=== PATIENT | male | born 1945 | race Caucasian/White ===

== ENCOUNTER 2016-08-14 08:51 | Day surgery (SDC) | payer MEDICARE ==
[~2016-08-14] VITALS: Ht 177.8 cm; Wt 94.4 kg
[~2016-08-14 08:51] MED LIST: ACET500C4 PO; ADVAIR INH; AMLO10TA2 PO; ASPI-875 PO; ASPI-992 PO; ATOR10TA PO; BISA5TAB8 PO; BSC10SU PR; BUDE10.2 IH; CALC-694 PO; CALCIUM PO; CHOL100011 PO; CHOL10003 PO; CHOL20002 PO; CLC500CT PO; CLOP75TA69 PO; CNC1KV IJ; CORTAID TOP; DEXTROSE 50%; DILT240C96 PO; DOCU-143 PO; DOCU50LI GT; DPAS20025 PO; FIBER CAPSULE PO; FISH1CAP15 PO; FLUT1DIS26 IH; HALFPRIN PO; HEPARIN 5000 UNIT/ML SC; HYDR-34 PO; HYDR118S10 PO; INSU100V3 SQ; IPRA3AMP IH; IPRA3AMP INH; LANS15CA5 PO; LATA2.5D5 OU; LEVO137T17 PO; LEVO500T69 PO; LEVO750T39 PO; LIDO15SO2 MM; LISI40TA PO; LOVA40TA2 PO; MAGIC MOUTHWASH PO; MELA1TAB11 PO; METF1000 PO; MTF500T PO; MULT-517 PO; NF-TYLARTH PO; NYST1000 PO; OMEP20CA12 PO; ONDN4T PO; PNT40TEC PO; PRED10TA PO; PRED10TA22 PO; RECLAST IV; SILV25CR TP; TRAM50TA2 PO; walker
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
[2016-08-14] MEDS ORDERED: NS IV 1000 ML 1,000 ML ONE ×2 (08:56→12:22)
[2016-08-14 09:10] VITALS: BP 126/91
[2016-08-14] MEDS ORDERED: NS IV 1000 ML 1,000 ML IV PRN (09:15)
[2016-08-14] MEDS ORDERED: FLUMAZENIL (ROMAZICON) 0.1 MG/ML 5 ML VIAL INJ PRN (09:45)
[2016-08-14] MEDS ORDERED: MIDAZOLAM 2 MG/2 ML (VERSED) VIAL IVP PRN (09:45)
[2016-08-14] MEDS ORDERED: fentaNYL INJECTION 100 MCG/2 ML AMP IVP PRN (09:45)
[2016-08-14] MEDS ORDERED: LIDOCAINE JELLY 2% (XYLOCAINE) 5 ML TUBE MM PRN (09:45)
[2016-08-14] MEDS ORDERED: NALOXONE 0.4 MG/ML 1 ML (NARCAN) VIAL IVP PRN (09:45)
--- NOTE | 2016-08-14 11:11 | Progress Note-Pre Operative ---
Pre-Operative Progress Note H&P Reviewed The H&P was reviewed, patient examined and no changes noted. Date H&P Reviewed: Aug 14, 2016 Time H&P Reviewed: 11:11 Pre-Operative Diagnosis: occult positive stools, history of colon polyps RALPH JASMINE DO Aug 14, 2016 11:11 am
[2016-08-14] MEDS ORDERED: MIDAZOLAM 2 MG/2 ML (VERSED) VIAL ONE (12:39)
[2016-08-14] MEDS ORDERED: PROPOFOL INJECTION 50 ML IV ONE (12:39)
[2016-08-14] MEDS ORDERED: proPOfol 200 MG/20 ML (DIPRIVAN) VIAL IV ONE (13:27)
--- NOTE | 2016-08-14 14:18 | Progress Note-Post Operative ---
Post-Operative Progess Note Pre-Operative Diagnosis occult positive stools, history of colon polyps Post-Operative Diagnosis incomplete colonoscopy Post-Op Procedure Note Date of Procedure: Aug 14, 2016 Name of Procedure: incomplete colonoscopy Procedure Note/Findings see note Anesthesia Type per assembly department supervisor Estimated blood loss (mL): minimal Specimen(s) collected none RALPH JASMINE DO Aug 14, 2016 2:18 pm
--- NOTE | 2016-08-14 14:39 | OPERATIVE REPORT ---
PROCEDURE PHYSICIAN: RALPH JASMINE DATE OF PROCEDURE: 08/14/2016 PREOPERATIVE DIAGNOSIS: 1. Occult positive stool. 2. History of polyps. POSTOPERATIVE DIAGNOSIS: Incomplete colonoscopy. PROCEDURE: Incomplete colonoscopy. SURGEON: Chantelle. ANESTHESIA: Per SUPERINTENDENT STEVEDORING. ESTIMATED BLOOD LOSS: None. COMPLICATIONS: None. INDICATIONS: The patient is a 71-year-old male with occult positive stools. He has a questionable history of history of colon polyps. He was explained risk and benefits of the procedure and wishes to proceed with procedure. Consent was signed on the chart. PROCEDURE: The patient was taken to the endoscopy suite, placed in left lower recumbent position. Timeout was performed. Digital rectal exam was performed. There were no palpable polyps, masses, ulcerations. The scope was inserted in the rectum and advanced all the way to the hepatic flexure. There was still a significant amount of soft and liquid stool present within the colon. Copious amounts of irrigation were used to irrigate and suction. The scope was not able to be further past the hepatic flexure. The patient was repositioned multiple times in order to try to advance the scope and had the scope withdrawn a portion and advanced several times without ever being able to get past the hepatic flexure. It was decided to discontinue the colonoscopy at that time. The scope was then slowly retracted continuously trying to avoid soft and liquid stool. This was continued be suctioned and irrigated. There were no polyps, masses or ulcerations visualized on the mucosal surface that was able to be visualized. The scope was then slowly retracted until completely removed noting no further pathology. RECOMMENDATIONS: The patient will go for CT of the abdomen and pelvis with rectal contrast to further evaluate the colon. After this is performed, would reevaluate colon and repeat colonoscopy in 5 years. If he has any problems prior to that, he should be reevaluated at that time. Further recommendations pending. CT abdomen and pelvis with rectal contrast. Job ID: [id number] Dictated Date: 08/14/2016 14:22:21 Editor In Chief Newspaper Date: 08/14/2016 14:30:01 / olga
[2016-08-14 14:40] VITALS: BP 103/86
[2016-08-14] MEDS ORDERED: SUCR1TAB36 PO (14:55)
[2016-08-14] MEDS ORDERED: PANT40TA2 PO (14:55)
[2016-08-14 15:20] VITALS: BP 126/77
--- NOTE | 2016-08-14 15:26 | Discharge Inst-Simple/Standard ---
Discharge Inst-Standard Patient Instructions/Follow Up Plan of Care/Instructions/FU: Follow up with Dr. Lockhart in 2-3 weeks Activity as Tolerated: Yes Discharge Diet: No Restrictions JANESSA GAYLE APRN Aug 14, 2016 15:26
[2016-08-14 15:30] VITALS: BP 126/77
--- NOTE | 2016-08-14 15:39 | Diagnostic Imaging Report ---
PROCEDURE: CT abdomen and pelvis without contrast. TECHNIQUE: Multiple contiguous axial images were obtained through the abdomen and pelvis without the use of intravenous contrast. INDICATION: Incomplete colonoscopy. History of constipation. Occult positive stool. COMPARISON: 02/12/2014. FINDINGS: Included portions of the lung bases show areas of air-trapping consistent with background of COPD. There are subtle micronodular densities within the posterior left lower lobe. The appearance is suggestive of tree-in-bud distribution. CT abdomen: Rectal contrast was administered. There is opacification of the colon to the cecum. Intraluminal filling defects are seen within the cecum with supine positioning. This is however felt to be on the basis of intraluminal stool content. There is otherwise no focal high-grade stricture of the colon. There is no extravasation of contrast to suggest leak. Please note, small polyps or small sessile masses may be inconspicuous with routine CT technique. There is moderate hiatal hernia. Small bowel loops are nondistended. Normal appendix cannot be adequately identified, but there is no pericecal inflammation. Multiple nonobstructive renal calculi are noted, bilaterally. There is also probable hypodense cyst on the right. No ureteral calculi are seen on either side. Additionally, there is no hydroureteronephrosis or other evidence of obstruction. The liver, spleen, pancreas, and adrenal glands have an unremarkable noncontrast CT appearance. There is no loculated fluid collection, free fluid, or free air within the abdomen. No abnormal mesenteric or retroperitoneal adenopathy is seen. There is diffuse calcified aortic and arterial atherosclerosis. Bony structures show no acute abnormalities. CT pelvis: Urinary bladder is unopacified. No calculi are seen within the urinary bladder. There is no loculated fluid collection, free fluid, or free air within the pelvis. No abnormal lymph nodes are seen. Bony structures show no acute abnormalities. IMPRESSION: 1. Filling defects within the cecum. Given their differences in positioning between supine and prone positioning, this is felt to most likely represent intraluminal stool. There is otherwise no focal stricture, obstruction, or evidence of leak. Please note, small polyps or sessile masses may be inconspicuous with CT imaging. 2. Moderate hiatal hernia. 3. Multiple nonobstructive bilateral renal calculi. 4. Diffuse calcified aortic and arterial atherosclerosis. Dictated by: Dictated on workstation # [id number]
== END 2016-08-14 15:30 | disposition home or self-care (01) ==
LOC: SDC 08:51
PROVIDERS: ATTEND Surgery
DX: R19.5 Other fecal abnormalities (principal); K59.00 Constipation, unspecified; Z86.010 Personal history of colon polyps
CPT/HCPCS: 74176

== ENCOUNTER → 2016-09-19 | Outpatient (CLI) | payer MEDICARE ==
[~2016-09-19] MED LIST changes: +CATHETER FLUSH 10 ML SYR IV PRN; +LANS15CA21 PO; +OMEG-109 PO; +PANT40TA2 PO; +REGADENOSON 0.4 MG/5 ML SYR (LEXISCAN) IV ONE; +SUCR1TAB36 PO
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
[2016-09-19 09:56] VITALS: BP 102/66
--- NOTE | 2016-09-20 08:45 | STRESS TEST ---
PROCEDURE PHYSICIAN: JULIANA MILLER DATE OF PROCEDURE: 09/19/2016 LEXISCAN MYOVIEW STRESS TEST REPORT: REFERRING PHYSICIAN: Dr. De León. INDICATION: Coronary artery disease. BASELINE HEART RATE: 65 BASELINE BLOOD PRESSURE: 129/60 BASELINE EKG: Sinus rhythm with no ischemic changes. IN SUMMARY: The patient was injected with 10.36 mCi of technetium 99 Myoview and the resting images were obtained. Then the patient received 0.4 mg of Lexiscan followed by 28.7 mCi of technetium 99 Myoview. Throughout the test, there were minimal nondiagnostic EKG changes. The resting and stress images were reviewed and compared in the short axis, horizontal long axis, and vertical long axis views. Review of the images showed good radiotracer uptake with no significant ischemia or infarction on SPECT images. SSS is 2, SDS 1, TID value 1.21. On the gated images, the left ventricle appeared to be normal size with normal contractility. Calculated ejection fraction 57%. IN CONCLUSION: 1. The patient tolerated Lexiscan well. 2. TID value is in the upper limits of 1.21. 3. Normal left ventricular size with normal contractility. Calculated ejection fraction 57%. Job ID: [id number] Dictated Date: 09/19/2016 16:02:57 Instrument Person Date: 09/20/2016 08:42:56 / dwain
== END ==
LOC: CARD 08:13
PROVIDERS: ATTEND Physician Assistant
DX: I25.10 Atherosclerotic heart disease of native coronary artery without angina pectoris (principal); I65.23 Occlusion and stenosis of bilateral carotid arteries; G47.33 Obstructive sleep apnea (adult) (pediatric); G45.9 Transient cerebral ischemic attack, unspecified
CPT/HCPCS: 78452; 93017

== ENCOUNTER 2016-10-03 08:48 | Day surgery (SDC) | payer MEDICARE ==
[~2016-10-03] VITALS: Ht 180.3 cm; Wt 93.9 kg
[2016-10-03] VITALS (10 sets, daily range): BP systolic 111–151; BP diastolic 74–92
[~2016-10-03 08:48] MED LIST changes: -CATHETER FLUSH 10 ML SYR IV PRN; -LANS15CA21 PO; -OMEG-109 PO; -REGADENOSON 0.4 MG/5 ML SYR (LEXISCAN) IV ONE
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
[2016-10-03] MEDS ORDERED: HEParin (CATH LAB) 2,000 ML IV ONE (09:00)
[2016-10-03] MEDS ORDERED: LIDOCAINE 1% INJ 20 ML (XYLOCAINE) VIAL ONE (09:00)
[2016-10-03] MEDS ORDERED: NS IV 1000 ML 1,000 ML ONE (09:00)
[2016-10-03] MEDS ORDERED: NS IV 1000 ML 1,000 ML IV SCH ×2 (09:15→11:10)
[2016-10-03 09:32] LABS: MEAN PLATELET VOLUME 8.9 FL (7.4-10.4); RED BLOOD COUNT 4.06 10^6/uL (4.35-5.85); RED CELL DISTRIBUTION WIDTH 14.9 % (10.0-14.5); WHITE BLOOD COUNT 6.8 10^3/uL (4.3-11.0)
[2016-10-03 09:35] LABS: BILIRUBIN,URINE NEGATIVE (NEGATIVE); KETONES,URINE NEGATIVE (NEGATIVE); LEUKOCYTE ESTERASE ,URINE NEGATIVE (NEGATIVE); NITRITE,URINE NEGATIVE (NEGATIVE); PH,URINE 5 (5-9); PROTEIN,URINE NEGATIVE (NEGATIVE); UROBILINOGEN,URINE NORMAL (NORMAL)
--- NOTE | 2016-10-03 09:41 | Diagnostic Imaging Report ---
INDICATION: Coronary artery disease. Frontal chest obtained at 9:29 a.m. and compared to 08/08/15. FINDINGS: Heart is borderline enlarged. Mediastinal silhouette is unremarkable. There are mild chronic appearing increased basilar markings. There is resolution of previous bibasilar infiltrate seen on 08/08/15. There is no pneumothorax or pleural fluid. IMPRESSION: Mild cardiomegaly with chronic appearing increased interstitial markings. Resolution of bibasilar infiltrates compared with 08/08/15. Dictated by: Dictated on workstation # [id number]
[2016-10-03 09:45] LABS: INR 1.1 (0.8-1.4); PROTHROMBIN TIME PATIENT 14.1 SEC (12.2-14.7)
[2016-10-03 09:55] LABS: ALBUMIN 4.1 G/DL (3.2-4.5); BILIRUBIN,TOTAL 0.4 MG/DL (0.1-1.0); CALCIUM 9.6 MG/DL (8.5-10.1); CREATININE SERUM 1.32 MG/DL (0.60-1.30); POTASSIUM 4.1 MMOL/L (3.6-5.0); TOTAL PROTEIN 6.8 G/DL (6.4-8.2)
[2016-10-03] MEDS ORDERED: LANS15CA21 PO (10:10)
[2016-10-03] MEDS ORDERED: OMEG-109 PO (10:10)
[2016-10-03] MEDS ORDERED: fentaNYL INJECTION 100 MCG/2 ML AMP ONE (10:23)
[2016-10-03] MEDS ORDERED: MIDAZOLAM 5 MG/5 ML (VERSED) VIAL ONE (10:23)
--- NOTE | 2016-10-03 10:40 | Cardiac Procedure Note-CS/ASA ---
Pre-Procedure Note Pre-Op Procedure Note H&P Reviewed The H&P was reviewed, patient examined and no changes noted. Date H&P Reviewed: Oct 03, 2016 Time H&P Reviewed: 10:40 Conscious Sedation Pre-Proced Time Reviewed: 10:40 ASA Class: 3 Airway Mallampati Classification: (wainwright appropriate class) I. II. III, IV Lungs Heart ASA score ASA 1: a normal healthy patient ASA 2: a patient with a mild systemic disease (mid diabetes, controlled hypertension, obesity x ASA 3: a patient with a severe systemic disease that limits activity (angina , COPD, prior Myocardial infarction) ASA 4: a patient with an incapacitating disease that is a constant threat to life (CHF, renal failure) ASA 5: a moribund patient not expected to survive 24 hrs. (ruptured aneurysm) ASA 6: a declared brain patient whose organs are being harvested. For emergent operations, add the letter E after the classification Grade 3 Sedation Plan: Analgesia, Amnesia, Plan communicated to team members, Discussed options with patient/fam, Discussed risks with patient/fam Note The patient is an appropriate candidate to undergo the planned procedure, sedation, and anesthesia. The patient immediately re-assessed prior to indication. JULIANA MILLER MD Oct 03, 2016 10:40
--- NOTE | 2016-10-03 11:13 | Discharge Inst-Post CATH ---
Discharge Inst-CATH Post Cardiac Cath D/C Inst Follow Up/Plan Appointment with Dr Baig's office in 2-4 weeks CARDIAC CATH DISCHARGE INSTRUCTIONS *Hold Metformin for 48 hours post heart cath. ACTIVITY * Go Home directly and rest. * Limit activity of the leg (or wrist if it was used) for 7 days including aerobics, swimming, jogging, bicycling, etc. * Restrict stair-climbing for 7 days if possible, if not, climb up with your non -cath leg, then bring together on the same step. * Avoid lifting, pushing, pulling or excessive movement of the affected extremity for 7 days. * Customary sexual activity may be resumed after 2 days-use caution not to use a position that strains or causes pain to the affected extremity. * No driving for 24 hours. * NO SMOKING. * Avoid straining for bowel movements for 7 days. * Gentle walking on level ground is allowed. * Returning to work will depend on the type of procedure and the results. Your doctor will discuss this with you. CALL YOUR DOCTOR FOR ANY OF THE FOLLOWING: *If bleeding from the puncture site occurs- Apply gentle pressure to site with clean cloth and call your doctor or EMS. * If a knot or lump forms under the skin, increases in size, or causes pain. * If bruising appears to be worsening or moving further down your leg instead of disappearing. * Temperature above 101 F. CARE OF YOUR GROIN INCISION; * Bruising or purple discoloration of the skin near the puncture site is common. * You may shower only, no bathtub bathing for 5 days. Be careful to avoid slipping as your leg may feel stiff. * If a closure device was used on your femoral artery, please see the attached guide regarding care of the device and your leg. * REMOVE the dressing from your groin the next day after your procedure in the shower. CARE OF YOUR WRIST INCISION; * Bruising or purple discoloration of the skin near the puncture site is common. * You may shower. * DO NOT submerge wrist. * Remove dressing in 24 hours. JULIANA BAIG MD Oct 03, 2016 11:13
[2016-10-03] MEDS ORDERED: PATIENT MAY USE OWN MEDS, ALL PO SCH (11:15)
--- NOTE | 2016-10-04 11:32 | DISCHARGE SUMMARY ---
PROCEDURE PHYSICIAN: JULIANA MILLER DATE OF PROCEDURE: 10/03/2016 INDICATION: Coronary artery disease. SUMMARY: Mr. Licea is a 71-year-old gentleman with a history of coronary artery disease. He had a history of stent in the past. He had an abnormal stress test, scheduled for left heart catheterization, possible PTCA. PROCEDURE NOTE: After explaining the procedure to the patient, all pros and cons were explained. All questions were answered. The patient signed a consent, then he was placed on the cardiac catheterization laboratory. The right groin was prepped in a sterile fashion. Local anesthesia applied to the right groin. 6-Polish sheath was placed in the right femoral artery. Rajiv left 4.0 was used; I had to upgrade it to 4.5 diagnostic catheter, advanced to the left coronary system. Angiogram was done in multiple views then Rajiv right was placed in the right coronary artery. Multiple views were obtained. Pigtail catheter advanced to the left ventricular cavity. Pressure was measured. No left ventriculogram was done. Pullback LV to aorta was done. The aortic arch angiogram was done. At the end of the procedure, sheath was removed. Mynx device deployed. Hemostasis achieved. FINDINGS: HEMODYNAMICS: LV pressure 127/11, end-diastolic pressure of 11, aortic pressure 130/73, mean of 94. No significant gradient across the aortic valve. ANATOMY: 1. Left main coronary artery is bifurcating to left anterior descending artery and left circumflex artery. Mildly calcified with no obstructive disease. 2. Left anterior descending artery, calcified artery with 50 to 60% stenosis proximally. First diagonal branch has patent stent, small vessel disease distally. 3. Left circumflex artery is moderate in size with no significant obstructive disease. 4. Right coronary artery is dominant artery, moderate in size 50% stenosis at the midportion distally. The right posterior descending artery has 70% stenosis in a smaller artery about 1.5 mm in diameter. 5. No left ventriculogram was done. Normal left ventricular end diastolic pressure. 6. Aortic arch angiogram appears to be prominent in size. Origin of the innominate artery, carotid artery and subclavian artery appeared normal. CONCLUSION: 1. Calcified coronary system with 50 to 60% proximal LAD stenosis, nonobstructive disease patent stent in the first diagonal branch. 50 to 60% stenosis at the mid right coronary artery and 70% stenosis at the mid right posterior descending branch. That branch is a fairly small about 1.5 mm. 2. Normal left ventricular end diastolic pressure. 3. Prominent aortic arch with normal great neck vessels. DISCUSSION AND RECOMMENDATION: I recommend evaluating CT angiogram of the chest as an outpatient, continue maximizing medical therapy. No intervention is warranted at this time. FINAL DIAGNOSIS: 1. Coronary artery disease. 2. Hypertension. 3. Hyperlipidemia. 4. Prominent aortic arch. Job ID: [id number] Dictated Date: 10/03/2016 11:18:07 Dining Car Server Date: 10/04/2016 11:29:49/olga
== END 2016-10-03 15:30 | disposition home or self-care (01) ==
LOC: CATH 08:48 → SURG 11:36 → CATH 15:30
PROVIDERS: ATTEND Internal Medicine Cardiovascular Disease
DX: R94.39 Abnormal result of other cardiovascular function study (principal); I25.10 Atherosclerotic heart disease of native coronary artery without angina pectoris; I25.84 Coronary atherosclerosis due to calcified coronary lesion; I10 Essential (primary) hypertension; E78.5 Hyperlipidemia, unspecified; I34.0 Nonrheumatic mitral (valve) insufficiency; G47.33 Obstructive sleep apnea (adult) (pediatric); I65.23 Occlusion and stenosis of bilateral carotid arteries; Z95.5 Presence of coronary angioplasty implant and graft; Z79.899 Other long term (current) drug therapy; Z72.0 Tobacco use; Z86.73 Personal history of transient ischemic attack (TIA), and cerebral infarction without residual deficits
CPT/HCPCS: 36221; 36415; 71010; 80053; 80061; 81000; 85027; 85610; 85730; 87081; 93458

== ENCOUNTER → 2017-02-27 | Outpatient (CLI) | payer MEDICARE ==
[~2017-02-27] MED LIST changes: +LANS15CA21 PO; +OMEG-109 PO; +RT-ALBUTEROL SULF 2.5 MG/3 ML PRE-MIX VIAL IH ONE; +RT-ALBUTEROL SULF 2.5 MG/3 ML PRE-MIX VIAL ONE
== END ==
LOC: RT 15:06
PROVIDERS: ATTEND Internal Medicine Critical Care Medicine
DX: R06.02 Shortness of breath (principal); Z87.891 Personal history of nicotine dependence
CPT/HCPCS: 94060; 94640; 94726; 94729

== ENCOUNTER → 2017-11-15 | Outpatient (CLI) | payer MEDICARE ==
[~2017-11-15] MED LIST changes: +ASCO500T75 PO; +CATHETER FLUSH 10 ML SYR IV PRN; +CYPR4TAB PO; +DOXE10CA29 PO; +GABA-488 PO; +IOHEXOL 350 MG/ML 100 ML (OMNIPAQUE 350) VIAL IV ONE; +LEVO137T2 PO; +NS 250 ML (IVPB) BAG IV ONE; +RANI150T11 PO; +RECEIVED CONTRAST (Hold Metformin) IV SCH; -RT-ALBUTEROL SULF 2.5 MG/3 ML PRE-MIX VIAL IH ONE; -RT-ALBUTEROL SULF 2.5 MG/3 ML PRE-MIX VIAL ONE
[2017-11-15 11:13] LABS: ALBUMIN 4.2 GM/DL (3.2-4.5); BILIRUBIN,TOTAL 0.3 MG/DL (0.1-1.0); CALCIUM 11.4 MG/DL (8.5-10.1); CREATININE SERUM 1.4 MG/DL (0.60-1.30); POTASSIUM 4.4 MMOL/L (3.6-5.0); TOTAL PROTEIN 6.9 GM/DL (6.4-8.2)
--- NOTE | 2017-11-15 16:42 | Diagnostic Imaging Report ---
PROCEDURE: CT angiography of the chest with contrast. TECHNIQUE: Multiple contiguous axial images were obtained through the chest after uneventful bolus administration of intravenous contrast. Reconstructed CTA MIP acquisitions were also performed. INDICATION: Recent fall. Headache. Nausea. Dizziness. COMPARISON: 08/12/2015 FINDINGS: There is no evidence of acute pulmonary embolus to the segmental division of the pulmonary arteries. Evaluation beyond this is suboptimal secondary to suboptimal opacification by the contrast bolus. Note is made that the bilateral pulmonary arteries are somewhat prominent in appearance suggestive of underlying pulmonary arterial hypertension. Heart size is within normal limits. Ascending thoracic aorta is aneurysmally dilated measuring 4.3 cm in diameter. This is stable compared to 08/12/2015. Descending thoracic aorta is within normal limits at 3.1 cm in diameter. There is moderate diffuse calcified and noncalcified aortic atherosclerosis. Note is also made of significant calcified coronary atherosclerosis. There is no large pericardial effusion. Prominent right hilar lymph node measures 2.8 x 1.5 cm. This is stable compared to 08/12/2015. No other pathologically enlarged or morphologically abnormal adenopathy is seen within the mediastinum, left aster, nor bilateral axillae. Note is also made of hiatal hernia with somewhat prominent thickened appearance of the wall of the distal esophagus. Esophageal wall measures approximately 1 cm in thickness. Evaluation of lung maloney demonstrates mild to moderate air trapping consistent with background of emphysematous disease. There is no focal consolidation, pleural effusion, nor pneumothorax. No suspicious pulmonary nodules or masses are identified. Osseous structures show no acute abnormalities. No lytic or blastic bony lesions are seen. Included portions of the upper abdomen show early excretion of contrast versus partially visualized renal calculi on the left. IMPRESSION: 1. No evidence of acute pulmonary embolus to the segmental division of the pulmonary arteries. 2. Findings suspicious for pulmonary arterial hypertension. 3. Stable aneurysmal dilatation of the ascending thoracic aorta. 4. Significant calcified coronary and moderate aortic atherosclerosis. 5. Thickened appearance to the wall of distal esophagus. This does raise suspicion for potential esophagitis. Esophageal neoplasm, however, could not be excluded. Not mentioned above, there is a prominent paraesophageal lymph node near the hiatus that measures 1.3 x 1.1 cm. Further evaluation with direct visualization is recommended. 6. Mild to moderate emphysematous disease. 7. Prominent, yet stable right hilar lymph node. 8. There is excretion of contrast versus partially visualized left renal calculi. Dictated by: Dictated on workstation # [id number]
== END ==
LOC: RAD 10:39
PROVIDERS: ATTEND Internal Medicine Cardiovascular Disease
DX: I71.2 Thoracic aortic aneurysm, without rupture (principal); I25.10 Atherosclerotic heart disease of native coronary artery without angina pectoris; J43.9 Emphysema, unspecified; N20.0 Calculus of kidney; R41.0 Disorientation, unspecified; I34.0 Nonrheumatic mitral (valve) insufficiency; G47.33 Obstructive sleep apnea (adult) (pediatric); W19.XXXA Unspecified fall, initial encounter; Z72.0 Tobacco use
CPT/HCPCS: 36415; 71275; 80053; 80061

== ENCOUNTER 2017-11-18 14:19 | Observation (INO) | payer MEDICARE ==
[~2017-11-18] VITALS: Ht 180.3 cm; Wt 93.9 kg
[~2017-11-18 14:19] MED LIST changes: -ASCO500T75 PO; -CATHETER FLUSH 10 ML SYR IV PRN; -CYPR4TAB PO; -DOXE10CA29 PO; -GABA-488 PO; -IOHEXOL 350 MG/ML 100 ML (OMNIPAQUE 350) VIAL IV ONE; -LEVO137T2 PO; -NS 250 ML (IVPB) BAG IV ONE; -RANI150T11 PO; -RECEIVED CONTRAST (Hold Metformin) IV SCH
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
--- OUTSIDE RECORDS SUMMARY | 2017-11-18 14:54 | XMS REPORT | Continuity of Care Document ---
Author Author [facility] Organization [facility] Address Unknown Phone Unavailable Allergies Active Description Code Type Severity Reaction Onset Reported/Identified Relationship to Patient Clinical Status Yes No Known Drug Allergies [id number] Drug Allergy Unknown N/A 08/14/2016 Medications There is no data. 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 02/13/2014 MARCY KENNY DO Ot 511.9 PLEURAL EFFUSION NOS 02/13/2014 MARCY KENNY DO Ot 518.81 ACUTE RESPIRATORY FAILURE 02/13/2014 MARCY KENNY DO Ot 584.9 ACUTE RENAL FAILURE, UNSPECIFIED 02/13/2014 MARCY KENNY DO Ot 785.50 SHOCK NOS 02/13/2014 MARCY KENNY DO Ot 785.52 SEPTIC SHOCK 02/13/2014 MARCY KENNY DO Ot 995.92 SEVERE SEPSIS 02/13/2014 MARCY KENNY DO, Ot V45.82 PERCUTANEOUS TRANSLUM CORON ANGIOPLASTY 03/10/2014 HERBERTH ARCE, TONI Lewis Ot 266.2 B-COMPLEX DEFIC NEC 03/10/2014 TONI KEVIN MD Ot 268.9 VITAMIN D DEFICIENCY NOS 03/10/2014 TONI KEVIN MD Ot 272.4 HYPERLIPIDEMIA NEC/NOS 03/10/2014 TONI KEVIN MD E Ot 274.9 GOUT NOS 03/10/2014 TONI KEVIN MD Ot 305.1 TOBACCO USE DISORDER 03/10/2014 TONI KEVIN MD Ot 401.9 HYPERTENSION NOS 03/10/2014 HERBERTH ARCE, TONI E Ot 564.00 UNSPEC CONSTIPATION 03/10/2014 TONI KEVIN MD E Ot 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 03/10/2014 TONI KEVIN MD Ot 733.00 OSTEOPOROSIS NOS 03/10/2014 TONI KEVIN MD E Ot 780.79 OTH MALAISE FATIGUE 03/10/2014 TONI KEVIN MD E Ot 790.29 OTHER ABNORMAL GLUCOSE 03/10/2014 TONI KEVIN MD Ot V57.89 REHABILITATION PROC NEC 06/23/2014 NAZ DO MARIE F Ot 726.0 06/28/2014 NAZ DO, MARIE F Ot 718.91 06/28/2014 NAZ DO MARIE F Ot 726.0 07/07/2014 NAZ SIMMONS MARIE F Ot 726.0 ADHESIVE CAPSULIT SHLDER 07/07/2014 NAZ SIMMONS MARIE F Ot V57.1 PHYSICAL THERAPY NEC 07/15/2014 NAZ SIMMONS MARIE F Ot 718.91 07/15/2014 NAZ SIMMONS MARIE F Ot 726.0 07/16/2014 MARCY KENNY DO Ot 250.00 DIAB BRENNEN WO COMPL, TYPE II OR UNSPEC TY 07/16/2014 MARCY KENNY DO Ot 266.2 B-COMPLEX DEFIC NEC 07/16/2014 MARCY KENNY DO Ot 268.9 VITAMIN D DEFICIENCY NOS 07/16/2014 MARCY KENNY DO Ot 272.4 HYPERLIPIDEMIA NEC/NOS 07/16/2014 MARCY KENNY DO Ot 403.90 HYPTNSV CHR KID DIS, UNSPEC, W CHR KD ST 07/16/2014 MARCY KENNY DO Ot 414.01 CORONARY ATHEROSCLEROSIS OF [place] CORON 07/16/2014 MARCY KENNY DO Ot 435.9 TRANS CEREB ISCHEMIA NOS 07/16/2014 MARCY KENNY DO Ot 496 CHR AIRWAY OBSTRUCT NEC 07/16/2014 MARCY KENNY DO Ot 585.2 CHRONIC KIDNEY DISEASE, STAGE II (MILD) 07/16/2014 MARCY KENNY DO Ot 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 07/16/2014 MARCY KENNY DO Ot 799.02 HYPOXEMIA 07/16/2014 MARCY KENNY DO Ot V45.82 PERCUTANEOUS TRANSLUM CORON ANGIOPLASTY 07/27/2014 NAZ SIMMONS MARIE Cao Ot 718.91 07/27/2014 NAZ SIMMONS MARIE Cao Ot 726.0 08/25/2014 Ot 733.00 08/25/2014 Ot 733.00 08/25/2014 Ot 733.00 08/25/2014 MARCY KENNY DO Ot 733.00 08/25/2014 AGUSTIN ROJO DO Ot 492.8 08/25/2014 AGUSTIN ROJO DO Ot 511.9 08/25/2014 AGUSTIN ROJO DO Ot 586 08/25/2014 NAZ SIMMONS MARIE Cao Ot 726.0 08/25/2014 NAZ SIMMONS MARIE Cao Ot 718.91 08/25/2014 NAZ SIMMONS MARIE Coa Ot 726.0 08/25/2014 NAZ MARIE Cao Ot 840.4 08/25/2014 NAZ MARIE Cao Ot E000.8 08/25/2014 NAZ MARIE Cao Ot E928.9 08/25/2014 NAZ SIMMONS MARIE Cao Ot V72.84 08/31/2014 NAZ MARIE SIMMONS Ot 840.4 SPRAIN ROTATOR CUFF 08/31/2014 NAZ SIMMONS MARIE Cao Ot E000.8 OTHER EXTERNAL CAUSE STATUS 08/31/2014 NAZ SIMMONS MARIE Cao Ot E928.9 ACCIDENT NOS 08/31/2014 NAZ SIMMONS MARIE Cao Ot V58.61 ANTICOAGULANTS,LT,CURRENT USE 08/31/2014 NAZ MARIE Cao Ot V64.1 NO PROC/CONTRAINDICATION 09/28/2014 NAZ SIMMONS MARIE Cao Ot 715.31 LOC OSTEOARTH NOS-SHLDER 09/28/2014 NAZ SIMMONS MARIE Cao Ot 727.61 ROTATOR CUFF RUPTURE 09/28/2014 NAZ SIMMONS MARIE Cao Ot 840.7 (SLAP) SUPERIOR GLENOID LABRUM LESIONS 10/06/2014 JULIANA MILLER MD Ot 414.01 10/06/2014 JULIANA MILLER MD Ot 786.09 10/07/2014 Ot 733.00 10/07/2014 Ot 733.00 10/07/2014 Ot 733.00 10/07/2014 MARCY KENNY DO Ot 733.00 10/07/2014 AGUSTIN ROJO DO Ot 492.8 10/07/2014 ALIA AGUSTIN SIMMONS Ot 511.9 10/07/2014 ALIA SIMMONS AGUSTIN M Ot 586 10/07/2014 NAZ DO, MARIE Cao Ot 726.0 10/07/2014 NAZ DO, MARIE F Ot 718.91 10/07/2014 NAZ DO, MARIE F Ot 726.0 10/07/2014 NAZ DO, MARIE F Ot 840.4 10/07/2014 NAZ DO, MARIE Cao Ot E000.8 10/07/2014 NAZ DO MARIE Cao Ot E928.9 10/07/2014 NAZ DO MARIE Cao Ot V72.84 10/07/2014 NAZ DO MARIE Cao Ot 727.61 10/07/2014 NAZ DO MARIE Cao Ot V72.84 10/07/2014 JULIANA MILLER MD Ot 414.00 10/07/2014 ANGELA ARCE, JULIANA Goncalves Ot 424.0 10/07/2014 JULIANA MILLER MD Ot 433.10 10/07/2014 JULIANA MILLER MD Ot 786.09 10/07/2014 JULIANA MILLER MD Ot 414.01 10/07/2014 JULIANA MILLER MD Ot 786.09 10/07/2014 NAZ DO MARIE Cao Ot 840.4 10/07/2014 NAZ DO MARIE Cao Ot E000.8 10/07/2014 NAZ DO MARIE Cao Ot E928.9 10/07/2014 NAZ DO, MARIE F Ot V72.84 10/07/2014 JULIANA MILLER MD Ot 414.01 10/07/2014 JULIANA MILLER MD Ot 786.09 11/09/2014 NAZ DO MARIE Cao Ot 719.41 JOINT PAIN-SHLDER 11/09/2014 NAZ DO MARIE F Ot V57.1 PHYSICAL THERAPY NEC 11/09/2014 NAZ DO MARIE F Ot V58.49 OTHER SPECIFIED AFTERCARE FOLLOWING SURG 11/30/2014 NAZ DO, MARIE Cao Ot 840.4 11/30/2014 NAZ DO, MARIE Cao Ot E000.8 11/30/2014 NAZ DO, MARIE Cao Ot E928.9 11/30/2014 NAZ DO, MARIE Cao Ot V72.84 12/01/2014 NAZ DO, MARIE Cao Ot 840.4 12/01/2014 NAZ DO, MARIE Cao Ot E000.8 12/01/2014 NAZ DO, MARIE Cao Ot E928.9 12/01/2014 NAZ DO, MARIE Cao Ot V72.84 12/01/2014 NAZ DO, MARIE Cao Ot 727.61 12/01/2014 NAZ DO, MARIE Cao Ot V72.84 12/01/2014 NAZ DO, MARIE Cao Ot 727.61 12/01/2014 NAZ DO, MARIE Cao Ot V72.84 12/06/2014 Ot 733.00 12/06/2014 Ot 733.00 02/16/2015 NAZ DO, MARIE Cao Ot 722.4 02/17/2015 NAZ DO, MARIE Cao Ot 722.4 04/01/2015 ASH ALARCON MD Ot 721.0 04/01/2015 ASH ALARCON MD Ot V57.1 04/05/2015 ASH ALARCON MD Ot 721.0 04/05/2015 ASH ALARCON MD Ot V57.1 04/19/2015 ASH ALARCON MD Ot 721.0 CERVICAL SPONDYLOSIS 04/19/2015 ASH ALARCON MD Ot V57.1 PHYSICAL THERAPY NEC 08/10/2015 MARCY KENNY DO Ot A41.9 08/10/2015 KENNYMARCY GARCIA DO Ot E53.8 08/10/2015 KENNYMARCY GARCIA DO Ot E55.9 08/10/2015 KENNYMARCY GARCIA DO Ot E78.5 08/10/2015 MARCY KENNY DO Ot F17.200 08/10/2015 MARCY KENNY DO Ot I12.9 08/10/2015 KENNYMARCY GARCIA DO Ot J15.1 08/10/2015 KENNYMARCY GARCIA DO Ot J15.4 08/10/2015 MARCY KENNY DO Ot J44.0 08/10/2015 KENNY DO, MARCY Goncalves Ot J44.1 08/10/2015 KENNY DO, MARCY Goncalves Ot M51.14 08/10/2015 EKNNY DO, MARCY Goncalves Ot N18.2 08/10/2015 KENNY DO, MARCY Goncalves Ot R90.82 08/10/2015 KENNY DO, MARCY Goncalves Ot Z66 08/11/2015 KENNY DO, MARCY Goncalves Ot A41.9 08/11/2015 KENNY DO, MARCY Goncalves Ot E53.8 08/11/2015 KENNY DO, MARCY Goncalves Ot E55.9 08/11/2015 KENNY DO, MARCY Goncalves Ot E78.5 08/11/2015 KENNY DO, MARCY Goncalves Ot F17.200 08/11/2015 KENNY DO, MARCY Goncalves Ot I12.9 08/11/2015 KENNY DO, MARCY Goncalves Ot J15.1 08/11/2015 KENNY DO, MARCY Goncalves Ot J15.4 08/11/2015 KENNY DO, MARCY Goncalves Ot J44.0 08/11/2015 KENNY DO, MARCY Goncalves Ot J44.1 08/11/2015 KENNY DO, MARCY Goncalves Ot M51.14 08/11/2015 KENNY DO, MARCY Goncalves Ot N18.2 08/11/2015 KENNY DO, MARCY Goncalves Ot R90.82 08/11/2015 KENNY DO, MARCY Goncalves Ot Z66 08/12/2015 KENNY DO, MARCY Goncalves Ot A41.9 08/12/2015 KENNY DO, MARCY Goncalves Ot E53.8 08/12/2015 KENNY DO, MARCY Goncalves Ot E55.9 08/12/2015 KENNY DO, MARCY Goncalves Ot E78.5 08/12/2015 KENNY DO, MARCY Goncalves Ot F17.200 08/12/2015 KENNY DO, MARCY Goncalves Ot I12.9 08/12/2015 KENNY DO, MARCY Goncalves Ot J15.1 08/12/2015 KENNY DO MARCY Goncalves Ot J15.4 08/12/2015 KENNY DO, MARCY Goncalves Ot J44.0 08/12/2015 KENNY DO, MARCY Goncalves Ot J44.1 08/12/2015 KENNY DO, MARCY Goncalves Ot M51.14 08/12/2015 KENNY DO, MARCY Goncalves Ot N18.2 08/12/2015 KENNY DO, MARCY Goncalves Ot R90.82 08/12/2015 KENNY DO, MARCY Goncalves Ot Z66 08/12/2015 KENNY DO, MARCY Goncalves Ot A41.9 08/12/2015 KENNY DO, MARCY Goncalves Ot E53.8 08/12/2015 KENNY DO, MARCY Goncalves Ot E55.9 08/12/2015 KENNY DO, MARCY Goncalves Ot E78.5 08/12/2015 KENNY DO, MARCY Goncalves Ot F17.200 08/12/2015 KENNY DO, MARCY Goncalves Ot I12.9 08/12/2015 KENNY DO, MARCY Goncalves Ot J15.1 08/12/2015 KENNY DO, MARCY Goncalves Ot J15.4 08/12/2015 KENNY DO, MARCY Goncalves Ot J44.0 08/12/2015 KENNY DO, MARCY Goncalves Ot J44.1 08/12/2015 KENNY DO, MARCY Goncalves Ot M51.14 08/12/2015 KENNY DO, MARCY Goncalves Ot N18.2 08/12/2015 KENNY DO, AMRCY Goncalves Ot R90.82 08/12/2015 KENNY DO, MARCY Goncalves Ot Z66 08/13/2015 KENNY DO, MARCY Goncalves Ot A41.9 08/13/2015 KENNY DO, MARCY Goncalves Ot E53.8 08/13/2015 KENNY DO, MARCY Goncalves Ot E55.9 08/13/2015 KENNY DO, MARCY Goncalves Ot E78.5 08/13/2015 KENNY DO, MARCY Goncalves Ot F17.200 08/13/2015 KENNY DO, MARCY Goncalves Ot I12.9 08/13/2015 KENNY DO, MARCY Goncalves Ot J15.1 08/13/2015 KENNY DO, MARCY Goncalves Ot J15.4 08/13/2015 KENNY DO, MARCY Goncalves Ot J44.0 08/13/2015 KENNY DO, MARCY Goncalves Ot J44.1 08/13/2015 KENNY DO, MARCY Goncalves Ot M51.14 08/13/2015 KENNY DO, MARCY Goncalves Ot N18.2 08/13/2015 KENNY DO, MARCY Goncalves Ot R90.82 08/13/2015 KENNY DO, MARCY Goncalves Ot Z66 08/14/2015 KENNY DO, MARCY Goncalves Ot A41.9 08/14/2015 KENNY DO, MARCY Goncalves Ot E53.8 08/14/2015 KENNY DO, MARCY Goncalves Ot E55.9 08/14/2015 KENNY DO, MARCY Goncalves Ot E78.5 08/14/2015 KENNY DO, MARCY Goncalves Ot F17.200 08/14/2015 KENNY DO, MARCY Goncalves Ot I12.9 08/14/2015 KENNY DO, MARCY Goncalves Ot J15.1 08/14/2015 KENNY DO, MARCY Goncalves Ot J15.4 08/14/2015 KENNY DO, MARCY Goncalves Ot J44.0 08/14/2015 KENNY DO, MARCY Goncalves Ot J44.1 08/14/2015 KENNY DO, MARCY Goncalves Ot M51.14 08/14/2015 KENNY DO, MARCY Goncalves Ot N18.2 08/14/2015 KENNY DO, MARCY Goncalves Ot R90.82 08/14/2015 KENNY DO, MARCY Goncalves Ot Z66 08/14/2015 KENNY DO, MARCY Goncalves Ot A41.9 08/14/2015 KENNY DO, MARCY Goncalves Ot E53.8 08/14/2015 KENNY DO, MARCY Goncalves Ot E55.9 08/14/2015 KENNY DO, MARCY Goncalves Ot E78.5 08/14/2015 KENNY DO, MARCY Goncalves Ot F17.200 08/14/2015 KENNY DO, MARCY Goncalves Ot I12.9 08/14/2015 KENNY DO, MARCY Goncalves Ot J15.1 08/14/2015 KENNY DO, MARCY Goncalves Ot J15.4 08/14/2015 KENNY DO, MARCY Goncalves Ot J44.0 08/14/2015 KENNY DO, MARCY Goncalves Ot J44.1 08/14/2015 KENNY DO, MARCY Goncalves Ot M51.14 08/14/2015 KENNY DO, MARCY Goncalves Ot N18.2 08/14/2015 KENNY DO, MARCY Goncalves Ot R90.82 08/14/2015 KENNY DO, MARCY Goncalves Ot Z66 08/15/2015 KENNY DO, MARCY Goncalves Ot A41.9 08/15/2015 KENNY DO, MARCY Goncalves Ot E53.8 08/15/2015 KENNY DO, MARCY Goncalves Ot E55.9 08/15/2015 KENNY DO, MARCY Goncalves Ot E78.5 08/15/2015 KENNY DO, MARCY Goncalves Ot F17.200 08/15/2015 KENNY DO, MARCY Goncalves Ot I12.9 08/15/2015 KENNY DO, MARCY Goncalves Ot J15.1 08/15/2015 KENNY DO, MARCY Goncalves Ot J15.4 08/15/2015 KENNY DO, MARCY Goncalves Ot J44.0 08/15/2015 KENNY DO, MARCY Goncalves Ot J44.1 08/15/2015 KENNY DO, MARCY Goncalves Ot M51.14 08/15/2015 KENNY DO, MARCY Goncalves Ot N18.2 08/15/2015 KENNY DO, MARCY Goncalves Ot R90.82 08/15/2015 KENNY DO, MARCY Goncalves Ot Z66 08/16/2015 KENNY DO, MARCY Goncalves Ot A41.9 08/16/2015 KENNY DO, MARCY Goncalves Ot E53.8 08/16/2015 KENNY DO, MARCY Goncalves Ot E55.9 08/16/2015 KENNY DO, MARCY Goncalves Ot E78.5 08/16/2015 KENNY DO, MARCY Goncalves Ot F17.200 08/16/2015 KENNY DO, MARCY Goncalves Ot I12.9 08/16/2015 KENNY DO, MARCY Goncalves Ot J15.1 08/16/2015 KENNY DO, MARCY Goncalves Ot J15.4 08/16/2015 KENNY DO, MARCY Goncalves Ot J44.0 08/16/2015 KENNY DO, MARCY Goncalves Ot J44.1 08/16/2015 KENNY DO, MARCY Goncalves Ot M51.14 08/16/2015 KENNY DO, MARCY Goncalves Ot N18.2 08/16/2015 KENNY DO, MARCY Goncalves Ot R90.82 08/16/2015 KENNY DO, MARCY Goncalves Ot Z66 08/16/2015 KENNY DO, MARCY Goncalves Ot A41.9 SEPSIS, UNSPECIFIED ORGANISM 08/16/2015 MARCY KENNY DO, Ot 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 NURSE INFORMATICS EDUCATOR 08/16/2015 MARCY KENNY DO, Ot E53.8 DEFICIENCY OF OTHER SPECIFIED B GROUP 08/16/2015 MARCY KENNY DO, Ot E55.9 VITAMIN D DEFICIENCY, UNSPECIFIED 08/16/2015 MARCY KENNY DO, Ot E78.5 HYPERLIPIDEMIA, UNSPECIFIED 08/16/2015 MARCY KENNY DO, Ot F17.210 NICOTINE DEPENDENCE, CIGARETTES, UNCOMPL 08/16/2015 MARCY KENNY DO, Ot I12.9 HYPERTENSIVE CHRONIC KIDNEY DISEASE W ST 08/16/2015 MARCY KENNY DO, Ot I25.10 ATHSCL HEART DISEASE OF [place] CORONARY 08/16/2015 MARCY KENNY DO, Ot J15.1 PNEUMONIA DUE TO PSEUDOMONAS 08/16/2015 MARCY KENNY DO, Ot J15.4 PNEUMONIA DUE TO OTHER STREPTOCOCCI 08/16/2015 MARCY KENNY DO, Ot J44.0 CHRONIC OBSTRUCTIVE PULMON DISEASE W ACU 08/16/2015 MARCY KENNY DO, Ot J44.1 CHRONIC OBSTRUCTIVE PULMONARY DISEASE W 08/16/2015 MARCY KENNY DO, Ot M51.14 INTVRT DISC DISORDERS W RADICULOPATHY, T 08/16/2015 MARCY KENNY DO, Ot N18.2 CHRONIC KIDNEY DISEASE, STAGE 2 (MILD) 08/16/2015 MARCY KENNY DO, Ot R90.82 WHITE MATTER DISEASE, UNSPECIFIED 08/16/2015 MARCY KENNY DO, Ot Z66 DO NOT RESUSCITATE 09/05/2015 Ot 733.00 09/05/2015 Ot 733.00 09/05/2015 Ot 733.00 09/05/2015 MARCY KENNY DO, Ot 733.00 09/05/2015 AGUSTIN ROJO DO Ot 492.8 09/05/2015 AGUSTIN ROJO DO Ot 511.9 09/05/2015 AGUSTIN ROJO DO Ot 586 09/05/2015 MARIE CHILDS DO Ot 726.0 09/05/2015 MARIE CHILDS DO Ot 718.91 09/05/2015 MARIE CHILDS DO Ot 726.0 09/05/2015 MARIE CHILDS DO Ot 840.4 09/05/2015 NAZ DO, MARIE Cao Ot E000.8 09/05/2015 NAZ DO, MARIE Cao Ot E928.9 09/05/2015 NAZ DO, MARIE Cao Ot V72.84 09/05/2015 NAZ DO, MARIE Cao Ot 727.61 09/05/2015 NAZ DO, MARIE Cao Ot V72.84 09/05/2015 ANGELA ARCE, JULIANA Goncalves Ot 414.00 09/05/2015 ANGELA ARCE, JULIANA J Ot 424.0 09/05/2015 ANGELA ARCE, JULIANA J Ot 433.10 09/05/2015 ANGELA ARCE, JULIANA J Ot 786.09 09/05/2015 ANGELA ARCE, JULIANA Goncalves Ot 414.01 09/05/2015 ANGELA ARCE, JULIANA Goncalves Ot 786.09 09/05/2015 NAZ DO, MARIE Cao Ot 840.4 09/05/2015 NAZ DO, MARIE Cao Ot E000.8 09/05/2015 NAZ DO, MARIE Cao Ot E928.9 09/05/2015 NAZ DO, MARIE Cao Ot V72.84 09/05/2015 Ot 733.00 09/05/2015 NAZ DO, MARIE Cao Ot 722.4 09/08/2015 Ot J44.9 09/09/2015 MARCY KENNY DO Ot J44.9 09/23/2015 Ot J44.9 09/28/2015 KENNYMARCY GARCIA DO Ot K59.00 09/29/2015 Ot J44.9 10/07/2015 MARCY KENNY DO Ot K59.00 10/21/2015 MARCY KENNY DO Ot J44.9 11/14/2015 MARCY KENNY DO Ot J44.9 12/04/2015 KENNYMARCY GARCIA DO Ot J44.9 CHRONIC OBSTRUCTIVE PULMONARY DISEASE, U 12/07/2015 MARCY KENNY DO Ot J44.9 CHRONIC OBSTRUCTIVE PULMONARY DISEASE, U 08/09/2016 RALPH JASMINE DO Ot R19.5 OTHER FECAL ABNORMALITIES 08/09/2016 RALPH JASMINE DO Ot Z01.818 ENCOUNTER FOR OTHER PREPROCEDURAL EXAMIN 08/10/2016 RALPH JASMINE DO Ot R19.5 OTHER FECAL ABNORMALITIES 08/10/2016 RALPH JASMINE DO Ot Z01.818 ENCOUNTER FOR OTHER PREPROCEDURAL EXAMIN 08/14/2016 Ot 733.00 OSTEOPOROSIS NOS 08/14/2016 Ot 733.00 OSTEOPOROSIS NOS 08/14/2016 MARCY KENNY DO Ot 733.00 OSTEOPOROSIS NOS 08/14/2016 AGUSTIN ROJO DO Ot 492.8 EMPHYSEMA NEC 08/14/2016 AGUSTIN ROJO DO Ot 511.9 PLEURAL EFFUSION NOS 08/14/2016 AGUSTIN ROJO DO Ot 586 RENAL FAILURE NOS 08/14/2016 NAZ DO MARIE Cao Ot 726.0 ADHESIVE CAPSULIT SHLDER 08/14/2016 NAZ DO MARIE Cao Ot 718.91 JT DERANGMENT NOS-SHLDER 08/14/2016 NAZ DO MARIE Cao Ot 726.0 ADHESIVE CAPSULIT SHLDER 08/14/2016 NAZ SIMMONS MARIE Cao Ot 840.4 SPRAIN ROTATOR CUFF 08/14/2016 NAZ SIMMONS MARIE Cao Ot E000.8 OTHER EXTERNAL CAUSE STATUS 08/14/2016 NAZ SIMMONS MARIE Cao Ot E928.9 ACCIDENT NOS 08/14/2016 NAZ DO, MARIE Cao Ot V72.84 EXAM PRE-OPERATIVE NOS 08/14/2016 NAZ SIMMONS MARIE Cao Ot 727.61 ROTATOR CUFF RUPTURE 08/14/2016 NAZ SIMMONS MARIE Cao Ot V72.84 EXAM PRE-OPERATIVE NOS 08/14/2016 ANGELA ARCE, JULIANA Goncalves Ot 414.00 CORON ATHEROSCLER NOS TYPE VESSEL, NATIV 08/14/2016 JULIANA MILLER MD Ot 424.0 MITRAL VALVE DISORDER 08/14/2016 JULIANA MILLER MD Ot 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 W O CEREBRAL IN 08/14/2016 JULIANA MILLER MD Ot 786.09 RESPIRATORY ABNORM NEC 08/14/2016 JULIANA MILLER MD Ot 414.01 CORONARY ATHEROSCLEROSIS OF [place] CORON 08/14/2016 JULIANA MILLER MD Ot 786.09 RESPIRATORY ABNORM NEC 08/14/2016 NAZ SIMMONS MARIE Cao Ot 840.4 SPRAIN ROTATOR CUFF 08/14/2016 NAZ SIMMONS MARIE Cao Ot E000.8 OTHER EXTERNAL CAUSE STATUS 08/14/2016 NAZ SIMMONS MARIE Cao Ot E928.9 ACCIDENT NOS 08/14/2016 MARIE CHILDS DO Ot V72.84 EXAM PRE-OPERATIVE NOS 08/14/2016 Ot 733.00 OSTEOPOROSIS NOS 08/14/2016 MARIE CHILDS DO Ot 722.4 CERVICAL DISC DEGEN 08/14/2016 Ot J44.9 CHRONIC OBSTRUCTIVE PULMONARY DISEASE, U 08/14/2016 KENNYJSOE SIMMONS MARCY Sacha Ot K59.00 CONSTIPATION, UNSPECIFIED 08/14/2016 KENNYMARCY GARCIA DO Ot J44.9 CHRONIC OBSTRUCTIVE PULMONARY DISEASE, U 08/14/2016 JASMINERALPH JENKINS DO Ot K59.00 CONSTIPATION, UNSPECIFIED 08/14/2016 JASMINE RALPH SIMMONS Ot R19.5 OTHER FECAL ABNORMALITIES 08/14/2016 JASMINERALPH JENKINS DO Ot Z86.010 PERSONAL HISTORY OF COLONIC POLYPS 08/17/2016 JASMINERALPH JENKINS DO Ot K59.00 CONSTIPATION, UNSPECIFIED 08/17/2016 JASMINE RALPH SIMMONS Ot R19.5 OTHER FECAL ABNORMALITIES 08/17/2016 RALPH JASIMNE DO Ot Z86.010 PERSONAL HISTORY OF COLONIC POLYPS 09/20/2016 DONYA DONNELLY Ot G45.9 TRANSIENT CEREBRAL ISCHEMIC ATTACK, UNSP 09/20/2016 DONYA DONNELLY Ot G47.33 OBSTRUCTIVE SLEEP APNEA (ADULT) (PEDIATR 09/20/2016 DONYA DONNELLY Ot I25.10 ATHSCL HEART DISEASE OF [place] CORONARY 09/20/2016 DONYA DONNELLY Ot I65.23 OCCLUSION AND STENOSIS OF BILATERAL [place] 09/20/2016 DONYA DONNELLY Ot G45.9 TRANSIENT CEREBRAL ISCHEMIC ATTACK, UNSP 09/20/2016 DONYA DONNELLY Ot G47.33 OBSTRUCTIVE SLEEP APNEA (ADULT) (PEDIATR 09/20/2016 DONYA DONNELLY Ot I25.10 ATHSCL HEART DISEASE OF [place] CORONARY 09/20/2016 DONYA DONNELLY Ot I65.23 OCCLUSION AND STENOSIS OF BILATERAL [place] 10/03/2016 ANGELA ARCE, JULIANA Goncalves Ot E78.5 HYPERLIPIDEMIA, UNSPECIFIED 10/03/2016 JULIANA MILLER MD Ot G47.33 OBSTRUCTIVE SLEEP APNEA (ADULT) (PEDIATR 10/03/2016 JULIANA MILLER MD Ot I10 ESSENTIAL (PRIMARY) HYPERTENSION 10/03/2016 JULIANA MILLER MD, Ot I25.10 ATHSCL HEART DISEASE OF [place] CORONARY 10/03/2016 JULIANA MILLER MD, Ot I25.84 CORONARY ATHEROSCLEROSIS DUE TO [place] 10/03/2016 JULIANA MILLER MD Ot I34.0 NONRHEUMATIC MITRAL (VALVE) INSUFFICIENC 10/03/2016 JULIANA MILLER MD Ot I65.23 OCCLUSION AND STENOSIS OF [place]AL [place] 10/03/2016 JULIANA MILLER MD Ot R94.39 ABNORMAL RESULT OF OTHER CARDIOVASCULAR 10/03/2016 JULIANA MILLER MD, Ot Z72.0 TOBACCO USE 10/03/2016 JULIANA MILLER MD, Ot Z79.899 OTHER IRONER HAND (CURRENT) DRUG THERAPY 10/03/2016 JULIANA MILLER MD, Ot Z86.73 PRSNL HX OF TIA (TIA), AND CEREB INFRC W 10/03/2016 JULIANA MILLER MD Ot Z95.5 PRESENCE OF CORONARY ANGIOPLASTY IMPLANT 10/11/2016 DONYA DONNELLY Ot G45.9 TRANSIENT CEREBRAL ISCHEMIC ATTACK, UNSP 10/11/2016 DONYA DONNELLY Ot G47.33 OBSTRUCTIVE SLEEP APNEA (ADULT) (PEDIATR 10/11/2016 DONYA DONNELLY Ot I25.10 ATHSCL HEART DISEASE OF [place] CORONARY 10/11/2016 DONYA DONNELLY Ot I65.23 OCCLUSION AND STENOSIS OF [place] 10/17/2016 DONYA DONNELLY Ot G45.9 TRANSIENT CEREBRAL ISCHEMIC ATTACK, UNSP 10/17/2016 DONYA DONNELLY Ot G47.33 OBSTRUCTIVE SLEEP APNEA (ADULT) (PEDIATR 10/17/2016 DONYA DONNELLY Ot I25.10 ATHSCL HEART DISEASE OF [place] CORONARY 10/17/2016 DONYA DONNELLY Ot I65.23 OCCLUSION AND STENOSIS OF [place] 10/23/2016 JULIANA MILLER MD Ot E78.5 HYPERLIPIDEMIA, UNSPECIFIED 10/23/2016 JULIANA MILLER MD, Ot G47.33 OBSTRUCTIVE SLEEP APNEA (ADULT) (PEDIATR 10/23/2016 JULIANA MILLER MD Ot I10 ESSENTIAL (PRIMARY) HYPERTENSION 10/23/2016 JULIANA MILLER MD, Ot I25.10 ATHSCL HEART DISEASE OF [place] CORONARY 10/23/2016 JULIANA MILLER MD, Ot I25.84 CORONARY ATHEROSCLEROSIS DUE TO [place] 10/23/2016 JULIANA MILLER MD Ot I34.0 NONRHEUMATIC MITRAL (VALVE) INSUFFICIENC 10/23/2016 JULIANA MILLER MD, Ot I65.23 OCCLUSION AND STENOSIS OF [place] 10/23/2016 JULIANA MILLER MD Ot R94.39 ABNORMAL RESULT OF OTHER CARDIOVASCULAR 10/23/2016 JULIANA MILLER MD, Ot Z72.0 TOBACCO USE 10/23/2016 JULIANA MILLER MD, Ot Z79.899 OTHER IRONER HAND (CURRENT) DRUG THERAPY 10/23/2016 JULIANA MILLER MD, Ot Z86.73 PRSNL HX OF TIA (TIA), AND CEREB INFRC W 10/23/2016 JULIANA MILLER MD Ot Z95.5 PRESENCE OF CORONARY ANGIOPLASTY IMPLANT 03/04/2017 AGUSTIN ROJO DO Ot R06.02 SHORTNESS OF BREATH 03/04/2017 AGUSTIN ROJO DO Ot Z87.891 PERSONAL HISTORY OF NICOTINE DEPENDENCE 03/04/2017 AGUSTIN ROJO DO Ot R06.02 SHORTNESS OF BREATH 03/04/2017 AGUSTIN ROJO DO Ot Z87.891 PERSONAL HISTORY OF NICOTINE DEPENDENCE 03/06/2017 AGUSTIN ROJO DO Ot R06.02 SHORTNESS OF BREATH 03/06/2017 AGUSTIN ROJO DO Ot Z87.891 PERSONAL HISTORY OF NICOTINE DEPENDENCE 03/06/2017 AGUSTIN ROJO DO Ot R06.02 SHORTNESS OF BREATH 03/06/2017 AGUSTIN ROJO DO Ot Z87.891 PERSONAL HISTORY OF NICOTINE DEPENDENCE 03/06/2017 AGUSTIN ROJO DO Ot R06.02 SHORTNESS OF BREATH 03/06/2017 AGUSTIN ROJO DO Ot Z87.891 PERSONAL HISTORY OF NICOTINE DEPENDENCE 03/06/2017 AGUSTIN ROJO DO Ot R06.02 SHORTNESS OF BREATH 03/06/2017 AGUSTIN ROJO DO Ot Z87.891 PERSONAL HISTORY OF NICOTINE DEPENDENCE 04/08/2017 AGUSTIN ROJO DO Ot R06.02 SHORTNESS OF BREATH 04/08/2017 AGUSTIN ROJO DO Ot Z87.891 PERSONAL HISTORY OF NICOTINE DEPENDENCE 04/16/2017 AGUSTIN ROJO DO Ot R06.02 SHORTNESS OF BREATH 04/16/2017 AGUSTIN ROJO DO Ot Z87.891 PERSONAL HISTORY OF NICOTINE DEPENDENCE 11/13/2017 Ot 733.00 OSTEOPOROSIS NOS 11/13/2017 KENNYMARCY GARCIA DO Ot 733.00 OSTEOPOROSIS NOS 11/13/2017 AGUSTIN ROJO DO Ot 492.8 EMPHYSEMA NEC 11/13/2017 AGUSTIN ROJO DO Ot 511.9 PLEURAL EFFUSION NOS 11/13/2017 ALIAAGUSTIN WINTERS DO Ot 586 RENAL FAILURE NOS 11/13/2017 NAZ DO MARIE Cao Ot 726.0 ADHESIVE CAPSULIT SHLDER 11/13/2017 NAZ DO MARIE Cao Ot 718.91 JT DERANGMENT NOS-SHLDER 11/13/2017 NAZ DO MARIE Cao Ot 726.0 ADHESIVE CAPSULIT SHLDER 11/13/2017 NAZ DO MARIE Cao Ot 840.4 SPRAIN ROTATOR CUFF 11/13/2017 NAZ DO MARIE Cao Ot E000.8 OTHER EXTERNAL CAUSE STATUS 11/13/2017 NAZ DO MARIE Cao Ot E928.9 ACCIDENT NOS 11/13/2017 NAZ SIMMONS MARIE Cao Ot V72.84 EXAM PRE-OPERATIVE NOS 11/13/2017 NAZ DO MARIE Cao Ot 727.61 ROTATOR CUFF RUPTURE 11/13/2017 NAZ SIMMONS MARIE Cao Ot V72.84 EXAM PRE-OPERATIVE NOS 11/13/2017 ANGELA ARCE, JULIANA Goncalves Ot 414.00 CORON ATHEROSCLER NOS TYPE VESSEL, NATIV 11/13/2017 JULIANA MILLER MD Ot 424.0 MITRAL VALVE DISORDER 11/13/2017 JULIANA MILLER MD Ot 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 W O CEREBRAL IN 11/13/2017 JULIANA MILLER MD Ot 786.09 RESPIRATORY ABNORM NEC 11/13/2017 JULIANA MILLER MD Ot 414.01 CORONARY ATHEROSCLEROSIS OF [place] CORON 11/13/2017 JULIANA MILLER MD Ot 786.09 RESPIRATORY ABNORM NEC 11/13/2017 MARIE CHILDS DO Ot 840.4 SPRAIN ROTATOR CUFF 11/13/2017 MARIE CHILDS DO Ot E000.8 OTHER EXTERNAL CAUSE STATUS 11/13/2017 MARIE CHILDS DO Ot E928.9 ACCIDENT NOS 11/13/2017 MARIE CHILDS DO Ot V72.84 EXAM PRE-OPERATIVE NOS 11/13/2017 Ot 733.00 OSTEOPOROSIS NOS 11/13/2017 MARIE CHILDS DO Ot 722.4 CERVICAL DISC DEGEN 11/13/2017 Ot J44.9 CHRONIC OBSTRUCTIVE PULMONARY DISEASE, U 11/13/2017 MARCY KENNY DO Ot K59.00 CONSTIPATION, UNSPECIFIED 11/13/2017 MARCY KENNY DO, Ot J44.9 CHRONIC OBSTRUCTIVE PULMONARY DISEASE, U 11/13/2017 DONYA DONNELLY Ot G45.9 TRANSIENT CEREBRAL ISCHEMIC ATTACK, UNS 11/13/2017 DONYA DONNELLY Ot G47.33 OBSTRUCTIVE SLEEP APNEA (ADULT) (PEDIATR 11/13/2017 DONYA DONNELLY Ot I25.10 ATHSCL HEART DISEASE OF [place] CORONARY 11/13/2017 DONYA DONNELLY Ot I65.23 OCCLUSION AND STENOSIS OF [place] 11/13/2017 AGUSTIN ROJO DO, Ot R06.02 SHORTNESS OF BREATH 11/13/2017 AGUSTIN ROJO DO, Ot Z87.891 PERSONAL HISTORY OF NICOTINE DEPENDENCE Procedures Code Description Performed By Performed On 38.93 VENOUS CATHETERIZATION NEC 02/13/2014 96.04 INSERT ENDOTRACHEAL TUBE 02/13/2014 96.71 CONTINUOUS INVASIVE MECHANICAL VENTILATI 02/13/2014 Results Test Result Range Complete urinalysis with reflex to culture - 10/03/16 09:12 Urine color determination YELLOW NRG Urine clarity determination CLEAR NRG Urine pH measurement by test strip 5 5-9 Specific gravity of urine by test strip 1.025 1.016- 1.022 Urine protein assay by test strip, semi-quantitative NEGATIVE NEGATIVE Urine glucose detection by automated test strip NEGATIVE NEGATIVE Erythrocytes detection in urine sediment by light microscopy NEGATIVE NEGATIVE Urine ketones detection by automated test strip NEGATIVE NEGATIVE Urine nitrite detection by test strip NEGATIVE NEGATIVE Urine total bilirubin detection by test strip NEGATIVE NEGATIVE Urine urobilinogen measurement by automated test strip (mass/volume) NORMAL NORMAL Urine leukocyte esterase detection by dipstick NEGATIVE NEGATIVE Automated urine sediment erythrocyte count by microscopy (number/high power field) NONE NRG Automated urine sediment leukocyte count by microscopy (number/high power field ) NONE NRG Bacteria detection in urine sediment by light microscopy NEGATIVE NRG Squamous epithelial cells detection in urine sediment by light microscopy 2-5 NRG Crystals detection in urine sediment by light microscopy NONE NRG Casts detection in urine sediment by light microscopy NONE NRG Mucus detection in urine sediment by light microscopy NEGATIVE NRG Complete urinalysis with reflex to culture NO NRG Automated blood complete blood count (hemogram) panel - 10/03/16 09:25 Blood leukocytes automated count (number/volume) 6.8 10*3/uL 4.3-11.0 Blood erythrocytes automated count (number/volume) 4.06 10*6/uL 4.35-5.85 Venous blood hemoglobin measurement (mass/volume) 13.7 g/dL 13.3-17.7 Blood hematocrit (volume fraction) 40 % 40-54 Automated erythrocyte mean corpuscular volume 99 [foz_us] 80-99 Automated erythrocyte mean corpuscular hemoglobin (mass per erythrocyte) 34 pg 25-34 Automated erythrocyte mean corpuscular hemoglobin concentration measurement ( mass/volume) 34 g/dL 32-36 Automated erythrocyte distribution width ratio 14.9 % 10.0-14.5 Automated blood platelet count (count/volume) 230 10*3/uL 130-400 Automated blood platelet mean volume measurement 8.9 [foz_us] 7.4-10.4 PT panel in platelet poor plasma by coagulation assay - 10/03/16 09:25 Prothrombin time (PT) in platelet poor plasma by coagulation assay 14.1 s 12.2-14.7 INR in platelet poor plasma or blood by coagulation assay 1.1 0.8-1.4 Activated partial thromboplastin time (aPTT) in platelet poor plasma bycoagulation assay - 10/03/16 09:25 Activated partial thromboplastin time (aPTT) in platelet poor plasma bycoagulation assay 29 s 24-35 Comprehensive metabolic panel - 10/03/16 09:25 Serum or plasma sodium measurement (moles/volume) 141 mmol/L 135-145 Serum or plasma potassium measurement (moles/volume) 4.1 mmol/L 3.6-5.0 Serum or plasma chloride measurement (moles/volume) 109 mmol/L 98-107 Carbon dioxide 21 mmol/L 21-32 Serum or plasma anion gap determination (moles/volume) 11 mmol/L 5-14 Serum or plasma urea nitrogen measurement (mass/volume) 18 mg/dL 7-18 Serum or plasma creatinine measurement (mass/volume) 1.32 mg/dL 0.60-1.30 Serum or plasma urea nitrogen/creatinine mass ratio 14 NRG Serum or plasma creatinine measurement with calculation of estimated glomerular filtration rate 54 NRG Serum or plasma glucose measurement (mass/volume) 100 mg/dL 70-105 Serum or plasma calcium measurement (mass/volume) 9.6 mg/dL 8.5-10.1 Serum or plasma total bilirubin measurement (mass/volume) 0.4 mg/dL 0.1-1.0 Serum or plasma alkaline phosphatase measurement (enzymatic activity/volume) 75 U/L 40-136 Serum or plasma aspartate aminotransferase measurement (enzymatic activity/ volume) 17 U/L 5-34 Serum or plasma alanine aminotransferase measurement (enzymatic activity/volume ) 22 U/L 0-55 Serum or plasma protein measurement (mass/volume) 6.8 g/dL 6.4-8.2 Serum or plasma albumin measurement (mass/volume) 4.1 g/dL 3.2-4.5 Lipid 1996 panel - 10/03/16 09:25 Serum or plasma triglyceride measurement (mass/volume) 88 mg/dL <150 Serum or plasma cholesterol measurement (mass/volume) 150 mg/dL < 200 Serum or plasma cholesterol in HDL measurement (mass/volume) 56 mg/ dL 40-60 Cholesterol in LDL [mass/volume] in serum or plasma by direct assay 78 mg/dL 1-129 Serum or plasma cholesterol in VLDL measurement (mass/volume) 18 mg/ dL 5-40 Methicillin resistant Staphylococcus aureus (MRSA) screening culture - 09:25 MRSA SCREEN RESULT MRSA ISOLATED NRG Encounters ACCT No. Visit Date/Time Discharge Status Pt. Type Provider Facility Loc./Unit Complaint [id number] 11/15/2017 10:39:00 11/15/2017 23:59:59 CLS Outpatient JULIANA MILLER MD [facility] RAD CAD,CONFUSION [id number] 02/27/2017 15:06:00 02/27/2017 23:59:59 CLS Outpatient AGUSTIN ROJO DO [facility] RT DYSPNEA R06.02 [id number] 02/22/2017 16:45:00 02/22/2017 16:45:00 CAN Preadmit AGUSTIN ROJO DO [facility] RT DYSPNEA,HX OF TOBACCO USE, JOY ON CPAP [id number] 10/03/2016 08:48:00 10/03/2016 15:30:00 DIS Outpatient JULIANA MILLER MD [facility] CATH ANM STRESS TEST,CAD [id number] 09/19/2016 08:13:00 09/19/2016 23:59:59 CLS Outpatient DONYA DONNELLY [facility] CARD CAD,JOY ON CPAP,TIA [id number] 08/14/2016 08:51:00 08/14/2016 15:30:00 DIS Outpatient RALPH JASMINE DO [facility] SDC OCCULT STOOLS [id number] 08/09/2016 05:47:00 08/09/2016 13:50:00 DIS Outpatient RALPH JASMINE DO [facility] PREOP OCCULT STOOLS [id number] 12/05/2015 10:15:00 12/05/2015 23:59:59 CLS Preadmit MARCY KENNY DO [facility] PULM COPD [id number] 09/05/2015 10:15:00 12/04/2015 00:01:00 DIS Outpatient MARCY KENNY DO [facility] PULM COPD [id number] 09/05/2015 14:31:00 09/05/2015 23:59:59 CLS Outpatient MARCY KENNY DO [facility] RAD ABD PAIN [id number] 08/08/2015 14:00:00 08/16/2015 13:50:00 DIS Inpatient MARCY KENNY DO [facility] 4TH PNEUMONIA [id number] 04/19/2015 09:57:00 04/19/2015 10:38:00 DIS Outpatient ASH ALARCON MD [facility] REHAB CERVICAL SPONDYLOSIS [id number] 01/24/2015 14:36:00 01/24/2015 23:59:59 CLS Outpatient MARIE CHILDS DO [facility] RAD DDD [id number] 11/05/2014 09:53:00 11/09/2014 11:51:00 DIS Outpatient MARIE CHILDS DO [facility] REHAB S/P R SHLD SCOPE WITH SAD AND DEBRIDEMENT [id number] 09/28/2014 12:27:00 09/28/2014 23:59:59 CLS Outpatient MARIE CHILDS DO [facility] RIGHT SHOULDER TORN ROTATOR CUFF [id number] 09/24/2014 06:15:00 09/24/2014 23:59:59 CLS Outpatient NAZ MARIE SIMMONS [facility] PREOP RIGHT SHOULDER TORN ROTATOR CUFF [id number] 08/31/2014 08:58:00 08/31/2014 11:36:00 DIS Outpatient NAZ MARIE SIMMONS [facility] RIGHT SHOULDER ROTATOR CUFF TEAR [id number] 08/27/2014 05:50:00 08/27/2014 23:59:59 CLS Outpatient NAZ MARIE SIMMONS [facility] PREOP RIGHT SHOULDER ROTATOR CUFF TEAR [id number] 08/25/2014 12:14:00 08/25/2014 23:59:59 CLS Outpatient JULIANA MILLER MD [facility] CARD CAD,ANN,DYSPNEA [id number] 08/25/2014 09:05:00 08/25/2014 23:59:59 CLS Outpatient JULIANA MILLER MD [facility] CARD CAD [id number] 07/21/2014 05:50:00 07/21/2014 23:59:59 CLS Outpatient NAZ SIMMONS MARIE Cao [facility] PREOP RIGHT SHOULDER ROTATOR CUFF TEAR [id number] 07/14/2014 17:15:00 07/16/2014 10:00:00 DIS Inpatient MARCY KENNY DO [facility] 4TH TIA CONFUSION DIFFICULT WORD FINDING [id number] 06/28/2014 13:45:00 07/07/2014 11:55:00 DIS Outpatient MARIE CHILDS DO [facility] REHAB R SHOULDER ADHESIVE CAPSULITIS [id number] 06/23/2014 07:52:00 06/23/2014 23:59:59 CLS Outpatient MARIE CHILDS DO [facility] RAD RT SHOULDER ADHEISIVE CAPSULITIS [id number] 06/21/2014 12:37:00 06/21/2014 23:59:59 CLS Outpatient MARIE CHILDS DO [facility] RAD RT SHOULDER ADHEISIVE CAPSULITIS [id number] 04/21/2014 10:59:00 04/21/2014 23:59:59 CLS Outpatient AGUSTIN ROJO DO [facility] RAD DYSPNEA,PE,RENAL FAILURE [id number] 03/03/2014 13:57:00 03/10/2014 15:35:00 DIS Inpatient TONI KEVIN MD [facility] IRF WEAKNESS [id number] 02/11/2014 10:19:00 02/13/2014 13:15:00 DIS Inpatient MARCY KENNY DO [facility] ICU PROBABLE RL PNEUMONIA [id number] 02/08/2014 12:50:00 02/08/2014 23:59:59 CLS Outpatient MARCY KENNY DO [facility] SDC OSTEO [id number] 09/05/2015 10:15:00 Document Registration [id number] 10/28/2014 13:24:00 Document Registration [id number] 10/31/2012 13:05:00 Document Registration [id number] 11/09/2011 12:32:00 Document Registration [id number] 10/24/2010 12:55:00 Document Registration [id number] 04/19/2015 09:57:51 ACT Document Registration
[2017-11-18 14:58] VITALS: BP 121/74
[2017-11-18] MEDS ORDERED: RT-ALBUTEROL/IPRATROPIUM 3 ML (DUONEB) VIAL INH PRN (15:15)
[2017-11-18 15:30] LABS: MEAN PLATELET VOLUME 9.5 FL (7.4-10.4); RED BLOOD COUNT 3.1 10^6/uL (4.35-5.85); RED CELL DISTRIBUTION WIDTH 13.9 % (10.0-14.5); WHITE BLOOD COUNT 7.6 10^3/uL (4.3-11.0)
[2017-11-18] MEDS: NS IV 1000 ML 1,000 ML IV SCH (15:30)
[2017-11-18 15:40] LABS: INR 1.2 (0.8-1.4); PROTHROMBIN TIME PATIENT 15.2 SEC (12.2-14.7)
[2017-11-18 15:50] LABS: ALANINE AMINOTRANSFERASE 16 U/L (0-55); ALBUMIN 3.8 GM/DL (3.2-4.5); ALKALINE PHOSPHATASE 56 U/L (40-136); BILIRUBIN,TOTAL 0.5 MG/DL (0.1-1.0); BUN/CREATININE RATIO 38; CALCIUM 9.3 MG/DL (8.5-10.1); CARBON DIOXIDE 18 MMOL/L (21-32); CHLORIDE 111 MMOL/L (98-107); CREATININE SERUM 1.48 MG/DL (0.60-1.30); GFR ESTIMATED 47; GLUCOSE 94 MG/DL (70-105); POTASSIUM 4.1 MMOL/L (3.6-5.0); SODIUM 140 MMOL/L (135-145); TOTAL PROTEIN 5.9 GM/DL (6.4-8.2)
[2017-11-18] MEDS ORDERED: DOXE10CA29 PO (15:59)
[2017-11-18] MEDS ORDERED: CYPR4TAB PO (15:59)
[2017-11-18] MEDS ORDERED: LOVA40TA2 PO ×2 (16:23)
[2017-11-18] MEDS ORDERED: LEVO137T2 PO ×2 (16:23)
[2017-11-18] MEDS ORDERED: LATA2.5D5 OU ×2 (16:23)
[2017-11-18] MEDS ORDERED: RANI150T11 PO ×2 (16:39)
[2017-11-18] MEDS ORDERED: ASCO500T75 PO ×2 (16:39)
[2017-11-18] MEDS ORDERED: GABA-488 PO ×2 (16:43)
[2017-11-18] MEDS ORDERED: LEVOTHYROXINE 25 MCG (LEVOTHROID) TAB PO SCH (18:00)
[2017-11-18] MEDS ORDERED: LEVOTHYROXINE 112 MCG (LEVOTHROID) TAB PO SCH (18:00)
[2017-11-18 19:04] VITALS: BP 121/74
[2017-11-18] MEDS ORDERED: RT-ADVAIR HFA 115/21 MCG PER PUFF IH SCH (20:00)
[2017-11-18] MEDS ORDERED: RT-ALBUTEROL/IPRATROPIUM 3 ML (DUONEB) VIAL IH SCH (21:00)
[2017-11-18] MEDS: FAMOTIDINE 20 MG (PEPCID) TABLET PO SCH (21:09)
[2017-11-18] MEDS: GABAPENTIN 300 MG (NEURONTIN) CAP PO SCH (21:09)
[2017-11-18] MEDS: RT-ADVAIR HFA 115/21 MCG PER PUFF IH SCH (21:32)
[2017-11-18] MEDS: RT-ALBUTEROL/IPRATROPIUM 3 ML (DUONEB) VIAL INH SCH (21:32)
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
[2017-11-19] VITALS: BP 106/67
[2017-11-19] MEDS: NS IV 1000 ML 1,000 ML IV SCH ×2 (01:40→12:00)
[2017-11-19] MEDS: RT-ALBUTEROL/IPRATROPIUM 3 ML (DUONEB) VIAL INH SCH ×3 (02:46→15:58)
[2017-11-19 04:00] VITALS: BP 106/69
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
[2017-11-19 06:36] LABS: HEMOGLOBIN 9.3 G/DL (13.3-17.7); MEAN PLATELET VOLUME 9.7 FL (7.4-10.4); RED BLOOD COUNT 2.66 10^6/uL (4.35-5.85); RED CELL DISTRIBUTION WIDTH 13.9 % (10.0-14.5); WHITE BLOOD COUNT 6.2 10^3/uL (4.3-11.0)
[2017-11-19 06:52] LABS: CREATININE SERUM 1.2 MG/DL (0.60-1.30)
[2017-11-19 06:53] LABS: ALBUMIN 3.4 GM/DL (3.2-4.5); BILIRUBIN,TOTAL 0.5 MG/DL (0.1-1.0); CALCIUM 8.6 MG/DL (8.5-10.1); TOTAL PROTEIN 5.3 GM/DL (6.4-8.2)
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
[2017-11-19 08:00] VITALS: BP 100/65
[2017-11-19] MEDS ORDERED: amLODIPine 5 MG (NORVASC) TAB PO SCH (09:00)
[2017-11-19] MEDS: FAMOTIDINE 20 MG (PEPCID) TABLET PO SCH (09:16)
[2017-11-19] MEDS: GABAPENTIN 300 MG (NEURONTIN) CAP PO SCH (09:16)
[2017-11-19] MEDS: RT-ADVAIR HFA 115/21 MCG PER PUFF IH SCH (10:04)
[2017-11-19 11:51] LABS: HEMOGLOBIN 8.9 G/DL (13.3-17.7)
[2017-11-19 12:00] VITALS: BP 105/70
--- NOTE | 2017-11-19 13:14 | Progress Note ---
Subjective Date Seen by Provider: Nov 19, 2017 Time Seen by Provider: 11:12 Subjective/Events-last exam Patient feeling better today. No abdominal pain or discomfort. Hgb slight drop likely dilutional. Tolerating clear liquids. Denies n/v fever sweats chills shortness of breath or chest pain. Objective Exam Vital Signs Date Time Temp Pulse Resp B/P (MAP) Pulse Ox O2 Delivery O2 Flow Rate FiO2 11/19/17 12:00 98.5 71 20 105/70 (82) 95 Nasal Cannula 2.00 11/19/17 09:59 83 Room Air 11/19/17 08:15 NIV CPAP 11/19/17 08:00 98.8 64 18 100/65 (77) 94 NIV CPAP 11/19/17 04:00 98.1 61 18 106/69 (81) 98 NIV CPAP 11/19/17 02:46 92 NIV CPAP 11/19/17 00:00 97.7 66 18 106/67 (80) 96 NIV CPAP 11/18/17 21:32 90 NIV CPAP 11/18/17 21:32 90 Room Air 11/18/17 21:00 NIV CPAP 11/18/17 19:04 99.3 77 24 121/74 (90) 97 Nasal Cannula 2.00 11/18/17 16:51 Nasal Cannula 2.00 11/18/17 15:43 88 Room Air 11/18/17 15:05 89 94 11/18/17 14:58 99.4 88 24 121/74 (90) 95 Nasal Cannula 2.00 I & O 11/19/17 07:00 Intake Total 745 ml Output Total 1150 ml Balance -405 ml Capillary Refill : Less Than 3 Seconds General Appearance: No Apparent Distress, WD/WN HEENT: PERRL/EOMI, TMs Normal, Normal ENT Inspection, Pharynx Normal Neck: Full Range of Motion, Normal Inspection, Non Tender Respiratory: Chest Non Tender, No Accessory Muscle Use, No Respiratory Distress Cardiovascular: Regular Rate, Rhythm Gastrointestinal: non tender, soft, no organomegaly Extremity: Normal Capillary Refill, Normal Inspection, Normal Range of Motion, Non Tender, No Calf Tenderness, No Pedal Edema Neurologic/Psychiatric: Alert, Oriented x3, No Motor/Sensory Deficits, Normal Mood/Affect Skin: Normal Color, Warm/Dry Lymphatic: No Adenopathy Results Lab Laboratory Tests 11/18/17 15:25: White Blood Count 7.6, Red Blood Count 3.10L, Hemoglobin 11.0L, Hematocrit 32L, Mean Corpuscular Volume 104H, Mean Corpuscular Hemoglobin 36H, Mean Corpuscular Hemoglobin Concent 34, Red Cell Distribution Width 13.9, Platelet Count 223, Mean Platelet Volume 9.5, Prothrombin Time 15.2H, INR Comment 1.2, Activated Partial Thromboplast Time 29, Sodium Level 140, Potassium Level 4.1, Chloride Level 111H, Carbon Dioxide Level 18L, Anion Gap 11, Blood Urea Nitrogen 56H, Creatinine 1.48H, Estimat Glomerular Filtration Rate 47, BUN/Creatinine Ratio 38 , Glucose Level 94, Calcium Level 9.3, Total Bilirubin 0.5, Aspartate Amino Transf (AST/SGOT) 13, Alanine Aminotransferase (ALT/SGPT) 16, Alkaline Phosphatase 56, Troponin I < 0.30, B-Type Natriuretic Peptide 23.9, Total Protein 5.9L, Albumin 3.8, Thyroid Stimulating Hormone (TSH) 1.75 11/19/17 05:46: White Blood Count 6.2, Red Blood Count 2.66L, Hemoglobin 9.3L, Hematocrit 28L, Mean Corpuscular Volume 105H, Mean Corpuscular Hemoglobin 35H, Mean Corpuscular Hemoglobin Concent 34, Red Cell Distribution Width 13.9, Platelet Count 200, Mean Platelet Volume 9.7, Sodium Level 141, Potassium Level 4.0, Chloride Level 113H, Carbon Dioxide Level 24, Anion Gap 4L, Blood Urea Nitrogen 36H, Creatinine 1.20, Estimat Glomerular Filtration Rate 60, BUN/Creatinine Ratio 30 , Glucose Level 94, Calcium Level 8.6, Total Bilirubin 0.5, Aspartate Amino Transf (AST/SGOT) 13, Alanine Aminotransferase (ALT/SGPT) 14, Alkaline Phosphatase 46, Total Protein 5.3L, Albumin 3.4 11/19/17 11:45: Hemoglobin 8.9L, Hematocrit 27L Assessment/Plan Assessment/Plan Assessment/Plan melena abnormal cta chest patient with thickening and node near GE junction. Will need EGD to further investigate. Patient on plavix and asa which is on hold at this time. Will plan egd on saturday. Patient plavix asa on hold repeat hgb if stable okay with dc home and egd on Saturday. Clinical Quality Measures DVT/VTE Risk/Contraindication: Risk Factor Score Per Nursin RFS Level Per Nursing on Admit: 4+=Very High RALPH JASMINE DO Nov 19, 2017 13:14
[2017-11-19 15:34] VITALS: BP 111/65
[2017-11-22] MEDS ORDERED: SUCR1TAB36 PO (15:06)
== END 2017-11-19 12:44 | disposition home or self-care (01) ==
LOC: UNDOADMOB 14:46 → 4TH 14:46
PROVIDERS: ADMIT Internal Medicine Cardiovascular Disease; ATTEND Internal Medicine Cardiovascular Disease
DX: K63.89 Other specified diseases of intestine (principal); R19.7 Diarrhea, unspecified; D64.9 Anemia, unspecified; J44.9 Chronic obstructive pulmonary disease, unspecified; R53.83 Other fatigue; N28.9 Disorder of kidney and ureter, unspecified; R06.02 Shortness of breath; I25.10 Atherosclerotic heart disease of native coronary artery without angina pectoris; I65.29 Occlusion and stenosis of unspecified carotid artery; Z86.73 Personal history of transient ischemic attack (TIA), and cerebral infarction without residual deficits; I10 Essential (primary) hypertension; E78.5 Hyperlipidemia, unspecified; R21 Rash and other nonspecific skin eruption; F17.210 Nicotine dependence, cigarettes, uncomplicated; Z79.899 Other long term (current) drug therapy; G47.9 Sleep disorder, unspecified
CPT/HCPCS: 36415; 80053; 83880; 84443; 84484; 85014; 85018; 85027; 85610; 85730; 93005; 94640; 94760; 94761; 99211; G0378

== ENCOUNTER 2017-11-20 05:40 | Outpatient (CLI) | payer MEDICARE ==
[~2017-11-20] VITALS: Ht 180.3 cm; Wt 93.9 kg
[~2017-11-20 05:40] MED LIST changes: +ASCO500T75 PO; +CYPR4TAB PO; +DOXE10CA29 PO; +GABA-488 PO; +LEVO137T2 PO; +RANI150T11 PO
== END 2017-11-20 12:13 ==
LOC: PREOP 05:40
PROVIDERS: ATTEND Surgery
DX: Z01.818 Encounter for other preprocedural examination (principal); R93.5 Abnormal findings on diagnostic imaging of other abdominal regions, including retroperitoneum

== ENCOUNTER 2017-11-22 12:49 | Day surgery (SDC) | payer MEDICARE ==
[~2017-11-22] VITALS: Ht 180.3 cm; Wt 93.9 kg
[~2017-11-22 12:49] MED LIST changes: -CYPR4TAB PO; +CYPR4TAB41 PO; -IPRA3AMP IH; -IPRA3AMP INH; +IPRA3AMP31 IH; +IPRA3AMP31 INH
[2017-11-22] MEDS ORDERED: LACTATED RINGERS 1,000 ML IV STA (13:07)
[2017-11-22] MEDS ORDERED: LACTATED RINGERS 1,000 ML IV ONE (13:27)
--- NOTE | 2017-11-22 13:30 | Progress Note-Pre Operative ---
Pre-Operative Progress Note H&P Reviewed The H&P was reviewed, patient examined and no changes noted. Date Seen by Provider: Nov 22, 2017 Time Seen by Provider: 13: Date H&P Reviewed: Nov 22, 2017 Time H&P Reviewed: :29 Pre-Operative Diagnosis: abnormal ct scan GE junction, occult + stool RALPH JASMINE DO Nov 22, 2017 13:30
[2017-11-22 13:40] VITALS: BP 115/71
[2017-11-22] MEDS ORDERED: proPOfol 200 MG/20 ML (DIPRIVAN) VIAL IV ONE (14:09)
[2017-11-22] MEDS ORDERED: MIDAZOLAM 2 MG/2 ML (VERSED) VIAL ONE (14:09)
--- NOTE | 2017-11-22 14:40 | Anesthesia-General Post-Op ---
MAC Patient Condition Mental Status/LOC: Same as Preop Cardiovascular: Satisfactory Nausea/Vomiting: Absent Respiratory: Satisfactory Pain: Controlled Complications: Absent Post Op Complications Complications None Follow Up Care/Instructions Patient Instructions None needed. Anesthesiology Discharge Order Discharge Order Patient is doing well, no complaints, stable vital signs, no apparent adverse anesthesia problems. No complications reported per nursing. KAREN PRITCHARD CRNA Nov 22, 2017 14:40
[2017-11-22 14:45] VITALS: BP 123/75
[2017-11-22] MEDS ORDERED: HURRICAINE EXT TUBE (BENZOCAINE) ONE (15:01)
--- NOTE | 2017-11-22 15:04 | Progress Note-Post Operative ---
Post-Operative Progess Note Surgeon (s)/History Card Clerk (s) Surgeon RALPH JASMINE DO History Card Clerk: na Pre-Operative Diagnosis abnormal ct scan GE junction, occult + stool Post-Operative Diagnosis esophageal thickening and erythema, hiatal hernia Procedure & Operative Findings Date of Procedure 11/22/17 Procedure Performed/Findings egd c biopsies Anesthesia Type per melt superintendant Estimated Blood Loss Estimated blood loss (mL): scant Specimens/Packing Specimens Removed antrum, body, distal esophagus RALPH JASMINE DO Nov 22, 2017 15:04
[2017-11-22] MEDS ORDERED: SUCR1TAB36 PO (15:06)
--- NOTE | 2017-11-22 15:07 | Discharge Inst-Simple/Standard ---
Discharge Inst-Standard Discharge Medications New, Converted or Re-Newed RX: RX on Chart Patient Instructions/Follow Up Plan of Care/Instructions/FU: 2 weeks Chantelle Restart palvix in 2 days Activity as Tolerated: Yes Discharge Diet: Regular Diet RALPH JASMINE DO Nov 22, 2017 15:07
[2017-11-22 15:10] VITALS: BP 133/87
[2017-11-22 15:15] VITALS: BP 133/87
[2017-11-22] MEDS ORDERED: HURRICAINE EXT TUBE (BENZOCAINE) XX ONE (15:45)
--- NOTE | 2017-11-22 21:39 | OPERATIVE REPORT ---
DATE OF SERVICE: 11/22/2017 PREOPERATIVE DIAGNOSIS: Abnormal finding on CT scan of the GE junction, occult positive stool. POSTOPERATIVE DIAGNOSES: Hiatal hernia and esophageal thickening and erythema. PROCEDURE: EGD with biopsies. SURGEON: Ralph Lockhart DO ANESTHESIA: Per BUSINESS RELATIONS MANAGER. ESTIMATED BLOOD LOSS: Scant. INDICATIONS: The patient is a 72-year-old male, who had an abnormal CT scan demonstrating thickening near the GE junction and also lymph node present. He is also found to have occult positive stool. He understands risks and benefits of procedure and wished to proceed with procedure. Consent was on chart. DESCRIPTION OF PROCEDURE: The patient was taken to the endoscopy suite, placed in left lateral recumbent position. Timeout was performed. Scope inserted into the mouth, down the esophagus, stomach and into the duodenum without difficulty. There were no polyps mass or ulcerations within the duodenum. Scope was then slowly retracted back into the stomach was further insufflated. A biopsy of the antrum was obtained. The body had some mucosal changes, but no polyps, masses or ulcerations or erythema. Biopsy of this area was obtained. Scope was retroflexed noting a hiatal hernia, no other pathology. Scope was returned to its normal position, slowly withdrawn into the distal esophagus. In the distal esophagus there was an area of thickening and erythema noted. Multiple biopsies of this area was obtained. It felt slightly hardened by biopsy could be either mass versus chronic inflammation. Scope was then slowly retracted back until completely removed, noting no other pathology. The patient tolerated procedure well without any complications. RECOMMENDATIONS: The patient will start will be started on Carafate 1 gram four times a day. We will follow up in approximately 2 weeks to discuss pathology results. Further recommendations pending. Job ID: [id number] DocumentID: [id number] Dictated Date: 11/22/2017 15:11:46 Chief Data Officer Date: 11/22/2017 21:39:02 Dictated By: RALPH LOCKHART DO
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
--- OUTSIDE RECORDS SUMMARY | 2017-11-24 07:51 | XMS REPORT | Continuity of Care Document ---
Author Author [facility] Organization [facility] Address Unknown Phone Unavailable Allergies Active Description Code Type Severity Reaction Onset Reported/Identified Relationship to Patient Clinical Status Yes No Known Drug Allergies [id number] Drug Allergy Unknown N/A 11/18/2017 Medications There is no data. 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 02/13/2014 MARCY KENNY DO Ot 511.9 PLEURAL EFFUSION NOS 02/13/2014 MARCY KENNY DO Ot 518.81 ACUTE RESPIRATORY FAILURE 02/13/2014 MARCY KENNY DO Ot 584.9 ACUTE RENAL FAILURE, UNSPECIFIED 02/13/2014 MARCY KENNY DO Ot 785.50 SHOCK NOS 02/13/2014 MARCY KENNY DO, Ot 785.52 SEPTIC SHOCK 02/13/2014 MARCY KENNY [...] KENNY DO Ot 414.01 CORONARY ATHEROSCLEROSIS OF [place] CORON 07/16/2014 MARCY KENNY DO Ot 435.9 [...] Cao Ot 718.91 08/25/2014 NAZ SIMMONS MARIE Cao Ot 726.0 08/25/2014 NAZ MARIE Cao Ot [...] NAZ DO MARIE Cao Ot E928.9 10/07/2014 ANZ DO MRAIE Cao Ot V72.84 10/07/2014 NAZ DO MARIE [...] KENNY DO, MARCY Goncalves Ot M51.14 08/10/2015 KENNY DO, MARCY Goncalves Ot N18.2 08/10/2015 KENNY DO, MARCY Goncalves Ot R90.82 08/10/2015 EKNNY DO, MARCY Goncalves Ot Z66 08/11/2015 KENNY [...] 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 08/16/2015 MARCY KENNY DO, Ot E53.8 DEFICIENCY OF OTHER SPECIFIED B GROUP 08/16/2015 MARYC KENNY DO, Ot E55.9 VITAMIN D DEFICIENCY, UNSPECIFIED 08/16/2015 MARCY KENNY DO, Ot E78.5 HYPERLIPIDEMIA, UNSPECIFIED 08/16/2015 MARCY KENNY DO, Ot F17.210 NICOTINE DEPENDENCE, CIGARETTES, UNCOMPL 08/16/2015 MARCY KENNY DO, Ot I12.9 HYPERTENSIVE CHRONIC KIDNEY DISEASE W ST 08/16/2015 MARCY KENNY DO, Ot I25.10 ATHSCL HEART DISEASE OF [place] CORONARY 08/16/2015 MARCY KENNY DO, Ot J15.1 [...] DO, MARIE Cao Ot V72.84 09/05/2015 ANGELA AREC, JULIANA Goncalves Ot 414.00 09/05/2015 ANGELA ARCE, [...] MILLER MD Ot 414.01 CORONARY ATHEROSCLEROSIS OF [place] CORON 08/14/2016 JULIANA MILLER MD Ot 786.09 [...] J44.9 CHRONIC OBSTRUCTIVE PULMONARY DISEASE, U 08/14/2016 KENNYJOSE SIMMONS MARCY Sacha Ot K59.00 CONSTIPATION, UNSPECIFIED [...] Ot R19.5 OTHER FECAL ABNORMALITIES 08/17/2016 RALPH JASMINE DO Ot Z86.010 PERSONAL HISTORY OF COLONIC POLYPS 09/20/2016 DONYA DONNELLY Ot G45.9 TRANSIENT CEREBRAL ISCHEMIC ATTACK, UNSP 09/20/2016 DONYA DONNELLY Ot G47.33 OBSTRUCTIVE SLEEP APNEA (ADULT) (PEDIATR 09/20/2016 DONYA DONNELLY Ot I25.10 ATHSCL HEART DISEASE OF [place] CORONARY 09/20/2016 DONYA DONNELLY Ot I65.23 OCCLUSION AND STENOSIS OF BILATERAL [place] 09/20/2016 DONYA DONNELLY Ot G45.9 TRANSIENT CEREBRAL ISCHEMIC ATTACK, UNSP 09/20/2016 DONYA DONNELLY Ot G47.33 OBSTRUCTIVE SLEEP APNEA (ADULT) (PEDIATR 09/20/2016 DONYA DONNELLY Ot I25.10 ATHSCL HEART DISEASE OF [place] CORONARY 09/20/2016 DONYA DONNELLY Ot I65.23 OCCLUSION AND STENOSIS OF BILATERAL [place] 10/03/2016 ANGELA ARCE, JULIANA Goncalves Ot E78.5 HYPERLIPIDEMIA, UNSPECIFIED 10/03/2016 JULIANA MILLER MD Ot G47.33 OBSTRUCTIVE SLEEP APNEA (ADULT) (PEDIATR 10/03/2016 JULIANA MILLER MD Ot I10 ESSENTIAL (PRIMARY) HYPERTENSION 10/03/2016 JULIANA MILLER MD, Ot I25.10 ATHSCL HEART DISEASE OF [place] CORONARY 10/03/2016 JULIANA MILLER MD, Ot I25.84 CORONARY ATHEROSCLEROSIS DUE TO [place] 10/03/2016 JULIANA MILLER MD Ot I34.0 NONRHEUMATIC MITRAL (VALVE) INSUFFICIENC 10/03/2016 JULIANA MILLER MD Ot I65.23 OCCLUSION AND STENOSIS OF BILATERAL [place] 10/03/2016 JULIANA MILLER MD Ot R94.39 ABNORMAL RESULT OF OTHER CARDIOVASCULAR 10/03/2016 JULIANA MILLER MD, Ot Z72.0 TOBACCO USE 10/03/2016 JULIANA MILLER MD, Ot 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 10/03/2016 JULIANA MILLER MD, Ot Z86.73 PRSNL HX OF TIA (TIA), AND CEREB INFRC W 10/03/2016 JULIANA MILLER MD Ot Z95.5 PRESENCE OF CORONARY ANGIOPLASTY IMPLANT 10/11/2016 DONYA DONNELLY Ot G45.9 TRANSIENT CEREBRAL ISCHEMIC ATTACK, UNSP 10/11/2016 DONYA DONNELLY Ot G47.33 OBSTRUCTIVE SLEEP APNEA (ADULT) (PEDIATR 10/11/2016 DONYA DONNELLY Ot I25.10 ATHSCL HEART DISEASE OF [place] CORONARY 10/11/2016 DONYA DONNELLY Ot I65.23 OCCLUSION AND STENOSIS OF [place]ILATERAL [place] 10/17/2016 DONYA DONNELLY Ot G45.9 TRANSIENT CEREBRAL ISCHEMIC ATTACK, UNSP 10/17/2016 DONYA DONNELLY Ot G47.33 OBSTRUCTIVE SLEEP APNEA (ADULT) (PEDIATR 10/17/2016 DONYA DONNELLY Ot I25.10 ATHSCL HEART DISEASE OF [place] CORONARY 10/17/2016 DONYA DONNELLY Ot I65.23 OCCLUSION AND STENOSIS OF [place]ILATERAL [place] 10/23/2016 JULIANA MILLER MD Ot E78.5 HYPERLIPIDEMIA, UNSPECIFIED 10/23/2016 JULIANA MILLER MD, Ot G47.33 OBSTRUCTIVE SLEEP APNEA (ADULT) (PEDIATR 10/23/2016 JULIANA MILLER MD Ot I10 ESSENTIAL (PRIMARY) HYPERTENSION 10/23/2016 JULIANA MILLER MD, Ot I25.10 ATHSCL HEART DISEASE OF [place] CORONARY 10/23/2016 JULIANA MILLER MD, Ot I25.84 CORONARY ATHEROSCLEROSIS DUE TO [place] 10/23/2016 JULIANA MILLER MD Ot I34.0 NONRHEUMATIC MITRAL (VALVE) INSUFFICIENC 10/23/2016 JULIANA MILLER MD, Ot I65.23 OCCLUSION AND STENOSIS OF [place]IL[place]AL [place] 10/23/2016 JULIANA MILLER MD Ot R94.39 ABNORMAL RESULT OF OTHER CARDIOVASCULAR 10/23/2016 JULIANA MILLER MD, Ot Z72.0 TOBACCO USE 10/23/2016 JULIANA MILLER MD, Ot 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 10/23/2016 JULIANA MILLER MD, [...] MILLER MD Ot 414.01 CORONARY ATHEROSCLEROSIS OF [place] CORON 11/13/2017 JULIANA MILLER MD Ot 786.09 [...] DONNELLY Ot G45.9 TRANSIENT CEREBRAL ISCHEMIC ATTACK, [facility] 11/13/2017 DONYA DONNELLY Ot G47.33 OBSTRUCTIVE SLEEP APNEA (ADULT) (PEDIATR 11/13/2017 DONYA DONNELLY Ot I25.10 ATHSCL HEART DISEASE OF [place] CORONARY 11/13/2017 DONYA DONNELLY Ot I65.23 OCCLUSION AND STENOSIS OF BILATERAL [place] 11/13/2017 AGUSTIN ROJO DO Ot R06.02 SHORTNESS OF BREATH 11/13/2017 AGUSTIN ROJO DO Ot Z87.891 PERSONAL HISTORY OF NICOTINE DEPENDENCE 11/18/2017 JULIANA MILLER MD, Ot G47.33 OBSTRUCTIVE SLEEP APNEA (ADULT) (PEDIATR 11/18/2017 JULIANA MILLER MD, Ot I25.10 ATHSCL HEART DISEASE OF [place] CORONARY 11/18/2017 JULIANA MILLER MD, Ot I34.0 NONRHEUMATIC MITRAL (VALVE) INSUFFICIENC 11/18/2017 JULIANA MILLER MD, Ot I71.2 THORACIC AORTIC ANEURYSM, WITHOUT RUPTUR 11/18/2017 JULIANA MILLER MD Ot J43.9 EMPHYSEMA, UNSPECIFIED 11/18/2017 JULIANA MILLER MD Ot N20.0 CALCULUS OF KIDNEY 11/18/2017 JULIANA MILLER MD Ot R41.0 DISORIENTATION, UNSPECIFIED 11/18/2017 JULIANA MILLER MD Ot W19.XXXA UNSPECIFIED FALL, INITIAL ENCOUNTER 11/18/2017 JULIANA MILLER MD, Ot Z72.0 TOBACCO USE 11/18/2017 MARCY KENNY DO Ot J44.9 CHRONIC OBSTRUCTIVE PULMONARY DISEASE, U 11/19/2017 JULIANA MILLER MD, Ot D64.9 ANEMIA, UNSPECIFIED 11/19/2017 JULIANA MILLER MD, Ot E78.5 HYPERLIPIDEMIA, UNSPECIFIED 11/19/2017 JULIANA MILLER MD Ot F17.210 NICOTINE DEPENDENCE, CIGARETTES, UNCOMPL 11/19/2017 JULIANA MILLER MD, Ot G47.9 SLEEP DISORDER, UNSPECIFIED 11/19/2017 JULIANA MILLER MD Ot I10 ESSENTIAL (PRIMARY) HYPERTENSION 11/19/2017 JULIANA MILLER MD, Ot I25.10 ATHSCL HEART DISEASE OF [place] CORONARY 11/19/2017 JULIANA MILLER MD, Ot I65.29 OCCLUSION AND STENOSIS OF UNSPECIFIED CA 11/19/2017 JULIANA MILLER MD, Ot J44.9 CHRONIC OBSTRUCTIVE PULMONARY DISEASE, U 11/19/2017 JULIANA MILLER MD Ot K63.89 OTHER SPECIFIED DISEASES OF INTESTINE 11/19/2017 JULIANA MILLER MD Ot N28.9 DISORDER OF KIDNEY AND URETER, UNSPECIFI 11/19/2017 JULIANA MILLER MD Ot R06.02 SHORTNESS OF BREATH 11/19/2017 JULIANA MILLER MD Ot R19.7 DIARRHEA, UNSPECIFIED 11/19/2017 JULIANA MILLER MD Ot R21 RASH AND OTHER NONSPECIFIC SKIN ERUPTION 11/19/2017 JULIANA MILLER MD Ot R53.83 OTHER FATIGUE 11/19/2017 JULIANA MILLER MD, Ot 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 11/19/2017 JULIANA MILLER MD Ot Z86.73 PRSNL HX OF TIA (TIA), AND CEREB INFRC W 11/20/2017 Ot 733.00 OSTEOPOROSIS NOS 11/20/2017 MARCY KENNY DO Ot 733.00 OSTEOPOROSIS NOS 11/20/2017 AGUSTIN ROJO DO Ot 492.8 EMPHYSEMA NEC 11/20/2017 AGUSTIN ROJO DO Ot 511.9 PLEURAL EFFUSION NOS 11/20/2017 ALIA DO, AGUSTIN M Ot 586 RENAL FAILURE NOS 11/20/2017 MARIE CHILDS DO Ot 726.0 ADHESIVE CAPSULIT SHLDER 11/20/2017 MARIE CHILDS DO Ot 718.91 JT DERANGMENT NOS-SHLDER 11/20/2017 NAZ SIMMONS, MARIE Cao Ot 726.0 ADHESIVE CAPSULIT SHLDER 11/20/2017 MARIE CHILDS DO Ot 840.4 SPRAIN ROTATOR CUFF 11/20/2017 MARIE CHILDS DO Ot E000.8 OTHER EXTERNAL CAUSE STATUS 11/20/2017 MARIE CHILDS DO Ot E928.9 ACCIDENT NOS 11/20/2017 MARIE CHILDS DO Ot V72.84 EXAM PRE-OPERATIVE NOS 11/20/2017 MARIE CHILDS DO Ot 727.61 ROTATOR CUFF RUPTURE 11/20/2017 MARIE CHILDS DO Ot V72.84 EXAM PRE-OPERATIVE NOS 11/20/2017 ANGELA ARCE, JULIANA Goncalves Ot 414.00 CORON ATHEROSCLER NOS TYPE VESSEL, NATIV 11/20/2017 JULIANA MILLER MD Ot 424.0 MITRAL VALVE DISORDER 11/20/2017 ANGELA ARCE, JULIANA Goncalves Ot 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 W O CEREBRAL IN 11/20/2017 ANGELA ARCE, JULIANA Goncalves Ot 786.09 RESPIRATORY ABNORM NEC 11/20/2017 ANGELA ARCE, JULIANA Goncalves Ot 414.01 CORONARY ATHEROSCLEROSIS OF [place] CORON 11/20/2017 JULIANA MILLER MD Ot 786.09 RESPIRATORY ABNORM NEC 11/20/2017 NAZ SIMMONS MARIE Cao Ot 840.4 SPRAIN ROTATOR CUFF 11/20/2017 NAZ SIMMONS MARIE Cao Ot E000.8 OTHER EXTERNAL CAUSE STATUS 11/20/2017 MARIE CHILDS DO Ot E928.9 ACCIDENT NOS 11/20/2017 MARIE CHILDS DO Ot V72.84 EXAM PRE-OPERATIVE NOS 11/20/2017 Ot 733.00 OSTEOPOROSIS NOS 11/20/2017 NAZ SIMMONS MARIE Cao Ot 722.4 CERVICAL DISC DEGEN 11/20/2017 Ot J44.9 CHRONIC OBSTRUCTIVE PULMONARY DISEASE, U 11/20/2017 MARCY KENNY DO Ot K59.00 CONSTIPATION, UNSPECIFIED 11/20/2017 MARCY KENNY DO Ot J44.9 CHRONIC OBSTRUCTIVE PULMONARY DISEASE, U 11/20/2017 DOYLE ADAMS, DONYA White Ot G45.9 TRANSIENT CEREBRAL ISCHEMIC ATTACK, UNSP 11/20/2017 DONYA DONNELLY Ot G47.33 OBSTRUCTIVE SLEEP APNEA (ADULT) (PEDIATR 11/20/2017 DONYA DONNELLY Ot I25.10 ATHSCL HEART DISEASE OF [place] CORONARY 11/20/2017 DONYA DONNELLY Ot I65.23 OCCLUSION AND STENOSIS OF BILATERAL [place] 11/20/2017 AGUSTIN ROJO DO Ot R06.02 SHORTNESS OF BREATH 11/20/2017 AGUSTIN ROJO DO Ot Z87.891 PERSONAL HISTORY OF NICOTINE DEPENDENCE 11/20/2017 JULIANA MILLER MD, Ot G47.33 OBSTRUCTIVE SLEEP APNEA (ADULT) (PEDIATR 11/20/2017 JULIANA MILLER MD, Ot I25.10 ATHSCL HEART DISEASE OF [place] CORONARY 11/20/2017 JULIANA MILLER MD Ot I34.0 NONRHEUMATIC MITRAL (VALVE) INSUFFICIENC 11/20/2017 JULIANA MILLER MD Ot I71.2 THORACIC AORTIC ANEURYSM, WITHOUT RUPTUR 11/20/2017 JULIANA MILLER MD, Ot J43.9 EMPHYSEMA, UNSPECIFIED 11/20/2017 JULIANA MILLER MD Ot N20.0 CALCULUS OF KIDNEY 11/20/2017 JULIANA MILLER MD Ot R41.0 DISORIENTATION, UNSPECIFIED 11/20/2017 JULIANA MILLER MD Ot W19.XXXA UNSPECIFIED FALL, INITIAL ENCOUNTER 11/20/2017 JULIANA MILLER MD Ot Z72.0 TOBACCO USE 11/20/2017 RALPH JASMINE DO Ot R93.5 ABN FINDINGS ON DX IMAGING OF ABD REGION 11/20/2017 RALPH JASMINE DO Ot Z01.818 ENCOUNTER FOR OTHER PREPROCEDURAL EXAMIN 11/21/2017 JULIANA MILLER MD, Ot G47.33 OBSTRUCTIVE SLEEP APNEA (ADULT) (PEDIATR 11/21/2017 JULIANA MILLER MD Ot I25.10 ATHSCL HEART DISEASE OF [place] CORONARY 11/21/2017 JULIANA MILLER MD Ot I34.0 NONRHEUMATIC MITRAL (VALVE) INSUFFICIENC 11/21/2017 JULIANA MILLER MD Ot I71.2 THORACIC AORTIC ANEURYSM, WITHOUT RUPTUR 11/21/2017 ANGELA ARCE, JULIANA Goncalves Ot J43.9 EMPHYSEMA, UNSPECIFIED 11/21/2017 JULIANA MILLER MD Ot N20.0 CALCULUS OF KIDNEY 11/21/2017 JULIANA MILLER MD Ot R41.0 DISORIENTATION, UNSPECIFIED 11/21/2017 JULIANA MILLER MD Ot W19.XXXA UNSPECIFIED FALL, INITIAL ENCOUNTER 11/21/2017 JULIANA MILLER MD Ot Z72.0 TOBACCO USE 11/21/2017 Ot 733.00 OSTEOPOROSIS NOS 11/21/2017 KENNYMARCY GARCIA DO Ot 733.00 OSTEOPOROSIS NOS 11/21/2017 AGUSTIN ROJO DO Ot 492.8 EMPHYSEMA NEC 11/21/2017 AGUSTIN ROJO DO Ot 511.9 PLEURAL EFFUSION NOS 11/21/2017 AGUSTIN ROJO DO Ot 586 RENAL FAILURE NOS 11/21/2017 NAZ , MARIE F Ot 726.0 ADHESIVE CAPSULIT SHLDER 11/21/2017 NAZ , MARIE F Ot 718.91 JT DERANGMENT NOS-SHLDER 11/21/2017 NAZ , MARIE Nash Ot 726.0 ADHESIVE CAPSULIT SHLDER 11/21/2017 NAZ , MARIE F Ot 840.4 SPRAIN ROTATOR CUFF 11/21/2017 NAZ SIMMONS, MARIE F Ot E000.8 OTHER EXTERNAL CAUSE STATUS 11/21/2017 NAZ DO MARIE Nash Ot E928.9 ACCIDENT NOS 11/21/2017 NAZ , MARIE Cao Ot V72.84 EXAM PRE-OPERATIVE NOS 11/21/2017 NAZ DO MARIE F Ot 727.61 ROTATOR CUFF RUPTURE 11/21/2017 NAZ DO MARIE Nash Ot V72.84 EXAM PRE-OPERATIVE NOS 11/21/2017 JULIANA MILLER MD Ot 414.00 CORON ATHEROSCLER NOS TYPE VESSEL, NATIV 11/21/2017 JULIANA MILLER MD Ot 424.0 MITRAL VALVE DISORDER 11/21/2017 JULIANA MILLER MD Ot 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 W O CEREBRAL IN 11/21/2017 JULIANA MILLER MD Ot 786.09 RESPIRATORY ABNORM NEC 11/21/2017 JULIANA MILLER MD Ot 414.01 CORONARY ATHEROSCLEROSIS OF [place] CORON 11/21/2017 JULIANA MILLER MD Ot 786.09 RESPIRATORY ABNORM NEC 11/21/2017 MARIE CHILDS DO Ot 840.4 SPRAIN ROTATOR CUFF 11/21/2017 MARIE CHILDS DO Ot E000.8 OTHER EXTERNAL CAUSE STATUS 11/21/2017 MARIE CHILDS DO Ot E928.9 ACCIDENT NOS 11/21/2017 MARIE CHILDS DO Ot V72.84 EXAM PRE-OPERATIVE NOS 11/21/2017 Ot 733.00 OSTEOPOROSIS NOS 11/21/2017 MARIE CHILDS DO Ot 722.4 CERVICAL DISC DEGEN 11/21/2017 Ot J44.9 CHRONIC OBSTRUCTIVE PULMONARY DISEASE, U 11/21/2017 MARCY KENNY DO Ot K59.00 CONSTIPATION, UNSPECIFIED 11/21/2017 MARCY KENNY DO, Ot J44.9 CHRONIC OBSTRUCTIVE PULMONARY DISEASE, U 11/21/2017 DONYA DONNELLY Ot G45.9 TRANSIENT CEREBRAL ISCHEMIC ATTACK, UNSP 11/21/2017 DONYA DONNELLY Ot G47.33 OBSTRUCTIVE SLEEP APNEA (ADULT) (PEDIATR 11/21/2017 DONYA DONNELLY Ot I25.10 ATHSCL HEART DISEASE OF [place] CORONARY 11/21/2017 DONYA DONNELLY Ot I65.23 OCCLUSION AND STENOSIS OF BILATERAL [place] 11/21/2017 AGUSTIN ROJO DO Ot R06.02 SHORTNESS OF BREATH 11/21/2017 AGUSTIN ROJO DO Ot Z87.891 PERSONAL HISTORY OF NICOTINE DEPENDENCE 11/21/2017 JULIANA MILLER MD, Ot G47.33 OBSTRUCTIVE SLEEP APNEA (ADULT) (PEDIATR 11/21/2017 JULIANA MILLER MD, Ot I25.10 ATHSCL HEART DISEASE OF [place] CORONARY 11/21/2017 JULIANA MILLER MD Ot I34.0 NONRHEUMATIC MITRAL (VALVE) INSUFFICIENC 11/21/2017 JULIANA MILLER MD Ot I71.2 THORACIC AORTIC ANEURYSM, WITHOUT RUPTUR 11/21/2017 JULIANA MILLER MD Ot J43.9 EMPHYSEMA, UNSPECIFIED 11/21/2017 JULIANA MILLER MD Ot N20.0 CALCULUS OF KIDNEY 11/21/2017 JULIANA MILLER MD Ot R41.0 DISORIENTATION, UNSPECIFIED 11/21/2017 ANGELA ARCE, JULIANA Goncalves Ot W19.XXXA UNSPECIFIED FALL, INITIAL ENCOUNTER 11/21/2017 ANGELA ARCE, JULIANA Goncalves Ot Z72.0 TOBACCO USE 11/22/2017 Ot 733.00 OSTEOPOROSIS NOS 11/22/2017 KENNY DO MARCY Goncalves Ot 733.00 OSTEOPOROSIS NOS 11/22/2017 AGUSTIN ROJO DO Ot 492.8 EMPHYSEMA NEC 11/22/2017 AGUSTIN ROJO DO M Ot 511.9 PLEURAL EFFUSION NOS 11/22/2017 AGUSTIN ROJO DO Ot 586 RENAL FAILURE NOS 11/22/2017 NAZ DO, MARIE F Ot 726.0 ADHESIVE CAPSULIT SHLDER 11/22/2017 NAZ DO, MARIE F Ot 718.91 JT DERANGMENT NOS-SHLDER 11/22/2017 NAZ DO, MARIE F Ot 726.0 ADHESIVE CAPSULIT SHLDER 11/22/2017 NAZ DO, MARIE F Ot 840.4 SPRAIN ROTATOR CUFF 11/22/2017 NAZ , MARIE F Ot E000.8 OTHER EXTERNAL CAUSE STATUS 11/22/2017 NAZ DO, MARIE F Ot E928.9 ACCIDENT NOS 11/22/2017 NAZ DO, MARIE Nash Ot V72.84 EXAM PRE-OPERATIVE NOS 11/22/2017 NAZ , MARIE F Ot 727.61 ROTATOR CUFF RUPTURE 11/22/2017 NAZ , MARIE F Ot V72.84 EXAM PRE-OPERATIVE NOS 11/22/2017 ANGELA ARCE, JULIANA Goncalves Ot 414.00 CORON ATHEROSCLER NOS TYPE VESSEL, NATIV 11/22/2017 JULIANA MILLER MD Ot 424.0 MITRAL VALVE DISORDER 11/22/2017 JULIANA MILLER MD Ot 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 W O CEREBRAL IN 11/22/2017 JULIANA MILLER MD Ot 786.09 RESPIRATORY ABNORM NEC 11/22/2017 JULIANA MILLER MD Ot 414.01 CORONARY ATHEROSCLEROSIS OF [place] CORON 11/22/2017 JULIANA MILLER MD Ot 786.09 RESPIRATORY ABNORM NEC 11/22/2017 NAZ DO MARIE Nash Ot 840.4 SPRAIN ROTATOR CUFF 11/22/2017 NAZ , MARIE F Ot E000.8 OTHER EXTERNAL CAUSE STATUS 11/22/2017 NAZ DO, MARIE F Ot E928.9 ACCIDENT NOS 11/22/2017 NAZ MARIE Ot V72.84 EXAM PRE-OPERATIVE NOS 11/22/2017 Ot 733.00 OSTEOPOROSIS NOS 11/22/2017 MARIE CHILDS DO Ot 722.4 CERVICAL DISC DEGEN 11/22/2017 Ot J44.9 CHRONIC OBSTRUCTIVE PULMONARY DISEASE, U 11/22/2017 MARCY KENNY DO Ot K59.00 CONSTIPATION, UNSPECIFIED 11/22/2017 MARCY KENNY DO Ot J44.9 CHRONIC OBSTRUCTIVE PULMONARY DISEASE, U 11/22/2017 DONYA DONNELLY Ot G45.9 TRANSIENT CEREBRAL ISCHEMIC ATTACK, UNSP 11/22/2017 DONYA DONNELLY Ot G47.33 OBSTRUCTIVE SLEEP APNEA (ADULT) (PEDIATR 11/22/2017 DONYA DONNELLY Ot I25.10 ATHSCL HEART DISEASE OF [place] CORONARY 11/22/2017 DONYA DONNELLY Ot I65.23 OCCLUSION AND STENOSIS OF BILATERAL [place] 11/22/2017 AGUSTIN ROJO DO Ot R06.02 SHORTNESS OF BREATH 11/22/2017 AGUSTIN ROJO DO Ot Z87.891 PERSONAL HISTORY OF NICOTINE DEPENDENCE 11/22/2017 JULIANA MILLER MD, Ot G47.33 OBSTRUCTIVE SLEEP APNEA (ADULT) (PEDIATR 11/22/2017 JULIANA MILLER MD, Ot I25.10 ATHSCL HEART DISEASE OF [place] CORONARY 11/22/2017 JULIANA MILLER MD Ot I34.0 NONRHEUMATIC MITRAL (VALVE) INSUFFICIENC 11/22/2017 JULIANA MILLER MD, Ot I71.2 THORACIC AORTIC ANEURYSM, WITHOUT RUPTUR 11/22/2017 JULIANA MILLER MD, Ot J43.9 EMPHYSEMA, UNSPECIFIED 11/22/2017 JULIANA MILLER MD Ot N20.0 CALCULUS OF KIDNEY 11/22/2017 JULIANA MILLER MD, Ot R41.0 DISORIENTATION, UNSPECIFIED 11/22/2017 JULIANA MILLER MD Ot W19.XXXA UNSPECIFIED FALL, INITIAL ENCOUNTER 11/22/2017 JULIANA MILLER MD, Ot Z72.0 TOBACCO USE 11/22/2017 RALPH JASMINE DO Ot R93.5 ABN FINDINGS ON DX IMAGING OF ABD REGION 11/22/2017 RALPH JASMINE DO Ot Z01.818 ENCOUNTER FOR OTHER PREPROCEDURAL EXAMIN 11/22/2017 Ot 733.00 OSTEOPOROSIS NOS 11/22/2017 ZOYA SIMMONS MARCY Goncalves Ot 733.00 OSTEOPOROSIS NOS 11/22/2017 AGUSTIN ROJO DO Ot 492.8 EMPHYSEMA NEC 11/22/2017 AGUSTIN ROJO DO Ot 511.9 PLEURAL EFFUSION NOS 11/22/2017 AGUSTIN ROJO DO Ot 586 RENAL FAILURE NOS 11/22/2017 NAZ , MARIE Cao Ot 726.0 ADHESIVE CAPSULIT SHLDER 11/22/2017 NAZ , MARIE Cao Ot 718.91 JT DERANGMENT NOS-SHLDER 11/22/2017 NAZ DO MARIE Cao Ot 726.0 ADHESIVE CAPSULIT SHLDER 11/22/2017 NAZ , MARIE Cao Ot 840.4 SPRAIN ROTATOR CUFF 11/22/2017 NAZ DO MARIE Cao Ot E000.8 OTHER EXTERNAL CAUSE STATUS 11/22/2017 NAZ DO MARIE Cao Ot E928.9 ACCIDENT NOS 11/22/2017 NAZ , MARIE Cao Ot V72.84 EXAM PRE-OPERATIVE NOS 11/22/2017 NAZ DO MARIE Cao Ot 727.61 ROTATOR CUFF RUPTURE 11/22/2017 NAZ DO MARIE Cao Ot V72.84 EXAM PRE-OPERATIVE NOS 11/22/2017 JULIANA MILLER MD Ot 414.00 CORON ATHEROSCLER NOS TYPE VESSEL, NATIV 11/22/2017 JULIANA MILLER MD Ot 424.0 MITRAL VALVE DISORDER 11/22/2017 JULIANA MILLER MD Ot 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 W O CEREBRAL IN 11/22/2017 JULIANA MILLER MD Ot 786.09 RESPIRATORY ABNORM NEC 11/22/2017 JULIANA MILLER MD Ot 414.01 CORONARY ATHEROSCLEROSIS OF [place] CORON 11/22/2017 JULIANA MILLER MD Ot 786.09 RESPIRATORY ABNORM NEC 11/22/2017 MARIE CHILDS DO Ot 840.4 SPRAIN ROTATOR CUFF 11/22/2017 NAZ DO MARIE Cao Ot E000.8 OTHER EXTERNAL CAUSE STATUS 11/22/2017 NAZ DO MARIE Cao Ot E928.9 ACCIDENT NOS 11/22/2017 NAZ DO MARIE Cao Ot V72.84 EXAM PRE-OPERATIVE NOS 11/22/2017 Ot 733.00 OSTEOPOROSIS NOS 11/22/2017 NAZ MARIE Ot 722.4 CERVICAL DISC DEGEN 11/22/2017 Ot J44.9 CHRONIC OBSTRUCTIVE PULMONARY DISEASE, U 11/22/2017 MARCY KENNY DO Ot K59.00 CONSTIPATION, UNSPECIFIED 11/22/2017 MARCY KENNY DO Ot J44.9 CHRONIC OBSTRUCTIVE PULMONARY DISEASE, U 11/22/2017 DONYA DONNELLY Ot G45.9 TRANSIENT CEREBRAL ISCHEMIC ATTACK, UNSP 11/22/2017 DONYA DONNELLY Ot G47.33 OBSTRUCTIVE SLEEP APNEA (ADULT) (PEDIATR 11/22/2017 DONYA DONNELLY Ot I25.10 ATHSCL HEART DISEASE OF [place] CORONARY 11/22/2017 DONYA DONNELLY Ot I65.23 OCCLUSION AND STENOSIS OF BILATERAL [place] 11/22/2017 AGUSTIN ROJO DO Ot R06.02 SHORTNESS OF BREATH 11/22/2017 AGUSTIN ROJO DO Ot Z87.891 PERSONAL HISTORY OF NICOTINE DEPENDENCE 11/22/2017 JULIANA MILLER MD, Ot G47.33 OBSTRUCTIVE SLEEP APNEA (ADULT) (PEDIATR 11/22/2017 JULIANA MILLER MD, Ot I25.10 ATHSCL HEART DISEASE OF [place] CORONARY 11/22/2017 JULIANA MILLER MD, Ot I34.0 NONRHEUMATIC MITRAL (VALVE) INSUFFICIENC 11/22/2017 JULIANA MILLER MD, Ot I71.2 THORACIC AORTIC ANEURYSM, WITHOUT RUPTUR 11/22/2017 JULIANA MILLER MD, Ot J43.9 EMPHYSEMA, UNSPECIFIED 11/22/2017 JULIANA MILLER MD, Ot N20.0 CALCULUS OF KIDNEY 11/22/2017 JULIANA MILLER MD Ot R41.0 DISORIENTATION, UNSPECIFIED 11/22/2017 JULIANA MILLER MD Ot W19.XXXA UNSPECIFIED FALL, INITIAL ENCOUNTER 11/22/2017 JULIANA MILLER MD, Ot Z72.0 TOBACCO USE Procedures Code Description Performed By Performed On [...] - 09:25 MRSA SCREEN RESULT MRSA ISOLATED [facility] Automated blood complete blood count (hemogram) panel - 11/18/17 15:25 Blood leukocytes automated count (number/volume) 7.6 10*3/uL 4.3-11.0 Blood erythrocytes automated count (number/volume) 3.10 10*6/uL 4.35-5.85 Venous blood hemoglobin measurement (mass/volume) 11.0 g/dL 13.3-17.7 Blood hematocrit (volume fraction) 32 % 40-54 Automated erythrocyte mean corpuscular volume 104 [foz_us] 80-99 Automated erythrocyte mean corpuscular hemoglobin (mass per erythrocyte) 36 pg 25-34 Automated erythrocyte mean corpuscular hemoglobin concentration measurement ( mass/volume) 34 g/dL 32-36 Automated erythrocyte distribution width ratio 13.9 % 10.0-14.5 Automated blood platelet count (count/volume) 223 10*3/uL 130-400 Automated blood platelet mean volume measurement 9.5 [foz_us] 7.4-10.4 PT panel in platelet poor plasma by coagulation assay - 11/18/17 15:25 Prothrombin time (PT) in platelet poor plasma by coagulation assay 15.2 s 12.2-14.7 INR in platelet poor plasma or blood by coagulation assay 1.2 0.8-1.4 Activated partial thromboplastin time (aPTT) in platelet poor plasma bycoagulation assay - 11/18/17 15:25 Activated partial thromboplastin time (aPTT) in platelet poor plasma bycoagulation assay 29 s 24-35 Comprehensive metabolic panel - 11/18/17 15:25 Serum or plasma sodium measurement (moles/volume) 140 mmol/L 135-145 Serum or plasma potassium measurement (moles/volume) 4.1 mmol/L 3.6-5.0 Serum or plasma chloride measurement (moles/volume) 111 mmol/L 98-107 Carbon dioxide 18 mmol/L 21-32 Serum or plasma anion gap determination (moles/volume) 11 mmol/L 5-14 Serum or plasma urea nitrogen measurement (mass/volume) 56 mg/dL 7-18 Serum or plasma creatinine measurement (mass/volume) 1.48 mg/dL 0.60-1.30 Serum or plasma urea nitrogen/creatinine mass ratio 38 NRG Serum or plasma creatinine measurement with calculation of estimated glomerular filtration rate 47 NRG Serum or plasma glucose measurement (mass/volume) 94 mg/dL 70-105 Serum or plasma calcium measurement (mass/volume) 9.3 mg/dL 8.5-10.1 Serum or plasma total bilirubin measurement (mass/volume) 0.5 mg/dL 0.1-1.0 Serum or plasma alkaline phosphatase measurement (enzymatic activity/volume) 56 U/L 40-136 Serum or plasma aspartate aminotransferase measurement (enzymatic activity/ volume) 13 U/L 5-34 Serum or plasma alanine aminotransferase measurement (enzymatic activity/volume ) 16 U/L 0-55 Serum or plasma protein measurement (mass/volume) 5.9 g/dL 6.4-8.2 Serum or plasma albumin measurement (mass/volume) 3.8 g/dL 3.2-4.5 Serum or plasma lithium measurement (moles/volume) - 11/18/17 15:25 BNP level 23.9 pg/mL <100.0 Serum or plasma troponin i.cardiac measurement (mass/volume) - 11/18/17 15:25 Serum or plasma troponin i.cardiac measurement (mass/volume) < ng/ mL <0.30 THYROID STIMULATING HORMONE - 11/18/17 15:25 THYROID STIMULATING HORMONE 1.75 u[iU]/mL 0.35-4.94 Automated blood complete blood count (hemogram) panel - 11/19/17 05:46 Blood leukocytes automated count (number/volume) 6.2 10*3/uL 4.3-11.0 Blood erythrocytes automated count (number/volume) 2.66 10*6/uL 4.35-5.85 Venous blood hemoglobin measurement (mass/volume) 9.3 g/dL 13.3-17.7 Blood hematocrit (volume fraction) 28 % 40-54 Automated erythrocyte mean corpuscular volume 105 [foz_us] 80-99 Automated erythrocyte mean corpuscular hemoglobin (mass per erythrocyte) 35 pg 25-34 Automated erythrocyte mean corpuscular hemoglobin concentration measurement ( mass/volume) 34 g/dL 32-36 Automated erythrocyte distribution width ratio 13.9 % 10.0-14.5 Automated blood platelet count (count/volume) 200 10*3/uL 130-400 Automated blood platelet mean volume measurement 9.7 [foz_us] 7.4-10.4 Comprehensive metabolic panel - 11/19/17 05:46 Serum or plasma sodium measurement (moles/volume) 141 mmol/L 135-145 Serum or plasma potassium measurement (moles/volume) 4.0 mmol/L 3.6-5.0 Serum or plasma chloride measurement (moles/volume) 113 mmol/L 98-107 Carbon dioxide 24 mmol/L 21-32 Serum or plasma anion gap determination (moles/volume) 4 mmol/L 5-14 Serum or plasma urea nitrogen measurement (mass/volume) 36 mg/dL 7-18 Serum or plasma creatinine measurement (mass/volume) 1.20 mg/dL 0.60-1.30 Serum or plasma urea nitrogen/creatinine mass ratio 30 NRG Serum or plasma creatinine measurement with calculation of estimated glomerular filtration rate 60 NRG Serum or plasma glucose measurement (mass/volume) 94 mg/dL 70-105 Serum or plasma calcium measurement (mass/volume) 8.6 mg/dL 8.5-10.1 Serum or plasma total bilirubin measurement (mass/volume) 0.5 mg/dL 0.1-1.0 Serum or plasma alkaline phosphatase measurement (enzymatic activity/volume) 46 U/L 40-136 Serum or plasma aspartate aminotransferase measurement (enzymatic activity/ volume) 13 U/L 5-34 Serum or plasma alanine aminotransferase measurement (enzymatic activity/volume ) 14 U/L 0-55 Serum or plasma protein measurement (mass/volume) 5.3 g/dL 6.4-8.2 Serum or plasma albumin measurement (mass/volume) 3.4 g/dL 3.2-4.5 Whole blood hemoglobin and hematocrit panel - 11/19/17 11:45 Venous blood hemoglobin measurement (mass/volume) 8.9 g/dL 13.3-17.7 Blood hematocrit (volume fraction) 27 % 40-54 Encounters ACCT No. Visit Date/Time Discharge Status Pt. Type Provider Facility Loc./Unit Complaint [id number] 11/22/2017 12:49:00 11/22/2017 15:30:00 DIS Outpatient RALPH JASMINE DO [facility] ENDO REFLUX, GASTROINTESTINAL BLEEDING [id number] 11/20/2017 05:40:00 11/20/2017 12:13:00 DIS Outpatient RALPH JASMINE DO [facility] PREOP REFLUX, GASTROINTESTINAL BLEEDING [id number] 11/18/2017 14:58:00 11/19/2017 17:50:00 DIS Outpatient JULIANA MILLER MD [facility] 4TH SOB [id number] 11/15/2017 10:39:00 11/15/2017 23:59:59 CLS Outpatient JULIANA MILLER MD [facility] RAD CAD,CONFUSION [id number] 02/27/2017 15:06:00 02/27/2017 23:59:59 CLS Outpatient AGUSTIN ROJO DO [facility] RT DYSPNEA R06.02 [id number] 02/22/2017 16:45:00 02/22/2017 16:45:00 CAN Preadmit AGUSTIN ROJO DO [facility] RT DYSPNEA,HX OF TOBACCO USE, JOY ON CPAP [id number] 10/03/2016 08:48:00 10/03/2016 15:30:00 DIS Outpatient JULIANA MILLER MD [facility] CATH ANM STRESS TEST,CAD [id number] 09/19/2016 08:13:00 09/19/2016 23:59:59 CLS Outpatient DONYA DONNELLY [facility] CARD CAD,JOY ON CPAP,TIA [id number] 08/14/2016 08:51:00 08/14/2016 15:30:00 DIS Outpatient RALPH JASMINE DO [facility] SDC OCCULT STOOLS [id number] 08/09/2016 05:47:00 08/09/2016 13:50:00 DIS Outpatient RALPH JASMINE DO [facility] PREOP OCCULT STOOLS [id number] 12/05/2015 10:15:00 12/05/2015 23:59:59 CLS Preadmit MARCY KENNY DO [facility] PULM COPD [id number] 09/05/2015 10:15:00 12/04/2015 00:01:00 DIS Outpatient MARCY KENNY DO [facility] PULM COPD [id number] 09/05/2015 14:31:00 09/05/2015 23:59:59 CLS Outpatient MARCY KENNY DO [facility] RAD ABD PAIN [id number] 08/08/2015 14:00:00 08/16/2015 13:50:00 DIS Inpatient MARCY KENNY DO [facility] 4TH PNEUMONIA [id number] 04/19/2015 09:57:00 04/19/2015 10:38:00 DIS Outpatient ASH ALARCON MD [facility] REHAB CERVICAL SPONDYLOSIS [id number] 01/24/2015 14:36:00 01/24/2015 23:59:59 CLS Outpatient NAZ MARIE SIMMONS [facility] RAD DDD [id number] 11/05/2014 09:53:00 11/09/2014 11:51:00 DIS Outpatient MARIE CHILDS DO [facility] REHAB S/P R SHLD SCOPE WITH SAD AND DEBRIDEMENT [id number] 09/28/2014 12:27:00 09/28/2014 23:59:59 CLS Outpatient MARIE CHILDS DO [facility] RIGHT SHOULDER TORN ROTATOR CUFF [id number] 09/24/2014 06:15:00 09/24/2014 23:59:59 CLS Outpatient MARIE CHILDS DO [facility] PREOP RIGHT SHOULDER TORN ROTATOR CUFF [id number] 08/31/2014 08:58:00 08/31/2014 11:36:00 DIS Outpatient MARIE CHILDS DO [facility] RIGHT SHOULDER ROTATOR CUFF TEAR [id number] 08/27/2014 05:50:00 08/27/2014 23:59:59 CLS Outpatient NAZ MARIE SIMMONS [facility] PREOP RIGHT SHOULDER ROTATOR CUFF TEAR [id number] 08/25/2014 12:14:00 08/25/2014 23:59:59 CLS Outpatient JULIANA MILLER MD [facility] CARD CAD,ANN,DYSPNEA [id number] 08/25/2014 09:05:00 08/25/2014 23:59:59 CLS Outpatient JULIANA MILLER MD [facility] CARD CAD [id number] 07/21/2014 05:50:00 07/21/2014 23:59:59 CLS Outpatient MARIE CHILDS DO [facility] PREOP RIGHT SHOULDER ROTATOR CUFF TEAR [id number] 07/14/2014 17:15:00 07/16/2014 10:00:00 DIS Inpatient MARCY KENNY DO [facility] 4TH TIA CONFUSION DIFFICULT WORD FINDING [id number] 06/28/2014 13:45:00 07/07/2014 11:55:00 DIS Outpatient MARIE CHILDS DO [facility] REHAB R SHOULDER ADHESIVE CAPSULITIS [id number] 06/23/2014 07:52:00 06/23/2014 23:59:59 CLS Outpatient NAZ SIMMONS MARIE Cao [facility] RAD RT SHOULDER ADHEISIVE CAPSULITIS [id number] 06/21/2014 12:37:00 06/21/2014 23:59:59 CLS Outpatient NAZ SIMMONS MARIE Nash [facility] RAD RT SHOULDER ADHEISIVE CAPSULITIS [id number] 04/21/2014 10:59:00 04/21/2014 23:59:59 CLS Outpatient AGUSTIN ROJO DO [facility] RAD DYSPNEA,PE,RENAL FAILURE [id number] 03/03/2014 13:57:00 03/10/2014 15:35:00 DIS Inpatient TONI KEVIN MD [facility] IRF WEAKNESS [id number] 02/11/2014 10:19:00 02/13/2014 13:15:00 DIS Inpatient MARCY KENNY DO [facility] ICU PROBABLE RL PNEUMONIA [id number] 02/08/2014 12:50:00 02/08/2014 23:59:59 CLS Outpatient MARCY KENNY DO [facility] SDC OSTEO [id number] 09/05/2015 10:15:00 Document Registration [id number] 10/28/2014 13:24:00 Document Registration [id number] 10/31/2012 13:05:00 Document Registration [id number] 11/09/2011 12:32:00 Document Registration [id number] 10/24/2010 12:55:00 Document Registration [email or web address] 04/19/2015 09:57:51 ACT Document Registration
== END 2017-11-22 15:30 | disposition home or self-care (01) ==
LOC: ENDO 12:49
PROVIDERS: ATTEND Surgery
DX: K21.9 Gastro-esophageal reflux disease without esophagitis (principal); K44.9 Diaphragmatic hernia without obstruction or gangrene; J43.9 Emphysema, unspecified; F17.210 Nicotine dependence, cigarettes, uncomplicated; I25.10 Atherosclerotic heart disease of native coronary artery without angina pectoris; I12.0 Hypertensive chronic kidney disease with stage 5 chronic kidney disease or end stage renal disease; E11.22 Type 2 diabetes mellitus with diabetic chronic kidney disease; N18.6 End stage renal disease; E03.9 Hypothyroidism, unspecified; G47.33 Obstructive sleep apnea (adult) (pediatric); F32.9 Major depressive disorder, single episode, unspecified; Z95.5 Presence of coronary angioplasty implant and graft; Z99.2 Dependence on renal dialysis; Z86.73 Personal history of transient ischemic attack (TIA), and cerebral infarction without residual deficits; Z79.899 Other long term (current) drug therapy
CPT/HCPCS: 88305; 88312

== ENCOUNTER 2018-01-02 09:33 | Outpatient (CLI) | payer MEDICARE ==
[~2018-01-02] VITALS: Ht 180.3 cm; Wt 99.8 kg
[~2018-01-02 09:33] MED LIST changes: +CYPR4TAB PO; -CYPR4TAB41 PO; +IPRA3AMP IH; +IPRA3AMP INH; -IPRA3AMP31 IH; -IPRA3AMP31 INH
[2018-01-02 09:50] VITALS: BP 129/84
[2018-01-02 10:36] LABS: BASOPHILS % (AUTO) 0 % (0-10); EOSINOPHILS # (AUTO) 0.3 10^3/uL (0.0-0.3); EOSINOPHILS % (AUTO) 4 % (0-10); HEMATOCRIT 34 % (40-54); HEMOGLOBIN 11.2 G/DL (13.3-17.7); LYMPHOCYTES # (AUTO) 1.2 X 10^3 (1.0-4.0); LYMPHOCYTES % (AUTO) 17 % (12-44); MEAN CORPUSCULAR HEMOGLOBIN 33 PG (25-34); MEAN CORPUSCULAR HGB CONC 33 G/DL (32-36); MEAN CORPUSCULAR VOLUME 99 FL (80-99); MEAN PLATELET VOLUME 9.1 FL (7.4-10.4); MONOCYTES # (AUTO) 0.6 X 10^3 (0.0-1.0); MONOCYTES % (AUTO) 8 % (0-12); NEUTROPHILS # (AUTO) 4.8 X 10^3 (1.8-7.8); NEUTROPHILS % (AUTO) 70 % (42-75); PLATELET COUNT 268 10^3/uL (130-400); RED BLOOD COUNT 3.44 10^6/uL (4.35-5.85); RED CELL DISTRIBUTION WIDTH 14.7 % (10.0-14.5); WHITE BLOOD COUNT 6.9 10^3/uL (4.3-11.0)
[2018-01-02 10:58] LABS: CALCIUM 10.5 MG/DL (8.5-10.1); CREATININE SERUM 1.29 MG/DL (0.60-1.30); POTASSIUM 4.4 MMOL/L (3.6-5.0)
[2018-01-02] MEDS ORDERED: LOVA40TA2 PO (15:39)
[2018-01-02] MEDS ORDERED: DOXE10CA29 PO (15:39)
[2018-01-02] MEDS ORDERED: OMEG-109 PO (15:39)
[2018-01-02] MEDS ORDERED: CETI10TA17 PO (15:39)
[2018-01-02] MEDS ORDERED: CHOL10003 PO (15:39)
[2018-01-02] MEDS ORDERED: ASCO-262 PO (15:39)
[2018-01-02] MEDS ORDERED: PANT40TA3 PO (15:39)
[2018-01-02] MEDS ORDERED: SUCR1TAB36 PO (15:39)
[2018-01-02] MEDS ORDERED: LACT1CAP62 PO (15:39)
[2018-01-09] MEDS ORDERED: ACHD5005 PO (08:58)
== END 2018-01-02 10:20 | disposition home or self-care (01) ==
LOC: PREOP 09:33
PROVIDERS: ATTEND Surgery
DX: Z01.812 Encounter for preprocedural laboratory examination (principal); Z11.2 Encounter for screening for other bacterial diseases; K42.9 Umbilical hernia without obstruction or gangrene
CPT/HCPCS: 36415; 80048; 85025; 87081

== ENCOUNTER 2018-01-09 06:00 | Day surgery (SDC) | payer MEDICARE ==
[~2018-01-09] VITALS: Ht 180.3 cm; Wt 99.8 kg
[~2018-01-09 06:00] MED LIST changes: +ASCO-262 PO; +CETI10TA17 PO; +LACT1CAP62 PO; +PANT40TA3 PO
[2018-01-09 06:25] VITALS: BP 134/77
[2018-01-09] MEDS ORDERED: FAMOTIDINE 20MG/2ML IV (PEPCID) IV ONE (06:30)
[2018-01-09] MEDS ORDERED: ceFAZolin 2 GM IV Premixed 50 ML IV ONE (06:30)
[2018-01-09] MEDS ORDERED: ceFAZolin 2 GM IV Premixed 50 ML ONE (06:39)
[2018-01-09] MEDS ORDERED: FAMOTIDINE 20MG/2ML IV (PEPCID) ONE (06:39)
[2018-01-09] MEDS: LACTATED RINGERS 1,000 ML IV PRN ×2 (06:47→08:45)
[2018-01-09] MEDS ORDERED: fentaNYL INJECTION 100 MCG/2 ML AMP ONE (07:09)
[2018-01-09] MEDS ORDERED: BUPIVACAINE 0.5% 30 ML (SENSORCAINE) VIAL ONE (07:10)
[2018-01-09] MEDS ORDERED: LIDOCAINE 1% INJ 20 ML 20 ML VIAL ONE (07:10)
[2018-01-09] MEDS ORDERED: MIDAZOLAM 2 MG/2 ML (VERSED) VIAL ONE (07:10)
[2018-01-09] MEDS ORDERED: LIDOCAINE PF 2% 5 ML (XYLOCAINE) VIAL ONE (07:13)
[2018-01-09] MEDS ORDERED: proPOfol 200 MG/20 ML (DIPRIVAN) VIAL IV ONE (07:13)
[2018-01-09] MEDS ORDERED: ROCURONIUM 10 MG/ML 5 ML SYRINGE IV ONE (07:14)
[2018-01-09] MEDS ORDERED: MEPERIDINE (DEMEROL) INJ 50 MG/ML IVP PRN (08:00)
[2018-01-09] MEDS ORDERED: ONDANSETRON 4 MG/2 ML (SDV) Z0FRAN IVP PRN ×2 (08:00→09:15)
[2018-01-09] MEDS ORDERED: morphine INJ 10 MG/ML 1ML (SYR OR VIAL) IVP PRN ×2 (08:00→09:15)
[2018-01-09] MEDS ORDERED: GLYCOPYRROLATE 0.2 MG/ML (ROBINUL) 2 ML VIAL ONE (08:26)
[2018-01-09] MEDS ORDERED: NEOSTIGMINE 1 MG/ML 5 ML SYRINGE ONE (08:26)
[2018-01-09] MEDS ORDERED: ONDANSETRON 4 MG/2 ML (SDV) Z0FRAN ONE (08:38)
[2018-01-09] MEDS ORDERED: DEXAMETHASONE 10 MG/ML (DECADRON) 1 ML VIAL ONE (08:38)
[2018-01-09] MEDS ORDERED: SEVOFLURANE (ULTANE) 15 ML INHAL SOLN ONE (08:43)
[2018-01-09] MEDS ORDERED: ACHD5005 PO (08:58)
--- NOTE | 2018-01-09 08:59 | Discharge Inst-Simple/Standard ---
Discharge Inst-Standard Discharge Medications New, Converted or Re-Newed RX: RX on Chart Patient Instructions/Follow Up Plan of Care/Instructions/FU: 2 weeks Chantelle Activity as Tolerated: No Discharge Diet: Regular Diet Other Inst to Patient Follow up Appt: Make appointment for 2 week. Instructions: No lifting greater than 10 pounds. No strenuous activity. May shower in 24 hours, no tub bath or soaking. Use incentive spirometer at home as directed. No Smoking Skin/Wound Care: May remove bandages in 48 hours. You have special glue over incisions it will fall off on its own. Symptoms to Report: Appetite Changes, Extremity Discoloration, Numbness/Tingling, Swelling Increased , Bleeding Excessive, Eyesight Changes, Pain Increased, Urine Color Change, Constipation(Persistent), Fever over 101 degree F, Pain/Pressure in chest, Urinating Difficulty, Cough Up/Vomit Blood, Heart Beat Irreg/Pounding, Pain/ Pressure in jaw, Vaginal Bleeding Increase, Cramps in feet or legs, Lightheadedness, Pain/Pressure in shoulder, Diarrhea(Persistent), Memory Changes Suddenly, Questions/Concerns, Weight gain consecutive days, Dizziness/ Fainting, Nausea/Vomiting, Shortness of Breath, Weight gain over 2 pounds If questions or concerns contact your physician Or seek help at emergency department. RALPH JASMINE DO January 09, 2018 08:59
--- NOTE | 2018-01-09 09:01 | Progress Note-Post Operative ---
Post-Operative Progess Note Surgeon (s)/Manager Of It (s) Surgeon RALPH JASMINE DO Manager Of It: Dr. Rodrigues Pre-Operative Diagnosis umbilical hernia Post-Operative Diagnosis incarcerated umbilical hernia Procedure & Operative Findings Date of Procedure 01/09/18 Procedure Performed/Findings laparoscopic incarcerated umbilical hernia repair with 4.5 " ventralight echo mesh Anesthesia Type gen Estimated Blood Loss Estimated blood loss (mL): min Specimens/Packing Specimens Removed none RALPH JASMINE DO January 09, 2018 09:01
[2018-01-09] MEDS ORDERED: HYDROmorphone 1 MG/ML (DILAUDID) 1 ML SYRINGE IV PRN (09:15)
[2018-01-09] MEDS ORDERED: RT-ALBUTEROL SULF 2.5 MG/3 ML PRE-MIX VIAL ONE (09:21)
[2018-01-09] MEDS: RT-ALBUTEROL SULF 2.5 MG/3 ML PRE-MIX VIAL INH NR ×2 (09:27→10:11)
[2018-01-09 10:00] VITALS: BP 119/73
--- NOTE | 2018-01-09 10:12 | Anesthesia-General Post-Op ---
General Patient Condition Mental Status/LOC: Same as Preop Cardiovascular: Satisfactory Nausea/Vomiting: Absent Respiratory: Satisfactory Pain: Controlled Complications: Absent Post Op Complications Complications None Follow Up Care/Instructions Patient Instructions None needed. Anesthesia/Patient Condition Patient Condition Patient is doing well, no complaints, stable vital signs, no apparent adverse anesthesia problems. No complications reported per nursing. KAREN PRITCHARD CRNA January 09, 2018 10:12
[2018-01-09 10:30] VITALS: BP 129/88
[2018-01-09 11:00] VITALS: BP 130/76
[2018-01-09 12:00] VITALS: BP 131/95
[2018-01-09 12:15] VITALS: BP 131/95
--- NOTE | 2018-01-09 15:08 | OPERATIVE REPORT ---
DATE OF SERVICE: 01/09/2018 PREOPERATIVE DIAGNOSIS: Umbilical hernia. POSTOPERATIVE DIAGNOSIS: Incarcerated umbilical hernia. PROCEDURE: Laparoscopic incarcerated umbilical hernia repair. SURGEON: Marquez Lockhart DO. DIRT SUPERVISOR: Dr. Rodrigues, assisted in retraction, dissection and closure. ANESTHESIA: General. ESTIMATED BLOOD LOSS: Minimal. COMPLICATIONS: None. INDICATIONS: The patient is a 72-year-old male with an umbilical hernia. He was explained risks and benefits of procedure and wished to proceed with procedure. Consent was signed in the chart. PROCEDURE: The patient was taken to the operating suite, was prepped and draped in sterile fashion. Surgical pause was performed. A 15 blade scalpel was used to make a stab incision in the left upper quadrant. Veress needle inserted into the abdomen. Pneumoperitoneum was achieved. Under direct visualization of the laparoscope, a 5 mm trocar was then placed. The patient had multiple adhesions along the right portion of the abdomen. The umbilical hernia had incarcerated omentum through it. A 12 mm trocar was placed in left lower quadrant. A 5 mm trocar was placed in the right lower quadrant, all under direct visualization. A LigaSure was then used to take down the incarcerated fat from the umbilical hernia. The adhesions were then begun to be taken down for mesh placement. The fat pad at the umbilicus was removed. A stab incision was made at the umbilicus. A 0 Vicryl was placed in a [id number] fashion to close the defect. An ECHO 4-1/2 inch selawik Ventralight mesh was inserted in the abdomen and grasped with the Guy-Suman and then a circumferential tacking was performed on the periphery using SecureStrap Tacker. The balloon was then removed and the inner crown was created as well. The mesh had adequate coverage and adherence. The 12 mm trocar was then removed. The fascial defect was closed using 0 Vicryl with Guy-Suman. The abdomen was then desufflated, the trocars were removed. The skin was then closed using 4-0 Monocryl in a subcuticular fashion. The incisions had a SwiftSet placed over the incisions. The patient tolerated the procedure well without any complications. He was taken to recovery room in stable condition. Job ID: [id number] DocumentID: [id number] Dictated Date: 01/09/2018 09:14:42 Equal Employment Opportunity Officer Date: 01/09/2018 15:07:28 Dictated By: DO BEBETO DEE
== END 2018-01-09 12:20 | disposition home or self-care (01) ==
LOC: SDC 06:00
PROVIDERS: ATTEND Surgery
DX: K42.0 Umbilical hernia with obstruction, without gangrene (principal); I25.10 Atherosclerotic heart disease of native coronary artery without angina pectoris; I10 Essential (primary) hypertension; I08.1 Rheumatic disorders of both mitral and tricuspid valves; J44.9 Chronic obstructive pulmonary disease, unspecified; J45.909 Unspecified asthma, uncomplicated; G47.33 Obstructive sleep apnea (adult) (pediatric); F17.210 Nicotine dependence, cigarettes, uncomplicated; Z79.02 Long term (current) use of antithrombotics/antiplatelets; Z79.899 Other long term (current) drug therapy
CPT/HCPCS: 94664

== ENCOUNTER 2018-01-27 08:04 | Outpatient (RCR) | payer MEDICARE ==
[~2018-01-27 08:04] MED LIST changes: +ACHD5005 PO; -AMLO10TA2 PO; +AMLO10TA6 PO; -CYPR4TAB PO; +CYPR4TAB41 PO; -IPRA3AMP IH; -IPRA3AMP INH; +IPRA3AMP31 IH; +IPRA3AMP31 INH
[2018-03-04 15:00] VITALS: BP 130/60
[2018-03-04 16:00] VITALS: BP 110/65
[2018-03-06 15:00] VITALS: BP 145/60
[2018-03-06 16:00] VITALS: BP 128/60
[2018-03-13 14:55] VITALS: BP 130/60
[2018-03-13 15:56] VITALS: BP 100/67
[2018-03-18 15:00] VITALS: BP 160/60
[2018-03-18 16:00] VITALS: BP 123/70
[2018-03-20 15:00] VITALS: BP 140/60
[2018-03-20 16:00] VITALS: BP 118/60
[2018-03-25 15:00] VITALS: BP 130/60
[2018-03-25 16:00] VITALS: BP 150/60
[2018-03-27 15:00] VITALS: BP 162/60
[2018-03-27 16:12] VITALS: BP 140/60
[2018-04-01 15:00] VITALS: BP 140/60
[2018-04-01 16:00] VITALS: BP 130/50
[2018-04-03 15:00] VITALS: BP 140/60
[2018-04-03 16:00] VITALS: BP 141/60
[2018-04-08 15:00] VITALS: BP 119/70
[2018-04-08 16:01] VITALS: BP 127/60
[2018-04-10 15:00] VITALS: BP 141/60
[2018-04-10 15:49] VITALS: BP 119/60
[2018-04-17 15:00] VITALS: BP 130/60
[2018-04-17 16:01] VITALS: BP 100/58
[2018-04-22 15:00] VITALS: BP 120/60
[2018-04-22 16:00] VITALS: BP 128/60
[2018-04-24 15:00] VITALS: BP 120/76
[2018-04-24 16:00] VITALS: BP 130/60
== END 2018-04-27 | disposition home or self-care (01) ==
LOC: PULM 08:04
PROVIDERS: ATTEND Nurse Practitioner Family
DX: J44.9 Chronic obstructive pulmonary disease, unspecified (principal); R09.02 Hypoxemia
CPT/HCPCS: 99211

== ENCOUNTER → 2018-01-29 | Outpatient (CLI) | payer MEDICARE ==
[~2018-01-29] MED LIST changes: +AMLO10TA2 PO; -AMLO10TA6 PO; +CYPR4TAB PO; -CYPR4TAB41 PO; +IOHEXOL 350 MG/ML 100 ML (OMNIPAQUE 350) VIAL IV ONE; +IPRA3AMP IH; +IPRA3AMP INH; -IPRA3AMP31 IH; -IPRA3AMP31 INH; +NS 250 ML (IVPB) BAG IV ONE
[2018-01-29 10:39] LABS: CREATININE SERUM 1.59 MG/DL (0.60-1.30)
--- NOTE | 2018-01-29 13:35 | Diagnostic Imaging Report ---
PROCEDURE: CT chest with contrast only. TECHNIQUE: Multiple contiguous axial images were obtained through the chest after administration of intravenous contrast. INDICATION: Lymph node enlargement. COMPARISON: Correlation is made with prior CT from 11/15/2017. FINDINGS: No axillary lymphadenopathy is detected. Mild soft tissue fullness in the right hilum is stable at 2.9 x 2.0 cm compared with 2.8 x 2.1 cm when measured by the same technique. Left hilum is unremarkable. The mediastinum is unremarkable. Coronary arterial calcifications are noted. The paraesophageal lymph node near the hiatus previously described appears stable. No pericardial or pleural fluid is identified. Parenchymal evaluation does show some centrilobular emphysematous changes in both lungs. There is some scarring or atelectasis in the lingula. Otherwise, the lungs appear to be clear. Upper abdomen is unremarkable. IMPRESSION: 1. Stable right hilar and left paraesophageal lymph nodes when compared with prior CT from 11/15/2017. There is also stable atelectasis or scarring in the lingula. No new abnormality is detected. Dictated by: Dictated on workstation # [id number]
== END ==
LOC: RAD 10:09
PROVIDERS: ATTEND Nurse Practitioner Family
DX: R59.0 Localized enlarged lymph nodes (principal); J44.9 Chronic obstructive pulmonary disease, unspecified
CPT/HCPCS: 36415; 71260; 82565; 84520

== ENCOUNTER → 2018-02-28 | Outpatient (CLI) | payer MEDICARE ==
[~2018-02-28] MED LIST changes: -CYPR4TAB PO; +CYPR4TAB41 PO; -IOHEXOL 350 MG/ML 100 ML (OMNIPAQUE 350) VIAL IV ONE; -IPRA3AMP IH; -IPRA3AMP INH; +IPRA3AMP31 IH; +IPRA3AMP31 INH; -NS 250 ML (IVPB) BAG IV ONE
--- NOTE | 2018-02-28 12:57 | Diagnostic Imaging Report ---
EXAMINATION: Pelvis, single view. Right hip, two additional views. Left hip, two additional views. COMPARISON: CT abdomen and pelvis August 14, 2016. HISTORY: 72-year-old male, bilateral hip pain. FINDINGS: There is a right-sided os acetabula. There are degenerative changes at the pubic symphysis. There are disc and facet degenerative changes at L4-L5 and L5-S1. Bowel gas overlying the sacrum does limit its evaluation. There are vascular calcifications. The right hip is not dislocated. There is mild joint space loss of the right hip. There is no prominent osteophyte formation. There is no subchondral cystic change. The left hip is not dislocated. There is mild joint space loss of the left hip. There is no prominent osteophyte formation or subchondral cystic change. There is no identified acute fracture. There is no radiographically apparent bone lesion. There are mild bilateral sacroiliac degenerative changes. IMPRESSION: 1. Mild osteoarthritis of both hips. 2. Mild bilateral sacroiliac degenerative changes. 3. Disc and facet degenerative changes at L4-L5 and L5-S1. Dictated by: Dictated on workstation # [id number]
== END ==
LOC: RAD 11:07
PROVIDERS: ATTEND Internal Medicine
DX: M16.0 Bilateral primary osteoarthritis of hip (principal); M47.817 Spondylosis without myelopathy or radiculopathy, lumbosacral region
CPT/HCPCS: 73523

== ENCOUNTER 2018-04-28 08:00 | Outpatient (RCR) | payer MEDICARE ==
[~2018-04-28 08:00] MED LIST changes: -AMLO10TA2 PO; +AMLO10TA6 PO
[2018-04-29 14:55] VITALS: BP 150/50
[2018-04-29 15:40] VITALS: BP 122/68
[2018-05-01 15:00] VITALS: BP 161/45
[2018-05-01 15:54] VITALS: BP 160/60
== END 2018-07-27 | disposition home or self-care (01) ==
LOC: PULM 08:00
PROVIDERS: ATTEND Nurse Practitioner Family
DX: J44.9 Chronic obstructive pulmonary disease, unspecified (principal); R09.02 Hypoxemia

== ENCOUNTER → 2018-07-21 | Outpatient (CLI) | payer MEDICARE ==
[~2018-07-21] MED LIST changes: +IOHEXOL 350 MG/ML 100 ML (OMNIPAQUE 350) VIAL IV ONE; +NS 250 ML (IVPB) BAG IV ONE; +RECEIVED CONTRAST (Hold Metformin) IV SCH
[2018-07-21 09:46] LABS: CREATININE SERUM 1.34 MG/DL (0.60-1.30)
--- NOTE | 2018-07-21 11:29 | Diagnostic Imaging Report ---
PROCEDURE: CT chest with contrast only. TECHNIQUE: Multiple contiguous axial images were obtained through the chest after administration of intravenous contrast. INDICATION: Enlarged lymph nodes. FINDINGS: The CT of the chest exam performed on 01/29/2018 noted a 2.0 x 2.9 cm lymph node in the right hilum as well as a 1.0 x 1.3 cm lymph node in the paraesophageal region on the left near the gastroesophageal junction. On this exam, those nodes do not appear to have changed significantly. The height of the right hilar node now measures 1.7 x 1.0 x 2.3 cm while the paraesophageal node is estimated to be 1.1 x 1.3 cm. These findings also seem similar to the prior CT of the chest exam of 08/12/2015. Consequently I do suspect that these nodes are not related to a neoplastic process. There is no new mediastinal or hilar adenopathy. The heart size is stable. Extensive coronary artery calcifications are again noted. As noted on the previous exam of 08/12/2015 there is mild aneurysmal dilatation of the ascending aorta. The aorta measures 4.1 x 4.2 cm in maximum transverse and AP diameters. There is no evidence for a dissection. There is no definite defect within the pulmonary arteries to indicate a pulmonary embolus. The thyroid gland was not well visualized. There are emphysematous changes involving both lungs. The scar formation in the lingula seen previously is again evident and no different. The sections through the upper abdomen show a 6 mm nonobstructive calculus within the left kidney. The gallbladder is also surgically absent. The bone windows are unremarkable for an acute fracture. There is anterior wedging of two of the lower thoracic vertebrae. This finding is stable when compared to the prior exam. IMPRESSION: 1. The right hilar node and left paraesophageal node seen previously are again evident and no different. The stability of these findings over a nearly three year period would suggest that they are not related to an aggressive process. 2. There is no acute cardiopulmonary abnormality identified. 3. There is coronary artery disease and mild stable aneurysmal dilatation of the aorta. 4. There are emphysematous changes involving both lungs. Dictated by: Dictated on workstation # [id number]
== END ==
LOC: RAD 09:13
PROVIDERS: ATTEND Nurse Practitioner Family
DX: R59.9 Enlarged lymph nodes, unspecified (principal); I25.10 Atherosclerotic heart disease of native coronary artery without angina pectoris; J43.9 Emphysema, unspecified; I71.9 Aortic aneurysm of unspecified site, without rupture; Z87.891 Personal history of nicotine dependence
CPT/HCPCS: 36415; 71260; 82565; 84520

== ENCOUNTER 2018-08-14 10:04 | Inpatient (IN) | payer MEDICARE ==
[~2018-08-14] VITALS: Ht 180.3 cm; Wt 98.9 kg
[~2018-08-14 10:04] MED LIST changes: -IOHEXOL 350 MG/ML 100 ML (OMNIPAQUE 350) VIAL IV ONE; -IPRA3AMP31 IH; +IPRA3AMP31 NEB; -NS 250 ML (IVPB) BAG IV ONE; -RECEIVED CONTRAST (Hold Metformin) IV SCH
--- NOTE | 2018-08-14 10:25 | NUR ---
Marcy Brock admitted to room 413-1, with an admitting diagnosis of influenza syndrome and respiratory distress , on 08/14/[address] De León's office, accompanied by .MARCY BROCK introduced to surroundings, call light, bed controls, phone, TV, temperature control, lights, meal times, smoking policy, visitor policy, side rail policy, bathrooms and showers. Patient Rights given to patient in the handbook.MARCY BROCK verbalizes understanding that [facility] is not responsible for the loss or damage to any personal effects or valuables that are kept in the patients possession during their hospitalization.Patient Care Plans were discussed with the patient along with Discharge Planning. MARCY BROCK verbalizes understanding of Interdisciplinary Patient Education. Patient and/or family were informed about the Rapid Response Team and its purpose.
[2018-08-14] MEDS ORDERED: MILK OF MAGNESIA 400 MG/5 ML 30 ML UDC PO PRN (11:00)
[2018-08-14] MEDS ORDERED: ONDANSETRON 4 MG/2 ML (SDV) Z0FRAN IV PRN (11:00)
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
--- OUTSIDE RECORDS SUMMARY | 2018-08-14 11:08 | XMS REPORT | Continuity of Care Document ---
Author Author [facility] Organization [facility] Address Unknown Phone Unavailable Allergies Active Description Code Type Severity Reaction Onset Reported/Identified Relationship to Patient Clinical Status Yes No Known Drug Allergies [id number] Drug Allergy Unknown N/A 11/18/2017 Medications There [...] KENNY DO Ot 414.01 CORONARY ATHEROSCLEROSIS OF BLACKFEET CORON 02/13/2014 MARCY KENNY DO Ot 486 [...] 268.9 VITAMIN D DEFICIENCY NOS 03/10/2014 TONI EKVIN MD Ot 272.4 HYPERLIPIDEMIA NEC/NOS 03/10/2014 TONI [...] KENNY DO Ot 414.01 CORONARY ATHEROSCLEROSIS OF BLACKFEET CORON 07/16/2014 MARCY KENNY DO Ot 435.9 [...] MARCY Goncalves Ot I12.9 08/14/2015 KENNY DO, MARYC Goncalves Ot J15.1 08/14/2015 KENNY DO, MARCY [...] 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 08/16/2015 MARCY KENNY DO, Ot E53.8 DEFICIENCY OF OTHER SPECIFIED B GROUP 08/16/2015 MARCY KENNY DO, Ot E55.9 VITAMIN D DEFICIENCY, UNSPECIFIED 08/16/2015 MARCY KENNY DO, Ot E78.5 HYPERLIPIDEMIA, UNSPECIFIED 08/16/2015 MARCY KENNY DO, Ot F17.210 NICOTINE DEPENDENCE, CIGARETTES, UNCOMPL 08/16/2015 MARCY KENNY DO, Ot I12.9 HYPERTENSIVE CHRONIC KIDNEY DISEASE W ST 08/16/2015 AMRCY KENNY DO, Ot 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 08/16/2015 MARCY KENNY DO, Ot J15.1 [...] MILLER MD Ot 414.01 CORONARY ATHEROSCLEROSIS OF BLACKFEET CORON 08/14/2016 JULIANA MILLER MD Ot 786.09 [...] DONNELLY Ot 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 09/20/2016 DONYA DONNELLY Ot I65.23 OCCLUSION AND STENOSIS OF BILATERAL GONSALEZ 09/20/2016 DONYA DONNELLY Ot G45.9 TRANSIENT CEREBRAL ISCHEMIC ATTACK, UNSP 09/20/2016 DONYA DONNELLY Ot G47.33 OBSTRUCTIVE SLEEP APNEA (ADULT) (PEDIATR 09/20/2016 DONYA DONNELLY Ot 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 09/20/2016 DONYA DONNELLY Ot I65.23 OCCLUSION AND STENOSIS OF BILATERAL GONSALEZ 10/03/2016 ANGELA ARCE, JULIANA Goncalves Ot E78.5 HYPERLIPIDEMIA, UNSPECIFIED 10/03/2016 JULIANA MILLER MD Ot G47.33 OBSTRUCTIVE SLEEP APNEA (ADULT) (PEDIATR 10/03/2016 JULIANA MILLER MD Ot I10 ESSENTIAL (PRIMARY) HYPERTENSION 10/03/2016 JULIANA MILLER MD, Ot 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 10/03/2016 JULIANA MILLER MD, Ot I25.84 CORONARY ATHEROSCLEROSIS DUE TO [place] 10/03/2016 JULIANA MILLER MD Ot I34.0 NONRHEUMATIC MITRAL (VALVE) INSUFFICIENC 10/03/2016 JULIANA MILLER MD Ot I65.23 OCCLUSION AND STENOSIS OF BILATERAL GONS[place]Z 10/03/2016 JULIANA MILLER MD Ot R94.39 ABNORMAL RESULT OF OTHER CARDIOVASCULAR 10/03/2016 JULIANA MILLER MD, Ot Z72.0 TOBACCO USE 10/03/2016 JULIANA MILLER MD, Ot Z79.899 OTHER SHELTER (CURRENT) DRUG THERAPY 10/03/2016 JULIANA MILLER MD, Ot Z86.73 PRSNL HX OF TIA (TIA), AND CEREB INFRC W 10/03/2016 JULIANA MILLER MD Ot Z95.5 PRESENCE OF CORONARY ANGIOPLASTY IMPLANT 10/11/2016 DONYA DONNELLY Ot G45.9 TRANSIENT CEREBRAL ISCHEMIC ATTACK, UNSP 10/11/2016 DONYA DONNELLY Ot G47.33 OBSTRUCTIVE SLEEP APNEA (ADULT) (PEDIATR 10/11/2016 DONYA DONNELLY Ot 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 10/11/2016 DONYA DONNELLY Ot I65.23 OCCLUSION AND STENOSIS OF BILATERAL GONS[place]Z 10/17/2016 DONYA DONNELLY Ot G45.9 TRANSIENT CEREBRAL ISCHEMIC ATTACK, UNSP 10/17/2016 DONYA DONNELLY Ot G47.33 OBSTRUCTIVE SLEEP APNEA (ADULT) (PEDIATR 10/17/2016 DONYA DONNELLY Ot 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 10/17/2016 DONYA DONNELLY Ot I65.23 OCCLUSION AND STENOSIS OF BILATERAL [place]Z 10/23/2016 JULIANA MILLER MD Ot E78.5 HYPERLIPIDEMIA, UNSPECIFIED 10/23/2016 JULIANA MILLER MD, Ot G47.33 OBSTRUCTIVE SLEEP APNEA (ADULT) (PEDIATR 10/23/2016 JULIANA MILLER MD Ot I10 ESSENTIAL (PRIMARY) HYPERTENSION 10/23/2016 JULIANA MILLER MD, Ot 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 10/23/2016 JULIANA MILLER MD, Ot I25.84 CORONARY ATHEROSCLEROSIS DUE TO [place] 10/23/2016 JULIANA MILLER MD Ot I34.0 NONRHEUMATIC MITRAL (VALVE) INSUFFICIENC 10/23/2016 JULINAA MILLER MD, Ot I65.23 OCCLUSION AND STENOSIS OF BILATERAL [place]Z 10/23/2016 JULIANA MILLER MD Ot R94.39 ABNORMAL RESULT OF OTHER CARDIOVASCULAR 10/23/2016 JULIANA MILLER MD, Ot Z72.0 TOBACCO USE 10/23/2016 JULIANA MILLER MD, Ot Z79.899 OTHER AIR VALVE REPAIRER (CURRENT) DRUG THERAPY 10/23/2016 JULIANA MILLER [...] MILLER MD Ot 414.01 CORONARY ATHEROSCLEROSIS OF BLACKFEET CORON 11/13/2017 JULIANA MILLER MD Ot 786.09 [...] DONNELLY Ot G45.9 TRANSIENT CEREBRAL ISCHEMIC ATTACK, [facility] 11/13/2017 DONYA DONNELLY Ot G47.33 OBSTRUCTIVE SLEEP APNEA (ADULT) (PEDIATR 11/13/2017 DONYA DONNELLY Ot 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 11/13/2017 DONYA DONNELLY Ot I65.23 OCCLUSION AND STENOSIS OF BILATERAL GONSALEZ 11/13/2017 AGUSTIN ROJO DO Ot R06.02 SHORTNESS OF BREATH 11/13/2017 AGUSTIN ROJO DO Ot Z87.891 PERSONAL HISTORY OF NICOTINE DEPENDENCE 11/18/2017 JULIANA MILLER MD, Ot G47.33 OBSTRUCTIVE SLEEP APNEA (ADULT) (PEDIATR 11/18/2017 JULIANA MILLER MD, Ot 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 11/18/2017 JULIANA MILLER MD, Ot I34.0 [...] MD, Ot 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 11/19/2017 JULIANA MILLER MD, Ot I65.29 [...] 11/19/2017 JULIANA MILLER MD, Ot Z79.899 OTHER AIR VALVE REPAIRER (CURRENT) DRUG THERAPY 11/19/2017 JULIANA MILLER [...] JULIANA Goncalves Ot 414.01 CORONARY ATHEROSCLEROSIS OF BLACKFEET CORON 11/20/2017 JULIANA MILLER MD Ot 786.09 [...] DONNELLY Ot 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 11/20/2017 DONYA DONNELLY Ot I65.23 OCCLUSION AND STENOSIS OF BILATERAL GONS[place]Z 11/20/2017 AGUSTIN ROJO DO Ot R06.02 SHORTNESS OF BREATH 11/20/2017 AGUSTIN ROJO DO Ot Z87.891 PERSONAL HISTORY OF NICOTINE DEPENDENCE 11/20/2017 JULIANA MILLER MD, Ot G47.33 OBSTRUCTIVE SLEEP APNEA (ADULT) (PEDIATR 11/20/2017 JULIANA MILLER MD, Ot 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 11/20/2017 JULIANA MILLER MD Ot I34.0 [...] MD Ot 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 11/21/2017 JULIANA MILLER MD Ot I34.0 [...] MILLER MD Ot 414.01 CORONARY ATHEROSCLEROSIS OF BLACKFEET CORON 11/21/2017 JULIANA MILLER MD Ot 786.09 [...] DONNELLY Ot 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 11/21/2017 DONYA DONNELLY Ot I65.23 OCCLUSION AND STENOSIS OF BILATERAL GONS[place]Z 11/21/2017 AGUSTIN ROJO DO Ot R06.02 SHORTNESS OF BREATH 11/21/2017 AGUSTIN ROJO DO Ot Z87.891 PERSONAL HISTORY OF NICOTINE DEPENDENCE 11/21/2017 JULIANA MILLER MD, Ot G47.33 OBSTRUCTIVE SLEEP APNEA (ADULT) (PEDIATR 11/21/2017 JULIANA MILLER MD, Ot 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 11/21/2017 JULIANA MILLER MD Ot I34.0 [...] MILLER MD Ot 414.01 CORONARY ATHEROSCLEROSIS OF BLACKFEET CORON 11/22/2017 JULIANA MILLER MD Ot 786.09 [...] CHRONIC OBSTRUCTIVE PULMONARY DISEASE, U 11/22/2017 DONYA ODNNELLY Ot G45.9 TRANSIENT CEREBRAL ISCHEMIC ATTACK, UNSP 11/22/2017 DONYA DONNELLY Ot G47.33 OBSTRUCTIVE SLEEP APNEA (ADULT) (PEDIATR 11/22/2017 DONYA DONNELLY Ot 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 11/22/2017 ODNYA DONNELLY Ot I65.23 OCCLUSION AND STENOSIS OF BILATERAL GONS[place]Z 11/22/2017 AGUSTIN ROJO DO Ot R06.02 SHORTNESS OF BREATH 11/22/2017 AGUSTIN ROJO DO Ot Z87.891 PERSONAL HISTORY OF NICOTINE DEPENDENCE 11/22/2017 JULIANA MILLER MD, Ot G47.33 OBSTRUCTIVE SLEEP APNEA (ADULT) (PEDIATR 11/22/2017 JULIANA MILLER MD, Ot 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 11/22/2017 JULIANA MILLER MD Ot I34.0 [...] MILLER MD Ot 414.01 CORONARY ATHEROSCLEROSIS OF BLACKFEET CORON 11/22/2017 JULIANA MILLER MD Ot 786.09 [...] DONNELLY Ot 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 11/22/2017 DONYA DONNELLY Ot I65.23 OCCLUSION AND STENOSIS OF BILATERAL GONSALEZ 11/22/2017 AGUSTIN ROJO DO Ot R06.02 SHORTNESS OF BREATH 11/22/2017 AGUSTIN ROJO DO Ot Z87.891 PERSONAL HISTORY OF NICOTINE DEPENDENCE 11/22/2017 JULIANA MILLER MD, Ot G47.33 OBSTRUCTIVE SLEEP APNEA (ADULT) (PEDIATR 11/22/2017 JULIANA MILLER MD, Ot 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 11/22/2017 JULIANA MILLER MD, Ot I34.0 [...] TOBACCO USE 11/22/2017 RALPH JASMINE DO Ot E03.9 HYPOTHYROIDISM, UNSPECIFIED 11/22/2017 RALPH JASMINE DO Ot 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 11/22/2017 RALPH JASMINE DO Ot F17.210 NICOTINE DEPENDENCE, CIGARETTES, UNCOMPL 11/22/2017 RALPH JASMINE DO Ot F32.9 MAJOR DEPRESSIVE DISORDER, SINGLE EPISOD 11/22/2017 RALPH JASMINE DO Ot G47.33 OBSTRUCTIVE SLEEP APNEA (ADULT) (PEDIATR 11/22/2017 RALPH JASMINE DO Ot I12.0 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 11/22/2017 RALPH JASMINE DO Ot 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 11/22/2017 RALPH JASMINE DO Ot J43.9 EMPHYSEMA, UNSPECIFIED 11/22/2017 RALPH JASMINE DO Ot K21.9 GASTRO-ESOPHAGEAL REFLUX DISEASE WITHOUT 11/22/2017 RALPH JASMINE DO Ot K44.9 DIAPHRAGMATIC HERNIA WITHOUT OBSTRUCTION 11/22/2017 RALPH JASMINE DO Ot N18.6 END STAGE RENAL DISEASE 11/22/2017 RALPH JASMINE DO Ot Z79.899 OTHER SHELTER (CURRENT) DRUG THERAPY 11/22/2017 RALPH JASMINE DO Ot Z86.73 PRSNL HX OF TIA (TIA), AND CEREB INFRC W 11/22/2017 RALPH JASMINE DO Ot Z95.5 PRESENCE OF CORONARY ANGIOPLASTY IMPLANT 11/22/2017 RALPH JASMINE DO Ot Z99.2 DEPENDENCE ON RENAL DIALYSIS 11/27/2017 RALPH JASMINE DO Ot E03.9 HYPOTHYROIDISM, UNSPECIFIED 11/27/2017 RALPH JASMINE DO Ot 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 11/27/2017 RALPH JASMINE DO Ot F17.210 NICOTINE DEPENDENCE, CIGARETTES, UNCOMPL 11/27/2017 RALPH JASMINE DO Ot F32.9 MAJOR DEPRESSIVE DISORDER, SINGLE EPISOD 11/27/2017 RALPH JASMINE DO Ot G47.33 OBSTRUCTIVE SLEEP APNEA (ADULT) (PEDIATR 11/27/2017 RALPH JASMINE DO Ot I12.0 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 11/27/2017 RALPH JASMINE DO Ot 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 11/27/2017 RALPH JASMINE DO Ot J43.9 EMPHYSEMA, UNSPECIFIED 11/27/2017 RALPH JASMINE DO Ot K21.9 GASTRO-ESOPHAGEAL REFLUX DISEASE WITHOUT 11/27/2017 RALPH JASMINE DO Ot K44.9 DIAPHRAGMATIC HERNIA WITHOUT OBSTRUCTION 11/27/2017 RALPH JASMINE DO Ot N18.6 END STAGE RENAL DISEASE 11/27/2017 JASMINE RALPH SIMMONS Ot Z79.899 OTHER SHELTER (CURRENT) DRUG THERAPY 11/27/2017 RALPH JASMINE DO Ot Z86.73 PRSNL HX OF TIA (TIA), AND CEREB INFRC W 11/27/2017 RALPH JASMINE DO Ot Z95.5 PRESENCE OF CORONARY ANGIOPLASTY IMPLANT 11/27/2017 RALPH JASMINE DO Ot Z99.2 DEPENDENCE ON RENAL DIALYSIS 12/06/2017 JULIANA MILLER MD Ot G47.33 OBSTRUCTIVE SLEEP APNEA (ADULT) (PEDIATR 12/06/2017 JULIANA MILLER MD Ot 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 12/06/2017 JULIANA MILLER MD Ot I34.0 NONRHEUMATIC MITRAL (VALVE) INSUFFICIENC 12/06/2017 JULIANA MILLER MD Ot I71.2 THORACIC AORTIC ANEURYSM, WITHOUT RUPTUR 12/06/2017 JULIANA MILLER MD Ot J43.9 EMPHYSEMA, UNSPECIFIED 12/06/2017 JULIANA MILLER MD Ot N20.0 CALCULUS OF KIDNEY 12/06/2017 JULIANA MILLER MD Ot R41.0 DISORIENTATION, UNSPECIFIED 12/06/2017 JULIANA MILLER MD Ot W19.XXXA UNSPECIFIED FALL, INITIAL ENCOUNTER 12/06/2017 JULIANA MILLER MD Ot Z72.0 TOBACCO USE 12/11/2017 JULIANA MILLER MD Ot G47.33 OBSTRUCTIVE SLEEP APNEA (ADULT) (PEDIATR 12/11/2017 JULIANA MILLER MD Ot 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 12/11/2017 JULIANA MILLER MD Ot I34.0 NONRHEUMATIC MITRAL (VALVE) INSUFFICIENC 12/11/2017 JULIANA MILLER MD Ot I71.2 THORACIC AORTIC ANEURYSM, WITHOUT RUPTUR 12/11/2017 JULIANA MILLER MD Ot J43.9 EMPHYSEMA, UNSPECIFIED 12/11/2017 JULIANA MILLER MD Ot N20.0 CALCULUS OF KIDNEY 12/11/2017 JULIANA MILLER MD Ot R41.0 DISORIENTATION, UNSPECIFIED 12/11/2017 JULIANA MLILER MD Ot W19.XXXA UNSPECIFIED FALL, INITIAL ENCOUNTER 12/11/2017 JULIANA MILLER MD Ot Z72.0 TOBACCO USE 01/02/2018 Ot 733.00 OSTEOPOROSIS NOS 01/02/2018 KENNYMARCY GARCIA DO Ot 733.00 OSTEOPOROSIS NOS 01/02/2018 AGUSTIN ROJO DO Ot 492.8 EMPHYSEMA NEC 01/02/2018 AGUSTIN ROJO DO Ot 511.9 PLEURAL EFFUSION NOS 01/02/2018 AGUSTIN ROJO DO Ot 586 RENAL FAILURE NOS 01/02/2018 NAZ DO, MARIE Cao Ot 726.0 ADHESIVE CAPSULIT SHLDER 01/02/2018 NAZ DO, MARIE Cao Ot 718.91 JT DERANGMENT NOS-SHLDER 01/02/2018 NAZ DO, MARIE Cao Ot 726.0 ADHESIVE CAPSULIT SHLDER 01/02/2018 NAZ DO, MARIE Cao Ot 840.4 SPRAIN ROTATOR CUFF 01/02/2018 NAZ DO, MARIE Cao Ot E000.8 OTHER EXTERNAL CAUSE STATUS 01/02/2018 NAZ MARIE Cao Ot E928.9 ACCIDENT NOS 01/02/2018 NAZ DO, MARIE Cao Ot V72.84 EXAM PRE-OPERATIVE NOS 01/02/2018 NAZ MARIE Cao Ot 727.61 ROTATOR CUFF RUPTURE 01/02/2018 NAZ DO MARIE Ot V72.84 EXAM PRE-OPERATIVE NOS 01/02/2018 JULIANA MILLER MD Ot 414.00 CORON ATHEROSCLER NOS TYPE VESSEL, NATIV 01/02/2018 JULIANA MILLER MD Ot 424.0 MITRAL VALVE DISORDER 01/02/2018 JULIANA MILLER MD Ot 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 W O CEREBRAL IN 01/02/2018 JULIANA MILLER MD Ot 786.09 RESPIRATORY ABNORM NEC 01/02/2018 JULIANA MILLER MD Ot 414.01 CORONARY ATHEROSCLEROSIS OF BLACKFEET CORON 01/02/2018 JULIANA MILLER MD Ot 786.09 RESPIRATORY ABNORM NEC 01/02/2018 MARIE CHILDS DO Ot 840.4 SPRAIN ROTATOR CUFF 01/02/2018 MARIE CHILDS DO Ot E000.8 OTHER EXTERNAL CAUSE STATUS 01/02/2018 MARIE CHILDS DO Ot E928.9 ACCIDENT NOS 01/02/2018 MARIE CHILDS DO Ot V72.84 EXAM PRE-OPERATIVE NOS 01/02/2018 Ot 733.00 OSTEOPOROSIS NOS 01/02/2018 MARIE CHILDS DO Ot 722.4 CERVICAL DISC DEGEN 01/02/2018 Ot J44.9 CHRONIC OBSTRUCTIVE PULMONARY DISEASE, U 01/02/2018 MARCY KENNY DO Ot K59.00 CONSTIPATION, UNSPECIFIED 01/02/2018 MARCY KENNY DO Ot J44.9 CHRONIC OBSTRUCTIVE PULMONARY DISEASE, U 01/02/2018 DONYA DONNELLY Ot G45.9 TRANSIENT CEREBRAL ISCHEMIC ATTACK, UNSP 01/02/2018 DONYA DONNELLY Ot G47.33 OBSTRUCTIVE SLEEP APNEA (ADULT) (PEDIATR 01/02/2018 DONYA DONNELLY Ot 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 01/02/2018 DONYA DONNELLY Ot I65.23 OCCLUSION AND STENOSIS OF BILATERAL GONSALEZ 01/02/2018 AGUSTIN ROJO DO Ot R06.02 SHORTNESS OF BREATH 01/02/2018 AGUSTIN ROJO DO Ot Z87.891 PERSONAL HISTORY OF NICOTINE DEPENDENCE 01/02/2018 JULIANA MILLER MD, Ot G47.33 OBSTRUCTIVE SLEEP APNEA (ADULT) (PEDIATR 01/02/2018 JULIANA MILLER MD, Ot 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 01/02/2018 JULIANA MILLRE MD, Ot I34.0 NONRHEUMATIC MITRAL (VALVE) INSUFFICIENC 01/02/2018 JULIANA MILLER MD, Ot I71.2 THORACIC AORTIC ANEURYSM, WITHOUT RUPTUR 01/02/2018 JULIANA MILLER MD Ot J43.9 EMPHYSEMA, UNSPECIFIED 01/02/2018 JULIANA MILLER MD, Ot N20.0 CALCULUS OF KIDNEY 01/02/2018 JULIANA MILLER MD, Ot R41.0 DISORIENTATION, UNSPECIFIED 01/02/2018 JULIANA MILLER MD Ot W19.XXXA UNSPECIFIED FALL, INITIAL ENCOUNTER 01/02/2018 ANGELA ARCE, JULIANA Goncalves Ot Z72.0 TOBACCO USE 01/02/2018 RALPH JASMINE DO Ot K42.9 UMBILICAL HERNIA WITHOUT OBSTRUCTION OR 01/02/2018 RALPH JASMINE DO Ot Z01.812 ENCOUNTER FOR PREPROCEDURAL LABORATORY E 01/02/2018 RALPH JASMINE DO Ot Z11.2 ENCOUNTER FOR SCREENING FOR OTHER BACTER 01/03/2018 RALPH JASMINE DO Ot K42.9 UMBILICAL HERNIA WITHOUT OBSTRUCTION OR 01/03/2018 RALPH JASMINE DO Ot Z01.812 ENCOUNTER FOR PREPROCEDURAL LABORATORY E 01/03/2018 RALPH JASMINE DO Ot Z11.2 ENCOUNTER FOR SCREENING FOR OTHER BACTER 01/09/2018 RALPH JASMINE DO Ot F17.210 NICOTINE DEPENDENCE, CIGARETTES, UNCOMPL 01/09/2018 RALPH JASMINE DO Ot G47.33 OBSTRUCTIVE SLEEP APNEA (ADULT) (PEDIATR 01/09/2018 RALPH JASMINE DO Ot I08.1 RHEUMATIC DISORDERS OF BOTH MITRAL AND T 01/09/2018 RALPH JASMNIE DO Ot I10 ESSENTIAL (PRIMARY) HYPERTENSION 01/09/2018 RALPH JASMINE DO Ot 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 01/09/2018 RALPH JASMINE DO Ot J44.9 CHRONIC OBSTRUCTIVE PULMONARY DISEASE, U 01/09/2018 RALPH JASMINE DO Ot J45.909 UNSPECIFIED ASTHMA, UNCOMPLICATED 01/09/2018 RALPH JASMINE DO Ot K42.0 UMBILICAL HERNIA WITH OBSTRUCTION, WITHO 01/09/2018 RALPH JASMINE DO Ot Z79.02 SHELTER (CURRENT) USE OF ANTITHROMBOTI 01/09/2018 RALPH JASMINE DO Ot Z79.899 OTHER AIR VALVE REPAIRER (CURRENT) DRUG THERAPY 01/10/2018 RALPH JASMINE DO Ot F17.210 NICOTINE DEPENDENCE, CIGARETTES, UNCOMPL 01/10/2018 RALPH JASMINE DO Ot G47.33 OBSTRUCTIVE SLEEP APNEA (ADULT) (PEDIATR 01/10/2018 RALPH JASMINE DO Ot I08.1 RHEUMATIC DISORDERS OF BOTH MITRAL AND T 01/10/2018 RALPH JASMINE DO Ot I10 ESSENTIAL (PRIMARY) HYPERTENSION 01/10/2018 RALPH JASMINE DO Ot 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 01/10/2018 RALPH JASMINE DO Ot J44.9 CHRONIC OBSTRUCTIVE PULMONARY DISEASE, U 01/10/2018 RALPH JASMINE DO Ot J45.909 UNSPECIFIED ASTHMA, UNCOMPLICATED 01/10/2018 RALPH JASMINE DO Ot K42.0 UMBILICAL HERNIA WITH OBSTRUCTION, WITHO 01/10/2018 RALPH JASMINE DO Ot Z79.02 SHELTER (CURRENT) USE OF ANTITHROMBOTI 01/10/2018 RALPH JASMINE DO Ot Z79.899 OTHER SHELTER (CURRENT) DRUG THERAPY 01/15/2018 RALPH JASMINE DO Ot F17.210 NICOTINE DEPENDENCE, CIGARETTES, UNCOMPL 01/15/2018 RALPH JASMINE DO Ot G47.33 OBSTRUCTIVE SLEEP APNEA (ADULT) (PEDIATR 01/15/2018 RALPH JASMINE DO Ot I08.1 RHEUMATIC DISORDERS OF BOTH MITRAL AND T 01/15/2018 RALPH JASMINE DO Ot I10 ESSENTIAL (PRIMARY) HYPERTENSION 01/15/2018 RALPH JASMINE DO Ot 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 01/15/2018 RALPH JASMINE DO Ot J44.9 CHRONIC OBSTRUCTIVE PULMONARY DISEASE, U 01/15/2018 RALPH JASMINE DO Ot J45.909 UNSPECIFIED ASTHMA, UNCOMPLICATED 01/15/2018 RALPH JASMINE DO Ot K42.0 UMBILICAL HERNIA WITH OBSTRUCTION, WITHO 01/15/2018 RALPH JASMINE DO Ot Z79.02 AIR VALVE REPAIRER (CURRENT) USE OF ANTITHROMBOTI 01/15/2018 RALPH JASMINE DO Ot Z79.899 OTHER AIR VALVE REPAIRER (CURRENT) DRUG THERAPY 01/30/2018 PORTIA NOLAN APRN Ot J44.9 CHRONIC OBSTRUCTIVE PULMONARY DISEASE, U 01/30/2018 PORTIA NOLAN APRN Ot R59.0 LOCALIZED ENLARGED LYMPH NODES 02/18/2018 PORTIA NOLAN APRN Ot J44.9 CHRONIC OBSTRUCTIVE PULMONARY DISEASE, U 02/18/2018 PORTIA NOLAN DOCUMENTATION SUPERVISOR Ot R59.0 LOCALIZED ENLARGED LYMPH NODES 02/26/2018 PORTIA NOLAN APRN Ot J44.9 CHRONIC OBSTRUCTIVE PULMONARY DISEASE, U 02/26/2018 OVIDIOPORTIA CANO ALBINA Ot R59.0 LOCALIZED ENLARGED LYMPH NODES 02/28/2018 Ot 733.00 OSTEOPOROSIS NOS 02/28/2018 KENNY MARCY SIMMONS Ot 733.00 OSTEOPOROSIS NOS 02/28/2018 ALIA AGUSTIN Morris Ot 492.8 EMPHYSEMA NEC 02/28/2018 ALIA AGUSTIN Morris Ot 511.9 PLEURAL EFFUSION NOS 02/28/2018 ALIA SIMMONS AGUSTIN Morris Ot 586 RENAL FAILURE NOS 02/28/2018 NAZ DO, MARIE Nash Ot 726.0 ADHESIVE CAPSULIT SHLDER 02/28/2018 NAZ DO, MARIE Cao Ot 718.91 JT DERANGMENT NOS-SHLDER 02/28/2018 NAZ , MARIE Cao Ot 726.0 ADHESIVE CAPSULIT SHLDER 02/28/2018 NAZ DO, MARIE Cao Ot 840.4 SPRAIN ROTATOR CUFF 02/28/2018 NAZ DO, MARIE Nash Ot E000.8 OTHER EXTERNAL CAUSE STATUS 02/28/2018 NAZ DO, MARIE Cao Ot E928.9 ACCIDENT NOS 02/28/2018 [facility], MARIE Cao Ot V72.84 EXAM PRE-OPERATIVE NOS 02/28/2018 NAZ , MARIE Cao Ot 727.61 ROTATOR CUFF RUPTURE 02/28/2018 [facility], MARIE Ot V72.84 EXAM PRE-OPERATIVE NOS 02/28/2018 ANGELA ARCE, JULIANA Goncalves Ot 414.00 CORON ATHEROSCLER NOS TYPE VESSEL, NATIV 02/28/2018 JULIANA MILLER MD Ot 424.0 MITRAL VALVE DISORDER 02/28/2018 JULIANA MILLER MD Ot 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 W O CEREBRAL IN 02/28/2018 JULIANA MILLER MD Ot 786.09 RESPIRATORY ABNORM NEC 02/28/2018 JULIANA MILLER MD Ot 414.01 CORONARY ATHEROSCLEROSIS OF BLACKFEET CORON 02/28/2018 JULIANA MILLER MD Ot 786.09 RESPIRATORY ABNORM NEC 02/28/2018 NAZ MARIE Cao Ot 840.4 SPRAIN ROTATOR CUFF 02/28/2018 NAZ MARIE Cao Ot E000.8 OTHER EXTERNAL CAUSE STATUS 02/28/2018 NAZ , MARIE Nash Ot E928.9 ACCIDENT NOS 02/28/2018 NAZ , MARIE Nash Ot V72.84 EXAM PRE-OPERATIVE NOS 02/28/2018 Ot 733.00 OSTEOPOROSIS NOS 02/28/2018 MARIE CHILDS DO Ot 722.4 CERVICAL DISC DEGEN 02/28/2018 Ot J44.9 CHRONIC OBSTRUCTIVE PULMONARY DISEASE, U 02/28/2018 MARCY KENNY DO Ot K59.00 CONSTIPATION, UNSPECIFIED 02/28/2018 MARCY KENNY DO Ot J44.9 CHRONIC OBSTRUCTIVE PULMONARY DISEASE, U 02/28/2018 DONYA DONNELLY Ot G45.9 TRANSIENT CEREBRAL ISCHEMIC ATTACK, UNSP 02/28/2018 DONYA DONNELLY Ot G47.33 OBSTRUCTIVE SLEEP APNEA (ADULT) (PEDIATR 02/28/2018 DONYA DONNELLY Ot 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 02/28/2018 DONYA DONNELLY Ot I65.23 OCCLUSION AND STENOSIS OF BILATERAL GONSALEZ 02/28/2018 AGUSTIN ROJO DO Ot R06.02 SHORTNESS OF BREATH 02/28/2018 AGUSTIN ROJO DO Ot Z87.891 PERSONAL HISTORY OF NICOTINE DEPENDENCE 02/28/2018 JULIANA MILLER MD Ot G47.33 OBSTRUCTIVE SLEEP APNEA (ADULT) (PEDIATR 02/28/2018 JULIANA MILLER MD Ot 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 02/28/2018 JULIANA MILLER MD Ot I34.0 NONRHEUMATIC MITRAL (VALVE) INSUFFICIENC 02/28/2018 JULIANA MILLER MD Ot I71.2 THORACIC AORTIC ANEURYSM, WITHOUT RUPTUR 02/28/2018 JULIANA MILLER MD Ot J43.9 EMPHYSEMA, UNSPECIFIED 02/28/2018 JULIANA MILLER MD Ot N20.0 CALCULUS OF KIDNEY 02/28/2018 JULIANA MILLER MD Ot R41.0 DISORIENTATION, UNSPECIFIED 02/28/2018 JULIANA MILLER MD Ot W19.XXXA UNSPECIFIED FALL, INITIAL ENCOUNTER 02/28/2018 JULIANA MILLER MD Ot Z72.0 TOBACCO USE 02/28/2018 PORTIA NOLAN APRN Ot J44.9 CHRONIC OBSTRUCTIVE PULMONARY DISEASE, U 02/28/2018 PORTIA NOLAN APRN Ot R09.02 HYPOXEMIA 02/28/2018 PORTIA NOLAN DOCUMENTATION SUPERVISOR Ot J44.9 CHRONIC OBSTRUCTIVE PULMONARY DISEASE, U 02/28/2018 PORTIA NOLAN APRN Ot R59.0 LOCALIZED ENLARGED LYMPH NODES 03/03/2018 MARCY KENNY DO Ot M16.0 BILATERAL PRIMARY OSTEOARTHRITIS OF HIP 03/03/2018 ZOYA SIMMONS, MARCY Goncalves Ot M47.817 SPONDYLS W/O MYELOPATHY OR RADICULOPATHY 03/03/2018 MARCY KENNY DO Ot M16.0 BILATERAL PRIMARY OSTEOARTHRITIS OF HIP 03/03/2018 KENNY DO, MARCY Goncalves Ot M47.817 SPONDYLS W/O MYELOPATHY OR RADICULOPATHY 03/03/2018 PORTIA NOLAN APRN Ot J44.9 CHRONIC OBSTRUCTIVE PULMONARY DISEASE, U 03/03/2018 PORTIA NOLAN DOCUMENTATION SUPERVISOR Ot R09.02 HYPOXEMIA 03/04/2018 PORTIA NOLAN DOCUMENTATION SUPERVISOR Ot J44.9 CHRONIC OBSTRUCTIVE PULMONARY DISEASE, U 03/04/2018 PORTIA NOLAN DOCUMENTATION SUPERVISOR Ot R09.02 HYPOXEMIA 03/05/2018 PORTIA NOLAN DOCUMENTATION SUPERVISOR Ot J44.9 CHRONIC OBSTRUCTIVE PULMONARY DISEASE, U 03/05/2018 PORTIA NOLAN DOCUMENTATION SUPERVISOR Ot R09.02 HYPOXEMIA 03/06/2018 PORTIA NOLAN DOCUMENTATION SUPERVISOR Ot J44.9 CHRONIC OBSTRUCTIVE PULMONARY DISEASE, U 03/06/2018 PORTIA NOLAN DOCUMENTATION SUPERVISOR Ot R09.02 HYPOXEMIA 04/01/2018 PORTIA NOLAN DOCUMENTATION SUPERVISOR Ot J44.9 CHRONIC OBSTRUCTIVE PULMONARY DISEASE, U 04/01/2018 PORTIA NOLAN DOCUMENTATION SUPERVISOR Ot R09.02 HYPOXEMIA 04/03/2018 PORTIA NOLAN DOCUMENTATION SUPERVISOR Ot J44.9 CHRONIC OBSTRUCTIVE PULMONARY DISEASE, U 04/03/2018 PORTIA NOLAN DOCUMENTATION SUPERVISOR Ot R09.02 HYPOXEMIA 04/08/2018 PORTIA NOLAN DOCUMENTATION SUPERVISOR Ot J44.9 CHRONIC OBSTRUCTIVE PULMONARY DISEASE, U 04/08/2018 PORTIA NOLAN DOCUMENTATION SUPERVISOR Ot R09.02 HYPOXEMIA 04/10/2018 PORTIA NOLAN DOCUMENTATION SUPERVISOR Ot J44.9 CHRONIC OBSTRUCTIVE PULMONARY DISEASE, U 04/10/2018 PORTIA NOLAN DOCUMENTATION SUPERVISOR Ot R09.02 HYPOXEMIA 04/17/2018 PORTIA NOLAN DOCUMENTATION SUPERVISOR Ot J44.9 CHRONIC OBSTRUCTIVE PULMONARY DISEASE, U 04/17/2018 LORRAINE NOLANINE E DOCUMENTATION SUPERVISOR Ot R09.02 HYPOXEMIA 04/22/2018 LORRAINE NOLANINE E DOCUMENTATION SUPERVISOR Ot J44.9 CHRONIC OBSTRUCTIVE PULMONARY DISEASE, U 04/22/2018 LORRAINE NOLANINE E DOCUMENTATION SUPERVISOR Ot R09.02 HYPOXEMIA 04/24/2018 LORRAINE NOLANINE E DOCUMENTATION SUPERVISOR Ot J44.9 CHRONIC OBSTRUCTIVE PULMONARY DISEASE, U 04/24/2018 OVIDIOLORRAINE CANOINE E DOCUMENTATION SUPERVISOR Ot R09.02 HYPOXEMIA 04/27/2018 OVIDIO, PORTIA E DOCUMENTATION SUPERVISOR Ot J44.9 CHRONIC OBSTRUCTIVE PULMONARY DISEASE, U 04/27/2018 LORRAINE NOLANINE E DOCUMENTATION SUPERVISOR Ot R09.02 HYPOXEMIA 04/29/2018 LORRAINE NOLANINE E DOCUMENTATION SUPERVISOR Ot J44.9 CHRONIC OBSTRUCTIVE PULMONARY DISEASE, U 04/29/2018 LORRAINE NOLANINE E DOCUMENTATION SUPERVISOR Ot R09.02 HYPOXEMIA 04/29/2018 PORTIA NOLAN E DOCUMENTATION SUPERVISOR Ot J44.9 CHRONIC OBSTRUCTIVE PULMONARY DISEASE, U 04/29/2018 LORRAINE NOLANINE E DOCUMENTATION SUPERVISOR Ot R09.02 HYPOXEMIA 04/29/2018 LORRAINE NOLANINE E DOCUMENTATION SUPERVISOR Ot J44.9 CHRONIC OBSTRUCTIVE PULMONARY DISEASE, U 04/29/2018 LORRAINE NOLANINE E DOCUMENTATION SUPERVISOR Ot R09.02 HYPOXEMIA 05/01/2018 LORRAINE NOLANINE E DOCUMENTATION SUPERVISOR Ot J44.9 CHRONIC OBSTRUCTIVE PULMONARY DISEASE, U 05/01/2018 LORRAINE NOLANINE E DOCUMENTATION SUPERVISOR Ot R09.02 HYPOXEMIA 06/01/2018 PORTIA NOLAN E DOCUMENTATION SUPERVISOR Ot J44.9 CHRONIC OBSTRUCTIVE PULMONARY DISEASE, U 06/01/2018 LORRAINE NOLANINE E DOCUMENTATION SUPERVISOR Ot R09.02 HYPOXEMIA 06/20/2018 OVIDIO PORTIA E DOCUMENTATION SUPERVISOR Ot J44.9 CHRONIC OBSTRUCTIVE PULMONARY DISEASE, U 06/20/2018 LORRAINE NOLANINE Debbie DOCUMENTATION SUPERVISOR Ot R09.02 HYPOXEMIA 07/23/2018 PORTIA NOLAN DOCUMENTATION SUPERVISOR Ot 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 07/23/2018 LORRAINE NOLANINE E DOCUMENTATION SUPERVISOR Ot I71.9 AORTIC ANEURYSM OF UNSPECIFIED SITE, WIT 07/23/2018 PORTIA NOLAN E DOCUMENTATION SUPERVISOR Ot J43.9 EMPHYSEMA, UNSPECIFIED 07/23/2018 OVIDIOLORRAINE CANOINE Debbie ALBINA Ot R59.9 ENLARGED LYMPH NODES, UNSPECIFIED 07/23/2018 OVIDIO, PORTIA Debbie ALBINA Ot Z87.891 PERSONAL HISTORY OF NICOTINE DEPENDENCE 07/27/2018 OVIDIO PORTIA Debbie ALBINA Ot J44.9 CHRONIC OBSTRUCTIVE PULMONARY DISEASE, U 07/27/2018 OVIDIOLORRAINE CANOINE Debbie ALBINA Ot R09.02 HYPOXEMIA 07/28/2018 PORTIA NOLAN Debbie ALBINA Ot J44.9 CHRONIC OBSTRUCTIVE PULMONARY DISEASE, U 07/28/2018 OVIDIO, PORTIA Debbie DOCUMENTATION SUPERVISOR Ot R09.02 HYPOXEMIA 08/02/2018 LORRAINE NOLANINE Debbie ALBINA Ot J44.9 CHRONIC OBSTRUCTIVE PULMONARY DISEASE, U 08/02/2018 OVIDIOLORRAINE CANOINE Debbie DOCUMENTATION SUPERVISOR Ot R09.02 HYPOXEMIA Procedures Code Description Performed By Performed On [...] - 09:25 MRSA SCREEN RESULT MRSA ISOLATED [facility] Automated blood complete blood count (hemogram) [...] Blood hematocrit (volume fraction) 27 % 40-54 Complete blood count (CBC) with automated white blood cell (WBC) differential - 01/02/18 10:15 Blood leukocytes automated count (number/volume) 6.9 10*3/uL 4.3-11.0 Blood erythrocytes automated count (number/volume) 3.44 10*6/uL 4.35-5.85 Venous blood hemoglobin measurement (mass/volume) 11.2 g/dL 13.3-17.7 Blood hematocrit (volume fraction) 34 % 40-54 Automated erythrocyte mean corpuscular volume 99 [foz_us] 80-99 Automated erythrocyte mean corpuscular hemoglobin (mass per erythrocyte) 33 pg 25-34 Automated erythrocyte mean corpuscular hemoglobin concentration measurement ( mass/volume) 33 g/dL 32-36 Automated erythrocyte distribution width ratio 14.7 % 10.0-14.5 Automated blood platelet count (count/volume) 268 10*3/uL 130-400 Automated blood platelet mean volume measurement 9.1 [foz_us] 7.4-10.4 Automated blood neutrophils/100 leukocytes 70 % 42-75 Automated blood lymphocytes/100 leukocytes 17 % 12-44 Blood monocytes/100 leukocytes 8 % 0-12 Automated blood eosinophils/100 leukocytes 4 % 0-10 Automated blood basophils/100 leukocytes 0 % 0-10 Blood neutrophils automated count (number/volume) 4.8 10*3 1.8-7.8 Blood lymphocytes automated count (number/volume) 1.2 10*3 1.0-4.0 Blood monocytes automated count (number/volume) 0.6 10*3 0.0-1.0 Automated eosinophil count 0.3 10*3/uL 0.0-0.3 Automated blood basophil count (count/volume) 0.0 10*3/uL 0.0-0.1 Whole blood basic metabolic panel - 01/02/18 10:15 Serum or plasma sodium measurement (moles/volume) 140 mmol/L 135-145 Serum or plasma potassium measurement (moles/volume) 4.4 mmol/L 3.6-5.0 Serum or plasma chloride measurement (moles/volume) 108 mmol/L 98-107 Carbon dioxide 22 mmol/L 21-32 Serum or plasma anion gap determination (moles/volume) 10 mmol/L 5-14 Serum or plasma urea nitrogen measurement (mass/volume) 14 mg/dL 7-18 Serum or plasma creatinine measurement (mass/volume) 1.29 mg/dL 0.60-1.30 Serum or plasma urea nitrogen/creatinine mass ratio 11 NRG Serum or plasma creatinine measurement with calculation of estimated glomerular filtration rate 55 NRG Serum or plasma glucose measurement (mass/volume) 97 mg/dL 70-105 Serum or plasma calcium measurement (mass/volume) 10.5 mg/dL 8.5-10.1 Methicillin resistant Staphylococcus aureus (MRSA) screening culture - 10:15 MRSA SCREEN RESULT MRSA ISOLATED NRG Encounters ACCT No. Visit Date/Time Discharge Status Pt. Type Provider Facility Loc./Unit Complaint [id number] 07/28/2018 08:15:00 07/28/2018 23:59:59 CLS Preadmit PORTIA NOLAN APRN [facility] PUL J44.9 COPD [id number] 04/28/2018 08:00:00 07/27/2018 00:01:00 DIS Outpatient PORTIA NOLAN APRN [facility] PUL J44.9 COPD [id number] 07/21/2018 09:13:00 07/21/2018 23:59:59 CLS Outpatient PORTIA NOLAN APRN [facility] RAD ENLARGED LYMPH NODES [id number] 01/27/2018 08:04:00 04/27/2018 00:01:00 DIS Outpatient PORTIA NOLAN DOCUMENTATION SUPERVISOR [facility] PUL J44.9 COPD [id number] 02/28/2018 11:07:00 02/28/2018 23:59:59 CLS Outpatient MARCY KENNY DO [facility] RAD HIP PAIN [id number] 01/29/2018 10:09:00 01/29/2018 23:59:59 CLS Outpatient PORTIA NOLAN APRN [facility] RAD R59.9 LYMPH NODE ENLARGEMENT [id number] 01/09/2018 06:00:00 01/09/2018 12:20:00 DIS Outpatient RALPH JASMINE DO [facility] SDC UMBILICAL HERNIA [id number] 01/02/2018 09:33:00 01/02/2018 10:20:00 DIS Outpatient RALPH JASMINE DO [facility] PREOP UMBILICAL HERNIA [id number] 11/22/2017 12:49:00 11/22/2017 15:30:00 DIS Outpatient RALPH JASMINE DO [facility] ENDO REFLUX, GASTROINTESTINAL BLEEDING [id number] 11/20/2017 05:40:00 11/20/2017 12:13:00 DIS Outpatient RALPH JASMINE DO [facility] PREOP REFLUX, GASTROINTESTINAL BLEEDING [id number] 11/18/2017 14:58:00 11/19/2017 17:50:00 DIS Inpatient JULIANA MILLER MD [facility] 4TH SOB [id number] 11/15/2017 10:39:00 11/15/2017 23:59:59 CLS Outpatient JULIANA MILLER MD [facility] RAD CAD,CONFUSION [id number] 02/27/2017 15:06:00 02/27/2017 23:59:59 CLS Outpatient AGUSTIN ROJO DO [facility] RT DYSPNEA R06.02 [id number] 02/22/2017 16:45:00 02/22/2017 16:45:00 CAN Preadmit AGUSTIN ROJO DO [facility] RT DYSPNEA,HX OF TOBACCO USE, JOY ON CPAP [id number] 10/03/2016 08:48:00 10/03/2016 15:30:00 DIS Outpatient JULIANA MILLER MD [facility] CATH ANM STRESS TEST,CAD [id number] 09/19/2016 08:13:00 09/19/2016 23:59:59 CLS Outpatient DONYA DONNELLY [facility] CARD CAD,JOY ON CPAP,TIA [id number] 08/14/2016 08:51:00 08/14/2016 15:30:00 DIS [facility] [id number] 08/09/2016 05:47:00 08/09/2016 13:50:00 DIS Outpatient RALPH JASMINE DO [facility] PREOP OCCULT STOOLS [id number] 12/05/2015 10:15:00 12/05/2015 23:59:59 CLS Preadmit MARCY KENNY DO [facility] PULM COPD [id number] 09/05/2015 10:15:00 12/04/2015 00:01:00 DIS Outpatient MARCY KENNY DO [facility] PULM COPD [id number] 09/05/2015 14:31:00 09/05/2015 23:59:59 CLS Outpatient MARCY KENNY DO [facility] RAD ABD PAIN [id number] 08/08/2015 14:00:00 08/16/2015 13:50:00 DIS Inpatient MARCY KENNY DO [facility] 4TH PNEUMONIA [id number] 04/19/2015 09:57:00 04/19/2015 10:38:00 DIS Outpatient ASH ALARCON MD [facility] REHAB CERVICAL SPONDYLOSIS [id number] 01/24/2015 14:36:00 01/24/2015 23:59:59 CLS Outpatient MARIE CHILDS DO [facility] RAD DDD [id number] 11/05/2014 09:53:00 11/09/2014 11:51:00 DIS Outpatient MARIE CHILDS DO [facility] REHAB S/P R SHLD SCOPE WITH SAD AND DEBRIDEMENT [id number] 09/28/2014 12:27:00 09/28/2014 23:59:59 CLS Out[facility]ER TORN ROTATOR CUFF [id number] 09/24/2014 06:15:00 09/24/2014 23:59:59 CLS Outpatient NAZ SIMMONS MARIE Nash [facility] PREOP RIGHT SHOULDER TORN ROTATOR CUFF [id number] 08/31/2014 08:58:00 08/31/2014 11:36:00 DIS Outpatient MARIE CHILDS DO [facility] SDC RIGHT SHOULDER ROTATOR CUFF TEAR [id number] 08/27/2014 05:50:00 08/27/2014 23:59:59 CLS Outpatient NAZ SIMMONS MARIE Nash [facility] PREOP RIGHT SHOULDER ROTATOR CUFF TEAR [id number] 08/25/2014 12:14:00 08/25/2014 23:59:59 CLS Outpatient JULIANA MILLER MD [facility] CARD CAD,ANN,DYSPNEA [id number] 08/25/2014 09:05:00 08/25/2014 23:59:59 CLS Outpatient JULIANA MILLER MD [facility] CARD CAD [id number] 07/21/2014 05:50:00 07/21/2014 23:59:59 CLS Outpatient MARIE CHILDS DO [facility] PREOP RIGHT SHOULDER ROTATOR CUFF TEAR [id number] 07/14/2014 17:15:00 07/16/2014 10:00:00 DIS Inpatient MARCY KENNY DO [facility] 4TH TIA CONFUSION DIFFICULT WORD FINDING [id number] 06/28/2014 13:45:00 07/07/2014 11:55:00 DIS Outpatient MARIE CHILDS DO [facility] REHAB R SHOULDER ADHESIVE CAPSULITIS [id number] 06/23/2014 07:52:00 06/23/2014 23:59:59 CLS Outpatient MARIE CHILDS DO [facility] RAD RT SHOULDER ADHEISIVE CAPSULITIS [id number] 06/21/2014 12:37:00 06/21/2014 23:59:59 CLS Outpatient MARIE CHILDS DO [facility] RAD RT SHOULDER ADHEISIVE CAPSULITIS [id number] 04/21/2014 10:59:00 04/21/2014 23:59:59 CLS Outpatient AGUSTIN ROJO DO [facility] RAD DYSPNEA,PE,RENAL FAILURE [id number] 03/03/2014 13:57:00 03/10/2014 15:35:00 DIS Inpatient TONI KEVIN MD [facility] IRF WEAKNESS [id number] 02/11/2014 10:19:00 02/13/2014 13:15:00 DIS Inpatient MARCY KENNY DO [facility] ICU PROBABLE RL PNEUMONIA [id number] 02/08/2014 12:50:00 02/08/2014 23:59:59 CLS Outpatient MARCY KENNY DO [facility] SDC OSTEO [id number] 07/21/2019 10:15:00 PEN Preadmit PORTIA NOLAN APRN [facility] RAD DYSPNEA,NICOTINE DEPENDENCE, PLEURAL EFFUSION [id number] 09/05/2015 10:15:00 Document Registration [id number] 10/28/2014 13:24:00 Document Registration [id number] 10/31/2012 13:05:00 Document Registration [id number] 11/09/2011 12:32:00 Document Registration [id number] 10/24/2010 12:55:00 Document Registration [email or web address] 04/19/2015 09:57:51 ACT Document Registration
[2018-08-14] MEDS ORDERED: CATHETER FLUSH 10 ML SYR IV PRN (11:15)
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
--- NOTE | 2018-08-14 11:53 | Diagnostic Imaging Report ---
PATIENT HISTORY: Shortness of breath, cough, fever. TECHNIQUE: Single frontal view of the chest. COMPARISON: 10/03/2016. FINDINGS: Lung volumes are decreased compared to the prior exam. There is central vascular congestion. There are bibasilar airspace opacities. No pneumothorax or pleural effusion is seen. The cardiac silhouette is upper normal in size. No acute osseous abnormalities seen. IMPRESSION: Mild central vascular congestion with new bibasilar airspace opacities, which may represent atelectasis or infiltrate. Dictated by: Dictated on workstation # [id number]
[2018-08-14] MEDS: ACETAMINOPHEN 325 MG TABLET PO PRN ×2 (11:58→21:15)
[2018-08-14 12:00] VITALS: BP 176/79
[2018-08-14 12:24] LABS: ABG BASE EXCESS -0.9 MMOL/L (-2.5-2.5); ABG OXYGEN SATURATION 91 % (94-100); ABG PCO2 36 MMHG (35-45); ABG PH 7.42 (7.37-7.43); ABG PO2 74 MMHG (79-93); ABG TCO2 23.5 MMOL/L (21.0-31.0)
[2018-08-14 12:26] LABS: ALLENS TEST YES-POS; INSPIRED O2 ROOM AIR; PATIENT TEMP 102.3; VENTILATOR NO
[2018-08-14 13:34] LABS: BASOPHILS % (AUTO) 0 % (0-10); EOSINOPHILS % (AUTO) 0 % (0-10); HEMATOCRIT 38 % (40-54); HEMOGLOBIN 12.6 G/DL (13.3-17.7); LYMPHOCYTES # (AUTO) 1.1 X 10^3 (1.0-4.0); LYMPHOCYTES % (AUTO) 7 % (12-44); MEAN CORPUSCULAR HEMOGLOBIN 32 PG (25-34); MEAN CORPUSCULAR HGB CONC 33 G/DL (32-36); MEAN CORPUSCULAR VOLUME 98 FL (80-99); MEAN PLATELET VOLUME 9.6 FL (7.4-10.4); MONOCYTES # (AUTO) 0.9 X 10^3 (0.0-1.0); MONOCYTES % (AUTO) 5 % (0-12); NEUTROPHILS # (AUTO) 14.2 X 10^3 (1.8-7.8); NEUTROPHILS % (AUTO) 88 % (42-75); PLATELET COUNT 207 10^3/uL (130-400); RED BLOOD COUNT 3.89 10^6/uL (4.35-5.85); RED CELL DISTRIBUTION WIDTH 16.2 % (10.0-14.5); WHITE BLOOD COUNT 16.2 10^3/uL (4.3-11.0)
[2018-08-14 13:53] LABS: ALBUMIN 3.8 GM/DL (3.2-4.5); BILIRUBIN,TOTAL 1.1 MG/DL (0.1-1.0); CALCIUM 9.3 MG/DL (8.5-10.1); CREATININE SERUM 1.33 MG/DL (0.60-1.30); TOTAL PROTEIN 6.8 GM/DL (6.4-8.2)
[2018-08-14 13:56] LABS: BAND NEUTROPHILS 12 %; BASOPHILS % (MANUAL) 1 %; EOSINOPHILS % (MANUAL) 0 %; LYMPHOCYTES % (MANUAL) 4 %; MONOCYTES % (MANUAL) 6 %; NEUTROPHILS % (MANUAL) 77 %
[2018-08-14 13:57] LABS: ANISOCYTOSIS SLIGHT
--- NOTE | 2018-08-14 14:35 | NUR ---
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 Continue droplet Isolation. Notified RT, nursing and Dr Martinez.
[2018-08-14] MEDS ORDERED: CNC1KV IM (14:42)
[2018-08-14] MEDS ORDERED: PIPERACILLIN/TAZO 4.5 GM/NS 100 ML IV NR ×2 (14:45)
[2018-08-14] MEDS ORDERED: RT-ALBUTEROL/IPRATROPIUM 3 ML (DUONEB) VIAL INH PRN (14:45)
[2018-08-14] MEDS ORDERED: ASPI-992 PO (14:58)
[2018-08-14] MEDS ORDERED: RANI150T46 PO (15:28)
[2018-08-14] MEDS: CATHETER FLUSH 10 ML SYR IV SCH ×2 (15:31→22:27)
[2018-08-14] MEDS ORDERED: ASPI325T32 PO (15:33)
--- NOTE | 2018-08-14 15:34 | NUR ---
HAD A LIST FAXED OVER FROM [facility] AND WENT OVER IT WITH THE PATIENT. HE VERIFIED HOW HE IS TAKING HIS MEDICATIONS. [facility] FILL[facility]: 08-07-18 SYMBICORT 160 2 PUFFS BID #3 07-21-18 GABAPENTIN 300MG BID #180 07-10-18 CYANOCOBALAMIN INJ 1000MCG MONTHLY #3 07-10-18 SUCRALFATE 1GM ACHS #120 06-25-18 AMLODIPINE 10MG 1/2 DAILY #45 06-12-18 LEVOTHYROXINE 0.137MG DAILY #90 05-26-18 LOVASTATIN 40MG 1/2 HS #45 05-26-18 LATANOPROST DROPS 1 DROP OU HS 12-10-17 PLAVIX 75MG DAILY #90 (NO LONGER TAKING) OTC MEDS: ASPIRIN 325MG DAILY VITAMIN D DAILY RANITIDINE BID FISH OIL DAILY COLACE 3 HS PROBIOTIC DAILY VITAMIN C DAILY EXCEDRIN BID PRN PATIENT STATES HE ALSO USES DUONEB TID WHICH HE RECEIVES THROUGH THE MAIL.
[2018-08-14] MEDS: ANTACID SUSP 30 ML UDC (MYLANTA) PO PRN ×2 (15:42→21:15)
[2018-08-14] MEDS: BENZONATATE 100 MG (TESSALON) CAPSULE PO PRN ×2 (15:42→21:15)
[2018-08-14 16:01] VITALS: BP 137/75
[2018-08-14 19:44] VITALS: BP 158/78
[2018-08-14] MEDS: RT-ALBUTEROL/IPRATROPIUM 3 ML (DUONEB) VIAL INH SCH ×2 (20:57→21:20)
[2018-08-14] MEDS: PIPERACILLIN SODIUM/TAZOBACTAM 4.5 GM in NS (IVPB) 100 ML IV SCH (21:15)
[2018-08-14 23:11] VITALS: BP 122/60
[2018-08-15] MEDS: RT-ALBUTEROL/IPRATROPIUM 3 ML (DUONEB) VIAL INH SCH ×6 (02:39→22:21)
[2018-08-15 04:29] VITALS: BP 122/57
[2018-08-15] MEDS: PIPERACILLIN SODIUM/TAZOBACTAM 4.5 GM in NS (IVPB) 100 ML IV SCH ×3 (05:45→20:28)
[2018-08-15] MEDS: ANTACID SUSP 30 ML UDC (MYLANTA) PO PRN (05:53)
[2018-08-15] MEDS: ACETAMINOPHEN 325 MG TABLET PO PRN ×4 (05:53→20:30)
[2018-08-15 06:16] LABS: BASOPHILS % (AUTO) 0 % (0-10); EOSINOPHILS # (AUTO) 0.1 10^3/uL (0.0-0.3); EOSINOPHILS % (AUTO) 1 % (0-10); HEMATOCRIT 37 % (40-54); HEMOGLOBIN 12.4 G/DL (13.3-17.7); LYMPHOCYTES # (AUTO) 1.3 X 10^3 (1.0-4.0); LYMPHOCYTES % (AUTO) 10 % (12-44); MEAN CORPUSCULAR HEMOGLOBIN 33 PG (25-34); MEAN CORPUSCULAR HGB CONC 33 G/DL (32-36); MEAN CORPUSCULAR VOLUME 99 FL (80-99); MEAN PLATELET VOLUME 9.8 FL (7.4-10.4); MONOCYTES # (AUTO) 0.8 X 10^3 (0.0-1.0); MONOCYTES % (AUTO) 7 % (0-12); NEUTROPHILS # (AUTO) 10.4 X 10^3 (1.8-7.8); NEUTROPHILS % (AUTO) 83 % (42-75); PLATELET COUNT 217 10^3/uL (130-400); RED BLOOD COUNT 3.79 10^6/uL (4.35-5.85); RED CELL DISTRIBUTION WIDTH 16.6 % (10.0-14.5); WHITE BLOOD COUNT 12.6 10^3/uL (4.3-11.0)
[2018-08-15 06:31] LABS: INR 1.3 (0.8-1.4); PROTHROMBIN TIME PATIENT 16.4 SEC (12.2-14.7)
[2018-08-15 07:02] LABS: CALCIUM 9.3 MG/DL (8.5-10.1); CREATININE SERUM 1.36 MG/DL (0.60-1.30)
--- NOTE | 2018-08-15 07:25 | Pulmonary Progress Note ---
Subjective Time Seen by a Provider: 07:25 Subjective/Events-last exam No complications noted. Sepsis Event Evaluation Height, Weight, BMI Height: 5'11.00" Weight: 218lbs. 0.5oz. [id number]; 30.4 BMI Method: Focused Exam Lactate Level 08/14/18 13:15: Lactic Acid Level 0.80 Exam Exam Vital Signs Date Time Temp Pulse Resp B/P (MAP) Pulse Ox O2 Delivery O2 Flow Rate FiO2 08/15/18 07:06 92 Nasal Cannula 2.00 08/15/18 04:29 99.2 76 18 122/57 (78) 93 Room Air 08/15/18 02:39 93 Nasal Cannula 2.00 08/15/18 01:00 85 08/14/18 23:11 100.0 82 18 122/60 (80) 91 Room Air 08/14/18 21:20 91 Nasal Cannula 2.00 08/14/18 20:00 Nasal Cannula 2.00 08/14/18 19:44 100.9 82 18 158/78 (104) 93 Room Air 08/14/18 19:00 84 08/14/18 16:01 100.2 92 22 137/75 (95) 93 Room Air 08/14/18 15:11 85 Room Air 08/14/18 13:00 85 08/14/18 12:28 101.9 08/14/18 12:14 82 87 08/14/18 12:11 81 08/14/18 12:00 99.8 98 21 176/79 (111) 98 Room Air 08/14/18 11:58 102.3 08/14/18 10:50 Room Air I & O 08/15/18 07:00 Intake Total 1560 ml Output Total 550 ml Balance 1010 ml Height & Weight Height: 5'11.00" Weight: 218lbs. 0.5oz. 98.842077fa; 30.4 BMI Method: General Appearance: Anxious, Mild Distress HEENT: PERRL/EOMI, Normal ENT Inspection, Pharynx Normal Neck: Full Range of Motion, Normal Inspection, Non Tender, Supple Respiratory: Chest Non Tender, No Accessory Muscle Use, No Respiratory Distress , Crackles, Decreased Breath Sounds Cardiovascular: No Edema, No Gallop, Tachycardia Capillary Refill: Less Than 3 Seconds Gastrointestinal: normal bowel sounds, non tender, soft Extremity: Normal Capillary Refill, Normal Inspection Neurologic/Psychiatric: Alert, Oriented x3 Skin: Normal Color, Warm/Dry Lymphatic: No Adenopathy Results Lab Laboratory Tests 08/14/18 13:15 08/15/18 05:20 Assessment/Plan Assessment/Plan Pneumonia with sespsis - not severe -Continue IVF -Zosyn -Andrade cultures -Will need out pt f/u imaging COPDAE with hypoxia -SVNs -Oxygen Acute renal failure -IVF -Monitor Hypothyroid AGUSTIN ROJO DO Aug 15, 2018 07:25
[2018-08-15] MEDS: CATHETER FLUSH 10 ML SYR IV SCH ×3 (07:49→21:10)
[2018-08-15 08:00] VITALS: BP 118/62
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
[2018-08-15 12:00] VITALS: BP 117/59
[2018-08-15] MEDS: SUCRALFATE 1 GM (CARAFATE) TAB PO SCH ×2 (15:57→20:29)
[2018-08-15 16:00] VITALS: BP 137/73
[2018-08-15] MEDS ORDERED: LEVOTHYROXINE 112 MCG (LEVOTHROID) TAB PO SCH (18:00)
[2018-08-15] MEDS ORDERED: LEVOTHYROXINE 25 MCG (LEVOTHROID) TAB PO SCH (18:00)
[2018-08-15] MEDS ORDERED: NON-FORMULARY MEDICATION 1 EA EA (Levothyroxine Sodium 137 MCG) PO SCH (18:00)
[2018-08-15] MEDS: ADVAIR HFA 115/21 MCG INHALER 8 GM IH SCH (19:11)
[2018-08-15] MEDS ORDERED: RT-ADVAIR HFA 115/21 MCG PER PUFF IH SCH (20:00)
[2018-08-15] MEDS: FAMOTIDINE 20 MG (PEPCID) TABLET PO SCH (20:29)
[2018-08-15] MEDS: GABAPENTIN 300 MG (NEURONTIN) CAP PO SCH (20:29)
[2018-08-15 20:39] VITALS: BP 120/67
[2018-08-15] MEDS ORDERED: LATANOPROST 0.005% (XALATAN) OPHTH SOLN 2.5 ML OU SCH (21:00)
[2018-08-15] MEDS ORDERED: ATORVASTATIN 10 MG (LIPITOR) TABLET PO SCH (21:00)
[2018-08-15] MEDS ORDERED: NON-FORMULARY MEDICATION 1 EA EA (Budesonide/Formoterol Fumarate (Symbicort 160-4.5 Mcg In IH SCH (21:00)
[2018-08-15] MEDS ORDERED: NON-FORMULARY MEDICATION 1 EA EA (Lovastatin 20 MG) PO SCH (21:00)
[2018-08-15] MEDS ORDERED: NON-FORMULARY MEDICATION 1 EA EA (Ranitidine HCl (Zantac) 150 MG) PO SCH (21:00)
[2018-08-15] MEDS ORDERED: DOCUSATE SODIUM 100 MG (COLACE) CAP PO SCH (21:00)
[2018-08-16 00:08] VITALS: BP 114/60
[2018-08-16] MEDS: RT-ALBUTEROL/IPRATROPIUM 3 ML (DUONEB) VIAL INH SCH ×2 (02:32→06:26)
[2018-08-16 04:03] VITALS: BP 119/54
[2018-08-16] MEDS: PIPERACILLIN SODIUM/TAZOBACTAM 4.5 GM in NS (IVPB) 100 ML IV SCH ×2 (04:48→12:39)
[2018-08-16] MEDS: SUCRALFATE 1 GM (CARAFATE) TAB PO SCH ×2 (05:55→11:20)
[2018-08-16] MEDS: CATHETER FLUSH 10 ML SYR IV SCH (05:55)
[2018-08-16] MEDS: ADVAIR HFA 115/21 MCG INHALER 8 GM IH SCH (06:27)
[2018-08-16 06:46] LABS: BASOPHILS % (AUTO) 0 % (0-10); EOSINOPHILS # (AUTO) 0.2 10^3/uL (0.0-0.3); EOSINOPHILS % (AUTO) 2 % (0-10); HEMATOCRIT 37 % (40-54); HEMOGLOBIN 12.1 G/DL (13.3-17.7); LYMPHOCYTES % (AUTO) 13 % (12-44); MEAN CORPUSCULAR HEMOGLOBIN 33 PG (25-34); MEAN CORPUSCULAR HGB CONC 33 G/DL (32-36); MEAN CORPUSCULAR VOLUME 100 FL (80-99); MEAN PLATELET VOLUME 9.7 FL (7.4-10.4); MONOCYTES # (AUTO) 0.7 X 10^3 (0.0-1.0); MONOCYTES % (AUTO) 8 % (0-12); NEUTROPHILS # (AUTO) 6.2 X 10^3 (1.8-7.8); NEUTROPHILS % (AUTO) 77 % (42-75); PLATELET COUNT 209 10^3/uL (130-400); RED BLOOD COUNT 3.67 10^6/uL (4.35-5.85); RED CELL DISTRIBUTION WIDTH 16.2 % (10.0-14.5); WHITE BLOOD COUNT 8.1 10^3/uL (4.3-11.0)
[2018-08-16 07:11] LABS: CALCIUM 8.9 MG/DL (8.5-10.1); CREATININE SERUM 1.33 MG/DL (0.60-1.30)
[2018-08-16 08:00] VITALS: BP 125/62
[2018-08-16] MEDS: GABAPENTIN 300 MG (NEURONTIN) CAP PO SCH (08:45)
[2018-08-16] MEDS: FAMOTIDINE 20 MG (PEPCID) TABLET PO SCH (08:45)
[2018-08-16] MEDS ORDERED: NON-FORMULARY MEDICATION 1 EA EA (Amlodipine Besylate 5 MG) PO SCH (09:00)
[2018-08-16] MEDS ORDERED: ASPIRIN E.C. 325 MG (ECOTRIN) TABLET PO SCH (09:00)
[2018-08-16] MEDS ORDERED: amLODIPine 5 MG (NORVASC) TAB PO SCH (09:00)
[2018-08-16] MEDS ORDERED: AMOX-358 PO (09:44)
--- NOTE | 2018-08-16 09:46 | Discharge Inst-Simple/Standard ---
Discharge Inst-Standard Discharge Medications New, Converted or Re-Newed RX: Transmitted to Pharmacy Patient Instructions/Follow Up Plan of Care/Instructions/FU: Please continue to take your medications as written. Plesase finish your antibiotic even if you symptoms resolve. Please follow up with Dr De León and Dr Gomez to follow up this hospital stay. It is also very important to quit smoking to help prevent further complications. Activity as Tolerated: Yes Discharge Diet: Cardiac Diet Return to The Hospital For: Shortness of breath, worsening fever, chest pain, if you feel you are getting worse. IAN PA MD Aug 16, 2018 09:46
--- NOTE | 2018-08-16 10:44 | NUR ---
home oxygen study pt at rest dropped on room air to 83%, placed back on 4 lpm nasal cannula and spo2 increased to 92%, pt will require 4 lpm nasal cannula at all times
--- NOTE | 2018-08-16 10:49 | Discharge Summary-Hospitalist ---
Diagnosis/Chief Complaint Date of Admission Aug 14, 2018 at 10:25 Date of Discharge Discharge Date: Aug 16, 2018 Admission Diagnosis Sepsis Discharge Diagnosis (1) Sepsis Assessment & Plan: Resolved Due to pneumonia Continue on oral abx at discharge (2) Fever Assessment & Plan: Temperature of 104.2 at home- remains febrile here No hypotension (3) Hypothyroidism Status: Chronic Assessment & Plan: Resume home supplement (4) Essential (primary) hypertension Status: Chronic Assessment & Plan: BP well controlled Trend (5) COPD (chronic obstructive pulmonary disease) Status: Chronic Assessment & Plan: Follows with Dr Gomez Consulted MAT protocol (6) CAP (community acquired pneumonia) Discharge Summary Procedures/Consulations Dr Gomez- Pulm Discharge Physical Exam Allergies: Coded Allergies: No Known Drug Allergies (Verified , 11/18/17) Vitals & I&Os Vital Signs Date Time Temp Pulse Resp B/P (MAP) Pulse Ox O2 Delivery O2 Flow Rate FiO2 08/16/18 10:50 93 Nasal Cannula 4.00 08/16/18 08:00 98.9 69 18 125/62 (83) General Appearance: No Apparent Distress, WD/WN HEENT: PERRL/EOMI, TMs Normal, Normal ENT Inspection, Pharynx Normal Respiratory: No Accessory Muscle Use, No Respiratory Distress, Crackles Cardiovascular: Regular Rate, Rhythm, No JVD, No Murmur Gastrointestinal: Normal Bowel Sounds, No Organomegaly, No Pulsatile Mass, Non Tender, Soft Extremity: Normal Capillary Refill, Normal Inspection, Normal Range of Motion, Non Tender, No Calf Tenderness, No Pedal Edema Skin: Normal Color, Warm/Dry Neurologic/Psychiatric: Alert, Oriented x3, No Motor/Sensory Deficits, Normal Mood/Affect Hospital Course Pt was admitted for sepsis from pneumonia. He has was treated with IV abx and responded well. He did have an oxygne requirement which is likely not new because he had previously had oxygen at home but sent it back because he was not using it. He otherwise had an uneventful hospital course and recovered quickly. He was discharged home in stable condition and oxygen was arranged for him upon discharge. He is to follow up with his PCP and with Dr Gomez to follow up this hospital stay. Labs (last 24 hrs) Microbiology 08/14/18 Blood Culture - Preliminary, Resulted No growth 08/14/18 Gram Stain - Final, Complete 08/14/18 Sputum Culture - Final, Complete Escherichia coli Usual upper respiratory alexey Patient resulted labs reviewed. Pending Labs Imaging: Reviewed Imaging Report Discussion & Recommendations Discharge Planning: >30 minutes discharge planning Discharge Home Medications: Active Scripts Active Augmentin 875-125 Tablet (Amoxicillin/Potassium Clav) 1 Each Tablet 1 Each PO BID Reported Aspirin EC (Aspirin) 325 Mg Tablet.dr 325 Mg PO DAILY Zantac (Ranitidine HCl) 150 Mg Tablet 150 Mg PO BID Excedrin Extra Strength Caplet (Aspirin/Acetaminophen/Caffeine) 1 Each Tablet 1 Tab PO BID PRN Cyanocobalamin Injection (Cyanocobalamin) 1,000 Mcg/Ml Inj 1,000 Mcg IM MONTHLY Vitamin C (Ascorbate Calcium) 500 Mg Tablet 500 Mg PO DAILY Probiotic (Lactobacillus Acidophilus) 1 Each Capsule 1 Cap PO DAILY Vitamin D3 (Cholecalciferol (Vitamin D3)) 1,000 Unit Tablet 1,000 Unit PO DAILY Fish Oil 1,200 mg Softgel ([place]-3 Fatty Acids/Fish Oil) 1 Each Capsule 1,200 Mg PO DAILY Lovastatin 40 Mg Tablet 20 Mg PO HS TAKE 1/2 OF 40MG TAB Carafate (Sucralfate) 1 Gm Tablet 1 Gm PO ACHS Gabapentin 300 Mg Capsule 300 Mg PO BID Latanoprost 2.5 Ml Drops 1 Drop OU HS Levothyroxine Sodium 137 Mcg Tablet 137 Mcg PO 1800 Iprat-Albut 0.5-3(2.5) mg/3 ml (Ipratropium/Albuterol Sulfate) 3 Ml Ampul.neb 3 Ml NEB TID Colace (Docusate Sodium) 100 Mg Capsule 300 Mg PO HS Symbicort 160-4.5 Mcg Inhaler (Budesonide/Formoterol Fumarate) 10.2 Gm Hfa.aer.ad 2 Puff IH BID Amlodipine Besylate 10 Mg Tablet 5 Mg PO DAILY TAKES 1/2 (10 MG) TABLET Instructions to patient/family Please see electronic discharge instructions given to patient. Clinical Quality Measures DVT/VTE Risk/Contraindication: Risk Factor Score Per Nursin RFS Level Per Nursing on Admit: 4+=Very High Copy Copies To 1: MARCY KENNY DO Problem Qualifiers (1) Sepsis: Sepsis type: sepsis due to unspecified organism Qualified Codes: A41.9 - Sepsis, unspecified organism (2) Hypothyroidism: Hypothyroidism type: postablative Qualified Codes: E89.0 - Postprocedural hypothyroidism (3) COPD (chronic obstructive pulmonary disease): COPD type: unspecified COPD Qualified Codes: J44.9 - Chronic obstructive pulmonary disease, unspecified (4) CAP (community acquired pneumonia): Laterality: unspecified laterality Qualified Codes: J18.9 - Pneumonia, unspecified organism IAN PA MD Aug 16, 2018 10:49
--- NOTE | 2018-08-16 14:02 | NUR ---
MARCY BROCK demonstrates understanding of discharge instructions and accurately returns instructions upon questioning. Copy of Post-Discharge Instructions and Medication Discharge Instructions given to patient. MARCY BROCK is able to manage continuing needs after discharge. Patients belongings returned to patient. Skin dry and intact; no breakdown noted. Patient discharged from [facility] on 08/16/18 at 1345. MARCY BROCK left floor via wheel chair , accompanied by staff and .
== END 2018-08-16 14:09 | disposition home or self-care (01) | DRG 871 ==
LOC: 4TH 10:25
PROVIDERS: ADMIT Family Medicine; ATTEND Family Medicine
DX: A41.9 Sepsis, unspecified organism (principal); J18.9 Pneumonia, unspecified organism; J43.9 Emphysema, unspecified; R09.02 Hypoxemia; N17.9 Acute kidney failure, unspecified; I25.10 Atherosclerotic heart disease of native coronary artery without angina pectoris; I10 Essential (primary) hypertension; E89.0 Postprocedural hypothyroidism; Z66 Do not resuscitate; J30.2 Other seasonal allergic rhinitis; F17.210 Nicotine dependence, cigarettes, uncomplicated; G47.30 Sleep apnea, unspecified; K21.9 Gastro-esophageal reflux disease without esophagitis; K46.9 Unspecified abdominal hernia without obstruction or gangrene; H93.19 Tinnitus, unspecified ear; H40.9 Unspecified glaucoma; F32.9 Major depressive disorder, single episode, unspecified; M81.0 Age-related osteoporosis without current pathological fracture; M19.91 Primary osteoarthritis, unspecified site; M54.9 Dorsalgia, unspecified; K59.09 Other constipation; Z95.5 Presence of coronary angioplasty implant and graft; Z86.73 Personal history of transient ischemic attack (TIA), and cerebral infarction without residual deficits; Z91.5 Personal history of self-harm
CPT/HCPCS: 36415; 36600; 71045; 80048; 80053; 82805; 83605; 85007; 85025; 85027; 85610; 87040; 87070; 87077; 87186; 87205; 87804; 94640; 94760; 94761

== ENCOUNTER → 2018-09-10 | Outpatient (CLI) | payer MEDICARE ==
[~2018-09-10] MED LIST changes: -AMLO10TA6 PO; +AMLO10TA7 PO; +AMOX-358 PO; +ASPI325T32 PO; +BARIUM SUSPENSION 105% (LIQUID POLIBAR PLUS) 240 ML/DOSE PO ONE; +BARIUM SUSPENSION 60% (LIQUID EZ PAQUE) 240 ML DOSE PO ONE; +CNC1KV IM; +RANI150T46 PO
--- NOTE | 2018-09-10 18:04 | Diagnostic Imaging Report ---
EXAMINATION: Barium swallow esophagram. INDICATION: Epigastric pain. COMPARISON: There are no prior esophagrams available for comparison. FINDINGS: A double-contrast exam was performed. The patient swallowed the contrast material without difficulty. There was no delay or obstruction of the passage of the barium through the esophagus. Multiple tertiary contractions were noted. These generally indicate ineffective peristalsis and are not unusual in a patient of this age. There is a fixed hiatal hernia and there was voluminous gastroesophageal reflux on two occasions. There was no sign of esophagitis, however. A cursory examination of the stomach shows that the stomach shows good distensibility and motility. There is no mass or ulceration evident. The duodenal bulb and proximal small bowel were unremarkable. IMPRESSION: 1. There is a large fixed hiatal hernia with voluminous gastroesophageal reflux. There is no sign of esophagitis. 2. Presbyesophagus. 3. The stomach, duodenum, and proximal small bowel are grossly unremarkable. Dictated on workstation # [id number]
== END ==
LOC: RAD 09:25
PROVIDERS: ATTEND Internal Medicine
DX: K44.9 Diaphragmatic hernia without obstruction or gangrene (principal); K21.9 Gastro-esophageal reflux disease without esophagitis; K22.8 Other specified diseases of esophagus
CPT/HCPCS: 74220

== ENCOUNTER 2018-10-08 18:05 | Inpatient (IN) | payer MEDICARE ==
[~2018-10-08] VITALS: Ht 180.3 cm; Wt 97.5 kg
[~2018-10-08 18:05] MED LIST changes: -BARIUM SUSPENSION 105% (LIQUID POLIBAR PLUS) 240 ML/DOSE PO ONE; -BARIUM SUSPENSION 60% (LIQUID EZ PAQUE) 240 ML DOSE PO ONE
[2018-10-08] MEDS ORDERED: cefTRIAXone FOR IV USE 1,000 MG in WATER (STERILE) FOR INJECTION 10 ML IV ONE (18:30)
[2018-10-08] MEDS ORDERED: RT-ALBUTEROL/IPRATROPIUM 3 ML (DUONEB) VIAL INH ONE (18:30)
[2018-10-08] MEDS ORDERED: ACETAMINOPHEN 500 MG TAB (TYLENOL) PO PRN (18:30)
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
[2018-10-08 18:33] LABS: BILIRUBIN,URINE NEGATIVE (NEGATIVE); CLARITY,URINE SLIGHTLY CLOUDY; COLOR,URINE YELLOW; GLUCOSE, URINE (UA) NEGATIVE (NEGATIVE); KETONES,URINE NEGATIVE (NEGATIVE); LEUKOCYTE ESTERASE ,URINE 1+ (NEGATIVE); NITRITE,URINE NEGATIVE (NEGATIVE); PH,URINE 5 (5-9); PROTEIN,URINE NEGATIVE (NEGATIVE); UROBILINOGEN,URINE NORMAL (NORMAL)
[2018-10-08 18:38] LABS: BASOPHILS % (AUTO) 0 % (0-10); EOSINOPHILS # (AUTO) 0.1 10^3/uL (0.0-0.3); EOSINOPHILS % (AUTO) 1 % (0-10); HEMATOCRIT 39 % (40-54); HEMOGLOBIN 13.2 G/DL (13.3-17.7); LYMPHOCYTES # (AUTO) 0.4 X 10^3 (1.0-4.0); LYMPHOCYTES % (AUTO) 5 % (12-44); MEAN CORPUSCULAR HEMOGLOBIN 33 PG (25-34); MEAN CORPUSCULAR HGB CONC 34 G/DL (32-36); MEAN CORPUSCULAR VOLUME 98 FL (80-99); MEAN PLATELET VOLUME 9.3 FL (7.4-10.4); MONOCYTES # (AUTO) 0.7 X 10^3 (0.0-1.0); MONOCYTES % (AUTO) 7 % (0-12); NEUTROPHILS # (AUTO) 8.3 X 10^3 (1.8-7.8); NEUTROPHILS % (AUTO) 87 % (42-75); PLATELET COUNT 264 10^3/uL (130-400); RED CELL DISTRIBUTION WIDTH 16.6 % (10.0-14.5); WHITE BLOOD COUNT 9.5 10^3/uL (4.3-11.0)
[2018-10-08 18:41] LABS: BACTERIA,URINE TRACE /HPF; WBC,URINE 0-2 /HPF
[2018-10-08 18:44] LABS: INR 1.2 (0.8-1.4); PROTHROMBIN TIME PATIENT 14.7 SEC (12.2-14.7)
[2018-10-08 18:56] LABS: BAND NEUTROPHILS 7 %; LYMPHOCYTES % (MANUAL) 6 %; MONOCYTES % (MANUAL) 3 %; NEUTROPHILS % (MANUAL) 84 %; RBC MORPH NORMAL
--- NOTE | 2018-10-08 19:07 | Diagnostic Imaging Report ---
INDICATION: Weakness. Cough. Fever. COMPARISON: 08/14/2018. FINDINGS: Single frontal view of the chest demonstrates mild cardiomegaly and moderate prominence of the pulmonary vasculature. The lungs are well aerated and clear. No large pleural effusion or pneumothorax is seen. The visualized osseous structures show no acute abnormalities. IMPRESSION: 1. Cardiomegaly and pulmonary vascular congestion. Dictated by: Dictated on workstation # [id number]
[2018-10-08] MEDS ORDERED: methylPREDNISolone 125 MG (Solu-MEDROL) VIAL IVP ONE (19:15)
[2018-10-08 19:32] LABS: ALANINE AMINOTRANSFERASE 19 U/L (0-55); ALBUMIN 4.1 GM/DL (3.2-4.5); ALKALINE PHOSPHATASE 105 U/L (40-136); BILIRUBIN,TOTAL 0.4 MG/DL (0.1-1.0); BUN/CREATININE RATIO 13; CALCIUM 9.9 MG/DL (8.5-10.1); CARBON DIOXIDE 21 MMOL/L (21-32); CHLORIDE 105 MMOL/L (98-107); CREATININE SERUM 1.42 MG/DL (0.60-1.30); GFR ESTIMATED 49; GLUCOSE 111 MG/DL (70-105); MAGNESIUM 1.5 MG/DL (1.8-2.4); POTASSIUM 4.2 MMOL/L (3.6-5.0); SODIUM 136 MMOL/L (135-145); TOTAL PROTEIN 7.4 GM/DL (6.4-8.2)
[2018-10-08] MEDS: MAGNESIUM 1 GM/100 ML IVPB 100 ML IV SCH ×2 (20:05→21:09)
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
--- OUTSIDE RECORDS SUMMARY | 2018-10-08 21:06 | XMS REPORT | Continuity of Care Document ---
Author Author [facility] Organization [facility] Address Unknown Phone Unavailable Allergies Active Description Code Type Severity Reaction Onset Reported/Identified Relationship to Patient Clinical Status Yes No Known Drug Allergies [id number] Drug Allergy Unknown N/A 11/18/2017 Medications There [...] KENNY DO Ot 414.01 CORONARY ATHEROSCLEROSIS OF [place] CORON 02/13/2014 MARCY KENNY DO Ot 486 [...] KENNY DO Ot 414.01 CORONARY ATHEROSCLEROSIS OF [place] CORON 07/16/2014 MARCY KENNY DO Ot 435.9 [...] SIMMONS Ot 840.4 SPRAIN ROTATOR CUFF 08/31/2014 NZA SIMMONS MARIE Cao Ot E000.8 OTHER EXTERNAL [...] MARCY Goncalves Ot I12.9 08/13/2015 KENNY DO, MARYC Goncalves Ot J15.1 08/13/2015 KENNY DO, MARCY [...] 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 08/16/2015 MARCY KENNY DO, Ot E53.8 DEFICIENCY OF OTHER SPECIFIED B GROUP 08/16/2015 MARCY KENNY DO, Ot E55.9 VITAMIN D DEFICIENCY, UNSPECIFIED 08/16/2015 MARCY KENNY DO, Ot E78.5 HYPERLIPIDEMIA, UNSPECIFIED 08/16/2015 MARCY KENNY DO, Ot F17.210 NICOTINE DEPENDENCE, CIGARETTES, UNCOMPL 08/16/2015 MARCY KENNY DO, Ot I12.9 HYPERTENSIVE CHRONIC KIDNEY DISEASE W ST 08/16/2015 MARCY KENNY DO, Ot I25.10 ATHSCL HEART DISEASE OF [place] CORONARY 08/16/2015 MARCY KENNY DO, Ot J15.1 PNEUMONIA DUE TO PSEUDOMONAS 08/16/2015 MARCY KNENY DO, Ot J15.4 PNEUMONIA DUE TO OTHER [...] JULIANA J Ot 424.0 09/05/2015 ANGELA ARCE, UJLIANA J Ot 433.10 09/05/2015 ANGELA ARCE, JULIANA [...] MILLER MD Ot 414.01 CORONARY ATHEROSCLEROSIS OF [place] CORON 08/14/2016 JULIANA MILLER MD Ot 786.09 [...] SIMMONS Ot R19.5 OTHER FECAL ABNORMALITIES 08/17/2016 RAPLH JASMINE DO Ot Z86.010 PERSONAL HISTORY OF COLONIC POLYPS 09/20/2016 DONYA DONNELLY Ot G45.9 TRANSIENT CEREBRAL ISCHEMIC ATTACK, UNSP 09/20/2016 DONYA DONNELLY Ot G47.33 OBSTRUCTIVE SLEEP APNEA (ADULT) (PEDIATR 09/20/2016 DONYA DONNELLY Ot I25.10 ATHSCL HEART DISEASE OF [place] CORONARY 09/20/2016 DONYA DONNELLY Ot I65.23 OCCLUSION AND STENOSIS OF [place]AL [place] 09/20/2016 DONYA DONNELLY Ot G45.9 TRANSIENT CEREBRAL ISCHEMIC ATTACK, UNSP 09/20/2016 DONYA DONNELLY Ot G47.33 OBSTRUCTIVE SLEEP APNEA (ADULT) (PEDIATR 09/20/2016 DONYA DONNELLY Ot I25.10 ATHSCL HEART DISEASE OF [place] CORONARY 09/20/2016 DONYA DONNELLY Ot I65.23 OCCLUSION AND STENOSIS OF [place]AL [place] 10/03/2016 ANGELA ARCE, JULIANA Goncalves Ot E78.5 HYPERLIPIDEMIA, UNSPECIFIED 10/03/2016 JULIANA MILLER MD Ot G47.33 OBSTRUCTIVE SLEEP APNEA (ADULT) (PEDIATR 10/03/2016 JULIANA MILLER MD Ot I10 ESSENTIAL (PRIMARY) HYPERTENSION 10/03/2016 JULIANA MILLER MD, Ot I25.10 ATHSCL HEART DISEASE OF [place] CORONARY 10/03/2016 JULIANA MILLER MD, Ot I25.84 CORONARY ATHEROSCLEROSIS DUE TO [place] 10/03/2016 JULIANA MILLER MD Ot I34.0 NONRHEUMATIC MITRAL (VALVE) INSUFFICIENC 10/03/2016 JULIANA MILLER MD Ot I65.23 OCCLUSION AND STENOSIS OF [place]AL [place] 10/03/2016 JULIANA MILLER MD Ot R94.39 ABNORMAL RESULT OF OTHER CARDIOVASCULAR 10/03/2016 JULIANA MILLER MD, Ot Z72.0 TOBACCO USE 10/03/2016 JULIANA MILLER MD, Ot Z79.899 OTHER DETENTION (CURRENT) DRUG THERAPY 10/03/2016 JULIANA MILLER MD, Ot Z86.73 PRSNL HX OF TIA (TIA), AND CEREB INFRC W 10/03/2016 JULIANA MILLER MD Ot Z95.5 PRESENCE OF CORONARY ANGIOPLASTY IMPLANT 10/11/2016 DONYA DONNELLY Ot G45.9 TRANSIENT CEREBRAL ISCHEMIC ATTACK, UNSP 10/11/2016 DONYA DONNELLY Ot G47.33 OBSTRUCTIVE SLEEP APNEA (ADULT) (PEDIATR 10/11/2016 DONYA DONNELLY Ot I25.10 ATHSCL HEART DISEASE OF [place] CORONARY 10/11/2016 DONYA DONNELLY Ot I65.23 OCCLUSION AND STENOSIS OF [place] 10/17/2016 DONYA DONNELLY Ot G45.9 TRANSIENT CEREBRAL ISCHEMIC ATTACK, UNSP 10/17/2016 DONYA DONNELLY Ot G47.33 OBSTRUCTIVE SLEEP APNEA (ADULT) (PEDIATR 10/17/2016 DONYA DONNELLY Ot I25.10 ATHSCL HEART DISEASE OF [place] CORONARY 10/17/2016 DONYA DONNELLY Ot I65.23 OCCLUSION AND STENOSIS OF [place] 10/23/2016 JULIANA MILLER MD Ot E78.5 HYPERLIPIDEMIA, UNSPECIFIED 10/23/2016 JULIANA MILLER MD, Ot G47.33 OBSTRUCTIVE SLEEP APNEA (ADULT) (PEDIATR 10/23/2016 JULIANA MILLER MD Ot I10 ESSENTIAL (PRIMARY) HYPERTENSION 10/23/2016 JULIANA MILLER MD, Ot I25.10 ATHSCL HEART DISEASE OF [place] CORONARY 10/23/2016 JULIANA MILLER MD, Ot I25.84 CORONARY ATHEROSCLEROSIS DUE TO [place] 10/23/2016 JULIANA MILLER MD Ot I34.0 NONRHEUMATIC MITRAL (VALVE) INSUFFICIENC 10/23/2016 JULIANA MILLER MD, Ot I65.23 OCCLUSION AND STENOSIS OF [place] 10/23/2016 JULIANA MILLER MD Ot R94.39 ABNORMAL RESULT OF OTHER CARDIOVASCULAR 10/23/2016 JULIANA MILLER MD, Ot Z72.0 TOBACCO USE 10/23/2016 JULIANA MILLER MD, Ot Z79.899 OTHER TRAVELING SALES EXECUTIVE (CURRENT) DRUG THERAPY 10/23/2016 JULIANA MILLER MD, [...] MILLER MD Ot 414.01 CORONARY ATHEROSCLEROSIS OF [place] CORON 11/13/2017 JULIANA MILLER MD Ot 786.09 [...] DONNELLY Ot G45.9 TRANSIENT CEREBRAL ISCHEMIC ATTACK, [facility] 11/13/2017 DONYA DONNELLY Ot G47.33 OBSTRUCTIVE SLEEP APNEA (ADULT) (PEDIATR 11/13/2017 DONYA DONNELLY Ot I25.10 ATHSCL HEART DISEASE OF [place] CORONARY 11/13/2017 DONYA DONNELLY Ot I65.23 OCCLUSION AND STENOSIS OF [place] 11/13/2017 AGUSTIN ROJO DO Ot R06.02 SHORTNESS OF BREATH 11/13/2017 AGUSTIN ROJO DO Ot Z87.891 PERSONAL HISTORY OF NICOTINE DEPENDENCE 11/18/2017 JULIANA MILLER MD, Ot G47.33 OBSTRUCTIVE SLEEP APNEA (ADULT) (PEDIATR 11/18/2017 JULIANA MILLER MD, Ot I25.10 ATHSCL HEART DISEASE OF [place] CORONARY 11/18/2017 JULIANA MILLER MD, Ot I34.0 [...] MD, Ot I25.10 ATHSCL HEART DISEASE OF [place] CORONARY 11/19/2017 JULIANA MILLER MD, Ot I65.29 [...] 11/19/2017 JULIANA MILLER MD, Ot Z79.899 OTHER TRAVELING SALES EXECUTIVE (CURRENT) DRUG THERAPY 11/19/2017 JULIANA MILLER MD [...] JULIANA Goncalves Ot 414.01 CORONARY ATHEROSCLEROSIS OF [place] CORON 11/20/2017 JULIANA MILLER MD Ot 786.09 [...] DONNELLY Ot I25.10 ATHSCL HEART DISEASE OF [place] CORONARY 11/20/2017 DONYA DONNELLY Ot I65.23 OCCLUSION AND STENOSIS OF [place] 11/20/2017 AGUSTIN ROJO DO Ot R06.02 SHORTNESS OF BREATH 11/20/2017 AGUSTIN ROJO DO Ot Z87.891 PERSONAL HISTORY OF NICOTINE DEPENDENCE 11/20/2017 JULIANA MILLER MD, Ot G47.33 OBSTRUCTIVE SLEEP APNEA (ADULT) (PEDIATR 11/20/2017 JULIANA MILLER MD, Ot I25.10 ATHSCL HEART DISEASE OF [place] CORONARY 11/20/2017 JULIANA MILLER MD Ot I34.0 [...] MD Ot I25.10 ATHSCL HEART DISEASE OF [place] CORONARY 11/21/2017 JULIANA MILLER MD Ot I34.0 [...] MILLER MD Ot 414.01 CORONARY ATHEROSCLEROSIS OF [place] CORON 11/21/2017 JULIANA MILLER MD Ot 786.09 [...] DONNELLY Ot I25.10 ATHSCL HEART DISEASE OF [place] CORONARY 11/21/2017 DONYA DONNELLY Ot I65.23 OCCLUSION AND STENOSIS OF [place] 11/21/2017 AGUSTIN ROJO DO Ot R06.02 SHORTNESS OF BREATH 11/21/2017 AGUSTIN ROJO DO Ot Z87.891 PERSONAL HISTORY OF NICOTINE DEPENDENCE 11/21/2017 JULIANA MILLER MD, Ot G47.33 OBSTRUCTIVE SLEEP APNEA (ADULT) (PEDIATR 11/21/2017 JULIANA MILLER MD, Ot I25.10 ATHSCL HEART DISEASE OF [place] CORONARY 11/21/2017 JULIANA MILLER MD Ot I34.0 [...] MILLER MD Ot 414.01 CORONARY ATHEROSCLEROSIS OF [place] CORON 11/22/2017 JULIANA MILLER MD Ot 786.09 [...] DONNELLY Ot I25.10 ATHSCL HEART DISEASE OF [place] CORONARY 11/22/2017 DONYA DONNELLY Ot I65.23 OCCLUSION AND STENOSIS OF [place] 11/22/2017 AGUSTIN ROJO DO Ot R06.02 SHORTNESS OF BREATH 11/22/2017 AGUSTIN ROJO DO Ot Z87.891 PERSONAL HISTORY OF NICOTINE DEPENDENCE 11/22/2017 JULIANA MILLER MD, Ot G47.33 OBSTRUCTIVE SLEEP APNEA (ADULT) (PEDIATR 11/22/2017 JULIANA MILLER MD, Ot I25.10 ATHSCL HEART DISEASE OF [place] CORONARY 11/22/2017 JULIANA MILLER MD Ot I34.0 [...] MILLER MD Ot 414.01 CORONARY ATHEROSCLEROSIS OF [place] CORON 11/22/2017 JULIANA MILLER MD Ot 786.09 [...] DONNELLY Ot I25.10 ATHSCL HEART DISEASE OF [place] CORONARY 11/22/2017 DONYA DONNELLY Ot I65.23 OCCLUSION AND STENOSIS OF [place] 11/22/2017 AGUSTIN ROJO DO Ot R06.02 SHORTNESS OF BREATH 11/22/2017 AGUSTIN ROJO DO Ot Z87.891 PERSONAL HISTORY OF NICOTINE DEPENDENCE 11/22/2017 JULIANA MILLER MD, Ot G47.33 OBSTRUCTIVE SLEEP APNEA (ADULT) (PEDIATR 11/22/2017 JULIANA MILLER MD, Ot I25.10 ATHSCL HEART DISEASE OF [place] CORONARY 11/22/2017 JULIANA MILLER MD, Ot I34.0 [...] 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 11/22/2017 RALPH JASMINE DO Ot F17.210 NICOTINE DEPENDENCE, CIGARETTES, UNCOMPL 11/22/2017 RALPH JASMINE DO Ot F32.9 MAJOR DEPRESSIVE DISORDER, SINGLE EPISOD 11/22/2017 RALPH JASMINE DO Ot G47.33 OBSTRUCTIVE SLEEP APNEA (ADULT) (PEDIATR 11/22/2017 RALPH JASMINE DO Ot I12.0 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 11/22/2017 RALPH JASMINE DO Ot I25.10 ATHSCL HEART DISEASE OF [place] CORONARY 11/22/2017 RALPH JASMINE DO Ot J43.9 EMPHYSEMA, UNSPECIFIED 11/22/2017 RALPH JASMINE DO Ot K21.9 GASTRO-ESOPHAGEAL REFLUX DISEASE WITHOUT 11/22/2017 RALPH JASMINE DO Ot K44.9 DIAPHRAGMATIC HERNIA WITHOUT OBSTRUCTION 11/22/2017 RALPH JASMINE DO Ot N18.6 END STAGE RENAL DISEASE 11/22/2017 RALPH JASMINE DO Ot Z79.899 OTHER DETENTION (CURRENT) DRUG THERAPY 11/22/2017 RALPH JASMINE DO Ot Z86.73 PRSNL HX OF TIA (TIA), AND CEREB INFRC W 11/22/2017 RALPH JASMINE DO Ot Z95.5 PRESENCE OF CORONARY ANGIOPLASTY IMPLANT 11/22/2017 RALPH JASMINE DO Ot Z99.2 DEPENDENCE ON RENAL DIALYSIS 11/27/2017 RALPH JASMINE DO Ot E03.9 HYPOTHYROIDISM, UNSPECIFIED 11/27/2017 RALPH JASMINE DO Ot 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 11/27/2017 RALPH JASMINE DO Ot F17.210 NICOTINE DEPENDENCE, CIGARETTES, UNCOMPL 11/27/2017 RALPH JASMINE DO Ot F32.9 MAJOR DEPRESSIVE DISORDER, SINGLE EPISOD 11/27/2017 RALPH JASMINE DO Ot G47.33 OBSTRUCTIVE SLEEP APNEA (ADULT) (PEDIATR 11/27/2017 RALPH JASMINE DO Ot I12.0 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 11/27/2017 RALPH JASMINE DO Ot I25.10 ATHSCL HEART DISEASE OF [place] CORONARY 11/27/2017 RALPH JASMINE DO Ot J43.9 EMPHYSEMA, UNSPECIFIED 11/27/2017 RALPH JASMINE DO Ot K21.9 GASTRO-ESOPHAGEAL REFLUX DISEASE WITHOUT 11/27/2017 RALPH JASMINE DO Ot K44.9 DIAPHRAGMATIC HERNIA WITHOUT OBSTRUCTION 11/27/2017 RALPH JASMINE DO Ot N18.6 END STAGE RENAL DISEASE 11/27/2017 JASMINE RALPH SIMMONS Ot Z79.899 OTHER DETENTION (CURRENT) DRUG THERAPY 11/27/2017 RALPH JASMINE DO Ot Z86.73 PRSNL HX OF TIA (TIA), AND CEREB INFRC W 11/27/2017 RALPH JASMINE DO Ot Z95.5 PRESENCE OF CORONARY ANGIOPLASTY IMPLANT 11/27/2017 RALPH JASMINE DO Ot Z99.2 DEPENDENCE ON RENAL DIALYSIS 12/06/2017 JULIANA MILLER MD Ot G47.33 OBSTRUCTIVE SLEEP APNEA (ADULT) (PEDIATR 12/06/2017 JULIANA MILLER MD Ot I25.10 ATHSCL HEART DISEASE OF [place] CORONARY 12/06/2017 JULIANA MILLER MD Ot I34.0 [...] MD Ot I25.10 ATHSCL HEART DISEASE OF [place] CORONARY 12/11/2017 JULIANA MILLER MD Ot I34.0 NONRHEUMATIC MITRAL (VALVE) INSUFFICIENC 12/11/2017 JULIANA MILLER MD Ot I71.2 THORACIC AORTIC ANEURYSM, WITHOUT RUPTUR 12/11/2017 JULIANA MILLER MD Ot J43.9 EMPHYSEMA, UNSPECIFIED 12/11/2017 JULIANA MILLER MD Ot N20.0 CALCULUS OF KIDNEY 12/11/2017 JULIANA MILELR MD Ot R41.0 DISORIENTATION, UNSPECIFIED 12/11/2017 JULIANA MILLER MD Ot W19.XXXA UNSPECIFIED FALL, INITIAL ENCOUNTER 12/11/2017 JULIANA MILLER MD Ot Z72.0 TOBACCO USE 01/02/2018 Ot 733.00 OSTEOPOROSIS NOS 01/02/2018 KENNYMARCY GRACIA DO Ot 733.00 OSTEOPOROSIS NOS 01/02/2018 AGUSTIN [...] MILLER MD Ot 414.01 CORONARY ATHEROSCLEROSIS OF [place] CORON 01/02/2018 JULIANA MILLER MD Ot 786.09 [...] DONNELLY Ot I25.10 ATHSCL HEART DISEASE OF [place] CORONARY 01/02/2018 DONYA DONNELLY Ot I65.23 OCCLUSION AND STENOSIS OF [place] 01/02/2018 AGUSTIN ROJO DO Ot R06.02 SHORTNESS OF BREATH 01/02/2018 AGUSTIN ROJO DO Ot Z87.891 PERSONAL HISTORY OF NICOTINE DEPENDENCE 01/02/2018 JULIANA MILLER MD, Ot G47.33 OBSTRUCTIVE SLEEP APNEA (ADULT) (PEDIATR 01/02/2018 JULIANA MILLER MD, Ot I25.10 ATHSCL HEART DISEASE OF [place] CORONARY 01/02/2018 JULIANA MILLER MD, Ot I34.0 NONRHEUMATIC MITRAL [...] OF BOTH MITRAL AND T 01/09/2018 RALPH JASMINE DO Ot I10 ESSENTIAL (PRIMARY) HYPERTENSION 01/09/2018 RALPH JASMINE DO Ot I25.10 ATHSCL HEART DISEASE OF [place] CORONARY 01/09/2018 RALPH JASMINE DO Ot J44.9 CHRONIC OBSTRUCTIVE PULMONARY DISEASE, U 01/09/2018 RALPH JASMINE DO Ot J45.909 UNSPECIFIED ASTHMA, UNCOMPLICATED 01/09/2018 RALPH JASMINE DO Ot K42.0 UMBILICAL HERNIA WITH OBSTRUCTION, WITHO 01/09/2018 RALPH JASMINE DO Ot Z79.02 DETENTION (CURRENT) USE OF ANTITHROMBOTI 01/09/2018 RALPH JASMINE DO Ot Z79.899 OTHER TRAVELING SALES EXECUTIVE (CURRENT) DRUG THERAPY 01/10/2018 RALPH JASMINE DO Ot F17.210 NICOTINE DEPENDENCE, CIGARETTES, UNCOMPL 01/10/2018 RALPH JASMINE DO Ot G47.33 OBSTRUCTIVE SLEEP APNEA (ADULT) (PEDIATR 01/10/2018 RALPH JASMINE DO Ot I08.1 RHEUMATIC DISORDERS OF BOTH MITRAL AND T 01/10/2018 RALPH JASMINE DO Ot I10 ESSENTIAL (PRIMARY) HYPERTENSION 01/10/2018 RALPH JASMINE DO Ot I25.10 ATHSCL HEART DISEASE OF [place] CORONARY 01/10/2018 RALPH JASMINE DO Ot J44.9 CHRONIC OBSTRUCTIVE PULMONARY DISEASE, U 01/10/2018 RALPH JASMINE DO Ot J45.909 UNSPECIFIED ASTHMA, UNCOMPLICATED 01/10/2018 RALPH JASMINE DO Ot K42.0 UMBILICAL HERNIA WITH OBSTRUCTION, WITHO 01/10/2018 RALPH JASMINE DO Ot Z79.02 DETENTION (CURRENT) USE OF ANTITHROMBOTI 01/10/2018 RALPH JASMINE DO Ot Z79.899 OTHER DETENTION (CURRENT) DRUG THERAPY 01/15/2018 RALPH JASMINE DO Ot F17.210 NICOTINE DEPENDENCE, CIGARETTES, UNCOMPL 01/15/2018 RALPH JASMINE DO Ot G47.33 OBSTRUCTIVE SLEEP APNEA (ADULT) (PEDIATR 01/15/2018 RALPH JASMINE DO Ot I08.1 RHEUMATIC DISORDERS OF BOTH MITRAL AND T 01/15/2018 RALPH JASMINE DO Ot I10 ESSENTIAL (PRIMARY) HYPERTENSION 01/15/2018 RALPH JASMINE DO Ot I25.10 ATHSCL HEART DISEASE OF [place] CORONARY 01/15/2018 RALPH JASMINE DO Ot J44.9 CHRONIC OBSTRUCTIVE PULMONARY DISEASE, U 01/15/2018 RALPH JASMINE DO Ot J45.909 UNSPECIFIED ASTHMA, UNCOMPLICATED 01/15/2018 RALPH JASMINE DO Ot K42.0 UMBILICAL HERNIA WITH OBSTRUCTION, WITHO 01/15/2018 RALPH JASMINE DO Ot Z79.02 TRAVELING SALES EXECUTIVE (CURRENT) USE OF ANTITHROMBOTI 01/15/2018 RALPH JASMINE DO Ot Z79.899 OTHER TRAVELING SALES EXECUTIVE (CURRENT) DRUG THERAPY 01/30/2018 PORTIA ONLAN APRN Ot J44.9 CHRONIC OBSTRUCTIVE PULMONARY DISEASE, U 01/30/2018 PORTIA NOLAN APRN Ot R59.0 LOCALIZED ENLARGED LYMPH NODES 02/18/2018 PORTIA NOLAN APRN Ot J44.9 CHRONIC OBSTRUCTIVE PULMONARY DISEASE, U 02/18/2018 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 Ot R59.0 LOCALIZED ENLARGED LYMPH NODES 02/26/2018 PORTIA NOLAN APRN Ot J44.9 CHRONIC OBSTRUCTIVE PULMONARY DISEASE, U 02/26/2018 OVIDIOPORTIA CANO ALBINA Ot R59.0 LOCALIZED ENLARGED LYMPH NODES 02/28/2018 Ot 733.00 OSTEOPOROSIS NOS 02/28/2018 KENNY MARYC SIMMONS Ot 733.00 OSTEOPOROSIS NOS 02/28/2018 ALIA [...] MARIE Cao Ot E928.9 ACCIDENT NOS 02/28/2018 [facility], MARIE Cao Ot V72.84 EXAM PRE-OPERATIVE NOS 02/28/2018 NAZ , MARIE Cao Ot 727.61 ROTATOR CUFF RUPTURE 02/28/2018 [facility], MARIE Ot V72.84 EXAM PRE-OPERATIVE NOS 02/28/2018 ANGELA ARCE, JULIANA Goncalves Ot 414.00 CORON ATHEROSCLER NOS TYPE VESSEL, NATIV 02/28/2018 JULIANA MILLER MD Ot 424.0 MITRAL VALVE DISORDER 02/28/2018 JULIANA MILLER MD Ot 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 W O CEREBRAL IN 02/28/2018 JULIANA MILLER MD Ot 786.09 RESPIRATORY ABNORM NEC 02/28/2018 JULIANA MILLER MD Ot 414.01 CORONARY ATHEROSCLEROSIS OF [place] CORON 02/28/2018 JULIANA MILLER MD Ot 786.09 [...] DONNELLY Ot I25.10 ATHSCL HEART DISEASE OF [place] CORONARY 02/28/2018 DONYA DONNELLY Ot I65.23 OCCLUSION AND STENOSIS OF BILATERAL [place] 02/28/2018 AGUSTIN ROJO DO Ot R06.02 SHORTNESS OF BREATH 02/28/2018 AGUSTIN ROJO DO Ot Z87.891 PERSONAL HISTORY OF NICOTINE DEPENDENCE 02/28/2018 JULIANA MILLER MD Ot G47.33 OBSTRUCTIVE SLEEP APNEA (ADULT) (PEDIATR 02/28/2018 JULIANA MILLER MD Ot I25.10 ATHSCL HEART DISEASE OF [place] CORONARY 02/28/2018 JULIANA MILLER MD Ot I34.0 NONRHEUMATIC MITRAL (VALVE) INSUFFICIENC 02/28/2018 JLUIANA MILLER MD Ot I71.2 THORACIC AORTIC ANEURYSM, [...] APRN Ot R09.02 HYPOXEMIA 02/28/2018 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 Ot J44.9 CHRONIC OBSTRUCTIVE PULMONARY DISEASE, U [...] OBSTRUCTIVE PULMONARY DISEASE, U 03/03/2018 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 Ot R09.02 HYPOXEMIA 03/04/2018 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 Ot J44.9 CHRONIC OBSTRUCTIVE PULMONARY DISEASE, U 03/04/2018 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 Ot R09.02 HYPOXEMIA 03/05/2018 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 Ot J44.9 CHRONIC OBSTRUCTIVE PULMONARY DISEASE, U 03/05/2018 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 Ot R09.02 HYPOXEMIA 03/06/2018 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 Ot J44.9 CHRONIC OBSTRUCTIVE PULMONARY DISEASE, U 03/06/2018 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 Ot R09.02 HYPOXEMIA 04/01/2018 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 Ot J44.9 CHRONIC OBSTRUCTIVE PULMONARY DISEASE, U 04/01/2018 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 Ot R09.02 HYPOXEMIA 04/03/2018 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 Ot J44.9 CHRONIC OBSTRUCTIVE PULMONARY DISEASE, U 04/03/2018 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 Ot R09.02 HYPOXEMIA 04/08/2018 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 Ot J44.9 CHRONIC OBSTRUCTIVE PULMONARY DISEASE, U 04/08/2018 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 Ot R09.02 HYPOXEMIA 04/10/2018 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 Ot J44.9 CHRONIC OBSTRUCTIVE PULMONARY DISEASE, U 04/10/2018 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 Ot R09.02 HYPOXEMIA 04/17/2018 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 Ot J44.9 CHRONIC OBSTRUCTIVE PULMONARY DISEASE, U 04/17/2018 LORRAINE NOLANINE E BULK SEALER Ot R09.02 HYPOXEMIA 04/22/2018 LORRAINE NOLANINE E BULK SEALER Ot J44.9 CHRONIC OBSTRUCTIVE PULMONARY DISEASE, U 04/22/2018 LORRAINE NOLANINE E BULK SEALER Ot R09.02 HYPOXEMIA 04/24/2018 LORRAINE NOLANINE E BULK SEALER Ot J44.9 CHRONIC OBSTRUCTIVE PULMONARY DISEASE, U 04/24/2018 OVIDIOLORRAINE CANOINE E BULK SEALER Ot R09.02 HYPOXEMIA 04/27/2018 OVIDIO, PORTIA E BULK SEALER Ot J44.9 CHRONIC OBSTRUCTIVE PULMONARY DISEASE, U 04/27/2018 LORRAINE NOLANINE E BULK SEALER Ot R09.02 HYPOXEMIA 04/29/2018 LORRAINE NOLANINE E BULK SEALER Ot J44.9 CHRONIC OBSTRUCTIVE PULMONARY DISEASE, U 04/29/2018 LORRAINE NOLANINE E BULK SEALER Ot R09.02 HYPOXEMIA 04/29/2018 PORTIA NOLAN E BULK SEALER Ot J44.9 CHRONIC OBSTRUCTIVE PULMONARY DISEASE, U 04/29/2018 LORRAINE NOLANINE E BULK SEALER Ot R09.02 HYPOXEMIA 04/29/2018 LORRAINE NOLANINE E BULK SEALER Ot J44.9 CHRONIC OBSTRUCTIVE PULMONARY DISEASE, U 04/29/2018 LORRAINE NOLANINE E BULK SEALER Ot R09.02 HYPOXEMIA 05/01/2018 LORRAINE NOLANINE E BULK SEALER Ot J44.9 CHRONIC OBSTRUCTIVE PULMONARY DISEASE, U 05/01/2018 LORRAINE NOLANINE E BULK SEALER Ot R09.02 HYPOXEMIA 06/01/2018 PORTIA NOLAN E BULK SEALER Ot J44.9 CHRONIC OBSTRUCTIVE PULMONARY DISEASE, U 06/01/2018 LORRAINE NOLANINE E BULK SEALER Ot R09.02 HYPOXEMIA 06/20/2018 OVIDIO PORTIA E BULK SEALER Ot J44.9 CHRONIC OBSTRUCTIVE PULMONARY DISEASE, U 06/20/2018 LORRAINE NOLANINE Debbie BULK SEALER Ot R09.02 HYPOXEMIA 07/23/2018 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 Ot I25.10 ATHSCL HEART DISEASE OF [place] CORONARY 07/23/2018 LORRAINE NOLANINE E BULK SEALER Ot I71.9 AORTIC ANEURYSM OF UNSPECIFIED SITE, WIT 07/23/2018 PORTIA NOLAN E BULK SEALER Ot J43.9 EMPHYSEMA, UNSPECIFIED 07/23/2018 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 Ot R59.9 ENLARGED LYMPH NODES, UNSPECIFIED 07/23/2018 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 Ot Z87.891 PERSONAL HISTORY OF NICOTINE DEPENDENCE 07/27/2018 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 Ot J44.9 CHRONIC OBSTRUCTIVE PULMONARY DISEASE, U 07/27/2018 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 Ot R09.02 HYPOXEMIA 07/28/2018 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 Ot J44.9 CHRONIC OBSTRUCTIVE PULMONARY DISEASE, U 07/28/2018 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 Ot R09.02 HYPOXEMIA 08/02/2018 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 Ot J44.9 CHRONIC OBSTRUCTIVE PULMONARY DISEASE, U 08/02/2018 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 Ot R09.02 HYPOXEMIA 08/14/2018 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 Ot I25.10 ATHSCL HEART DISEASE OF [place] CORONARY 08/14/2018 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 Ot I71.9 AORTIC ANEURYSM OF UNSPECIFIED SITE, WIT 08/14/2018 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 Ot J43.9 EMPHYSEMA, UNSPECIFIED 08/14/2018 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 Ot R59.9 ENLARGED LYMPH NODES, UNSPECIFIED 08/14/2018 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 Ot Z87.891 PERSONAL HISTORY OF NICOTINE DEPENDENCE 08/15/2018 IAN PA MD Ot A41.9 SEPSIS, UNSPECIFIED ORGANISM 08/15/2018 IAN PA MD Ot E89.0 POSTPROCEDURAL HYPOTHYROIDISM 08/15/2018 IAN PA MD Ot F17.210 NICOTINE DEPENDENCE, CIGARETTES, UNCOMPL 08/15/2018 IAN PA MD Ot F32.9 MAJOR DEPRESSIVE DISORDER, SINGLE EPISOD 08/15/2018 IAN PA MD Ot G47.30 SLEEP APNEA, UNSPECIFIED 08/15/2018 IAN PA MD Ot H40.9 UNSPECIFIED GLAUCOMA 08/15/2018 IAN PA MD Ot H93.19 TINNITUS, UNSPECIFIED EAR 08/15/2018 IAN PA MD Ot I10 ESSENTIAL (PRIMARY) HYPERTENSION 08/15/2018 IAN PA MD Ot I25.10 ATHSCL HEART DISEASE OF [place] CORONARY 08/15/2018 IAN PA MD Ot J18.9 PNEUMONIA, UNSPECIFIED ORGANISM 08/15/2018 IAN PA MD, Ot J30.2 OTHER SEASONAL ALLERGIC RHINITIS 08/15/2018 IAN PA MD, Ot J43.9 EMPHYSEMA, UNSPECIFIED 08/15/2018 IAN PA MD Ot K21.9 GASTRO-ESOPHAGEAL REFLUX DISEASE WITHOUT 08/15/2018 IAN PA MD, Ot K46.9 UNSPECIFIED ABDOMINAL HERNIA WITHOUT OBS 08/15/2018 IAN PA MD, Ot K59.09 OTHER CONSTIPATION 08/15/2018 IAN PA MD Ot M19.91 PRIMARY OSTEOARTHRITIS, UNSPECIFIED SITE 08/15/2018 IAN PA MD, Ot M54.9 DORSALGIA, UNSPECIFIED 08/15/2018 INA PA MD Ot M81.0 AGE-RELATED OSTEOPOROSIS W/O CURRENT PAT 08/15/2018 IAN PA MD, Ot N17.9 ACUTE KIDNEY FAILURE, UNSPECIFIED 08/15/2018 IAN PA MD Ot R09.02 HYPOXEMIA 08/15/2018 AIN PA MD Ot Z66 DO NOT RESUSCITATE 08/15/2018 IAN PA MD Ot Z86.73 PRSNL HX OF TIA (TIA), AND CEREB INFRC W 08/15/2018 IAN PA MD Ot Z91.5 PERSONAL HISTORY OF SELF-HARM 08/15/2018 IAN PA MD Ot Z95.5 PRESENCE OF CORONARY ANGIOPLASTY IMPLANT 08/16/2018 IAN PA MD Ot A41.9 SEPSIS, UNSPECIFIED ORGANISM 08/16/2018 IAN PA MD Ot E89.0 POSTPROCEDURAL HYPOTHYROIDISM 08/16/2018 IAN PA MD Ot F17.210 NICOTINE DEPENDENCE, CIGARETTES, UNCOMPL 08/16/2018 IAN PA MD Ot F32.9 MAJOR DEPRESSIVE DISORDER, SINGLE EPISOD 08/16/2018 IAN PA MD Ot G47.30 SLEEP APNEA, UNSPECIFIED 08/16/2018 IAN PA MD Ot H40.9 UNSPECIFIED GLAUCOMA 08/16/2018 IAN PA MD Ot H93.19 TINNITUS, UNSPECIFIED EAR 08/16/2018 IAN PA MD Ot I10 ESSENTIAL (PRIMARY) HYPERTENSION 08/16/2018 IAN PA MD Ot I25.10 ATHSCL HEART DISEASE OF [place] CORONARY 08/16/2018 IAN PA MD Ot J18.9 PNEUMONIA, UNSPECIFIED ORGANISM 08/16/2018 IAN PA MD Ot J30.2 OTHER SEASONAL ALLERGIC RHINITIS 08/16/2018 IAN PA MD Ot J43.9 EMPHYSEMA, UNSPECIFIED 08/16/2018 IAN PA MD Ot K21.9 GASTRO-ESOPHAGEAL REFLUX DISEASE WITHOUT 08/16/2018 IAN PA MD Ot K46.9 UNSPECIFIED ABDOMINAL HERNIA WITHOUT OBS 08/16/2018 IAN PA MD Ot K59.09 OTHER CONSTIPATION 08/16/2018 IAN PA MD Ot M19.91 PRIMARY OSTEOARTHRITIS, UNSPECIFIED SITE 08/16/2018 IAN PA MD Ot M54.9 DORSALGIA, UNSPECIFIED 08/16/2018 IAN PA MD Ot M81.0 AGE-RELATED OSTEOPOROSIS W/O CURRENT PAT 08/16/2018 IAN PA MD Ot N17.9 ACUTE KIDNEY FAILURE, UNSPECIFIED 08/16/2018 IAN PA MD Ot R09.02 HYPOXEMIA 08/16/2018 IAN PA MD Ot Z66 DO NOT RESUSCITATE 08/16/2018 IAN PA MD Ot Z86.73 PRSNL HX OF TIA (TIA), AND CEREB INFRC W 08/16/2018 IAN PA MD Ot Z91.5 PERSONAL HISTORY OF SELF-HARM 08/16/2018 IAN PA MD Ot Z95.5 PRESENCE OF CORONARY ANGIOPLASTY IMPLANT 08/20/2018 PORTIA NOLAN APRN Ot I25.10 ATHSCL HEART DISEASE OF [place] CORONARY 08/20/2018 PORTIA NOLAN APRN Ot I71.9 AORTIC ANEURYSM OF UNSPECIFIED SITE, WIT 08/20/2018 PORTIA NOLAN APRN Ot J43.9 EMPHYSEMA, UNSPECIFIED 08/20/2018 PORTIA NOLAN APRN Ot R59.9 ENLARGED LYMPH NODES, UNSPECIFIED 08/20/2018 PORTIA NOLAN APRN Ot Z87.891 PERSONAL HISTORY OF NICOTINE DEPENDENCE 10/01/2018 MARCY KENNY DO Ot K21.9 GASTRO-ESOPHAGEAL REFLUX DISEASE WITHOUT 10/01/2018 MARCY KENNY DO, Ot K22.8 OTHER SPECIFIED DISEASES OF ESOPHAGUS 10/01/2018 MARCY KENNY DO, Ot K44.9 DIAPHRAGMATIC HERNIA WITHOUT OBSTRUCTION Procedures Code Description Performed By Performed On [...] - 09:25 MRSA SCREEN RESULT MRSA ISOLATED [facility] Automated blood complete blood count (hemogram) [...] 10:15 MRSA SCREEN RESULT MRSA ISOLATED NRG Influenza virus A and B antigen detection - 08/14/18 11:57 FLU RESULT NEGATIVE FOR INFLUENZA A AND B ANTIGENS BY IA NRG Arterial blood gas measurement - 08/14/18 12:14 Blood pCO2 36 mm[Hg] 35-45 Blood pO2 74 mm[Hg] 79-93 Arterial blood bicarbonate measurement (moles/volume) 23 mmol/L 23-27 Arterial blood base excess by calculation -0.9 mmol/L - 2.5-2.5 Arterial blood oxygen saturation measurement 91 % 94-100 * Inhaled oxygen flow rate ROOM AIR NRG Arterial blood pH measurement with patient temperature correction 7.42 7.37-7.43 Arterial blood carbon dioxide, total measurement (moles/volume) 23.5 mmol/L 21.0-31.0 Body site L RAD NRG Assessment of wrist artery patency prior to arterial puncture YES- POS NRG Setting of ventilation mode NO NRG Measurement of body temperature 102.3 NRG Complete blood count (CBC) with automated white blood cell (WBC) differential - 08/14/18 13:15 Blood leukocytes automated count (number/volume) 16.2 10*3/uL 4.3-11.0 Blood erythrocytes automated count (number/volume) 3.89 10*6/uL 4.35-5.85 Venous blood hemoglobin measurement (mass/volume) 12.6 g/dL 13.3-17.7 Blood hematocrit (volume fraction) 38 % 40-54 Automated erythrocyte mean corpuscular volume 98 [foz_us] 80-99 Automated erythrocyte mean corpuscular hemoglobin (mass per erythrocyte) 32 pg 25-34 Automated erythrocyte mean corpuscular hemoglobin concentration measurement ( mass/volume) 33 g/dL 32-36 Automated erythrocyte distribution width ratio 16.2 % 10.0-14.5 Automated blood platelet count (count/volume) 207 10*3/uL 130-400 Automated blood platelet mean volume measurement 9.6 [foz_us] 7.4-10.4 Automated blood neutrophils/100 leukocytes 88 % 42-75 Automated blood lymphocytes/100 leukocytes 7 % 12-44 Blood monocytes/100 leukocytes 5 % 0-12 Automated blood eosinophils/100 leukocytes 0 % 0-10 Automated blood basophils/100 leukocytes 0 % 0-10 Blood neutrophils automated count (number/volume) 14.2 10*3 1.8-7.8 Blood lymphocytes automated count (number/volume) 1.1 10*3 1.0-4.0 Blood monocytes automated count (number/volume) 0.9 10*3 0.0-1.0 Automated eosinophil count 0.0 10*3/uL 0.0-0.3 Automated blood basophil count (count/volume) 0.0 10*3/uL 0.0-0.1 Blood lactic acid measurement (moles/volume) - 08/14/18 13:15 Blood lactic acid measurement (moles/volume) 0.80 mmol/L 0.50-2.00 Comprehensive metabolic panel - 08/14/18 13:15 Serum or plasma sodium measurement (moles/volume) 137 mmol/L 135-145 Serum or plasma potassium measurement (moles/volume) 4.0 mmol/L 3.6-5.0 Serum or plasma chloride measurement (moles/volume) 105 mmol/L 98-107 Carbon dioxide 24 mmol/L 21-32 Serum or plasma anion gap determination (moles/volume) 8 mmol/L 5-14 Serum or plasma urea nitrogen measurement (mass/volume) 19 mg/dL 7-18 Serum or plasma creatinine measurement (mass/volume) 1.33 mg/dL 0.60-1.30 Serum or plasma urea nitrogen/creatinine mass ratio 14 NRG Serum or plasma creatinine measurement with calculation of estimated glomerular filtration rate 53 NRG Serum or plasma glucose measurement (mass/volume) 111 mg/dL 70-105 Serum or plasma calcium measurement (mass/volume) 9.3 mg/dL 8.5-10.1 Serum or plasma total bilirubin measurement (mass/volume) 1.1 mg/dL 0.1-1.0 Serum or plasma alkaline phosphatase measurement (enzymatic activity/volume) 86 U/L 40-136 Serum or plasma aspartate aminotransferase measurement (enzymatic activity/ volume) 15 U/L 5-34 Serum or plasma alanine aminotransferase measurement (enzymatic activity/volume ) 17 U/L 0-55 Serum or plasma protein measurement (mass/volume) 6.8 g/dL 6.4-8.2 Serum or plasma albumin measurement (mass/volume) 3.8 g/dL 3.2-4.5 CALCIUM CORRECTED 9.5 mg/dL 8.5-10.1 Blood manual differential performed detection - 08/14/18 13:15 Blood monocytes/100 leukocytes 6 % NRG Manual blood segmented neutrophils/100 leukocytes 77 % NRG Blood band neutrophils/100 leukocytes 12 % NRG Manual blood lymphocytes/100 leukocytes 4 % NRG Manual eosinophils/100 leukocytes in nose 0 % NRG Manual blood basophils/100 leukocytes 1 % NRG Blood anisocytosis detection by light microscopy SLIGHT NRG Bacterial blood culture - 08/14/18 13:15 Bacterial blood culture NG NRG Bacterial blood culture - 08/14/18 13:25 Bacterial blood culture NG [facility] Sputum Gram stain - 08/14/18 15:45 Sputum Gram stain 08-15-2018, 604. [facility] Bacterial sputum culture - 08/14/18 15:45 FREE TEXT EXTERNAL ID REPORTED 08/16/18 16:05 NRG QUANTITY OF GROWTH . [facility] FREE TEXT ENTRY 2 SENSITIVITY REPORTED 08/17/18 09:05 NR Bacterial sputum culture USUAL RESP [facility] RML Sensitivity Panel - 08/14/18 15:45 Gentamicin susceptibility test by minimum inhibitory concentration < = NRG Trimethoprim/sulfamethoxazole susceptibility test by minimum inhibitoryconcentration S NRG Levofloxacin susceptibility test by minimum inhibitory concentration > NRG Ampicillin susceptibility test by minimum inhibitory concentration < = NRG Cefazolin susceptibility test by minimum inhibitory concentration 2 NRG Ceftriaxone susceptibility test by minimum inhibitory concentration <= NRG Piperacillin/tazobactam susceptibility test by minimum inhibitory concentration = NRG Ciprofloxacin susceptibility test by minimum inhibitory concentration > NRG Meropenem susceptibility test by minimum inhibitory concentration < = NRG Amoxicillin and clavulanate potassium susc DENIA <= NRG Imipenem susceptibility test by minimum inhibitory concentration <= NRG Complete blood count (CBC) with automated white blood cell (WBC) differential - 08/15/18 05:20 Blood leukocytes automated count (number/volume) 12.6 10*3/uL 4.3-11.0 Blood erythrocytes automated count (number/volume) 3.79 10*6/uL 4.35-5.85 Venous blood hemoglobin measurement (mass/volume) 12.4 g/dL 13.3-17.7 Blood hematocrit (volume fraction) 37 % 40-54 Automated erythrocyte mean corpuscular volume 99 [foz_us] 80-99 Automated erythrocyte mean corpuscular hemoglobin (mass per erythrocyte) 33 pg 25-34 Automated erythrocyte mean corpuscular hemoglobin concentration measurement ( mass/volume) 33 g/dL 32-36 Automated erythrocyte distribution width ratio 16.6 % 10.0-14.5 Automated blood platelet count (count/volume) 217 10*3/uL 130-400 Automated blood platelet mean volume measurement 9.8 [foz_us] 7.4-10.4 Automated blood neutrophils/100 leukocytes 83 % 42-75 Automated blood lymphocytes/100 leukocytes 10 % 12-44 Blood monocytes/100 leukocytes 7 % 0-12 Automated blood eosinophils/100 leukocytes 1 % 0-10 Automated blood basophils/100 leukocytes 0 % 0-10 Blood neutrophils automated count (number/volume) 10.4 10*3 1.8-7.8 Blood lymphocytes automated count (number/volume) 1.3 10*3 1.0-4.0 Blood monocytes automated count (number/volume) 0.8 10*3 0.0-1.0 Automated eosinophil count 0.1 10*3/uL 0.0-0.3 Automated blood basophil count (count/volume) 0.0 10*3/uL 0.0-0.1 Whole blood basic metabolic panel - 08/15/18 05:20 Serum or plasma sodium measurement (moles/volume) 137 mmol/L 135-145 Serum or plasma potassium measurement (moles/volume) 4.0 mmol/L 3.6-5.0 Serum or plasma chloride measurement (moles/volume) 105 mmol/L 98-107 Carbon dioxide 19 mmol/L 21-32 Serum or plasma anion gap determination (moles/volume) 13 mmol/L 5-14 Serum or plasma urea nitrogen measurement (mass/volume) 19 mg/dL 7-18 Serum or plasma creatinine measurement (mass/volume) 1.36 mg/dL 0.60-1.30 Serum or plasma urea nitrogen/creatinine mass ratio 14 NRG Serum or plasma creatinine measurement with calculation of estimated glomerular filtration rate 52 NRG Serum or plasma glucose measurement (mass/volume) 98 mg/dL 70-105 Serum or plasma calcium measurement (mass/volume) 9.3 mg/dL 8.5-10.1 PT panel in platelet poor plasma by coagulation assay - 08/15/18 05:30 Prothrombin time (PT) in platelet poor plasma by coagulation assay 16.4 s 12.2-14.7 INR in platelet poor plasma or blood by coagulation assay 1.3 0.8-1.4 Complete blood count (CBC) with automated white blood cell (WBC) differential - 08/16/18 06:03 Blood leukocytes automated count (number/volume) 8.1 10*3/uL 4.3-11.0 Blood erythrocytes automated count (number/volume) 3.67 10*6/uL 4.35-5.85 Venous blood hemoglobin measurement (mass/volume) 12.1 g/dL 13.3-17.7 Blood hematocrit (volume fraction) 37 % 40-54 Automated erythrocyte mean corpuscular volume 100 [foz_us] 80-99 Automated erythrocyte mean corpuscular hemoglobin (mass per erythrocyte) 33 pg 25-34 Automated erythrocyte mean corpuscular hemoglobin concentration measurement ( mass/volume) 33 g/dL 32-36 Automated erythrocyte distribution width ratio 16.2 % 10.0-14.5 Automated blood platelet count (count/volume) 209 10*3/uL 130-400 Automated blood platelet mean volume measurement 9.7 [foz_us] 7.4-10.4 Automated blood neutrophils/100 leukocytes 77 % 42-75 Automated blood lymphocytes/100 leukocytes 13 % 12-44 Blood monocytes/100 leukocytes 8 % 0-12 Automated blood eosinophils/100 leukocytes 2 % 0-10 Automated blood basophils/100 leukocytes 0 % 0-10 Blood neutrophils automated count (number/volume) 6.2 10*3 1.8-7.8 Blood lymphocytes automated count (number/volume) 1.0 10*3 1.0-4.0 Blood monocytes automated count (number/volume) 0.7 10*3 0.0-1.0 Automated eosinophil count 0.2 10*3/uL 0.0-0.3 Automated blood basophil count (count/volume) 0.0 10*3/uL 0.0-0.1 Whole blood basic metabolic panel - 08/16/18 06:03 Serum or plasma sodium measurement (moles/volume) 139 mmol/L 135-145 Serum or plasma potassium measurement (moles/volume) 4.0 mmol/L 3.6-5.0 Serum or plasma chloride measurement (moles/volume) 108 mmol/L 98-107 Carbon dioxide 21 mmol/L 21-32 Serum or plasma anion gap determination (moles/volume) 10 mmol/L 5-14 Serum or plasma urea nitrogen measurement (mass/volume) 18 mg/dL 7-18 Serum or plasma creatinine measurement (mass/volume) 1.33 mg/dL 0.60-1.30 Serum or plasma urea nitrogen/creatinine mass ratio 14 NRG Serum or plasma creatinine measurement with calculation of estimated glomerular filtration rate 53 NRG Serum or plasma glucose measurement (mass/volume) 147 mg/dL 70-105 Serum or plasma calcium measurement (mass/volume) 8.9 mg/dL 8.5-10.1 Complete blood count (CBC) with automated white blood cell (WBC) differential - 10/08/18 18:19 Blood leukocytes automated count (number/volume) 9.5 10*3/uL 4.3-11.0 Blood erythrocytes automated count (number/volume) 4.01 10*6/uL 4.35-5.85 Venous blood hemoglobin measurement (mass/volume) 13.2 g/dL 13.3-17.7 Blood hematocrit (volume fraction) 39 % 40-54 Automated erythrocyte mean corpuscular volume 98 [foz_us] 80-99 Automated erythrocyte mean corpuscular hemoglobin (mass per erythrocyte) 33 pg 25-34 Automated erythrocyte mean corpuscular hemoglobin concentration measurement ( mass/volume) 34 g/dL 32-36 Automated erythrocyte distribution width ratio 16.6 % 10.0-14.5 Automated blood platelet count (count/volume) 264 10*3/uL 130-400 Automated blood platelet mean volume measurement 9.3 [foz_us] 7.4-10.4 Automated blood neutrophils/100 leukocytes 87 % 42-75 Automated blood lymphocytes/100 leukocytes 5 % 12-44 Blood monocytes/100 leukocytes 7 % 0-12 Automated blood eosinophils/100 leukocytes 1 % 0-10 Automated blood basophils/100 leukocytes 0 % 0-10 Blood neutrophils automated count (number/volume) 8.3 10*3 1.8-7.8 Blood lymphocytes automated count (number/volume) 0.4 10*3 1.0-4.0 Blood monocytes automated count (number/volume) 0.7 10*3 0.0-1.0 Automated eosinophil count 0.1 10*3/uL 0.0-0.3 Automated blood basophil count (count/volume) 0.0 10*3/uL 0.0-0.1 PT panel in platelet poor plasma by coagulation assay - 10/08/18 18:19 Prothrombin time (PT) in platelet poor plasma by coagulation assay 14.7 s 12.2-14.7 INR in platelet poor plasma or blood by coagulation assay 1.2 0.8-1.4 Activated partial thromboplastin time (aPTT) in platelet poor plasma bycoagulation assay - 10/08/18 18:19 Activated partial thromboplastin time (aPTT) in platelet poor plasma bycoagulation assay 32 s 24-35 Influenza virus A and B antigen detection - 10/08/18 18:19 FLU RESULT NEGATIVE FOR INFLUENZA A AND B ANTIGENS BY IA [facility] Blood manual differential performed detection - 10/08/18 18:19 Blood monocytes/100 leukocytes 3 % NR Manual blood segmented neutrophils/100 leukocytes 84 % NRG Blood band neutrophils/100 leukocytes 7 % NR Manual blood lymphocytes/100 leukocytes 6 % [facility] Blood erythrocyte morphology finding identification NORMAL [facility] Blood lactic acid measurement (moles/volume) - 10/08/18 18:19 Blood lactic acid measurement (moles/volume) 0.92 mmol/L 0.50-2.00 Serum or plasma lithium measurement (moles/volume) - 10/08/18 18:19 BNP level 67.8 pg/mL <100.0 Comprehensive metabolic panel - 10/08/18 18:19 Serum or plasma sodium measurement (moles/volume) 136 mmol/L 135-145 Serum or plasma potassium measurement (moles/volume) 4.2 mmol/L 3.6-5.0 Serum or plasma chloride measurement (moles/volume) 105 mmol/L 98-107 Carbon dioxide 21 mmol/L 21-32 Serum or plasma anion gap determination (moles/volume) 10 mmol/L 5-14 Serum or plasma urea nitrogen measurement (mass/volume) 18 mg/dL 7-18 Serum or plasma creatinine measurement (mass/volume) 1.42 mg/dL 0.60-1.30 Serum or plasma urea nitrogen/creatinine mass ratio 13 NRG Serum or plasma creatinine measurement with calculation of estimated glomerular filtration rate 49 NRG Serum or plasma glucose measurement (mass/volume) 111 mg/dL 70-105 Serum or plasma calcium measurement (mass/volume) 9.9 mg/dL 8.5-10.1 Serum or plasma total bilirubin measurement (mass/volume) 0.4 mg/dL 0.1-1.0 Serum or plasma alkaline phosphatase measurement (enzymatic activity/volume) 105 U/L 40-136 Serum or plasma aspartate aminotransferase measurement (enzymatic activity/ volume) 21 U/L 5-34 Serum or plasma alanine aminotransferase measurement (enzymatic activity/volume ) 19 U/L 0-55 Serum or plasma protein measurement (mass/volume) 7.4 g/dL 6.4-8.2 Serum or plasma albumin measurement (mass/volume) 4.1 g/dL 3.2-4.5 CALCIUM CORRECTED 9.8 mg/dL 8.5-10.1 Magnesium - 10/08/18 18:19 Magnesium 1.5 mg/dL 1.8-2.4 Serum or plasma troponin i.cardiac measurement (mass/volume) - 10/08/18 18:19 Serum or plasma troponin i.cardiac measurement (mass/volume) < ng/ mL <0.028 Complete urinalysis with reflex to culture - 10/08/18 18:24 Urine color determination YELLOW NRG Urine clarity determination SLIGHTLY CLOUDY NRG Urine pH measurement by test strip 5 5-9 Specific gravity of urine by test strip 1.020 1.016- 1.022 Urine protein assay by test strip, semi-quantitative NEGATIVE NEGATIVE Urine glucose detection by automated test strip NEGATIVE NEGATIVE Erythrocytes detection in urine sediment by light microscopy 1+ NEGATIVE Urine ketones detection by automated test strip NEGATIVE NEGATIVE Urine nitrite detection by test strip NEGATIVE NEGATIVE Urine total bilirubin detection by test strip NEGATIVE NEGATIVE Urine urobilinogen measurement by automated test strip (mass/volume) NORMAL NORMAL Urine leukocyte esterase detection by dipstick 1+ NEGATIVE Automated urine sediment erythrocyte count by microscopy (number/high power field) [HPF] NRG Automated urine sediment leukocyte count by microscopy (number/high power field ) [HPF] NRG Bacteria detection in urine sediment by light microscopy TRACE NRG Crystals detection in urine sediment by light microscopy NONE NRG Casts detection in urine sediment by light microscopy NONE NRG Mucus detection in urine sediment by light microscopy NEGATIVE NRG Complete urinalysis with reflex to culture CULTURE PENDING NRG Encounters ACCT No. Visit Date/Time Discharge Status Pt. Type Provider Facility Loc./Unit Complaint [id number] 09/12/2018 07:23:00 09/12/2018 23:59:59 CLS Preadmit JULIANA MILLER MD [facility] CARD CAD,DYSPNEA [id number] 09/10/2018 09:25:00 09/10/2018 23:59:59 CLS Outpatient MARCY KENNY DO [facility] RAD K21.9 GASTRO- ESOPHAGEAL REFLUX DISEASE [id number] 08/14/2018 10:25:00 08/16/2018 14:09:00 DIS Inpatient EMBER ARCE, IAN Morris [facility] 4TH INFLUENZA SYNDROME RESP DISTRESS [id number] 07/28/2018 08:15:00 07/28/2018 23:59:59 CLS Preadmit 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 [facility] PULM J44.9 COPD [id number] 04/28/2018 08:00:00 07/27/2018 00:01:00 DIS Outpatient 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 [facility] PULM J44.9 COPD [id number] 07/21/2018 09:13:00 07/21/2018 23:59:59 CLS Outpatient 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 [facility] RAD ENLARGED LYMPH NODES [id number] 01/27/2018 08:04:00 04/27/2018 00:01:00 DIS Outpatient 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 [facility] PULM J44.9 COPD [id number] 02/28/2018 11:07:00 02/28/2018 23:59:59 CLS Outpatient MARCY KENNY DO [facility] RAD HIP PAIN [id number] 01/29/2018 10:09:00 01/29/2018 23:59:59 CLS 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 [facility] RAD R59.9 LYMPH NODE ENLARGEMENT [id number] 01/09/2018 06:00:00 01/09/2018 12:20:00 DIS Outpatient RALPH JASMINE DO [facility] SDC UMBILICAL HERNIA [id number] 01/02/2018 09:33:00 01/02/2018 10:20:00 DIS Outpatient RALPH JASMINE DO [facility] PREOP UMBILICAL HERNIA [id number] 11/22/2017 12:49:00 11/22/2017 15:30:00 DIS Outpatient RALPH JASMINE DO [facility] ENDO REFLUX, GASTROINTESTINAL BLEEDING [id number] 11/20/2017 05:40:00 11/20/2017 12:13:00 DIS Outpatient RALPH JASMINE DO [facility] PREOP REFLUX, GASTROINTESTINAL BLEEDING [id number] 11/18/2017 14:58:00 11/19/2017 17:50:00 DIS Inpatient JULIANA MILLER MD [facility] 4TH SOB [id number] 11/15/2017 10:39:00 11/15/2017 23:59:59 CLS Outpatient JULIANA MILLER MD [facility] RAD CAD,CONFUSION [id number] 02/27/2017 15:06:00 02/27/2017 23:59:59 CLS Outpatient AGUSTIN ROJO DO [facility] RT DYSPNEA R06.02 [id number] 02/22/2017 16:45:00 02/22/2017 16:45:00 CAN Preadmit AGUSTIN ROJO DO [facility] RT DYSPNEA,HX OF TOBACCO USE, JOY ON CPAP [id number] 10/03/2016 08:48:00 10/03/2016 15:30:00 DIS Outpatient JULIANA MILLER MD [facility] CATH ANM STRESS TEST,CAD [id number] 09/19/2016 08:13:00 09/19/2016 23:59:59 CLS Outpatient DONYA DONNELLY [facility] CARD CAD,JOY ON CPAP,TIA [id number] 08/14/2016 08:51:00 08/14/2016 15:30:00 DIS Outpatient RALPH JASMINE DO [facility] OCCULT STOOLS [id number] 08/09/2016 05:47:00 08/09/2016 13:50:00 DIS Outpatient RALPH JASMINE DO [facility] PREOP OCCULT STOOLS [id number] 12/05/2015 10:15:00 12/05/2015 23:59:59 CLS Preadmit ZOYA SIMMONS MARCY Sacha [facility] PULM COPD [id number] 09/05/2015 10:15:00 12/04/2015 00:01:00 DIS Outpatient MARCY KENNY DO [facility] PULM COPD [id number] 09/05/2015 14:31:00 09/05/2015 23:59:59 CLS Outpatient ZOYA SIMMONS MARCY Sacha [facility] RAD ABD PAIN [id number] 08/08/2015 14:00:00 08/16/2015 13:50:00 DIS Inpatient MARCY KENNY DO [facility] 4TH PNEUMONIA [id number] 04/19/2015 09:57:00 04/19/2015 10:38:00 DIS Outpatient ASH ALARCON MD [facility] REHAB CERVICAL SPONDYLOSIS [id number] 01/24/2015 14:36:00 01/24/2015 23:59:59 CLS Outpatient MARIE CHILDS DO [facility] RAD DDD [id number] 11/05/2014 09:53:00 11/09/2014 11:51:00 DIS Outpatient MARIE CHILDS DO [facility] REHAB S/P R SHLD SCOPE WITH SAD AND DEBRIDEMENT [id number] 09/28/2014 12:27:00 09/28/2014 23:59:59 CLS Outpatient MARIE CHILDS DO [facility] RIGHT SHOULDER TORN ROTATOR CUFF [id number] 09/24/2014 06:15:00 09/24/2014 23:59:59 CLS Outpatient MARIE CHILDS DO [facility] PREOP RIGHT SHOULDER TORN ROTATOR CUFF [id number] 08/31/2014 08:58:00 08/31/2014 11:36:00 DIS Outpatient MARIE CHILDS DO [facility] RIGHT SHOULDER ROTATOR CUFF TEAR [id number] 08/27/2014 05:50:00 08/27/2014 23:59:59 CLS Outpatient MARIE CHILDS DO [facility] PREOP RIGHT SHOULDER ROTATOR CUFF TEAR [id number] 08/25/2014 12:14:00 08/25/2014 23:59:59 CLS Outpatient JULIANA MILLER MD [facility] CARD CAD,ANN,DYSPNEA [id number] 08/25/2014 09:05:00 08/25/2014 23:59:59 CLS Outpatient JULIANA MILLER MD [facility] CARD CAD [id number] 07/21/2014 05:50:00 07/21/2014 23:59:59 CLS Outpatient MARIE CHILDS DO [facility] PREOP RIGHT SHOULDER ROTATOR CUFF TEAR [id number] 07/14/2014 17:15:00 07/16/2014 10:00:00 DIS Inpatient MARCY KENNY DO [facility] 4TH TIA CONFUSION DIFFICULT WORD FINDING [id number] 06/28/2014 13:45:00 07/07/2014 11:55:00 DIS Outpatient MARIE CHILDS DO [facility] REHAB R SHOULDER ADHESIVE CAPSULITIS [id number] 06/23/2014 07:52:00 06/23/2014 23:59:59 CLS Outpatient MARIE CHILDS DO [facility] RAD RT SHOULDER ADHEISIVE CAPSULITIS [id number] 06/21/2014 12:37:00 06/21/2014 23:59:59 CLS Outpatient MARIE CHILDS DO [facility] RAD RT SHOULDER ADHEISIVE CAPSULITIS [id number] 04/21/2014 10:59:00 04/21/2014 23:59:59 CLS Outpatient AGUSTIN ROJO DO [facility] RAD DYSPNEA,PE,RENAL FAILURE [id number] 03/03/2014 13:57:00 03/10/2014 15:35:00 DIS Inpatient TONI KEVIN MD [facility] IRF WEAKNESS [id number] 02/11/2014 10:19:00 02/13/2014 13:15:00 DIS Inpatient MARCY KENNY DO [facility] ICU PROBABLE RL PNEUMONIA [id number] 02/08/2014 12:50:00 02/08/2014 23:59:59 CLS Outpatient MARCY KENNY DO [facility] SDC OSTEO [id number] 07/21/2019 10:15:00 PEN Preadmit PORTIA NOLAN APRN [facility] RAD DYSPNEA,NICOTINE DEPENDENCE, PLEURAL EFFUSION [id number] 10/08/2018 19:40:00 ACT Inpatient KASHMIR ARCE, CARLITOS White [facility] 4TH COPD EXACERBATION,POSSILBE PNEUMONIA,HPOXIA [id number] 09/05/2015 10:15:00 Document Registration [id number] 10/28/2014 13:24:00 Document Registration [id number] 10/31/2012 13:05:00 Document Registration [id number] 11/09/2011 12:32:00 Document Registration [id number] 10/24/2010 12:55:00 Document Registration [id number] 04/19/2015 09:57:51 ACT Document Registration
[2018-10-08 21:25] VITALS: BP 126/70
[2018-10-08 21:30] VITALS: BP 126/70
[2018-10-08] MEDS ORDERED: AZITHROMYCIN INJECTION 500 MG in NS (IVPB) 250 ML IV ONE (21:45)
[2018-10-08] MEDS ORDERED: ONDANSETRON 4 MG/2 ML (SDV) Z0FRAN IV PRN (21:45)
[2018-10-08] MEDS: ACETAMINOPHEN 500 MG TAB (TYLENOL) PO PRN (22:41)
[2018-10-08] MEDS ORDERED: RT-ALBUTEROL/IPRATROPIUM 3 ML (DUONEB) VIAL INH PRN (22:45)
[2018-10-08] MEDS: 1/2 NS IV SOLUTION 1,000 ML IV SCH (22:46)
[2018-10-08 23:15] VITALS: BP 108/58
[2018-10-09] VITALS (9 sets, daily range): BP systolic 104–157; BP diastolic 59–84
[2018-10-09] MEDS: methylPREDNISolone 125 MG (Solu-MEDROL) VIAL IVP SCH ×3 (01:20→12:55)
[2018-10-09] MEDS: RT-ALBUTEROL/IPRATROPIUM 3 ML (DUONEB) VIAL INH SCH ×6 (01:26→22:05)
[2018-10-09 04:29] LABS: BASOPHILS % (AUTO) 0 % (0-10); EOSINOPHILS % (AUTO) 0 % (0-10); HEMATOCRIT 39 % (40-54); HEMOGLOBIN 13.1 G/DL (13.3-17.7); LYMPHOCYTES # (AUTO) 0.4 X 10^3 (1.0-4.0); LYMPHOCYTES % (AUTO) 6 % (12-44); MEAN CORPUSCULAR HEMOGLOBIN 33 PG (25-34); MEAN CORPUSCULAR HGB CONC 34 G/DL (32-36); MEAN CORPUSCULAR VOLUME 98 FL (80-99); MEAN PLATELET VOLUME 9.4 FL (7.4-10.4); MONOCYTES # (AUTO) 0.1 X 10^3 (0.0-1.0); MONOCYTES % (AUTO) 1 % (0-12); NEUTROPHILS # (AUTO) 5.4 X 10^3 (1.8-7.8); NEUTROPHILS % (AUTO) 93 % (42-75); PLATELET COUNT 237 10^3/uL (130-400); RED CELL DISTRIBUTION WIDTH 16.6 % (10.0-14.5); WHITE BLOOD COUNT 5.8 10^3/uL (4.3-11.0)
[2018-10-09 05:02] LABS: ALBUMIN 3.8 GM/DL (3.2-4.5); BILIRUBIN,TOTAL 0.3 MG/DL (0.1-1.0); CALCIUM 9.3 MG/DL (8.5-10.1); CREATININE SERUM 1.35 MG/DL (0.60-1.30); MAGNESIUM 2.3 MG/DL (1.8-2.4); POTASSIUM 4.3 MMOL/L (3.6-5.0); TOTAL PROTEIN 6.8 GM/DL (6.4-8.2)
[2018-10-09] MEDS: inSUlin ASPART (NovoLOG) 1 UNIT/0.01 ML (CHARGE PER UNIT) SC SCH ×4 (05:18→20:08)
--- NOTE | 2018-10-09 07:49 | Diagnostic Imaging Report ---
INDICATION: Pneumonia and COPD. Comparison made with prior examination from 10/08/18. FINDINGS: There is cardiomegaly. There is mild central venous congestion. There is no pleural effusion or pneumothorax. The mediastinum is unremarkable. IMPRESSION: Cardiomegaly and mild central venous congestion with some minimal patchy bibasal infiltrates. Dictated by: Dictated on workstation # [id number]
[2018-10-09] MEDS: NICOTINE 21 MG (NICODERM) PATCH TD SCH (08:57)
[2018-10-09] MEDS: ACETAMINOPHEN 500 MG TAB (TYLENOL) PO PRN (10:28)
[2018-10-09] MEDS ORDERED: CALC300T4 PO (10:38)
[2018-10-09] MEDS ORDERED: PANT40TA3 PO (11:10)
--- NOTE | 2018-10-09 11:50 | History & Physical-Hospitalist ---
History of Present Illness HPI/Chief Complaint Pt is a 73yoCM known to me from recent admission who presented to the ER due to SOB. He states his symptoms started abruptly at 9am yesterday with a headache and SOB at 10am. He continued to decline throughout the day and felt very weak. His states that she was unable to get him to stand so she called her son in law and they still had difficulty. He normally doesn't wear oxygen but put it on yesterday due to his shortness of breath. Eventually he had such difficulty breathing that they decided to bring him to the ER. On arrival he was found to be febrile and hypoxia with diffuse wheezes. He denies any wheezing to me. He does complain of coughing with sputum production. He continues to smoke as well. Today he states he feel much better but is still coughing. 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 Patients Allergies have been reviewed. Allergies Allergies Coded Allergies No Known Drug Allergies (Verified11/18/17) Past Jfgzehr-Mazlvw-Gydhcu Hx Past Med/Social Hx: Reviewed Nursing Past Med/Soc Hx Patient Social History Marrital Status: Employed/Student: employed Alcohol Use: Denies Use Recreational Drug Use: No Smoking Status: Current Everyday Smoker (1-2 PPD) Type Used: Cigarettes Physical Abuse Screen: No Sexual Abuse: No Recent Foreign Travel: No Contact w/other who traveled: No Recent Hopitalizations: Yes Recent Infectious Disease Expo: No Immunizations Up To Date Tetanus Booster (TDap): More than 5yrs Date of Pneumonia Vaccine: Mar 12, 2015 Date of Influenza Vaccine: Jun 18, 2018 Seasonal Allergies Seasonal Allergies: Yes Past Medical History Surgeries: Appendectomy, Cardiac, Coronary Stent, Gallbladder, Neurological, Orthopedic, Vascular Surgery Currently Using CPAP: Yes Currently Using BIPAP: No Cardiac: Coronary Artery Disease, High Cholesterol, Hypertension Neurological: Stroke, TIA, Traumatic Brain Injury Reproductive: No Sexually Transmitted Disease: No HIV/AIDS: No Genitourinary: Renal Failure Gastrointestinal: Abdominal Hernia, Gastroesophageal Reflux, Gastrointestinal Bleed, Chronic Constipation Musculoskeletal: Degenerate Disk Disease, Osteoporosis, Arthritis, Back Injury , Chronic Back Pain Endocrine: Hypothyroidsim, Diabetes, Non-Insulin dep HEENT: Tinnitis, Eye Injury, Glaucoma Loss of Vision: Right Hearing Impairment: Hard of Hearing Psychosocial: Depression History of Blood Disorders: No Adverse Reaction to Blood Gomez: No Family History Reviewed Nursing Family Hx Alcoholism 19 FATHER, Cancer Family history: Asthma 19 MOTHER Family history: Osteoporosis 19 MOTHER Hearing loss 19 MOTHER No Pertinent Family Hx Review of Systems Constitutional: fever, weakness EENTM: no symptoms reported Respiratory: cough, short of breath Cardiovascular: no symptoms reported Gastrointestinal: no symptoms reported Genitourinary: no symptoms reported Musculoskeletal: no symptoms reported Skin: no symptoms reported Psychiatric/Neurological: Headache, Weakness Physical Exam Physical Exam Vital Signs Vital Signs - First Documented 10/08/18 10/08/18 18:29 21:50 Temp 102.4 Pulse 85 Resp 24 B/P (MAP) 135/74 (94) Pulse Ox 96 O2 Delivery Nasal Cannula O2 Flow Rate 3.00 FiO2 32 Capillary Refill : Less Than 3 Seconds Height, Weight, BMI Height: 5'11.00" Weight: 216lbs. 3.0oz. 98.759417zr; 30.4 BMI Method:Stated General Appearance: No Apparent Distress, WD/WN Eyes: Right Eye Normal Inspection, Right Eye PERRL HEENT: PERRL/EOMI, Normal ENT Inspection, Moist Mucous Membranes; No Scleral Icterus (L), No Scleral Icterus (R) Neck: Full Range of Motion, Normal Inspection, Non Tender Respiratory: No Accessory Muscle Use, No Respiratory Distress; No Crackles, No Rhonci, No Wheezing; Other (poor air movement throughout) Cardiovascular: Regular Rate, Rhythm, No Murmur, Normal Peripheral Pulses Gastrointestinal: Normal Bowel Sounds, No Pulsatile Mass, Non Tender, Soft Extremity: Normal Capillary Refill, Non Tender, No Calf Tenderness, No Pedal Edema Neurologic/Psychiatric: Alert, Oriented x3, No Motor/Sensory Deficits, Normal Mood/Affect Skin: Normal Color, Warm/Dry Results Results/Procedures Labs Laboratory Tests 10/08/18 18:19 10/09/18 04:05 Patient resulted labs reviewed. Imaging: Reviewed Imaging Report Imaging Date of Exam: 10/09/18 CHEST 1 VIEW, AP/PA ONLY INDICATION: Pneumonia and COPD. Comparison made with prior examination from 10/08/18. FINDINGS: There is cardiomegaly. There is mild central venous congestion. There is no pleural effusion or pneumothorax. The mediastinum is unremarkable. IMPRESSION: Cardiomegaly and mild central venous congestion with some minimal patchy bibasal infiltrates. Assessment/Plan Admission Diagnosis COPD Exacerbation Admission Status: Inpatient Order (span 2 midnights) Reason for Inpatient Admission: Needs IV steroids, abx Diagnosis/Problems Diagnosis/Problems (1) CAP (community acquired pneumonia) Assessment & Plan: Bilateral lower lobe infiltrates on exam Continue CAP coverage with Rocephin and Azithro Low threshold for escalation given admission 8 weeks ago and COPD Await cultures Qualifiers: Lung location: lower lobe of lung (2) COPD exacerbation Status: Acute Assessment & Plan: Continue on Steroids, SVNs Pulm consulted, appreciate recs Titrate sats to keep >90 (3) Hypothyroidism Status: Chronic Assessment & Plan: Continue home synthroid Qualifiers: Hypothyroidism type: unspecified Qualified Codes: E03.9 - Hypothyroidism, unspecified (4) Essential (primary) hypertension Status: Chronic Assessment & Plan: Resume home meds (5) Tobacco abuse Assessment & Plan: Recommended cessation Clinical Quality Measures DVT/VTE Risk/Contraindication: Risk Factor Score Per Nursin RFS Level Per Nursing on Admit: 4+=Very High IAN PA MD Oct 09, 2018 11:50
[2018-10-09] MEDS: 1/2 NS IV SOLUTION 1,000 ML IV SCH (12:40)
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
[2018-10-09] MEDS: SUCRALFATE 1 GM (CARAFATE) TAB PO SCH ×2 (16:27→20:08)
[2018-10-09] MEDS ORDERED: ONDANSETRON 4 MG/2 ML (SDV) Z0FRAN IV PRN (16:45)
[2018-10-09] MEDS ORDERED: BENZONATATE 100 MG (TESSALON) CAPSULE PO PRN (16:45)
[2018-10-09] MEDS ORDERED: ANTACID SUSP 30 ML UDC (MYLANTA) PO PRN (16:45)
[2018-10-09] MEDS ORDERED: MELATONIN 3 MG TABLET PO PRN (16:45)
[2018-10-09] MEDS ORDERED: ACETAMINOPHEN 325 MG TABLET PO PRN (16:45)
[2018-10-09] MEDS ORDERED: MILK OF MAGNESIA 400 MG/5 ML 30 ML UDC PO PRN (16:45)
[2018-10-09] MEDS: cefTRIAXone FOR IV USE 1,000 MG in WATER (STERILE) FOR INJECTION 10 ML IV SCH (18:17)
[2018-10-09] MEDS: methylPREDNISolone 40 MG/ML (Solu-MEDROL) VIAL IV SCH ×2 (18:17→23:50)
[2018-10-09] MEDS: LATANOPROST 0.005% (XALATAN) OPHTH SOLN 2.5 ML OU SCH (20:07)
[2018-10-09] MEDS: AZITHROMYCIN 250 MG TAB (ZITHROMAX) PO SCH (20:08)
[2018-10-09] MEDS: GABAPENTIN 300 MG (NEURONTIN) CAP PO SCH (20:08)
[2018-10-09] MEDS: SIMvastatin 10 MG (ZOCOR) TAB PO SCH (20:09)
[2018-10-09] MEDS: RT-ADVAIR HFA 115/21 MCG PER PUFF IH SCH (22:05)
[2018-10-10] MEDS: 1/2 NS IV SOLUTION 1,000 ML IV SCH (02:20)
[2018-10-10] MEDS: RT-ALBUTEROL/IPRATROPIUM 3 ML (DUONEB) VIAL INH SCH ×6 (02:37→23:49)
[2018-10-10 03:58] VITALS: BP 141/81
[2018-10-10] MEDS: methylPREDNISolone 40 MG/ML (Solu-MEDROL) VIAL IV SCH ×3 (05:58→18:44)
[2018-10-10] MEDS: inSUlin ASPART (NovoLOG) 1 UNIT/0.01 ML (CHARGE PER UNIT) SC SCH ×4 (05:59→21:55)
[2018-10-10] MEDS: LEVOTHYROXINE 112 MCG (LEVOTHROID) TAB PO SCH (05:59)
[2018-10-10] MEDS: SUCRALFATE 1 GM (CARAFATE) TAB PO SCH ×4 (05:59→22:00)
[2018-10-10 06:43] LABS: BASOPHILS % (AUTO) 0 % (0-10); EOSINOPHILS % (AUTO) 0 % (0-10); HEMATOCRIT 40 % (40-54); HEMOGLOBIN 13.3 G/DL (13.3-17.7); LYMPHOCYTES # (AUTO) 0.6 X 10^3 (1.0-4.0); LYMPHOCYTES % (AUTO) 5 % (12-44); MEAN CORPUSCULAR HEMOGLOBIN 32 PG (25-34); MEAN CORPUSCULAR HGB CONC 33 G/DL (32-36); MEAN CORPUSCULAR VOLUME 98 FL (80-99); MEAN PLATELET VOLUME 9.3 FL (7.4-10.4); MONOCYTES # (AUTO) 0.7 X 10^3 (0.0-1.0); MONOCYTES % (AUTO) 6 % (0-12); NEUTROPHILS # (AUTO) 10.6 X 10^3 (1.8-7.8); NEUTROPHILS % (AUTO) 90 % (42-75); PLATELET COUNT 241 10^3/uL (130-400); RED CELL DISTRIBUTION WIDTH 16.4 % (10.0-14.5); WHITE BLOOD COUNT 11.9 10^3/uL (4.3-11.0)
[2018-10-10 07:06] LABS: CALCIUM 10.2 MG/DL (8.5-10.1); CREATININE SERUM 1.22 MG/DL (0.60-1.30); POTASSIUM 4.2 MMOL/L (3.6-5.0)
--- NOTE | 2018-10-10 07:06 | Pulmonary Progress Note ---
Subjective Time Seen by a Provider: 06:56 Subjective/Events-last exam Pt complains of persistent cough and SOB. at bedside with a lot of questions. I answered all questions to the best of my ability. Sepsis Event Evaluation Height, Weight, BMI Height: 5'11.00" Weight: 216lbs. 3.0oz. 97.214241by; 30.4 BMI Method:Stated Focused Exam Lactate Level 10/08/18 18:19: Lactic Acid Level 0.92 Exam Exam Vital Signs Date Time Temp Pulse Resp B/P (MAP) Pulse Ox O2 Delivery O2 Flow Rate FiO2 10/10/18 03:58 98.8 80 18 141/81 (101) 96 NIV CPAP 10/10/18 02:37 98 NIV CPAP 3.00 10/10/18 01:00 82 10/09/18 23:50 99.0 92 24 120/72 (88) 95 Nasal Cannula 3.00 10/09/18 22:19 Room Air 10/09/18 22:05 91 Room Air 10/09/18 20:00 99.2 94 26 137/84 (101) 95 Nasal Cannula 3.00 10/09/18 20:00 Nasal Cannula 3.00 10/09/18 19:00 88 10/09/18 16:04 98.8 79 30 121/78 (92) 97 Nasal Cannula 3.00 10/09/18 15:07 94 Nasal Cannula 3.00 10/09/18 13:00 88 10/09/18 12:00 97.8 88 20 124/60 (81) 93 Nasal Cannula 3.00 10/09/18 11:00 99.3 10/09/18 10:44 93 Nasal Cannula 3.00 10/09/18 10:00 99.3 78 18 157/73 (101) 94 Nasal Cannula 3.00 10/09/18 08:00 98.3 79 20 120/61 (80) 95 Nasal Cannula 3.00 10/09/18 08:00 95 Nasal Cannula 3.00 10/09/18 07:31 92 Nasal Cannula 3.00 I & O 10/10/18 07:00 Intake Total 2920 ml Output Total 2725 ml Balance 195 ml Height & Weight Height: 5'11.00" Weight: 216lbs. 3.0oz. 97.012339ya; 30.4 BMI Method:Stated General Appearance: WD/WN, Anxious, Chronically ill HEENT: PERRL/EOMI, Normal ENT Inspection, Moist Mucous Membranes; No Scleral Icterus (L), No Scleral Icterus (R) Neck: Full Range of Motion, Normal Inspection, Non Tender Respiratory: No Accessory Muscle Use, No Respiratory Distress; No Crackles; Decreased Breath Sounds; No Rhonci, No Wheezing; Other (poor air movement throughout) Cardiovascular: Regular Rate, Rhythm, No Murmur, Normal Peripheral Pulses Capillary Refill: Less Than 3 Seconds Extremity: Normal Capillary Refill, Non Tender, No Calf Tenderness, No Pedal Edema Neurologic/Psychiatric: Alert, Oriented x3, No Motor/Sensory Deficits, Normal Mood/Affect Skin: Normal Color, Warm/Dry Results Lab Laboratory Tests 10/08/18 18:19 10/09/18 04:05 10/10/18 06:15 Assessment/Plan Assessment/Plan Acute on chronic respiratory failure - stat ABG -BiPAP PRN -Oxygen Pneumonia - IVF -Currently on Rocephin- -Pt grew Ecoli last hospitalization which was sensitive to Rocephin -Andrade cultures -Will need out pt f/u imaging UTI -Andrade cultures COPDAE with hypoxia -SVNs -Oxygen -Solumedrol Acute renal failure -IVF -Monitor Hypothyroid AGUSTIN ROJO DO Oct 10, 2018 07:06
[2018-10-10] MEDS: RT-ADVAIR HFA 115/21 MCG PER PUFF IH SCH ×2 (07:30→19:14)
[2018-10-10 08:00] VITALS: BP 137/72
[2018-10-10] MEDS: GABAPENTIN 300 MG (NEURONTIN) CAP PO SCH ×2 (08:51→22:00)
[2018-10-10] MEDS: LACTOBACILLUS ACIDOPHILUS (PROBIOTIC) CAPSULE PO SCH (08:51)
[2018-10-10] MEDS: NICOTINE 21 MG (NICODERM) PATCH TD SCH (08:52)
[2018-10-10] MEDS: amLODIPine 5 MG (NORVASC) TAB PO SCH (08:52)
[2018-10-10] MEDS: ASPIRIN E.C. 325 MG (ECOTRIN) TABLET PO SCH (08:52)
[2018-10-10] MEDS ORDERED: PANTOPRAZOLE 40 MG (PROTONIX) TAB PO SCH (09:00)
[2018-10-10 10:56] LABS: ABG BASE EXCESS 1.1 MMOL/L (-2.5-2.5); ABG OXYGEN SATURATION 96 % (94-100); ABG PCO2 36 MMHG (35-45); ABG PH 7.45 (7.37-7.43); ABG PO2 94 MMHG (79-93); ABG TCO2 25.9 MMOL/L (21.0-31.0)
[2018-10-10 11:00] LABS: ALLENS TEST YES-POS; INSPIRED O2 3L; PATIENT TEMP 98.4; VENTILATOR NO
--- NOTE | 2018-10-10 11:16 | Progress Note-Hospitalist ---
Subjective HPI/CC On Admission Date Seen by Provider: Oct 10, 2018 Time Seen by Provider: 11:12 Pt is a 73yoCM known to me from recent admission who presented to the ER due to SOB. He states his symptoms started abruptly at 9am yesterday with a headache and SOB at 10am. He continued to decline throughout the day and felt very weak. His states that she was unable to get him to stand so she called her son in law and they still had difficulty. He normally doesn't wear oxygen but put it on yesterday due to his shortness of breath. Eventually he had such difficulty breathing that they decided to bring him to the ER. On arrival he was found to be febrile and hypoxia with diffuse wheezes. He denies any wheezing to me. He does complain of coughing with sputum production. He continues to smoke as well. Today he states he feel much better but is still coughing. Subjective/Events-last exam Pt reports feeling better this AM. Up in bathroom doing nasal flush. States coughing more up. Focused Exam Lactate Level 10/08/18 18:19: Lactic Acid Level 0.92 Objective Exam Vital Signs Vital Signs Date Time Temp Pulse Resp B/P (MAP) Pulse Ox O2 Delivery O2 Flow Rate FiO2 10/10/18 13:00 86 10/10/18 12:00 98.0 16 126/73 (90) 96 Nasal Cannula 3.00 10/08/18 21:50 32 Capillary Refill : Less Than 3 Seconds General Appearance: No Apparent Distress, WD/WN HEENT: No Scleral Icterus (L), No Scleral Icterus (R) Respiratory: No Accessory Muscle Use, No Respiratory Distress; No Crackles; Wheezing Cardiovascular: Regular Rate, Rhythm, No Murmur, Normal Peripheral Pulses Gastrointestinal: Normal Bowel Sounds, No Pulsatile Mass, Non Tender, Soft Neurologic/Psychiatric: Alert, Oriented x3 Skin: Normal Color, Warm/Dry Results/Procedures Lab Laboratory Tests 10/10/18 06:15 Patient resulted labs reviewed. Imaging: Reviewed Imaging Report Assessment/Plan Assessment and Plan Assess & Plan/Chief Complaint COPD Exacerbation with PNA Diagnosis/Problems Diagnosis/Problems (1) CAP (community acquired pneumonia) Assessment & Plan: Bilateral lower lobe infiltrates Continue CAP coverage with Rocephin and Azithro Low threshold for escalation given admission 8 weeks ago and COPD Await cultures Qualifiers: Lung location: lower lobe of lung (2) COPD exacerbation Status: Acute Assessment & Plan: Continue on Steroids, SVNs Pulm consulted, appreciate recs Titrate sats to keep >90 (3) Hypothyroidism Status: Chronic Assessment & Plan: Continue home synthroid Qualifiers: Hypothyroidism type: unspecified Qualified Codes: E03.9 - Hypothyroidism, unspecified (4) Essential (primary) hypertension Status: Chronic Assessment & Plan: Cont home meds (5) Tobacco abuse Assessment & Plan: Recommended cessation Clinical Quality Measures DVT/VTE Risk/Contraindication: Risk Factor Score Per Nursin RFS Level Per Nursing on Admit: 4+=Very High IAN PA MD Oct 10, 2018 11:16
--- NOTE | 2018-10-10 11:34 | NUR ---
HOME O2 QUALIFICATION NOT DONE DUE TO PT ALREADY HAVING HOME OXYGEN. DR PA NOTIFIED.
[2018-10-10 12:00] VITALS: BP 126/73
[2018-10-10 16:36] VITALS: BP 136/82
[2018-10-10] MEDS: cefTRIAXone FOR IV USE 1,000 MG in WATER (STERILE) FOR INJECTION 10 ML IV SCH (18:44)
[2018-10-10 20:58] VITALS: BP 121/81
[2018-10-10] MEDS: AZITHROMYCIN 250 MG TAB (ZITHROMAX) PO SCH (22:00)
[2018-10-10] MEDS: LATANOPROST 0.005% (XALATAN) OPHTH SOLN 2.5 ML OU SCH (22:00)
[2018-10-10] MEDS: SIMvastatin 10 MG (ZOCOR) TAB PO SCH (22:00)
[2018-10-11] MEDS: methylPREDNISolone 40 MG/ML (Solu-MEDROL) VIAL IV SCH ×2 (00:07→06:45)
[2018-10-11 00:08] VITALS: BP 144/84
[2018-10-11] MEDS: RT-ALBUTEROL/IPRATROPIUM 3 ML (DUONEB) VIAL INH SCH ×2 (01:29→07:41)
[2018-10-11 04:15] VITALS: BP 137/72
[2018-10-11] MEDS: inSUlin ASPART (NovoLOG) 1 UNIT/0.01 ML (CHARGE PER UNIT) SC SCH (06:02)
--- NOTE | 2018-10-11 06:36 | NUR ---
Synthroid order 112 mcg daily in the comment on this drug there is a communication to give with synthroid 25 mcg to equal pt 137 mcg-this rn contacted Dr. Valenzuela by phone to clarify this medication order. order received to give an additional 25 mcg of Synthroid to equal home dose of 137mcg.
[2018-10-11] MEDS ORDERED: LEVOTHYROXINE 25 MCG (LEVOTHROID) TAB ONE (06:43)
[2018-10-11] MEDS ORDERED: LEVOTHYROXINE 25 MCG (LEVOTHROID) TAB PO SCH (06:45)
[2018-10-11] MEDS: LEVOTHYROXINE 112 MCG (LEVOTHROID) TAB PO SCH (06:45)
[2018-10-11] MEDS: SUCRALFATE 1 GM (CARAFATE) TAB PO SCH (06:45)
--- NOTE | 2018-10-11 06:59 | Pulmonary Progress Note ---
Subjective Time Seen by a Provider: 06:59 Subjective/Events-last exam NO complications noted. Sepsis Event Evaluation Height, Weight, BMI Height: 5'11.00" Weight: 215lbs. 0.0oz. 97.615467rh; 30.4 BMI Method:Stated Focused Exam Lactate Level 10/08/18 18:19: Lactic Acid Level 0.92 Exam Exam Vital Signs Date Time Temp Pulse Resp B/P (MAP) Pulse Ox O2 Delivery O2 Flow Rate FiO2 10/11/18 04:15 97.8 64 20 137/72 (93) 96 NIV CPAP 3.00 10/11/18 01:29 96 NIV CPAP 3.00 10/11/18 01:00 70 10/11/18 00:08 98.1 67 21 144/84 (104) 97 NIV CPAP 3.00 10/10/18 20:58 96.8 82 21 121/81 (94) 92 Nasal Cannula 3.00 10/10/18 20:00 Nasal Cannula 3.00 10/10/18 19:14 93 Nasal Cannula 3.00 10/10/18 19:00 75 10/10/18 16:36 86 19 136/82 (100) 94 Nasal Cannula 3.00 10/10/18 15:33 93 Nasal Cannula 3.00 10/10/18 13:00 86 10/10/18 12:00 98.0 83 16 126/73 (90) 96 Nasal Cannula 3.00 10/10/18 11:23 94 Nasal Cannula 3.00 10/10/18 08:00 95 Nasal Cannula 3.00 10/10/18 08:00 97.9 83 16 137/72 (93) 95 Nasal Cannula 3.00 10/10/18 07:34 96 3.00 10/10/18 07:28 86 Room Air 10/10/18 07:00 74 I & O 10/11/18 07:00 Intake Total 1472 ml Output Total 825 ml Balance 647 ml Height & Weight Height: 5'11.00" Weight: 215lbs. 0.0oz. 97.266061qi; 30.4 BMI Method:Stated General Appearance: WD/WN, Anxious, Chronically ill HEENT: PERRL/EOMI, Normal ENT Inspection, Moist Mucous Membranes; No Scleral Icterus (L), No Scleral Icterus (R) Neck: Full Range of Motion, Normal Inspection, Non Tender Respiratory: No Accessory Muscle Use, No Respiratory Distress; No Crackles; Decreased Breath Sounds; No Rhonci, No Wheezing; Other (poor air movement throughout) Cardiovascular: Regular Rate, Rhythm, No Murmur, Normal Peripheral Pulses Capillary Refill: Less Than 3 Seconds Extremity: Normal Capillary Refill, Non Tender, No Calf Tenderness, No Pedal Edema Neurologic/Psychiatric: Alert, Oriented x3, No Motor/Sensory Deficits, Normal Mood/Affect Skin: Normal Color, Warm/Dry Results Lab Laboratory Tests 10/10/18 06:15 Assessment/Plan Assessment/Plan Acute on chronic respiratory failure -BiPAP PRN -Oxygen Pneumonia - IVF -Currently on Rocephin- -Pt grew Ecoli last hospitalization which was sensitive to Rocephin -Andrade cultures -Will need out pt f/u imaging UTI -Andrade cultures COPDAE with hypoxia -SVNs -Oxygen -Solumedrol Acute renal failure -IVF -Monitor Hypothyroid AGUSTIN ROJO DO Oct 11, 2018 06:59
[2018-10-11 07:31] VITALS: BP 123/67
[2018-10-11] MEDS: RT-ADVAIR HFA 115/21 MCG PER PUFF IH SCH (07:41)
[2018-10-11] MEDS ORDERED: LACT1CAP62 PO (08:42)
[2018-10-11] MEDS ORDERED: CEPH-507 PO (08:42)
[2018-10-11] MEDS ORDERED: AZIT250T12 PO (08:42)
--- NOTE | 2018-10-11 08:45 | Discharge Inst-Simple/Standard ---
Discharge Inst-Standard Discharge Medications New, Converted or Re-Newed RX: Transmitted to Pharmacy Patient Instructions/Follow Up Plan of Care/Instructions/FU: Please continue to take your medications as written. Please follow up with your PCP next week and with Dr Gomez in the next 2 weeks. Activity as Tolerated: Yes Discharge Diet: No Restrictions Return to The Hospital For: Fever, shortness of breath, confusion, chest pain, if you feel you are getting worse. IAN PA MD Oct 11, 2018 08:45
--- NOTE | 2018-10-11 08:46 | Discharge Summary-Hospitalist ---
Diagnosis/Chief Complaint Date of Admission Oct 08, 2018 at 19:40 Date of Discharge Discharge Date: Oct 11, 2018 Admission Diagnosis COPD Exacerbation Discharge Diagnosis (1) CAP (community acquired pneumonia) Assessment & Plan: Bilateral lower lobe infiltrates Continue CAP coverage with Rocephin and Azithro Low threshold for escalation given admission 8 weeks ago and COPD Await cultures (2) COPD exacerbation Status: Acute Assessment & Plan: Continue on Steroids, SVNs Pulm consulted, appreciate recs Titrate sats to keep >90 (3) Hypothyroidism Status: Chronic Assessment & Plan: Continue home synthroid (4) Essential (primary) hypertension Status: Chronic Assessment & Plan: Cont home meds (5) Tobacco abuse Assessment & Plan: Recommended cessation Discharge Summary Discharge Physical Exam Allergies: Coded Allergies: No Known Drug Allergies (Verified , 11/18/17) Vitals & I&Os Vital Signs Date Time Temp Pulse Resp B/P (MAP) Pulse Ox O2 Delivery O2 Flow Rate FiO2 10/11/18 07:42 92 Nasal Cannula 3.00 10/11/18 07:31 98.6 65 20 123/67 (85) 10/08/18 21:50 32 General Appearance: WD/WN, Anxious, Chronically ill HEENT: PERRL/EOMI, Normal ENT Inspection, Moist Mucous Membranes; No Scleral Icterus (L), No Scleral Icterus (R) Respiratory: No Accessory Muscle Use, No Respiratory Distress; No Crackles; Decreased Breath Sounds; No Rhonci, No Wheezing; Other (poor air movement throughout) Cardiovascular: Regular Rate, Rhythm, No Murmur, Normal Peripheral Pulses Gastrointestinal: Normal Bowel Sounds, No Pulsatile Mass, Non Tender, Soft Extremity: Normal Capillary Refill, Non Tender, No Calf Tenderness, No Pedal Edema Skin: Normal Color, Warm/Dry Neurologic/Psychiatric: Alert, Oriented x3, No Motor/Sensory Deficits, Normal Mood/Affect Hospital Course Labs (last 24 hrs) Laboratory Tests 10/10/18 10:47: Blood Gas Puncture Site RR, Blood Gas Patient Temperature 98.4, Arterial Blood pH 7.45H, Arterial Blood Partial Pressure CO2 36, Arterial Blood Partial Pressure O2 94H, Arterial Blood HCO3 25, Arterial Blood Total CO2 25.9, Arterial Blood Oxygen Saturation 96, Arterial Blood Base Excess 1.1, Reji Test YES-POS, Blood Gas Ventilator Setting NO, Blood Gas Inspired Oxygen 3L 10/10/18 11:23: Glucometer 121H 10/10/18 16:35: Glucometer 131H 10/10/18 20:57: Glucometer 136H 10/11/18 05:42: Glucometer 128H Microbiology 10/08/18 Blood Culture - Preliminary, Resulted No growth 10/08/18 Gram Stain - Final, Complete 10/08/18 Sputum Culture - Final, Complete Usual upper respiratory alexey 10/08/18 Urine Culture - Final, Complete NO GROWTH Patient resulted labs reviewed. Pending Labs Laboratory Tests 10/11/18 05:42: Glucometer 128 Imaging: Reviewed Imaging Report Discharge Home Medications: Active Scripts Active Keflex (Cephalexin) 500 Mg Capsule 500 Mg PO BID Azithromycin 250 Mg Tablet 250 Mg PO HS Probiotic (Lactobacillus Acidophilus) 1 Each Capsule 1 Cap PO DAILY Tums (Calcium Carbonate) 300 Mg Tab.chew 300 Mg PO Q2HR PRN 1 Days Reported Pantoprazole Sodium 40 Mg Tablet.dr 40 Mg PO DAILY Aspirin EC (Aspirin) 325 Mg Tablet.dr 325 Mg PO DAILY Zantac (Ranitidine HCl) 150 Mg Tablet 150 Mg PO BID Excedrin Extra Strength Caplet (Aspirin/Acetaminophen/Caffeine) 1 Each Tablet 1 Tab PO BID PRN Cyanocobalamin Injection (Cyanocobalamin) 1,000 Mcg/Ml Inj 1,000 Mcg IM MONTHLY TAKES THE 1ST WEEK OF MONTH-DAUGHTER GIVES AND DAY VARIES Vitamin C (Ascorbate Calcium) 500 Mg Tablet 500 Mg PO DAILY Vitamin D3 (Cholecalciferol (Vitamin D3)) 1,000 Unit Tablet 1,000 Unit PO DAILY Fish Oil 1,200 mg Softgel ([place]-3 Fatty Acids/Fish Oil) 1 Each Capsule 1,200 Mg PO DAILY Lovastatin 40 Mg Tablet 20 Mg PO HS TAKE 1/2 OF 40MG TAB Carafate (Sucralfate) 1 Gm Tablet 1 Gm PO ACHS Gabapentin 300 Mg Capsule 300 Mg PO BID Latanoprost 2.5 Ml Drops 1 Drop OU HS Levothyroxine Sodium 137 Mcg Tablet 137 Mcg PO 1800 Iprat-Albut 0.5-3(2.5) mg/3 ml (Ipratropium/Albuterol Sulfate) 3 Ml Ampul.neb 3 Ml NEB TID Colace (Docusate Sodium) 100 Mg Capsule 300 Mg PO HS Symbicort 160-4.5 Mcg Inhaler (Budesonide/Formoterol Fumarate) 10.2 Gm Hfa.aer.ad 2 Puff IH BID Amlodipine Besylate 10 Mg Tablet 5 Mg PO DAILY TAKES 1/2 (10 MG) TABLET Instructions to patient/family Please see electronic discharge instructions given to patient. Clinical Quality Measures DVT/VTE Risk/Contraindication: Risk Factor Score Per Nursin RFS Level Per Nursing on Admit: 4+=Very High Problem Qualifiers (1) CAP (community acquired pneumonia): Lung location: lower lobe of lung (2) Hypothyroidism: Hypothyroidism type: unspecified Qualified Codes: E03.9 - Hypothyroidism, unspecified IAN PA MD Oct 11, 2018 08:46
[2018-10-11] MEDS: GABAPENTIN 300 MG (NEURONTIN) CAP PO SCH (09:26)
[2018-10-11] MEDS: ASPIRIN E.C. 325 MG (ECOTRIN) TABLET PO SCH (09:26)
[2018-10-11] MEDS: amLODIPine 5 MG (NORVASC) TAB PO SCH (09:26)
[2018-10-11] MEDS: LACTOBACILLUS ACIDOPHILUS (PROBIOTIC) CAPSULE PO SCH (09:26)
[2018-10-11] MEDS: NICOTINE 21 MG (NICODERM) PATCH TD SCH (09:27)
== END 2018-10-11 10:00 | disposition home or self-care (01) | DRG 193 ==
LOC: EDUNIT# 18:05 → ER 18:06 → 4TH 19:40
PROVIDERS: ADMIT Internal Medicine; ATTEND Internal Medicine
DX: J18.1 Lobar pneumonia, unspecified organism (principal); J43.9 Emphysema, unspecified; J96.21 Acute and chronic respiratory failure with hypoxia; N17.9 Acute kidney failure, unspecified; N39.0 Urinary tract infection, site not specified; E89.0 Postprocedural hypothyroidism; I10 Essential (primary) hypertension; F17.210 Nicotine dependence, cigarettes, uncomplicated; R41.0 Disorientation, unspecified; I25.10 Atherosclerotic heart disease of native coronary artery without angina pectoris; E11.9 Type 2 diabetes mellitus without complications; E78.00 Pure hypercholesterolemia, unspecified; G47.30 Sleep apnea, unspecified; E83.42 Hypomagnesemia; K21.9 Gastro-esophageal reflux disease without esophagitis; H93.19 Tinnitus, unspecified ear; H40.9 Unspecified glaucoma; F32.9 Major depressive disorder, single episode, unspecified; M81.0 Age-related osteoporosis without current pathological fracture; M19.91 Primary osteoarthritis, unspecified site; K59.09 Other constipation; S04 Injury of cranial nerve; V89.2XXS Person injured in unspecified motor-vehicle accident, traffic, sequela; Z86.73 Personal history of transient ischemic attack (TIA), and cerebral infarction without residual deficits; Z91.5 Personal history of self-harm; Z87.820 Personal history of traumatic brain injury; Z99.81 Dependence on supplemental oxygen
CPT/HCPCS: 36415; 36600; 71045; 80048; 80053; 81000; 82805; 82962; 83605; 83735; 83880; 84484; 85007; 85025; 85027; 85610; 85730; 87040; 87070; 87088; 87205; 87804; 93005; 93041; 94640; 94760; 96365; 96375

== ENCOUNTER 2018-10-27 20:37 | Inpatient (IN) | payer MEDICARE ==
[~2018-10-27] VITALS: Ht 180.3 cm; Wt 102.2 kg
[~2018-10-27 20:37] MED LIST changes: +AZIT250T12 PO; +CALC300T4 PO; +CEPH-507 PO
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
[2018-10-27] MEDS ORDERED: RT-ALBUTEROL SULF 2.5 MG/3 ML PRE-MIX VIAL INH STA (21:09)
[2018-10-27] MEDS ORDERED: RT-ALBUTEROL/IPRATROPIUM 3 ML (DUONEB) VIAL INH ONE (21:15)
[2018-10-27] MEDS ORDERED: CEFEPIME INJECTION 1,000 MG in WATER (STERILE) FOR INJECTION 10 ML IV ONE (21:15)
[2018-10-27] MEDS ORDERED: methylPREDNISolone 125 MG (Solu-MEDROL) VIAL IVP ONE (21:15)
[2018-10-27] MEDS ORDERED: DEXAMETHASONE 4 MG/ML SDV (DECADRON) IH ONE (21:15)
[2018-10-27] MEDS ORDERED: ACETAMINOPHEN 500 MG TAB (TYLENOL) PO PRN (21:15)
[2018-10-27 21:21] LABS: BILIRUBIN,URINE NEGATIVE (NEGATIVE); COLOR,URINE YELLOW; GLUCOSE, URINE (UA) NEGATIVE (NEGATIVE); KETONES,URINE NEGATIVE (NEGATIVE); LEUKOCYTE ESTERASE ,URINE NEGATIVE (NEGATIVE); NITRITE,URINE NEGATIVE (NEGATIVE); PH,URINE 6 (5-9); PROTEIN,URINE NEGATIVE (NEGATIVE); UROBILINOGEN,URINE NORMAL (NORMAL)
[2018-10-27 21:28] LABS: CLARITY,URINE CLEAR
[2018-10-27 21:29] LABS: BACTERIA,URINE TRACE /HPF; RBC,URINE RARE /HPF; SQUAMOUS EPITHELIAL CELL,UR 0-2 /HPF; WBC,URINE 0-2 /HPF
[2018-10-27] MEDS ORDERED: IBUPROFEN 800 MG (MOTRIN) TAB PO ONE (21:30)
[2018-10-27 21:33] LABS: BASOPHILS % (AUTO) 0 % (0-10); EOSINOPHILS # (AUTO) 0.1 10^3/uL (0.0-0.3); EOSINOPHILS % (AUTO) 0 % (0-10); HEMATOCRIT 37 % (40-54); HEMOGLOBIN 12.7 G/DL (13.3-17.7); LYMPHOCYTES # (AUTO) 0.8 X 10^3 (1.0-4.0); LYMPHOCYTES % (AUTO) 5 % (12-44); MEAN CORPUSCULAR HEMOGLOBIN 34 PG (25-34); MEAN CORPUSCULAR HGB CONC 35 G/DL (32-36); MEAN CORPUSCULAR VOLUME 97 FL (80-99); MEAN PLATELET VOLUME 9.2 FL (7.4-10.4); MONOCYTES # (AUTO) 0.5 X 10^3 (0.0-1.0); MONOCYTES % (AUTO) 3 % (0-12); NEUTROPHILS # (AUTO) 13.3 X 10^3 (1.8-7.8); NEUTROPHILS % (AUTO) 91 % (42-75); PLATELET COUNT 258 10^3/uL (130-400); RED CELL DISTRIBUTION WIDTH 15.6 % (10.0-14.5); WHITE BLOOD COUNT 14.7 10^3/uL (4.3-11.0)
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
[2018-10-27 21:44] LABS: INR 1.1 (0.8-1.4); PROTHROMBIN TIME PATIENT 14.3 SEC (12.2-14.7)
[2018-10-27 21:45] LABS: BAND NEUTROPHILS 2 %; BASOPHILS % (MANUAL) 0 %; EOSINOPHILS % (MANUAL) 0 %; LYMPHOCYTES % (MANUAL) 6 %; MONOCYTES % (MANUAL) 4 %; NEUTROPHILS % (MANUAL) 85 %; REACTIVE LYMPHOCYTES 3 %
[2018-10-27 21:46] LABS: ANISOCYTOSIS SLIGHT; TOXIC GRANULATION/VACUOLAZATIO 1+
[2018-10-27 21:53] LABS: ALANINE AMINOTRANSFERASE 13 U/L (0-55); ALBUMIN 3.9 GM/DL (3.2-4.5); ALKALINE PHOSPHATASE 111 U/L (40-136); BILIRUBIN,TOTAL 0.4 MG/DL (0.1-1.0); BUN/CREATININE RATIO 15; CALCIUM 9.3 MG/DL (8.5-10.1); CARBON DIOXIDE 23 MMOL/L (21-32); CHLORIDE 106 MMOL/L (98-107); CREATININE SERUM 1.44 MG/DL (0.60-1.30); GFR ESTIMATED 48; GLUCOSE 117 MG/DL (70-105); POTASSIUM 4.2 MMOL/L (3.6-5.0); SODIUM 138 MMOL/L (135-145); TOTAL PROTEIN 7.3 GM/DL (6.4-8.2)
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
--- OUTSIDE RECORDS SUMMARY | 2018-10-27 23:19 | XMS REPORT | Continuity of Care Document ---
Author Author [facility] Organization [facility] Address Unknown Phone Unavailable Allergies Active Description Code Type Severity Reaction Onset Reported/Identified Relationship to Patient Clinical Status Yes No Known Drug Allergies [id number] Drug Allergy Unknown N/A 11/18/2017 Medications There is no data. Problems Date Dx Coded Attending Type Code Diagnosis Diagnosed By 02/13/2014 AMRCY KENNY DO Ot 038.9 SEPTICEMIA NOS 02/13/2014 MARCY KENNY DO Ot 250.00 DIAB BRENNEN WO COMPL, TYPE II OR UNSPEC TY 02/13/2014 MARCY KENNY DO Ot 272.4 HYPERLIPIDEMIA NEC/NOS 02/13/2014 MARCY KENNY DO Ot 276.52 HYPOVOLEMIA 02/13/2014 MARCY KENNY DO Ot 305.1 TOBACCO USE DISORDER 02/13/2014 MARCY KENNY DO Ot 414.01 CORONARY ATHEROSCLEROSIS OF [place] CORON 02/13/2014 MARCY KENNY DO Ot 486 [...] Ot 780.79 OTH MALAISE FATIGUE 03/10/2014 TONI EKVIN MD E Ot 790.29 OTHER ABNORMAL GLUCOSE [...] KENNY DO Ot 414.01 CORONARY ATHEROSCLEROSIS OF [place] CORON 07/16/2014 MARCY KENNY DO Ot 435.9 [...] Goncalves Ot J15.4 08/12/2015 KENNY DO, MARCY Goncavles Ot J44.0 08/12/2015 KENNY DO, MARCY Goncalves [...] 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 08/16/2015 MARCY KENNY DO, Ot E53.8 DEFICIENCY OF OTHER SPECIFIED B GROUP 08/16/2015 MARCY KENNY DO, Ot E55.9 VITAMIN D DEFICIENCY, UNSPECIFIED 08/16/2015 MARCY KENNY DO, Ot E78.5 HYPERLIPIDEMIA, UNSPECIFIED 08/16/2015 MARCY KENNY DO, Ot F17.210 NICOTINE DEPENDENCE, CIGARETTES, UNCOMPL 08/16/2015 MARCY KENNY DO, Ot I12.9 HYPERTENSIVE CHRONIC KIDNEY DISEASE W ST 08/16/2015 MARCY KENNY DO, Ot I25.10 ATHSCL HEART DISEASE OF [place] CORONARY 08/16/2015 MARCY KENNY DO, Ot J15.1 [...] MILLER MD Ot 414.01 CORONARY ATHEROSCLEROSIS OF [place] CORON 08/14/2016 JULIANA MILLER MD Ot 786.09 [...] DONNELLY Ot I25.10 ATHSCL HEART DISEASE OF [place] CORONARY 09/20/2016 DONYA DONNELLY Ot I65.23 OCCLUSION AND STENOSIS OF BILATERAL [place] 09/20/2016 DONYA DONNELLY Ot G45.9 TRANSIENT CEREBRAL ISCHEMIC ATTACK, UNSP 09/20/2016 DONYA DONNELLY Ot G47.33 OBSTRUCTIVE SLEEP APNEA (ADULT) (PEDIATR 09/20/2016 DONYA DONNELLY Ot I25.10 ATHSCL HEART DISEASE OF [place] CORONARY 09/20/2016 DONYA DONNELLY Ot I65.23 OCCLUSION AND STENOSIS OF [place] 10/03/2016 ANGELA ARCE, JULIANA Goncalves Ot E78.5 HYPERLIPIDEMIA, UNSPECIFIED 10/03/2016 JULIANA MILLER MD Ot G47.33 OBSTRUCTIVE SLEEP APNEA (ADULT) (PEDIATR 10/03/2016 JULIANA MILLER MD Ot I10 ESSENTIAL (PRIMARY) HYPERTENSION 10/03/2016 JULIANA MILLER MD, Ot I25.10 ATHSCL HEART DISEASE OF [place] CORONARY 10/03/2016 JULIANA MILLER MD, Ot I25.84 CORONARY ATHEROSCLEROSIS DUE TO [place] 10/03/2016 JULIANA MILLER MD Ot I34.0 NONRHEUMATIC MITRAL (VALVE) INSUFFICIENC 10/03/2016 JLUIANA MILLER MD Ot I65.23 OCCLUSION AND STENOSIS OF [place] 10/03/2016 JULIANA MILLER MD Ot R94.39 ABNORMAL RESULT OF OTHER CARDIOVASCULAR 10/03/2016 JULIANA MILLER MD, Ot Z72.0 TOBACCO USE 10/03/2016 JULIANA MILLER MD, Ot Z79.899 OTHER GROUP HOME (CURRENT) DRUG THERAPY 10/03/2016 JULIANA MILLER MD, Ot Z86.73 PRSNL HX OF TIA (TIA), AND CEREB INFRC W 10/03/2016 JULIANA MILLER MD Ot Z95.5 PRESENCE OF CORONARY ANGIOPLASTY IMPLANT 10/11/2016 DONYA DONNELLY Ot G45.9 TRANSIENT CEREBRAL ISCHEMIC ATTACK, UNSP 10/11/2016 DONYA DONNELLY Ot G47.33 OBSTRUCTIVE SLEEP APNEA (ADULT) (PEDIATR 10/11/2016 DONYA DONNELLY Ot I25.10 ATHSCL HEART DISEASE OF [place] CORONARY 10/11/2016 DONYA DONNELLY Ot I65.23 OCCLUSION AND STENOSIS OF [place] 10/17/2016 DONYA DONNELLY Ot G45.9 TRANSIENT CEREBRAL ISCHEMIC ATTACK, UNSP 10/17/2016 DONYA DONNELLY Ot G47.33 OBSTRUCTIVE SLEEP APNEA (ADULT) (PEDIATR 10/17/2016 DONYA DONNELLY Ot I25.10 ATHSCL HEART DISEASE OF [place] CORONARY 10/17/2016 DONYA DONNELLY Ot I65.23 OCCLUSION AND STENOSIS OF [place] 10/23/2016 JULIANA MILLER MD Ot E78.5 HYPERLIPIDEMIA, UNSPECIFIED 10/23/2016 JULIANA MILLER MD, Ot G47.33 OBSTRUCTIVE SLEEP APNEA (ADULT) (PEDIATR 10/23/2016 JULIANA MILLER MD Ot I10 ESSENTIAL (PRIMARY) HYPERTENSION 10/23/2016 JULIANA MILLER MD, Ot I25.10 ATHSCL HEART DISEASE OF [place] CORONARY 10/23/2016 JULIANA MILLER MD, Ot I25.84 CORONARY ATHEROSCLEROSIS DUE TO [place] 10/23/2016 JULIANA MILLER MD Ot I34.0 NONRHEUMATIC MITRAL (VALVE) INSUFFICIENC 10/23/2016 JULIANA MILLER MD, Ot I65.23 OCCLUSION AND STENOSIS OF [place] 10/23/2016 JULIANA MILLER MD Ot R94.39 ABNORMAL RESULT OF OTHER CARDIOVASCULAR 10/23/2016 JULIANA MILLER MD, Ot Z72.0 TOBACCO USE 10/23/2016 JULIANA MILLER MD, Ot Z79.899 OTHER BOX CAR WASHER (CURRENT) DRUG THERAPY 10/23/2016 JULIANA MILLER MD, [...] ADHESIVE CAPSULIT SHLDER 11/13/2017 NAZ DO MARIE Coa Ot 718.91 JT DERANGMENT NOS-SHLDER 11/13/2017 NAZ DO MARIE Cao Ot 726.0 ADHESIVE CAPSULIT SHLDER 11/13/2017 NAZ DO MAIRE Cao Ot 840.4 SPRAIN ROTATOR CUFF 11/13/2017 [...] MILLER MD Ot 414.01 CORONARY ATHEROSCLEROSIS OF [place] CORON 11/13/2017 JULIANA MILLER MD Ot 786.09 [...] DONNELLY Ot G45.9 TRANSIENT CEREBRAL ISCHEMIC ATTACK, [facility] 11/13/2017 DONYA DONNELLY Ot G47.33 OBSTRUCTIVE SLEEP APNEA (ADULT) (PEDIATR 11/13/2017 DONYA DONNELLY Ot I25.10 ATHSCL HEART DISEASE OF [place] CORONARY 11/13/2017 DONYA DONNELLY Ot I65.23 OCCLUSION AND STENOSIS OF [place] 11/13/2017 AGUSTIN ROJO DO Ot R06.02 SHORTNESS OF BREATH 11/13/2017 AGUSTIN ROJO DO Ot Z87.891 PERSONAL HISTORY OF NICOTINE DEPENDENCE 11/18/2017 JULIANA MILLER MD, Ot G47.33 OBSTRUCTIVE SLEEP APNEA (ADULT) (PEDIATR 11/18/2017 JULIANA MILLER MD, Ot I25.10 ATHSCL HEART DISEASE OF [place] CORONARY 11/18/2017 JULIANA MILLER MD, Ot I34.0 [...] MD, Ot I25.10 ATHSCL HEART DISEASE OF [place] CORONARY 11/19/2017 JULIANA MILLER MD, Ot I65.29 OCCLUSION AND STENOSIS OF UNSPECIFIED [place] 11/19/2017 UJLIANA MILLER MD, Ot J44.9 CHRONIC OBSTRUCTIVE PULMONARY [...] 11/19/2017 JULIANA MILLER MD, Ot Z79.899 OTHER BOX CAR WASHER (CURRENT) DRUG THERAPY 11/19/2017 JULIANA MILLER MD [...] JULIANA Goncalves Ot 414.01 CORONARY ATHEROSCLEROSIS OF [place] CORON 11/20/2017 JULIANA MILLER MD Ot 786.09 [...] DONNELLY Ot I25.10 ATHSCL HEART DISEASE OF [place] CORONARY 11/20/2017 DONYA DONNELLY Ot I65.23 OCCLUSION AND STENOSIS OF [place] 11/20/2017 AGUSTIN ROJO DO Ot R06.02 SHORTNESS OF BREATH 11/20/2017 AGUSTIN ROJO DO Ot Z87.891 PERSONAL HISTORY OF NICOTINE DEPENDENCE 11/20/2017 JULIANA MILLER MD, Ot G47.33 OBSTRUCTIVE SLEEP APNEA (ADULT) (PEDIATR 11/20/2017 JULIANA MILLER MD, Ot I25.10 ATHSCL HEART DISEASE OF [place] CORONARY 11/20/2017 JULIANA MILLER MD Ot I34.0 [...] ENCOUNTER FOR OTHER PREPROCEDURAL EXAMIN 11/21/2017 JULIANA IMLLER MD, Ot G47.33 OBSTRUCTIVE SLEEP APNEA (ADULT) (PEDIATR 11/21/2017 JULIANA MILLER MD Ot I25.10 ATHSCL HEART DISEASE OF [place] CORONARY 11/21/2017 JULIANA MILLER MD Ot I34.0 [...] Cao Ot V72.84 EXAM PRE-OPERATIVE NOS 11/21/2017 NZA DO MARIE F Ot 727.61 ROTATOR CUFF [...] MILLER MD Ot 414.01 CORONARY ATHEROSCLEROSIS OF [place] CORON 11/21/2017 JULIANA MILLER MD Ot 786.09 [...] DONNELLY Ot I25.10 ATHSCL HEART DISEASE OF [place] CORONARY 11/21/2017 DONYA DONNELLY Ot I65.23 OCCLUSION AND STENOSIS OF [place] 11/21/2017 AGUSTIN ROJO DO Ot R06.02 SHORTNESS OF BREATH 11/21/2017 AGUSTIN ROJO DO Ot Z87.891 PERSONAL HISTORY OF NICOTINE DEPENDENCE 11/21/2017 JULIANA MILLER MD, Ot G47.33 OBSTRUCTIVE SLEEP APNEA (ADULT) (PEDIATR 11/21/2017 JULIANA MILLER MD, Ot I25.10 ATHSCL HEART DISEASE OF [place] CORONARY 11/21/2017 JULIANA MILLER MD Ot I34.0 NONRHEUMATIC MITRAL (VALVE) INSUFFICIENC 11/21/2017 JULIANA MILLER MD Ot I71.2 THORACIC AORTIC ANEURYSM, WITHOUT RUPTUR 11/21/2017 JULIANA MILLER MD Ot J43.9 EMPHYSEMA, UNSPECIFIED 11/21/2017 JULIANA MILLER MD Ot N20.0 CALCULUS OF KIDNEY 11/21/2017 JULIANA MILLER MD Ot R41.0 DISORIENTATION, UNSPECIFIED 11/21/2017 ANGELA ARCE, JULIAAN Goncalves Ot W19.XXXA UNSPECIFIED FALL, INITIAL ENCOUNTER [...] MILLER MD Ot 414.01 CORONARY ATHEROSCLEROSIS OF [place] CORON 11/22/2017 JULIANA MILLER MD Ot 786.09 [...] DONNELLY Ot I25.10 ATHSCL HEART DISEASE OF [place] CORONARY 11/22/2017 DONYA DONNELLY Ot I65.23 OCCLUSION AND STENOSIS OF [place] 11/22/2017 AGUSTIN ROJO DO Ot R06.02 SHORTNESS OF BREATH 11/22/2017 GAUSTIN ROJO DO Ot Z87.891 PERSONAL HISTORY OF NICOTINE DEPENDENCE 11/22/2017 JULIANA MILLER MD, Ot G47.33 OBSTRUCTIVE SLEEP APNEA (ADULT) (PEDIATR 11/22/2017 JULIANA MILLER MD, Ot I25.10 ATHSCL HEART DISEASE OF [place] CORONARY 11/22/2017 JULIANA MILLER MD Ot I34.0 [...] V72.84 EXAM PRE-OPERATIVE NOS 11/22/2017 NAZ DO MAREI Cao Ot 727.61 ROTATOR CUFF RUPTURE 11/22/2017 [...] MILLER MD Ot 414.01 CORONARY ATHEROSCLEROSIS OF [place] CORON 11/22/2017 JULIANA MILLER MD Ot 786.09 [...] DONNELLY Ot I25.10 ATHSCL HEART DISEASE OF [place] CORONARY 11/22/2017 DONYA DONNELLY Ot I65.23 OCCLUSION AND STENOSIS OF [place] 11/22/2017 AGUSTIN ROJO DO Ot R06.02 SHORTNESS OF BREATH 11/22/2017 AGUSTIN ROJO DO Ot Z87.891 PERSONAL HISTORY OF NICOTINE DEPENDENCE 11/22/2017 JULIANA MILLER MD, Ot G47.33 OBSTRUCTIVE SLEEP APNEA (ADULT) (PEDIATR 11/22/2017 JULIANA MILLER MD, Ot I25.10 ATHSCL HEART DISEASE OF [place] CORONARY 11/22/2017 JULIANA MILLER MD, Ot I34.0 [...] 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 11/22/2017 RALPH JASMINE DO Ot F17.210 NICOTINE DEPENDENCE, CIGARETTES, UNCOMPL 11/22/2017 RALPH JASMINE DO Ot F32.9 MAJOR DEPRESSIVE DISORDER, SINGLE EPISOD 11/22/2017 RALPH JASMINE DO Ot G47.33 OBSTRUCTIVE SLEEP APNEA (ADULT) (PEDIATR 11/22/2017 RALPH JASMINE DO Ot I12.0 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 11/22/2017 ARLPH JASMINE DO Ot I25.10 ATHSCL HEART DISEASE OF [place] CORONARY 11/22/2017 RALPH JASMINE DO Ot J43.9 EMPHYSEMA, UNSPECIFIED 11/22/2017 RALPH JASMINE DO Ot K21.9 GASTRO-ESOPHAGEAL REFLUX DISEASE WITHOUT 11/22/2017 RALPH JASMINE DO Ot K44.9 DIAPHRAGMATIC HERNIA WITHOUT OBSTRUCTION 11/22/2017 RALPH JASMINE DO Ot N18.6 END STAGE RENAL DISEASE 11/22/2017 RALPH JASMINE DO Ot Z79.899 OTHER GROUP HOME (CURRENT) DRUG THERAPY 11/22/2017 RALPH JASMINE DO Ot Z86.73 PRSNL HX OF TIA (TIA), AND CEREB INFRC W 11/22/2017 RALPH JASMINE DO Ot Z95.5 PRESENCE OF CORONARY ANGIOPLASTY IMPLANT 11/22/2017 RALPH JASMINE DO Ot Z99.2 DEPENDENCE ON RENAL DIALYSIS 11/27/2017 RALPH JASMINE DO Ot E03.9 HYPOTHYROIDISM, UNSPECIFIED 11/27/2017 RALPH JASMINE DO Ot 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 11/27/2017 RALPH JASMINE DO Ot F17.210 NICOTINE DEPENDENCE, CIGARETTES, UNCOMPL 11/27/2017 RALPH JASMINE DO Ot F32.9 MAJOR DEPRESSIVE DISORDER, SINGLE EPISOD 11/27/2017 RALPH JASMINE DO Ot G47.33 OBSTRUCTIVE SLEEP APNEA (ADULT) (PEDIATR 11/27/2017 RALPH JASMINE DO Ot I12.0 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 11/27/2017 RALPH JASMINE DO Ot I25.10 ATHSCL HEART DISEASE OF [place] CORONARY 11/27/2017 RALPH JASMINE DO Ot J43.9 EMPHYSEMA, UNSPECIFIED 11/27/2017 RALPH JASMINE DO Ot K21.9 GASTRO-ESOPHAGEAL REFLUX DISEASE WITHOUT 11/27/2017 RALPH JASMINE DO Ot K44.9 DIAPHRAGMATIC HERNIA WITHOUT OBSTRUCTION 11/27/2017 RALPH JASMINE DO Ot N18.6 END STAGE RENAL DISEASE 11/27/2017 JASMINE RALPH SIMMONS Ot Z79.899 OTHER GROUP HOME (CURRENT) DRUG THERAPY 11/27/2017 RALPH JASMINE DO Ot Z86.73 PRSNL HX OF TIA (TIA), AND CEREB INFRC W 11/27/2017 RALPH JASMINE DO Ot Z95.5 PRESENCE OF CORONARY ANGIOPLASTY IMPLANT 11/27/2017 RALPH JASMINE DO Ot Z99.2 DEPENDENCE ON RENAL DIALYSIS 12/06/2017 JULIANA MILLER MD Ot G47.33 OBSTRUCTIVE SLEEP APNEA (ADULT) (PEDIATR 12/06/2017 JULIANA MILLER MD Ot I25.10 ATHSCL HEART DISEASE OF [place] CORONARY 12/06/2017 JULIANA MILLER MD Ot I34.0 [...] MD Ot I25.10 ATHSCL HEART DISEASE OF [place] CORONARY 12/11/2017 JULIANA MILLER MD Ot I34.0 [...] MILLER MD Ot 414.01 CORONARY ATHEROSCLEROSIS OF [place] CORON 01/02/2018 JULIANA MILLER MD Ot 786.09 [...] DONNELLY Ot I25.10 ATHSCL HEART DISEASE OF [place] CORONARY 01/02/2018 DONYA DONNELLY Ot I65.23 OCCLUSION AND STENOSIS OF [place] 01/02/2018 AGUSTIN ROJO DO Ot R06.02 SHORTNESS OF BREATH 01/02/2018 AGUSTIN ROJO DO Ot Z87.891 PERSONAL HISTORY OF NICOTINE DEPENDENCE 01/02/2018 JULIANA MILLER MD, Ot G47.33 OBSTRUCTIVE SLEEP APNEA (ADULT) (PEDIATR 01/02/2018 JULIANA MILLER MD, Ot I25.10 ATHSCL HEART DISEASE OF [place] CORONARY 01/02/2018 JULIANA MILLER MD, Ot I34.0 [...] DO Ot I25.10 ATHSCL HEART DISEASE OF [place] CORONARY 01/09/2018 RALPH JAMSINE DO Ot J44.9 CHRONIC OBSTRUCTIVE PULMONARY DISEASE, U 01/09/2018 RALPH JASMINE DO Ot J45.909 UNSPECIFIED ASTHMA, UNCOMPLICATED 01/09/2018 RALPH JASMINE DO Ot K42.0 UMBILICAL HERNIA WITH OBSTRUCTION, WITHO 01/09/2018 RALPH JASMINE DO Ot Z79.02 GROUP HOME (CURRENT) USE OF ANTITHROMBOTI 01/09/2018 RALPH JASMINE DO Ot Z79.899 OTHER BOX CAR WASHER (CURRENT) DRUG THERAPY 01/10/2018 RALPH JASMINE DO Ot F17.210 NICOTINE DEPENDENCE, CIGARETTES, UNCOMPL 01/10/2018 RALPH JASMINE DO Ot G47.33 OBSTRUCTIVE SLEEP APNEA (ADULT) (PEDIATR 01/10/2018 RALPH JASMINE DO Ot I08.1 RHEUMATIC DISORDERS OF BOTH MITRAL AND T 01/10/2018 RALPH JASMINE DO Ot I10 ESSENTIAL (PRIMARY) HYPERTENSION 01/10/2018 RALPH JASMINE DO Ot I25.10 ATHSCL HEART DISEASE OF [place] CORONARY 01/10/2018 RALPH JASMINE DO Ot J44.9 CHRONIC OBSTRUCTIVE PULMONARY DISEASE, U 01/10/2018 RALPH JASMINE DO Ot J45.909 UNSPECIFIED ASTHMA, UNCOMPLICATED 01/10/2018 RALPH JASMINE DO Ot K42.0 UMBILICAL HERNIA WITH OBSTRUCTION, WITHO 01/10/2018 RALPH JASMINE DO Ot Z79.02 GROUP HOME (CURRENT) USE OF ANTITHROMBOTI 01/10/2018 RALPH JASMINE DO Ot Z79.899 OTHER GROUP HOME (CURRENT) DRUG THERAPY 01/15/2018 RALPH JASMINE DO Ot F17.210 NICOTINE DEPENDENCE, CIGARETTES, UNCOMPL 01/15/2018 RALPH JASMINE DO Ot G47.33 OBSTRUCTIVE SLEEP APNEA (ADULT) (PEDIATR 01/15/2018 RALPH JASMINE DO Ot I08.1 RHEUMATIC DISORDERS OF BOTH MITRAL AND T 01/15/2018 RALPH JASMINE DO Ot I10 ESSENTIAL (PRIMARY) HYPERTENSION 01/15/2018 RALPH JASMINE DO Ot I25.10 ATHSCL HEART DISEASE OF [place] CORONARY 01/15/2018 RALPH JASMINE DO Ot J44.9 CHRONIC OBSTRUCTIVE PULMONARY DISEASE, U 01/15/2018 RALPH JASMINE DO Ot J45.909 UNSPECIFIED ASTHMA, UNCOMPLICATED 01/15/2018 RALPH JASMINE DO Ot K42.0 UMBILICAL HERNIA WITH OBSTRUCTION, WITHO 01/15/2018 RALPH JASMINE DO Ot Z79.02 BOX CAR WASHER (CURRENT) USE OF ANTITHROMBOTI 01/15/2018 RALPH JASMINE DO Ot Z79.899 OTHER BOX CAR WASHER (CURRENT) DRUG THERAPY 01/30/2018 PORTIA NOLAN APRN Ot J44.9 CHRONIC OBSTRUCTIVE PULMONARY DISEASE, U 01/30/2018 PORTIA NOLAN APRN Ot R59.0 LOCALIZED ENLARGED LYMPH NODES 02/18/2018 PORTIA NOLAN APRN Ot J44.9 CHRONIC OBSTRUCTIVE PULMONARY DISEASE, U 02/18/2018 PORTIA NOLAN HEALTH BENEFITS SPECIALIST Ot R59.0 LOCALIZED ENLARGED LYMPH NODES 02/26/2018 [...] MARIE Cao Ot E928.9 ACCIDENT NOS 02/28/2018 [facility], MARIE Cao Ot V72.84 EXAM PRE-OPERATIVE NOS 02/28/2018 NAZ , MARIE Cao Ot 727.61 ROTATOR CUFF RUPTURE 02/28/2018 [facility], MARIE Ot V72.84 EXAM PRE-OPERATIVE NOS 02/28/2018 ANGELA ARCE, JULIANA Goncalves Ot 414.00 CORON ATHEROSCLER NOS TYPE VESSEL, NATIV 02/28/2018 JULIANA MILLER MD Ot 424.0 MITRAL VALVE DISORDER 02/28/2018 JULIANA MILLER MD Ot 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 W O CEREBRAL IN 02/28/2018 JULIANA MILLER MD Ot 786.09 RESPIRATORY ABNORM NEC 02/28/2018 JULIANA MILLER MD Ot 414.01 CORONARY ATHEROSCLEROSIS OF [place] CORON 02/28/2018 JULIANA MILLER MD Ot 786.09 [...] DONNELLY Ot I25.10 ATHSCL HEART DISEASE OF [place] CORONARY 02/28/2018 DONYA DONNELLY Ot I65.23 OCCLUSION AND STENOSIS OF BILATERAL [place] 02/28/2018 AGUSTIN ROJO DO Ot R06.02 SHORTNESS OF BREATH 02/28/2018 AGUSTIN ROJO DO Ot Z87.891 PERSONAL HISTORY OF NICOTINE DEPENDENCE 02/28/2018 JULIANA MILLER MD Ot G47.33 OBSTRUCTIVE SLEEP APNEA (ADULT) (PEDIATR 02/28/2018 JULIANA MILLER MD Ot I25.10 ATHSCL HEART DISEASE OF [place] CORONARY 02/28/2018 JULIANA MILLER MD Ot I34.0 [...] CHRONIC OBSTRUCTIVE PULMONARY DISEASE, U 02/28/2018 PORTIA ONLAN APRN Ot R09.02 HYPOXEMIA 02/28/2018 PORTIA NOLAN HEALTH BENEFITS SPECIALIST Ot J44.9 CHRONIC OBSTRUCTIVE PULMONARY DISEASE, U [...] OBSTRUCTIVE PULMONARY DISEASE, U 03/03/2018 PORTIA NOLAN HEALTH BENEFITS SPECIALIST Ot R09.02 HYPOXEMIA 03/04/2018 PORTIA NOLAN HEALTH BENEFITS SPECIALIST Ot J44.9 CHRONIC OBSTRUCTIVE PULMONARY DISEASE, U 03/04/2018 PORTIA NOLAN HEALTH BENEFITS SPECIALIST Ot R09.02 HYPOXEMIA 03/05/2018 PORTIA NOLAN HEALTH BENEFITS SPECIALIST Ot J44.9 CHRONIC OBSTRUCTIVE PULMONARY DISEASE, U 03/05/2018 PORTIA NOLAN HEALTH BENEFITS SPECIALIST Ot R09.02 HYPOXEMIA 03/06/2018 PORTIA NOLAN HEALTH BENEFITS SPECIALIST Ot J44.9 CHRONIC OBSTRUCTIVE PULMONARY DISEASE, U 03/06/2018 PORTIA NOLAN HEALTH BENEFITS SPECIALIST Ot R09.02 HYPOXEMIA 04/01/2018 PORTIA NOLAN HEALTH BENEFITS SPECIALIST Ot J44.9 CHRONIC OBSTRUCTIVE PULMONARY DISEASE, U 04/01/2018 PORTIA NOLAN HEALTH BENEFITS SPECIALIST Ot R09.02 HYPOXEMIA 04/03/2018 PORTIA NOLAN HEALTH BENEFITS SPECIALIST Ot J44.9 CHRONIC OBSTRUCTIVE PULMONARY DISEASE, U 04/03/2018 PORTIA NOLAN HEALTH BENEFITS SPECIALIST Ot R09.02 HYPOXEMIA 04/08/2018 PORTIA NOLAN HEALTH BENEFITS SPECIALIST Ot J44.9 CHRONIC OBSTRUCTIVE PULMONARY DISEASE, U 04/08/2018 PORTIA NOLAN HEALTH BENEFITS SPECIALIST Ot R09.02 HYPOXEMIA 04/10/2018 PORTIA NOLAN HEALTH BENEFITS SPECIALIST Ot J44.9 CHRONIC OBSTRUCTIVE PULMONARY DISEASE, U 04/10/2018 PORTIA NOLAN HEALTH BENEFITS SPECIALIST Ot R09.02 HYPOXEMIA 04/17/2018 PORTIA NOLAN HEALTH BENEFITS SPECIALIST Ot J44.9 CHRONIC OBSTRUCTIVE PULMONARY DISEASE, U 04/17/2018 LORRAINE NOLANINE E HEALTH BENEFITS SPECIALIST Ot R09.02 HYPOXEMIA 04/22/2018 LORRAINE NOLANINE E HEALTH BENEFITS SPECIALIST Ot J44.9 CHRONIC OBSTRUCTIVE PULMONARY DISEASE, U 04/22/2018 LORRAINE NOLANINE E HEALTH BENEFITS SPECIALIST Ot R09.02 HYPOXEMIA 04/24/2018 LORRAINE NOLANINE E HEALTH BENEFITS SPECIALIST Ot J44.9 CHRONIC OBSTRUCTIVE PULMONARY DISEASE, U 04/24/2018 OVIDIOLORRAINE CANOINE E HEALTH BENEFITS SPECIALIST Ot R09.02 HYPOXEMIA 04/27/2018 OVIDIO, PORTIA E HEALTH BENEFITS SPECIALIST Ot J44.9 CHRONIC OBSTRUCTIVE PULMONARY DISEASE, U 04/27/2018 LORRAINE NOLANINE E HEALTH BENEFITS SPECIALIST Ot R09.02 HYPOXEMIA 04/29/2018 LORRAINE NOLANINE E HEALTH BENEFITS SPECIALIST Ot J44.9 CHRONIC OBSTRUCTIVE PULMONARY DISEASE, U 04/29/2018 LORRAINE NOLANINE E HEALTH BENEFITS SPECIALIST Ot R09.02 HYPOXEMIA 04/29/2018 PORTIA NOLAN E HEALTH BENEFITS SPECIALIST Ot J44.9 CHRONIC OBSTRUCTIVE PULMONARY DISEASE, U 04/29/2018 LORRAINE NOLANINE E HEALTH BENEFITS SPECIALIST Ot R09.02 HYPOXEMIA 04/29/2018 LORRAINE NOLANINE E HEALTH BENEFITS SPECIALIST Ot J44.9 CHRONIC OBSTRUCTIVE PULMONARY DISEASE, U 04/29/2018 LORRAINE NOLANINE E HEALTH BENEFITS SPECIALIST Ot R09.02 HYPOXEMIA 05/01/2018 LORRAINE NOLANINE E HEALTH BENEFITS SPECIALIST Ot J44.9 CHRONIC OBSTRUCTIVE PULMONARY DISEASE, U 05/01/2018 LORRAINE NOLANINE E HEALTH BENEFITS SPECIALIST Ot R09.02 HYPOXEMIA 06/01/2018 PORTIA NOLAN E HEALTH BENEFITS SPECIALIST Ot J44.9 CHRONIC OBSTRUCTIVE PULMONARY DISEASE, U 06/01/2018 LORRAINE NOLANINE E HEALTH BENEFITS SPECIALIST Ot R09.02 HYPOXEMIA 06/20/2018 OVIDIO PORTIA E HEALTH BENEFITS SPECIALIST Ot J44.9 CHRONIC OBSTRUCTIVE PULMONARY DISEASE, U 06/20/2018 LORRAINE NOLANINE Debbie HEALTH BENEFITS SPECIALIST Ot R09.02 HYPOXEMIA 07/23/2018 PORTIA NOLAN HEALTH BENEFITS SPECIALIST Ot I25.10 ATHSCL HEART DISEASE OF [place] CORONARY 07/23/2018 LORRAINE NOLANINE E HEALTH BENEFITS SPECIALIST Ot I71.9 AORTIC ANEURYSM OF UNSPECIFIED SITE, WIT 07/23/2018 PORTIA NOLAN E HEALTH BENEFITS SPECIALIST Ot J43.9 EMPHYSEMA, UNSPECIFIED 07/23/2018 PORTIA NOLAN HEALTH BENEFITS SPECIALIST Ot R59.9 ENLARGED LYMPH NODES, UNSPECIFIED 07/23/2018 PORTIA NOLAN HEALTH BENEFITS SPECIALIST Ot Z87.891 PERSONAL HISTORY OF NICOTINE DEPENDENCE 07/27/2018 PORTIA NOLAN HEALTH BENEFITS SPECIALIST Ot J44.9 CHRONIC OBSTRUCTIVE PULMONARY DISEASE, U 07/27/2018 PORTIA NOLAN HEALTH BENEFITS SPECIALIST Ot R09.02 HYPOXEMIA 07/28/2018 PORTIA NOLAN HEALTH BENEFITS SPECIALIST Ot J44.9 CHRONIC OBSTRUCTIVE PULMONARY DISEASE, U 07/28/2018 PORTIA NOLAN HEALTH BENEFITS SPECIALIST Ot R09.02 HYPOXEMIA 08/02/2018 PORTIA NOLAN HEALTH BENEFITS SPECIALIST Ot J44.9 CHRONIC OBSTRUCTIVE PULMONARY DISEASE, U 08/02/2018 PORTIA NOLAN HEALTH BENEFITS SPECIALIST Ot R09.02 HYPOXEMIA 08/14/2018 PORTIA NOLAN HEALTH BENEFITS SPECIALIST Ot I25.10 ATHSCL HEART DISEASE OF [place] CORONARY 08/14/2018 PORTIA NOLAN HEALTH BENEFITS SPECIALIST Ot I71.9 AORTIC ANEURYSM OF UNSPECIFIED SITE, WIT 08/14/2018 PORTIA NOLAN HEALTH BENEFITS SPECIALIST Ot J43.9 EMPHYSEMA, UNSPECIFIED 08/14/2018 PORTIA NOLAN HEALTH BENEFITS SPECIALIST Ot R59.9 ENLARGED LYMPH NODES, UNSPECIFIED 08/14/2018 PORTIA NOLAN HEALTH BENEFITS SPECIALIST Ot Z87.891 PERSONAL HISTORY OF NICOTINE DEPENDENCE [...] MD Ot I25.10 ATHSCL HEART DISEASE OF [place] CORONARY 08/15/2018 IAN PA MD Ot J18.9 [...] MD Ot I25.10 ATHSCL HEART DISEASE OF [place] CORONARY 08/16/2018 IAN PA MD Ot J18.9 [...] APRN Ot I25.10 ATHSCL HEART DISEASE OF [place] CORONARY 08/20/2018 PORTIA NOLAN APRN Ot I71.9 [...] MD Ot I25.10 ATHSCL HEART DISEASE OF [place] CORONARY 10/11/2018 CARLITOS MARLOW MD Ot J18.1 [...] MD Ot I25.10 ATHSCL HEART DISEASE OF [place] CORONARY 10/11/2018 CARLITOS MARLOW MD Ot J18.1 [...] MD Ot I25.10 ATHSCL HEART DISEASE OF [place] CORONARY 10/11/2018 CARLITOS MARLOW MD Ot J18.1 [...] - 09:25 MRSA SCREEN RESULT MRSA ISOLATED [facility] Automated blood complete blood count (hemogram) panel [...] INFLUENZA A AND B ANTIGENS BY IA [facility] Blood manual differential performed detection - 10/08/18 18:19 Blood monocytes/100 leukocytes 3 % NRG Manual blood segmented neutrophils/100 leukocytes 84 % NRG Blood band neutrophils/100 leukocytes 7 % NRG Manual blood lymphocytes/100 leukocytes 6 % NR Blood erythrocyte morphology finding identification NORMAL [facility] Blood lactic acid measurement (moles/volume) - 10/08/18 [...] 10/08/18 20:56 Sputum Gram stain 2-28-2019, 1605 [facility] Bacterial sputum culture - 10/08/18 20:56 QUANTITY [...] Status Pt. Type Provider Facility Loc./Unit Complaint [id number] 10/08/2018 19:40:00 10/11/2018 10:00:00 DIS Inpatient KASHMIR ARCE, CARLITOS White [facility] 4TH COPD EXACERBATION, POSSILBE PNEUMONIA,HPOXIA [id number] 09/12/2018 07:23:00 09/12/2018 23:59:59 CLS Preadmit JULIANA MILLER MD [facility] CARD CAD,DYSPNEA [id number] 09/10/2018 09:25:00 09/10/2018 23:59:59 CLS Outpatient MARCY KENNY DO [facility] RAD K21.9 GASTRO- ESOPHAGEAL REFLUX DISEASE [id number] 08/14/2018 10:25:00 08/16/2018 14:09:00 DIS Inpatient EMBER ARCE, IAN Morris [facility] 4TH INFLUENZA SYNDROME RESP DISTRESS [id number] 07/28/2018 08:15:00 07/28/2018 23:59:59 CLS Preadmit PORTIA NOLAN HE[employer] BENEFITS SPECIALIST [facility] PULM J44.9 COPD [id number] 04/28/2018 08:00:00 07/27/2018 00:01:00 DIS Outpatient PORTIA NOLAN HE[facility] BENEFITS SPECIALIST [facility] PULM J44.9 COPD [id number] 07/21/2018 09:13:00 07/21/2018 23:59:59 CLS Outpatient PORTIA NOLAN HE[facility] BENEFITS SPECIALIST [facility] RAD ENLARGED LYMPH NODES [id number] 01/27/2018 08:04:00 04/27/2018 00:01:00 DIS Outpatient PORTIA NOLAN HEALTH BENEFITS SPECIALIST [facility] PULM J44.9 COPD [id number] 02/28/2018 11:07:00 02/28/2018 23:59:59 CLS Outpatient MARCY KENNY DO [facility] RAD HIP PAIN [id number] 01/29/2018 10:09:00 01/29/2018 23:59:59 CLS Outpatient PORTIA NOLAN HEALTH BENEFITS SPECIALIST [facility] RAD R59.9 LYMPH NODE ENLARGEMENT [id number] 01/09/2018 06:00:00 01/09/2018 12:20:00 DIS Outpatient RALPH JASMINE DO [facility] SDC UMBILICAL HERNIA [id number] 01/02/2018 09:33:00 01/02/2018 10:20:00 DIS Outpatient RALPH JASMINE DO [facility] PREOP UMBILICAL HERNIA [id number] 11/22/2017 12:49:00 11/22/2017 15:30:00 DIS Outpatient RALPH JASMINE DO [facility] ENDO REFLUX, GASTROINTESTINAL BLEEDING [id number] 11/20/2017 05:40:00 11/20/2017 12:13:00 DIS Outpatient RALPH JASMINE DO [facility] PREOP REFLUX, GASTROINTESTINAL BLEEDING [id number] 11/18/2017 14:58:00 11/19/2017 17:50:00 DIS Inpatient JULIANA MILLER MD [facility] 4TH SOB [id number] 11/15/2017 10:39:00 11/15/2017 23:59:59 CLS Outpatient JULIANA MILLER MD [facility] RAD CAD,CONFUSION [id number] 02/27/2017 15:06:00 02/27/2017 23:59:59 CLS Outpatient AGUSTIN ROJO DO [facility] RT DYSPNEA R06.02 [id number] 02/22/2017 16:45:00 02/22/2017 16:45:00 CAN Preadmit AGUSTIN ROJO DO [facility] RT DYSPNEA,HX OF TOBACCO USE, JOY ON CPAP [id number] 10/03/2016 08:48:00 10/03/2016 15:30:00 DIS Outpatient JULIANA MILLER MD [facility] CATH ANM STRESS TEST,CAD [id number] 09/19/2016 08:13:00 09/19/2016 23:59:59 CLS Outpatient DONYA DONNELLY [facility] CARD CAD,JOY ON CPAP,TIA [id number] 08/14/2016 08:51:00 08/14/2016 15:30:00 DIS Outpatient RALPH JASMINE DO [facility] SDC OCCULT STOOLS [id number] 08/09/2016 05:47:00 08/09/2016 13:50:00 DIS Outpatient RALPH JASMINE DO [facility] PREOP OCCULT STOOLS [id number] 12/05/2015 10:15:00 12/05/2015 23:59:59 CLS Preadmit ZOYA SIMMONSMARCY [facility] PULM COPD [id number] 09/05/2015 10:15:00 12/04/2015 00:01:00 DIS Outpatient ZOYA MARCY SIMMONS [facility] PULM COPD [id number] 09/05/2015 14:31:00 09/05/2015 23:59:59 CLS Outpatient KENNY MARCY SIMMONS [facility] RAD ABD PAIN [id number] 08/08/2015 14:00:00 08/16/2015 13:50:00 DIS Inpatient ZOYA SIMMONSMARCY [facility] 4TH PNEUMONIA [id number] 04/19/2015 09:57:00 04/19/2015 10:38:00 DIS Outpatient ASH ALARCON MD [facility] REHAB CERVICAL SPONDYLOSIS [id number] 01/24/2015 14:36:00 01/24/2015 23:59:59 CLS Outpatient MARIE CHILDS DO [facility] RAD DDD [id number] 11/05/2014 09:53:00 11/09/2014 11:51:00 DIS Outpatient MARIE CHILDS DO [facility] REHAB S/P R SHLD SCOPE WITH SAD AND DEBRIDEMENT [id number] 09/28/2014 12:27:00 09/28/2014 23:59:59 CLS Outpatient MARIE CHILDS DO [facility] RIGHT SHOULDER TORN ROTATOR CUFF [id number] 09/24/2014 06:15:00 09/24/2014 23:59:59 CLS Outpatient MARIE CHILDS DO [facility] PREOP RIGHT SHOULDER TORN ROTATOR CUFF [id number] 08/31/2014 08:58:00 08/31/2014 11:36:00 DIS Outpatient MARIE CHILDS DO [facility] RIGHT SHOULDER ROTATOR CUFF TEAR [id number] 08/27/2014 05:50:00 08/27/2014 23:59:59 CLS Outpatient MARIE CHILDS DO [facility] PREOP RIGHT SHOULDER ROTATOR CUFF TEAR [id number] 08/25/2014 12:14:00 08/25/2014 23:59:59 CLS Outpatient JULIANA MILLER MD [facility] CARD CAD,ANN,DYSPNEA [id number] 08/25/2014 09:05:00 08/25/2014 23:59:59 CLS Outpatient JULIANA MILLER MD [facility] CARD CAD [id number] 07/21/2014 05:50:00 07/21/2014 23:59:59 CLS Outpatient MARIE CHILDS DO [facility] PREOP RIGHT SHOULDER ROTATOR CUFF TEAR [id number] 07/14/2014 17:15:00 07/16/2014 10:00:00 DIS Inpatient MARCY KENNY DO [facility] 4TH TIA CONFUSION DIFFICULT WORD FINDING [id number] 06/28/2014 13:45:00 07/07/2014 11:55:00 DIS Outpatient MARIE CHILDS DO [facility] REHAB R SHOULDER ADHESIVE CAPSULITIS [id number] 06/23/2014 07:52:00 06/23/2014 23:59:59 CLS Outpatient MARIE CHILDS DO [facility] RAD RT SHOULDER ADHEISIVE CAPSULITIS [id number] 06/21/2014 12:37:00 06/21/2014 23:59:59 CLS Outpatient NAZ SIMMONS MARIE Nash [facility] RAD RT SHOULDER ADHEISIVE CAPSULITIS [id number] 04/21/2014 10:59:00 04/21/2014 23:59:59 CLS Outpatient AGUSTIN ROJO DO [facility] RAD DYSPNEA,PE,RENAL FAILURE [id number] 03/03/2014 13:57:00 03/10/2014 15:35:00 DIS Inpatient TONI KEVIN MD [facility] IRF WEAKNESS [id number] 02/11/2014 10:19:00 02/13/2014 13:15:00 DIS Inpatient MARCY KENNY DO [facility] ICU PROBABLE RL PNEUMONIA [id number] 02/08/2014 12:50:00 02/08/2014 23:59:59 CLS Outpatient MARCY KENNY DO [facility] SDC OSTEO [id number] 07/21/2019 10:15:00 PEN Preadmit PORTIA NOLAN APRN [facility] RAD DYSPNEA,NICOTINE DEPENDENCE, PLEURAL EFFUSION [id number] 09/05/2015 10:15:00 Document Registration [id number] 10/28/2014 13:24:00 Document Registration [id number] 10/31/2012 13:05:00 Document Registration [id number] 11/09/2011 12:32:00 Document Registration [id number] 10/24/2010 12:55:00 Document Registration [email or web address] 04/19/2015 09:57:51 ACT Document Registration
[2018-10-27 23:50] VITALS: BP 118/66
--- NOTE | 2018-10-27 23:50 | NUR ---
MARCY BROCK admitted to room 432-1, with an admitting diagnosis of COPD Exacerbation, bibasilar infiltrates, and sepsis, on 10/27/18 from ED via stretcher, accompanied by .MARCY BROCK introduced to surroundings, call light, bed controls, phone, TV, temperature control, lights, meal times, smoking policy, visitor policy, side rail policy, bathrooms and showers. Patient Rights given to patient in the handbook. MARCY BROCK verbalizes understanding that [facility] is not responsible for the loss or damage to any personal effects or valuables that are kept in the patients posession during their hospitalization. MARCY BROCK verbalizes understanding of Interdisciplinary Patient Education. Patient and/or family were informed about the Rapid Response Team and its purpose. Plan of care discussed with patient, no questions or concerns at this time.
[2018-10-28] VITALS (9 sets, daily range): BP systolic 104–146; BP diastolic 56–83
[2018-10-28] MEDS ORDERED: RT-ALBUTEROL/IPRATROPIUM 3 ML (DUONEB) VIAL INH PRN (00:45)
--- NOTE | 2018-10-28 02:44 | NUR ---
Substance Abuse Therapist consulted about gentamycin one time dose order for pt. This RN advised to pass on to dayshift as this medication must be mixed by pharmacy. Will pass on in shift report to day RN.
[2018-10-28] MEDS ORDERED: CATHETER FLUSH 10 ML SYR IV PRN (02:45)
[2018-10-28] MEDS ORDERED: GENTAMICIN 100 MG/NS 100 ML IVPB IV ONE ×2 (02:45)
[2018-10-28] MEDS ORDERED: IBUPROFEN 800 MG (MOTRIN) TAB PO PRN (02:45)
[2018-10-28] MEDS: RT-ALBUTEROL/IPRATROPIUM 3 ML (DUONEB) VIAL INH SCH ×6 (03:06→22:54)
[2018-10-28] MEDS: methylPREDNISolone 125 MG (Solu-MEDROL) VIAL IV SCH ×3 (05:36→18:49)
[2018-10-28] MEDS: CATHETER FLUSH 10 ML SYR IV SCH ×3 (05:36→22:53)
[2018-10-28 05:39] LABS: BASOPHILS % (AUTO) 0 % (0-10); EOSINOPHILS % (AUTO) 0 % (0-10); HEMATOCRIT 37 % (40-54); HEMOGLOBIN 12.2 G/DL (13.3-17.7); LYMPHOCYTES # (AUTO) 0.4 X 10^3 (1.0-4.0); LYMPHOCYTES % (AUTO) 3 % (12-44); MEAN CORPUSCULAR HEMOGLOBIN 32 PG (25-34); MEAN CORPUSCULAR HGB CONC 33 G/DL (32-36); MEAN CORPUSCULAR VOLUME 98 FL (80-99); MEAN PLATELET VOLUME 9.4 FL (7.4-10.4); MONOCYTES # (AUTO) 0.1 X 10^3 (0.0-1.0); MONOCYTES % (AUTO) 1 % (0-12); NEUTROPHILS # (AUTO) 13.3 X 10^3 (1.8-7.8); NEUTROPHILS % (AUTO) 96 % (42-75); PLATELET COUNT 237 10^3/uL (130-400); RED CELL DISTRIBUTION WIDTH 15.5 % (10.0-14.5); WHITE BLOOD COUNT 13.8 10^3/uL (4.3-11.0)
[2018-10-28 06:00] LABS: ALBUMIN 3.5 GM/DL (3.2-4.5); BILIRUBIN,TOTAL 0.6 MG/DL (0.1-1.0); CALCIUM 9.3 MG/DL (8.5-10.1); CREATININE SERUM 1.48 MG/DL (0.60-1.30); POTASSIUM 4.1 MMOL/L (3.6-5.0); TOTAL PROTEIN 6.6 GM/DL (6.4-8.2)
--- NOTE | 2018-10-28 06:32 | Diagnostic Imaging Report ---
INDICATION: Basilar infiltrates COMPARISON: 10/09/2018 FINDINGS: Single view of the chest demonstrates cardiac enlargement with unchanged interstitial infiltrates likely chronic. There is no pneumothorax, effusion or consolidation. Osseous structures are stable. IMPRESSION: Stable cardiac enlargement with bilateral interstitial infiltrates. Dictated by: Dictated on workstation # [id number]
--- NOTE | 2018-10-28 07:10 | NUR ---
PTD GENTAMCIN LABS: SCR 1.48 (1.44) PLAN: 7MG/KG BASED ON ADJUSTED BODY WEIGHT (86KG) ~ 600MG IV Q24 HOURS, WE WILL CHECK A 10 HOUR RANDOM LEVEL AND ADJUST BASED ON FAZAL NOMOGRAM. PATIENT DID NOT RECEIVE 100MG IV FOR AFTER HOURS DOSING (CONSTRUCTION ADMINISTRATOR PHARMACIST NOT NOTIFIED).
[2018-10-28] MEDS: NS IV SCH (08:10)
[2018-10-28] MEDS: GENTAMICIN IV SCH (08:10)
[2018-10-28] MEDS ORDERED: AZITHROMYCIN 500 MG/NS 250 ML IVPB IV SCH ×2 (09:00)
[2018-10-28] MEDS: NICOTINE 21 MG (NICODERM) PATCH TD SCH (09:10)
[2018-10-28] MEDS: guaiFENesin (MUCINEX) 600 MG TAB PO SCH ×2 (09:10→20:39)
[2018-10-28] MEDS ORDERED: PANT40TA2 PO (09:53)
[2018-10-28] MEDS ORDERED: ASPI-983 PO (09:58)
--- NOTE | 2018-10-28 10:02 | NUR ---
HAD A LIST FAXED OVER FROM THE [facility] AND WENT OVER THAT WITH THE PATIENT. HE VERIFIED HOW HE TAKES THEM AND STATES NOTHING HAS CHANGED SINCE HE LAST VISIT EXCEPT HE COMPLETED THE ANTIBIOTICS AND PROBIOTIC. HE ALSO STATES HIS ASPIRIN WAS DECREASED FROM 325MG TO 81MG DAILY. SEE LIST ON CHART FROM [place] FOR DETAILS
[2018-10-28] MEDS: ACETAMINOPHEN 500 MG TAB (TYLENOL) PO PRN ×2 (10:45→15:56)
--- NOTE | 2018-10-28 15:05 | History & Physical-Hospitalist ---
History of Present Illness HPI/Chief Complaint The patient is a 73-year-old white male well-known to me. He has had multiple previous admissions for lung related problems. He has finally reached the point where he is ready to attempt this ceasing his cigarette habit. He was last admitted here on 10/08/18. He also had an admission in August. He reports that last night after having a relatively good day for him and while at home alone he sat down and suddenly felt extremely ill. His returned home to find him unable to get up out of the chair. On arrival here his temperature was 102.2. His white blood count was 14.7. His creatinine was 1.4 his UA was negative. His chest x-ray showed a similar interstitial fibrosis pattern as compared to his last admission. Source: patient Date Seen 10/28/18 Time Seen by a Provider: 15:02 Attending Physician Darek Marlow MD PCP Abdias De León DO Referring Physician Date of Admission Oct 27, 2018 at 22:40 Home Medications & Allergies Home Medications Reviewed patient Home Medication Reconciliation performed by pharmacy medication reconciliations electrical controls technician and/or nursing. Patients Allergies have been reviewed. Allergies Allergies Coded Allergies No Known Drug Allergies (Verified11/18/17) Past Jphphsq-Gfybqv-Ryefsg Hx Patient Social History Alcohol Use: Denies Use Recreational Drug Use: No Smoking Status: Current Everyday Smoker (1 PPD) Type Used: Cigarettes Recent Foreign Travel: No Contact w/other who traveled: No Recent Hopitalizations: Yes Recent Infectious Disease Expo: No Immunizations Up To Date Tetanus Booster (TDap): More than 5yrs Date of Pneumonia Vaccine: Mar 12, 2015 Date of Influenza Vaccine: Jun 18, 2018 Seasonal Allergies Seasonal Allergies: Yes Past Medical History Surgeries: Appendectomy, Cardiac, Coronary Stent, Gallbladder, Neurological, Orthopedic, Vascular Surgery Currently Using CPAP: Yes Currently Using BIPAP: No Cardiac: Coronary Artery Disease, High Cholesterol, Hypertension Neurological: Stroke, TIA, Traumatic Brain Injury Reproductive: No Sexually Transmitted Disease: No HIV/AIDS: No Genitourinary: Renal Failure Gastrointestinal: Abdominal Hernia, Gastroesophageal Reflux, Gastrointestinal Bleed, Chronic Constipation Musculoskeletal: Degenerate Disk Disease, Osteoporosis, Arthritis, Back Injury , Chronic Back Pain Endocrine: Hypothyroidsim, Diabetes, Non-Insulin dep HEENT: Tinnitis, Eye Injury, Glaucoma Loss of Vision: Right Hearing Impairment: Hard of Hearing Psychosocial: Depression History of Blood Disorders: No Adverse Reaction to Blood Gomez: No Family History Alcoholism 19 FATHER, Cancer Family history: Asthma 19 MOTHER Family history: Osteoporosis 19 MOTHER Hearing loss 19 MOTHER No Pertinent Family Hx Physical Exam Physical Exam Vital Signs Vital Signs - First Documented 10/27/18 10/27/18 10/28/18 21:06 23:46 00:28 Temp 102.2 Pulse 85 Resp 24 B/P (MAP) 146/83 (104) O2 Delivery Room Air O2 Flow Rate 3.00 FiO2 21 Capillary Refill : Less Than 3 Seconds Height, Weight, BMI Height: 5'11.00" Weight: 225lbs. 5.0oz. 102.950782hb; 31.3 BMI Method:Stated Results Results/Procedures Labs Laboratory Tests 10/27/18 21:24 10/28/18 05:20 Patient resulted labs reviewed. Clinical Quality Measures DVT/VTE Risk/Contraindication: Risk Factor Score Per Nursin RFS Level Per Nursing on Admit: 4+=Very High DAREK MARLOW MD Oct 28, 2018 15:05
--- NOTE | 2018-10-28 19:34 | NUR ---
GENTAMICIN RANDOM LEVEL = 5.2 (BETWEEN 9 - 10 HR LEVEL) OK TO CONTINUE CURRENT DOSE AND FREQUENCY
[2018-10-28] MEDS: CEFEPIME 2,000 MG/SWFI 20 ML IV PUSH IV SCH ×2 (20:40)
[2018-10-29] MEDS: ACETAMINOPHEN 500 MG TAB (TYLENOL) PO PRN (00:58)
[2018-10-29] MEDS: RT-ALBUTEROL/IPRATROPIUM 3 ML (DUONEB) VIAL INH SCH ×3 (02:03→11:05)
[2018-10-29 03:40] VITALS: BP 120/64
[2018-10-29] MEDS: CATHETER FLUSH 10 ML SYR IV SCH ×3 (05:38→20:38)
[2018-10-29 08:00] VITALS: BP 130/68
--- NOTE | 2018-10-29 09:13 | Progress Note-Hospitalist ---
Subjective HPI/CC On Admission Date Seen by Provider: Oct 29, 2018 Time Seen by Provider: 09:45 The patient is a 73-year-old white male well-known to me. He has had multiple previous admissions for lung related problems. He has finally reached the point where he is ready to attempt this ceasing his cigarette habit. He was last admitted here on 10/08/18. He also had an admission in August. He reports that last night after having a relatively good day for him and while at home alone he sat down and suddenly felt extremely ill. His returned home to find him unable to get up out of the chair. On arrival here his temperature was 102.2. His white blood count was 14.7. His creatinine was 1.4 his UA was negative. His chest x-ray showed a similar interstitial fibrosis pattern as compared to his last admission. Subjective/Events-last exam Pt doing better but still having cough. Smoking cessation discussed. at the bedside. Bronchoscopy scheduled for tomorrow per Dr. Gomez. Gram negative on sputum culture. Had done well but had fever and chills after he left the hospital last week. This sort of issue continues to be a problem. I reviewed and restarted all home medications. Review of Systems General: Fatigue, Malaise Pulmonary: Dyspnea, Cough Focused Exam Lactate Level 10/27/18 21:24: Lactic Acid Level 1.62 Objective Exam Vital Signs Vital Signs Date Time Temp Pulse Resp B/P (MAP) Pulse Ox O2 Delivery O2 Flow Rate FiO2 10/29/18 20:15 99.4 75 18 121/63 (82) 94 Nasal Cannula 3.00 10/28/18 03:07 92 Capillary Refill : Less Than 3 Seconds General Appearance: No Apparent Distress, WD/WN, Chronically ill, Obese Respiratory: Chest Non Tender, No Accessory Muscle Use, No Respiratory Distress , Crackles, Decreased Breath Sounds Cardiovascular: Regular Rate, Rhythm, No Edema, No Gallop, No JVD, No Murmur, Normal Peripheral Pulses Extremity: Normal Capillary Refill, Normal Inspection, Normal Range of Motion, Non Tender, No Calf Tenderness, No Pedal Edema Neurologic/Psychiatric: Alert, Oriented x3, No Motor/Sensory Deficits, Normal Mood/Affect Results/Procedures Lab Patient resulted labs reviewed. Assessment/Plan Assessment and Plan Assess & Plan/Chief Complaint Assessment: Recurrent pneumonia presumed resistant organism likely Pseudomonas CAD AF CRI JOY Plan: Bronchoscopy in morning Abx Await sputum Cx Diagnosis/Problems Diagnosis/Problems (1) Infection of drug-resistant bacteria Status: Acute (2) Sepsis Status: Resolved Qualifiers: Sepsis type: sepsis due to unspecified organism Qualified Codes: A41.9 - Sepsis, unspecified organism (3) Fever Status: Resolved Qualifiers: Fever type: unspecified Qualified Codes: R50.9 - Fever, unspecified Resolution Date/Time: 10/29/18 @ 21:04 (4) Hypothyroidism Status: Chronic Qualifiers: Hypothyroidism type: acquired Qualified Codes: E03.9 - Hypothyroidism, unspecified (5) Tobacco abuse Status: Chronic (6) Essential (primary) hypertension Status: Chronic (7) COPD (chronic obstructive pulmonary disease) Status: Chronic (8) COPD exacerbation Status: Acute Clinical Quality Measures DVT/VTE Risk/Contraindication: Risk Factor Score Per Nursin RFS Level Per Nursing on Admit: 4+=Very High ANNIA SWIFT DO Oct 29, 2018 09:13
[2018-10-29] MEDS: NS IV SCH (09:26)
[2018-10-29] MEDS: AZITHROMYCIN 250 MG TAB (ZITHROMAX) PO SCH ×2 (09:26→15:44)
[2018-10-29] MEDS: guaiFENesin (MUCINEX) 600 MG TAB PO SCH ×2 (09:26→20:37)
[2018-10-29] MEDS: NICOTINE 21 MG (NICODERM) PATCH TD SCH (09:26)
[2018-10-29] MEDS: GENTAMICIN IV SCH (09:26)
[2018-10-29 12:00] VITALS: BP 138/72
[2018-10-29] MEDS ORDERED: CALCIUM CARBONATE 500 MG (TUMS) TAB.CHEW PO PRN (12:00)
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
[2018-10-29] MEDS: OMEGA 3 (FISH OIL) 1000 MG CAP PO SCH (13:05)
[2018-10-29] MEDS: SUCRALFATE 1 GM (CARAFATE) TAB PO SCH ×2 (16:49→20:37)
[2018-10-29 16:50] VITALS: BP 128/74
[2018-10-29] MEDS: RT-ALBUTEROL/IPRATROPIUM 3 ML (DUONEB) VIAL IH SCH ×2 (16:54→19:40)
[2018-10-29] MEDS: LEVOTHYROXINE 112 MCG (LEVOTHROID) TAB PO SCH (18:27)
[2018-10-29] MEDS: LEVOTHYROXINE 25 MCG (LEVOTHROID) TAB PO SCH (18:28)
[2018-10-29] MEDS: RT-ADVAIR HFA 115/21 MCG PER PUFF IH SCH (19:40)
[2018-10-29 20:15] VITALS: BP 121/63
[2018-10-29] MEDS: SIMvastatin 10 MG (ZOCOR) TAB PO SCH (20:37)
[2018-10-29] MEDS: LATANOPROST 0.005% (XALATAN) OPHTH SOLN 2.5 ML OU SCH (20:37)
[2018-10-29] MEDS: DOCUSATE SODIUM 100 MG (COLACE) CAP PO SCH (20:37)
[2018-10-29] MEDS: CEFEPIME 2,000 MG/SWFI 20 ML IV PUSH IV SCH ×2 (20:37)
[2018-10-29] MEDS: GABAPENTIN 300 MG (NEURONTIN) CAP PO SCH (20:37)
[2018-10-29] MEDS: FAMOTIDINE 20 MG (PEPCID) TABLET PO SCH (20:37)
[2018-10-30] VITALS: BP 119/66
[2018-10-30 04:00] VITALS: BP 119/68
[2018-10-30] MEDS: SUCRALFATE 1 GM (CARAFATE) TAB PO SCH ×4 (05:25→21:38)
[2018-10-30] MEDS: CATHETER FLUSH 10 ML SYR IV SCH ×3 (05:25→21:41)
[2018-10-30] MEDS: VITAMIN D3 1,000 UNITS (CHOLECALCIFEROL) TABLET PO SCH (05:25)
[2018-10-30] MEDS: OMEGA 3 (FISH OIL) 1000 MG CAP PO SCH (05:25)
[2018-10-30] MEDS: ASCORBIC ACID (VIT C) 500 MG TABLET PO SCH (05:25)
[2018-10-30 06:43] LABS: BASOPHILS % (AUTO) 0 % (0-10); EOSINOPHILS % (AUTO) 0 % (0-10); HEMATOCRIT 36 % (40-54); LYMPHOCYTES # (AUTO) 2.1 X 10^3 (1.0-4.0); LYMPHOCYTES % (AUTO) 19 % (12-44); MEAN CORPUSCULAR HEMOGLOBIN 32 PG (25-34); MEAN CORPUSCULAR HGB CONC 33 G/DL (32-36); MEAN CORPUSCULAR VOLUME 97 FL (80-99); MEAN PLATELET VOLUME 9.5 FL (7.4-10.4); MONOCYTES # (AUTO) 0.7 X 10^3 (0.0-1.0); MONOCYTES % (AUTO) 7 % (0-12); NEUTROPHILS # (AUTO) 8.3 X 10^3 (1.8-7.8); NEUTROPHILS % (AUTO) 75 % (42-75); PLATELET COUNT 234 10^3/uL (130-400); RED CELL DISTRIBUTION WIDTH 15.9 % (10.0-14.5); WHITE BLOOD COUNT 11.2 10^3/uL (4.3-11.0)
[2018-10-30 06:52] LABS: ALBUMIN 3.2 GM/DL (3.2-4.5); BILIRUBIN,TOTAL 0.4 MG/DL (0.1-1.0); CALCIUM 9.2 MG/DL (8.5-10.1); CREATININE SERUM 1.24 MG/DL (0.60-1.30); POTASSIUM 4.2 MMOL/L (3.6-5.0)
[2018-10-30] MEDS ORDERED: fentaNYL INJECTION 100 MCG/2 ML AMP ONE (07:21)
[2018-10-30] MEDS ORDERED: MIDAZOLAM 2 MG/2 ML (VERSED) VIAL ONE ×3 (07:21→07:22)
[2018-10-30] MEDS ORDERED: NS IV 500 ML 500 ML ONE (07:22)
[2018-10-30] MEDS: RT-ALBUTEROL/IPRATROPIUM 3 ML (DUONEB) VIAL IH SCH ×3 (07:31→19:23)
[2018-10-30] MEDS: RT-ADVAIR HFA 115/21 MCG PER PUFF IH SCH ×2 (07:31→19:24)
[2018-10-30] MEDS ORDERED: NS IV 500 ML 500 ML IV PRN (07:57)
[2018-10-30 08:00] VITALS: BP 121/73
[2018-10-30] MEDS ORDERED: fentaNYL INJECTION 100 MCG/2 ML AMP IVP ONE (08:00)
[2018-10-30] MEDS ORDERED: MIDAZOLAM 2 MG/2 ML (VERSED) VIAL IVP ONE (08:00)
[2018-10-30] MEDS ORDERED: LIDOCAINE PF 2% 5 ML (XYLOCAINE) VIAL INJ ONE (08:16)
[2018-10-30] MEDS ORDERED: LIDOCAINE PF 1% 2 ML VIAL (OR ONLY) IJ ONE (08:16)
[2018-10-30] MEDS ORDERED: LIDOCAINE JELLY 2% 6 ML SYRINGE TOP ONE (08:16)
[2018-10-30] MEDS: GENTAMICIN IV SCH (08:40)
[2018-10-30] MEDS: NS IV SCH (08:40)
--- NOTE | 2018-10-30 08:41 | Diagnostic Imaging Report ---
INDICATION: Post bronchoscopy. COMPARISON: 10/27/2018. The heart size is stable. The lungs are clear. No pneumothorax is identified, status post bronchoscopy. There is no effusion. IMPRESSION: No evidence of pneumothorax. Dictated by: Dictated on workstation # [id number]
[2018-10-30] MEDS: PANTOPRAZOLE 40 MG (PROTONIX) TAB PO SCH (08:44)
[2018-10-30] MEDS: amLODIPine 5 MG (NORVASC) TAB PO SCH (08:44)
[2018-10-30] MEDS: GABAPENTIN 300 MG (NEURONTIN) CAP PO SCH ×2 (08:44→21:38)
[2018-10-30] MEDS: NICOTINE 21 MG (NICODERM) PATCH TD SCH (08:44)
[2018-10-30] MEDS: ASPIRIN E.C. 81 MG (ECOTRIN) TAB PO SCH (08:44)
[2018-10-30] MEDS: guaiFENesin (MUCINEX) 600 MG TAB PO SCH ×2 (08:44→21:38)
[2018-10-30] MEDS: FAMOTIDINE 20 MG (PEPCID) TABLET PO SCH ×2 (08:44→21:38)
--- NOTE | 2018-10-30 08:57 | Diagnostic Imaging Report ---
INDICATION: Fluoroscopy for bronchoscopy. Fluoroscopy was provided for Dr. Gomez during bronchoscopy. 22 seconds of fluoroscopy was utilized. IMPRESSION: Fluoroscopy during bronchoscopy. Dictated by: Dictated on workstation # [id number]
--- NOTE | 2018-10-30 09:41 | Progress Note-Hospitalist ---
Subjective HPI/CC On Admission Date Seen by Provider: Oct 30, 2018 Time Seen by Provider: 09:15 The patient is a 73-year-old white male well-known to me. He has had multiple previous admissions for lung related problems. He has finally reached the point where he is ready to attempt this ceasing his cigarette habit. He was last admitted here on 10/08/18. He also had an admission in August. He reports that last night after having a relatively good day for him and while at home alone he sat down and suddenly felt extremely ill. His returned home to find him unable to get up out of the chair. On arrival here his temperature was 102.2. His white blood count was 14.7. His creatinine was 1.4 his UA was negative. His chest x-ray showed a similar interstitial fibrosis pattern as compared to his last admission. Subjective/Events-last exam Pt is doing very well, he is on Cefepime and Zithromax Had bronchoscopy today by Dr. Gomez Needs a bm so initiated meds E. coli on sputum culture so will await sensitivities Likely DC home tomorrow Review of Systems General: Fatigue Focused Exam Lactate Level Objective Exam Vital Signs Vital Signs Date Time Temp Pulse Resp B/P (MAP) Pulse Ox O2 Delivery O2 Flow Rate FiO2 10/30/18 20:00 97.3 68 20 99/62 (74) 93 Nasal Cannula 3.00 10/28/18 03:07 92 Capillary Refill : Less Than 3 Seconds General Appearance: No Apparent Distress, WD/WN, Chronically ill, Obese Respiratory: Chest Non Tender, Lungs Clear, Normal Breath Sounds, No Accessory Muscle Use, No Respiratory Distress Cardiovascular: Regular Rate, Rhythm, No Edema, No Gallop, No JVD, No Murmur, Normal Peripheral Pulses Extremity: Normal Capillary Refill, Normal Inspection, Normal Range of Motion, Non Tender, No Calf Tenderness, No Pedal Edema Neurologic/Psychiatric: Alert, Oriented x3, No Motor/Sensory Deficits, Normal Mood/Affect Results/Procedures Lab Laboratory Tests 10/30/18 06:33 Patient resulted labs reviewed. Assessment/Plan Assessment and Plan Assess & Plan/Chief Complaint Assessment: Recurrent pneumonia presumed resistant organism likely Pseudomonas CAD AF CRI JOY Plan: Bronchoscopy with Cx Abx Await sputum Cx Diagnosis/Problems Diagnosis/Problems (1) Infection of drug-resistant bacteria Status: Acute (2) Sepsis Status: Resolved Qualifiers: Sepsis type: sepsis due to unspecified organism Qualified Codes: A41.9 - Sepsis, unspecified organism (3) Fever Status: Resolved Qualifiers: Fever type: unspecified Qualified Codes: R50.9 - Fever, unspecified Resolution Date/Time: 10/29/18 @ 21:04 (4) Hypothyroidism Status: Chronic Qualifiers: Hypothyroidism type: acquired Qualified Codes: E03.9 - Hypothyroidism, unspecified (5) Tobacco abuse Status: Chronic (6) Essential (primary) hypertension Status: Chronic (7) COPD (chronic obstructive pulmonary disease) Status: Chronic (8) COPD exacerbation Status: Acute Clinical Quality Measures DVT/VTE Risk/Contraindication: Risk Factor Score Per Nursin RFS Level Per Nursing on Admit: 4+=Very High ANNIA SWIFT DO Oct 30, 2018 09:41
--- NOTE | 2018-10-30 10:25 | Pulmonary Progress Note ---
Subjective Time Seen by a Provider: 10:24 Subjective/Events-last exam Persistent SOB No productive cough. Sepsis Event Evaluation Height, Weight, BMI Height: 5'11.00" Weight: 226lbs. 6.0oz. 102.631614rp; 31.3 BMI Method:Stated Focused Exam Lactate Level 10/27/18 21:24: Lactic Acid Level 1.62 Exam Exam Vital Signs Date Time Temp Pulse Resp B/P (MAP) Pulse Ox O2 Delivery O2 Flow Rate FiO2 10/30/18 08:45 Nasal Cannula 4.00 10/30/18 08:00 97.0 54 18 121/73 (89) 91 Nasal Cannula 3.00 10/30/18 07:33 18 10/30/18 07:00 95 10/30/18 06:52 95 Room Air 10/30/18 04:00 98.4 60 16 119/68 (85) 96 NIV CPAP 4.00 10/30/18 01:00 77 10/30/18 00:00 98.3 67 16 119/66 (83) 95 NIV CPAP 4.00 10/29/18 20:15 99.4 75 18 121/63 (82) 94 Nasal Cannula 3.00 10/29/18 20:00 Nasal Cannula 4.00 10/29/18 19:40 96 Nasal Cannula 4.00 10/29/18 19:00 76 10/29/18 16:50 98.9 77 18 128/74 (92) 93 Nasal Cannula 4.00 10/29/18 16:30 97.6 10/29/18 13:00 87 10/29/18 12:00 97.6 87 16 138/72 (94) 91 Nasal Cannula 4.00 10/29/18 11:05 94 Nasal Cannula 4.00 I & O 10/30/18 07:00 Intake Total 1725 ml Balance 1725 ml Height & Weight Height: 5'11.00" Weight: 226lbs. 6.0oz. 102.626582qi; 31.3 BMI Method:Stated General Appearance: No Apparent Distress, WD/WN, Anxious, Chronically ill HEENT: PERRL/EOMI, Normal ENT Inspection, Pharynx Normal Neck: Full Range of Motion, Normal Inspection, Non Tender, Supple Respiratory: Chest Non Tender, No Accessory Muscle Use, No Respiratory Distress , Crackles, Decreased Breath Sounds Cardiovascular: Regular Rate, Rhythm, No Edema, No Gallop Capillary Refill: Less Than 3 Seconds Gastrointestinal: normal bowel sounds, non tender, soft Extremity: Normal Capillary Refill, Normal Inspection, Normal Range of Motion, Non Tender, No Calf Tenderness, No Pedal Edema Neurologic/Psychiatric: Alert, Oriented x3 Skin: Normal Color Lymphatic: No Adenopathy Results Lab Laboratory Tests 10/30/18 06:33 Assessment/Plan Assessment/Plan Recurrent PNA with sepsis - prelim Sputum is growing Ecoli -Continue Abx and await final cultures -IVF -Andrade cultures - bronchoscopy today . Tobacco use -Education Severe oxygen dependent COPD -mikie LE JASON M DO Oct 30, 2018 10:25
--- NOTE | 2018-10-30 10:28 | Pulmonary Procedures ---
Pulmonary Procedures Date of Procedure Date of Service: Oct 30, 2018 Bronch Bronchoscopy with Bilateral washes, brush demetra x2, RML bronchoalveolar lavage (BAL), bronchial washes and, brushes. Preop DX ILD, recurrent PNA, MLA Postop DX: same. No endobronchial lesion. Complications: none After informed consent obtained and formal time out pt was sedated using Fentanyl and Versed. Bronchoscope was advanced through the nare and vocal cords. 1% lidocaine was used to anesthetize vocal cords, epiglottis, demetra, and left/right main stem bronchus. An anatomical tour was undertaken down to the segmental bronchi bilaterally. No endobronchial lesions noted. Bronchoscopy with Bilateral washes, brush demetra x2, RML bronchoalveolar lavage (BAL), bronchial washes and, brushes were obtained. Pt tolerated procedure well. No complications noted. Stat CXR is pending. AGUSTIN ROJO DO Oct 30, 2018 10:27
[2018-10-30 10:58] LABS: ABG BASE EXCESS 1.3 MMOL/L (-2.5-2.5); ABG OXYGEN SATURATION 95 % (94-100); ABG PCO2 37 MMHG (35-45); ABG PH 7.45 (7.37-7.43); ABG PO2 73 MMHG (79-93); ABG TCO2 26.1 MMOL/L (21.0-31.0)
[2018-10-30 11:00] LABS: ALLENS TEST YES-POS; INSPIRED O2 2; PATIENT TEMP 98.5; VENTILATOR NO
[2018-10-30 12:00] VITALS: BP 122/68
[2018-10-30] MEDS: ACETAMINOPHEN 500 MG TAB (TYLENOL) PO PRN (15:48)
[2018-10-30 16:45] VITALS: BP 122/71
[2018-10-30] MEDS: LEVOTHYROXINE 112 MCG (LEVOTHROID) TAB PO SCH (17:21)
[2018-10-30] MEDS: LEVOTHYROXINE 25 MCG (LEVOTHROID) TAB PO SCH (17:21)
[2018-10-30 20:00] VITALS: BP 99/62
[2018-10-30] MEDS: LATANOPROST 0.005% (XALATAN) OPHTH SOLN 2.5 ML OU SCH (21:38)
[2018-10-30] MEDS: CEFEPIME 2,000 MG/SWFI 20 ML IV PUSH IV SCH ×2 (21:38)
[2018-10-30] MEDS: DOCUSATE SODIUM 100 MG (COLACE) CAP PO SCH (21:38)
[2018-10-30] MEDS: SIMvastatin 10 MG (ZOCOR) TAB PO SCH (21:41)
[2018-10-31] VITALS: BP 104/69
[2018-10-31 04:00] VITALS: BP 100/61
[2018-10-31] MEDS: ACETAMINOPHEN 500 MG TAB (TYLENOL) PO PRN (04:12)
[2018-10-31] MEDS: SUCRALFATE 1 GM (CARAFATE) TAB PO SCH ×2 (06:25→10:04)
[2018-10-31] MEDS: ASCORBIC ACID (VIT C) 500 MG TABLET PO SCH (06:25)
[2018-10-31] MEDS: OMEGA 3 (FISH OIL) 1000 MG CAP PO SCH (06:25)
[2018-10-31] MEDS: VITAMIN D3 1,000 UNITS (CHOLECALCIFEROL) TABLET PO SCH (06:25)
[2018-10-31] MEDS: CATHETER FLUSH 10 ML SYR IV SCH (06:26)
[2018-10-31 08:00] VITALS: BP 120/83
[2018-10-31] MEDS: RT-ADVAIR HFA 115/21 MCG PER PUFF IH SCH (09:39)
[2018-10-31] MEDS: RT-ALBUTEROL/IPRATROPIUM 3 ML (DUONEB) VIAL IH SCH (09:39)
[2018-10-31] MEDS: NICOTINE 21 MG (NICODERM) PATCH TD SCH (10:02)
[2018-10-31] MEDS: FAMOTIDINE 20 MG (PEPCID) TABLET PO SCH (10:03)
[2018-10-31] MEDS: amLODIPine 5 MG (NORVASC) TAB PO SCH (10:03)
[2018-10-31] MEDS: guaiFENesin (MUCINEX) 600 MG TAB PO SCH (10:03)
[2018-10-31] MEDS: PANTOPRAZOLE 40 MG (PROTONIX) TAB PO SCH (10:03)
[2018-10-31] MEDS: AZITHROMYCIN 250 MG TAB (ZITHROMAX) PO SCH (10:03)
[2018-10-31] MEDS: GABAPENTIN 300 MG (NEURONTIN) CAP PO SCH (10:03)
[2018-10-31] MEDS: ASPIRIN E.C. 81 MG (ECOTRIN) TAB PO SCH (10:08)
[2018-10-31] MEDS ORDERED: CEFD300C3 PO (10:43)
--- NOTE | 2018-10-31 10:44 | Discharge Summary-Hospitalist ---
Diagnosis/Chief Complaint Date of Admission Oct 27, 2018 at 22:40 Date of Discharge Discharge Date: Oct 31, 2018 Discharge Diagnosis (1) Infection of drug-resistant bacteria Status: Acute (2) Sepsis Status: Resolved (3) Fever Status: Resolved (4) Hypothyroidism Status: Chronic (5) Tobacco abuse Status: Chronic (6) Essential (primary) hypertension Status: Chronic (7) COPD (chronic obstructive pulmonary disease) Status: Chronic (8) COPD exacerbation Status: Acute Discharge Summary Discharge Physical Exam Allergies: Coded Allergies: No Known Drug Allergies (Verified , 11/18/17) Vitals & I&Os Vital Signs Date Time Temp Pulse Resp B/P (MAP) Pulse Ox O2 Delivery O2 Flow Rate FiO2 10/31/18 09:40 92 Nasal Cannula 2.00 10/31/18 08:00 97.6 56 18 120/83 (95) 10/28/18 03:07 92 General Appearance: No Apparent Distress, WD/WN, Chronically ill Respiratory: Chest Non Tender, Lungs Clear, Normal Breath Sounds, No Accessory Muscle Use, No Respiratory Distress Cardiovascular: Regular Rate, Rhythm, No Edema, No Gallop, No JVD, No Murmur, Normal Peripheral Pulses Neurologic/Psychiatric: Alert, Oriented x3, No Motor/Sensory Deficits, Normal Mood/Affect Hospital Course Was the Problem List Reviewed?: Yes Hospital course: Patient had an uneventful hospital course he was admitted placed on empiric antibiotics of cefepime and Zithromax and monitor closely. Dr. Gomez was consulted. He underwent a bronchoscopy due to the recurrent nature of the pneumonia which revealed Escherichia coli so sensitivity was reviewed patient was deemed stable for discharge placed on Omnicef for an additional 7 days. Labs (last 24 hrs) Microbiology 10/27/18 Blood Culture - Preliminary, Resulted No growth 10/29/18 MRSA Screen - Final, Complete MRSA not isolated 10/27/18 Urine Culture - Final, Complete NO GROWTH Patient resulted labs reviewed. Discussion & Recommendations Discharge Planning: <30 minutes discharge planning Discharge Home Medications: Active Scripts Active Cefdinir 300 Mg Capsule 300 Mg PO BID Tums (Calcium Carbonate) 300 Mg Tab.chew 300 Mg PO Q2HR PRN 1 Days Reported Aspirin EC (Aspirin) 81 Mg Tablet.dr 81 Mg PO DAILY Protonix (Pantoprazole Sodium) 40 Mg Tablet.dr 40 Mg PO DAILY Zantac (Ranitidine HCl) 150 Mg Tablet 150 Mg PO BID Excedrin Extra Strength Caplet (Aspirin/Acetaminophen/Caffeine) 1 Each Tablet 1 Tab PO BID PRN Cyanocobalamin Injection (Cyanocobalamin) 1,000 Mcg/Ml Inj 1,000 Mcg IM MONTHLY TAKES THE 1ST WEEK OF MONTH-DAUGHTER GIVES AND DAY VARIES Vitamin C (Ascorbate Calcium) 500 Mg Tablet 500 Mg PO DAILY Vitamin D3 (Cholecalciferol (Vitamin D3)) 1,000 Unit Tablet 1,000 Unit PO DAILY Fish Oil 1,200 mg Softgel ([place]-3 Fatty Acids/Fish Oil) 1 Each Capsule 1,200 Mg PO DAILY Lovastatin 40 Mg Tablet 20 Mg PO HS TAKE 1/2 OF 40MG TAB Carafate (Sucralfate) 1 Gm Tablet 1 Gm PO ACHS Gabapentin 300 Mg Capsule 300 Mg PO BID Latanoprost 2.5 Ml Drops 1 Drop OU HS Levothyroxine Sodium 137 Mcg Tablet 137 Mcg PO 1800 Iprat-Albut 0.5-3(2.5) mg/3 ml (Ipratropium/Albuterol Sulfate) 3 Ml Ampul.neb 3 Ml NEB TID Colace (Docusate Sodium) 100 Mg Capsule 100 Mg PO HS Symbicort 160-4.5 Mcg Inhaler (Budesonide/Formoterol Fumarate) 10.2 Gm Hfa.aer.ad 2 Puff IH BID Amlodipine Besylate 10 Mg Tablet 5 Mg PO DAILY TAKES 1/2 (10 MG) TABLET Instructions to patient/family Please see electronic discharge instructions given to patient. Clinical Quality Measures DVT/VTE Risk/Contraindication: Risk Factor Score Per Nursin RFS Level Per Nursing on Admit: 4+=Very High Problem Qualifiers (1) Sepsis: Sepsis type: sepsis due to unspecified organism Qualified Codes: A41.9 - Sepsis, unspecified organism (2) Fever: Fever type: unspecified Qualified Codes: R50.9 - Fever, unspecified (3) Hypothyroidism: Hypothyroidism type: acquired Qualified Codes: E03.9 - Hypothyroidism, unspecified ANNIA SWIFT DO Oct 31, 2018 10:44
[2018-10-31 11:33] VITALS: BP 120/83
--- NOTE | 2018-10-31 11:35 | NUR ---
PRIOR TO A.M. MEDICATIONS PULSE WAS 94 AND B/P WAS 151/67 Addendum: 10/31/18 at 1137 by ORALIA LEWIS RN THIS RN GAVE WRONG PULSE AND B/P , THE ACTUAL B/P WAS 120/83 AND PULSE WAS 56
== END 2018-10-31 11:45 | disposition home or self-care (01) | DRG 871 ==
LOC: EDUNIT# 20:37 → ER 20:38 → 4TH 22:40
PROVIDERS: ADMIT Internal Medicine; ATTEND Internal Medicine
PROC: 0BD38ZX Extraction of Right Main Bronchus, Via Natural or Artificial Opening Endoscopic, Diagnostic (ICD-10-PCS; 2018-10-30)
PROC: 0BD78ZX Extraction of Left Main Bronchus, Via Natural or Artificial Opening Endoscopic, Diagnostic (ICD-10-PCS; 2018-10-30)
PROC: 0B9D8ZX Drainage of Right Middle Lung Lobe, Via Natural or Artificial Opening Endoscopic, Diagnostic (ICD-10-PCS; principal; 2018-10-30 07:20)
DX: A41.9 Sepsis, unspecified organism (principal); J15.5 Pneumonia due to Escherichia coli; J84.9 Interstitial pulmonary disease, unspecified; J43.9 Emphysema, unspecified; R09.02 Hypoxemia; R41.0 Disorientation, unspecified; F17.210 Nicotine dependence, cigarettes, uncomplicated; G47.33 Obstructive sleep apnea (adult) (pediatric); Z66 Do not resuscitate; I25.10 Atherosclerotic heart disease of native coronary artery without angina pectoris; I12.9 Hypertensive chronic kidney disease with stage 1 through stage 4 chronic kidney disease, or unspecified chronic kidney disease; E11.22 Type 2 diabetes mellitus with diabetic chronic kidney disease; N18.9 Chronic kidney disease, unspecified; E78.00 Pure hypercholesterolemia, unspecified; K21.9 Gastro-esophageal reflux disease without esophagitis; E89.0 Postprocedural hypothyroidism; H93.19 Tinnitus, unspecified ear; H40.9 Unspecified glaucoma; F32.9 Major depressive disorder, single episode, unspecified; M81.0 Age-related osteoporosis without current pathological fracture; M19.91 Primary osteoarthritis, unspecified site; K59.09 Other constipation; S04 Injury of cranial nerve; V89.2XXS Person injured in unspecified motor-vehicle accident, traffic, sequela; Z95.5 Presence of coronary angioplasty implant and graft; Z86.73 Personal history of transient ischemic attack (TIA), and cerebral infarction without residual deficits
CPT/HCPCS: 36415; 71045; 80053; 80170; 81000; 82805; 83605; 83880; 84484; 85007; 85025; 85027; 85610; 85730; 87015; 87040; 87070; 87077; 87081; 87088; 87101; 87116; 87186; 87205; 87206; 87804; 93005; 94640; 94664; 94760; 96374; 96375

== ENCOUNTER 2019-01-09 14:06 | Observation (INO) | payer MEDICARE ==
[~2019-01-09] VITALS: Ht 177.8 cm; Wt 101.8 kg
[~2019-01-09 14:06] MED LIST changes: +ASPI-983 PO; +CEFD300C3 PO
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
[2019-01-09 14:20] LABS: BASOPHILS % (AUTO) 0 % (0-10); EOSINOPHILS # (AUTO) 0.2 10^3/uL (0.0-0.3); EOSINOPHILS % (AUTO) 3 % (0-10); HEMATOCRIT 41 % (40-54); HEMOGLOBIN 13.8 G/DL (13.3-17.7); LYMPHOCYTES # (AUTO) 1.7 X 10^3 (1.0-4.0); LYMPHOCYTES % (AUTO) 24 % (12-44); MEAN CORPUSCULAR HEMOGLOBIN 32 PG (25-34); MEAN CORPUSCULAR HGB CONC 34 G/DL (32-36); MEAN CORPUSCULAR VOLUME 96 FL (80-99); MEAN PLATELET VOLUME 9.1 FL (7.4-10.4); MONOCYTES # (AUTO) 0.5 X 10^3 (0.0-1.0); MONOCYTES % (AUTO) 8 % (0-12); NEUTROPHILS # (AUTO) 4.4 X 10^3 (1.8-7.8); NEUTROPHILS % (AUTO) 65 % (42-75); PLATELET COUNT 234 10^3/uL (130-400); RED CELL DISTRIBUTION WIDTH 15.7 % (10.0-14.5); WHITE BLOOD COUNT 6.8 10^3/uL (4.3-11.0)
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
[2019-01-09 14:41] LABS: ALANINE AMINOTRANSFERASE 17 U/L (0-55); ALBUMIN 4.2 GM/DL (3.2-4.5); ALKALINE PHOSPHATASE 93 U/L (40-136); BILIRUBIN,TOTAL 0.6 MG/DL (0.1-1.0); BUN/CREATININE RATIO 11; CALCIUM 10.7 MG/DL (8.5-10.1); CARBON DIOXIDE 27 MMOL/L (21-32); CHLORIDE 108 MMOL/L (98-107); CREATININE SERUM 1.49 MG/DL (0.60-1.30); GFR ESTIMATED 46; GLUCOSE 102 MG/DL (70-105); POTASSIUM 3.9 MMOL/L (3.6-5.0); SODIUM 141 MMOL/L (135-145)
[2019-01-09 14:42] LABS: INR 1.1 (0.8-1.4); PROTHROMBIN TIME PATIENT 14.7 SEC (12.2-14.7)
[2019-01-09] MEDS ORDERED: LACTATED RINGERS 1,000 ML IV SCH (14:45)
--- NOTE | 2019-01-09 14:46 | Diagnostic Imaging Report ---
PROCEDURE: CT head wo r/o stroke. TECHNIQUE: Multiple contiguous axial images were obtained through the brain without the use of intravenous contrast. Auto Exposure Controls were utilized during the CT exam to meet ALARA standards for radiation dose reduction. INDICATION: Stroke and left arm weakness. COMPARISON: Correlation is made with prior head CT from 07/14/2014. FINDINGS: Ventricles and sulci appear stable. There is moderate periventricular hypodensity noted consistent with chronic microvascular ischemia. Encephalomalacia in bilateral frontal lobes, largest on the right is similar to prior exam. There is no sulcal effacement or midline shift. No acute intra-axial or extra-axial hemorrhage is detected. Cisterns are patent. There are postsurgical changes of bifrontal craniotomy. IMPRESSION: Chronic changes, as described. No acute intracranial process is detected. Results were called to the emergency department prior to this dictation. Dictated by: Dictated on workstation # [id number]
[2019-01-09 14:53] LABS: FIBRIN DEGRADATION PRODUCTS 1.17 UG/ML (0.00-0.49)
[2019-01-09] MEDS ORDERED: NS 100 ML (IVPB) BAG IV ONE (15:00)
[2019-01-09] MEDS ORDERED: IOHEXOL 350 MG/ML 100 ML (OMNIPAQUE 350) VIAL IV ONE (15:00)
[2019-01-09] MEDS ORDERED: CATHETER FLUSH 10 ML SYR IV PRN ×2 (15:00→17:30)
[2019-01-09] MEDS ORDERED: HOLD METFORMIN - RECEIVED CONTRAST 20 ML VIAL IV SCH (15:00)
--- NOTE | 2019-01-09 15:35 | Diagnostic Imaging Report ---
INDICATION: Left arm weakness. TIME OF EXAM: 3:26 PM CORRELATION with prior chest radiograph from 10/30/2018. FINDINGS: The heart size is stable. Central vascularity is slightly prominent which may be owing to mild congestion. No overt failure is seen. There is no effusion or pneumothorax. IMPRESSION: Mild central congestion. Dictated by: Dictated on workstation # [id number]
--- NOTE | 2019-01-09 16:17 | Diagnostic Imaging Report ---
PROCEDURE: CT angiography of the head and CT angiography of the neck with and without contrast. TECHNIQUE: Contiguous noncontrast images were obtained from the skull base through the vertex. After intravenous contrast administration, helical CT angiography of the neck was performed. Source data was reformatted into multiple MIP projections. Delayed post contrast acquisition was also obtained. Auto Exposure Controls were utilized during the CT exam to meet ALARA standards for radiation dose reduction. INDICATION: Left arm weakness. FINDINGS: There is a three-vessel branching pattern to the aortic arch. The right common carotid artery demonstrates some mild plaquing but no stenosis is seen. There is moderate plaquing at the right carotid bifurcation. The right internal carotid artery demonstrates significant calcified plaque at the carotid siphon but no high-grade stenosis is seen. No filling defect or thromboembolism in the right middle cerebral artery is detected. A right anterior cerebral artery is also widely patent. On the left, the common carotid artery is tortuous and demonstrates diffuse plaquing but no high-grade stenosis is seen. Carotid bifurcation is unremarkable. The left internal carotid artery also shows heavy calcified plaque at the siphon but no high-grade stenosis is seen. The left middle cerebral artery appears patent and without evidence of thromboembolism. Left anterior cerebral artery is also patent. Bilateral posterior cerebral arteries are patent. The basilar is unremarkable. The right vertebral artery is very small. The left vertebral artery is dominant. No identifiable flow in the proximal half of the right vertebral artery is identified with only a string of flow in the distal right vertebral artery. Postsurgical changes of bilateral frontal craniotomies. IMPRESSION: Bilateral carotid plaque. There are no findings to suggest thromboemboli within either middle, anterior or posterior cerebral arteries. The right vertebral artery is very small and nonvisualized in the proximal one-half with only minimal contrast seen in the distal right vertebral artery, likely retrograde. The rationality cannot be evaluated with CT. Results were discussed with the emergency department prior to this dictation. Dictated by: Dictated on workstation # [id number]
--- NOTE | 2019-01-09 17:09 | NUR ---
MARCY BROCK admitted to room CU4, with an admitting diagnosis of TIA VS CVA, LEFT ARM ATAXIA, on 01/09/19 from ER via CART, accompanied by ER STAFF.MARCY BROCK introduced to surroundings, call light, bed controls, phone, TV, temperature control, lights, meal times, smoking policy, visitor policy, side rail policy, bathrooms and showers. Patient Rights given to patient in the handbook.MARCY BROCK verbalizes understanding that [facility] is not responsible for the loss or damage to any personal effects or valuables that are kept in the patients possession during their hospitalization. MARCY BROCK verbalizes understanding of Interdisciplinary Patient Education. Patient and/or family were informed about the Rapid Response Team and its purpose.
[2019-01-09 17:13] LABS: BILIRUBIN,URINE NEGATIVE (NEGATIVE); CLARITY,URINE CLEAR; COLOR,URINE YELLOW; GLUCOSE, URINE (UA) NEGATIVE (NEGATIVE); KETONES,URINE NEGATIVE (NEGATIVE); LEUKOCYTE ESTERASE ,URINE NEGATIVE (NEGATIVE); NITRITE,URINE NEGATIVE (NEGATIVE); PH,URINE 5 (5-9); PROTEIN,URINE NEGATIVE (NEGATIVE); UROBILINOGEN,URINE NORMAL (NORMAL)
[2019-01-09 17:15] VITALS: BP 122/109
[2019-01-09 17:21] LABS: BACTERIA,URINE NEGATIVE /HPF; SQUAMOUS EPITHELIAL CELL,UR RARE /HPF
[2019-01-09 17:30] VITALS: BP 108/104
[2019-01-09 17:45] VITALS: BP 133/81
[2019-01-09 18:00] VITALS: BP 133/73
[2019-01-09 18:15] VITALS: BP 116/68
[2019-01-09] MEDS: LACTATED RINGERS 1,000 ML IV SCH (18:27)
[2019-01-09] MEDS ORDERED: ASCO-262 PO (18:38)
--- NOTE | 2019-01-09 21:30 | NUR ---
gil removed. Addendum: 01/09/19 at 2315 by JAMES HOLM RN wrong pt
--- NOTE | 2019-01-09 22:00 | NUR ---
pt rolled in bed and linens straightened. demetrio oconnell, remain soft and dry. Addendum: 01/09/19 at 2315 by JAMES HOLM RN wrong pt
[2019-01-10 00:15] VITALS: BP 113/79
[2019-01-10] MEDS: ACETAMINOPHEN 325 MG TABLET PO PRN ×2 (00:44→08:25)
[2019-01-10] MEDS: LACTATED RINGERS 1,000 ML IV SCH ×2 (02:53→09:30)
[2019-01-10 04:00] VITALS: BP 123/70
[2019-01-10 04:00] LABS: CHOLESTEROL 114 MG/DL (< 200); HDL CHOLESTEROL 42 MG/DL (40-60); TRIGLYCERIDES 84 MG/DL (<150); VLDL CHOLESTEROL 17 MG/DL (5-40)
[2019-01-10 11:52] VITALS: BP 124/82
[2019-01-10 12:00] VITALS: BP 124/82
--- NOTE | 2019-01-10 13:51 | History & Physical-Hospitalist ---
History of Present Illness HPI/Chief Complaint The patient is a 73-year-old white male known to me through previous admissions for exacerbation of COPD and through his who is a friend of my . He presented to the emergency room yesterday morning with a complaint of numbness and incoordination of his left arm. He is right-handed. He reported this was noted on arising yesterday. His time of arising was approximately 0630. He was evaluated and assigned and an NIH stroke score of 1. CT scan of the head and CT angio gram were negative. This morning he reports the absence of numbness. He still has incoordination to the hand. Date Seen 01/10/19 Time Seen by a Provider: 13:46 Attending Physician Darek Marlow MD PCP Abdias De León DO Referring Physician Date of Admission January 09, 2019 at 15:02 Home Medications & Allergies Home Medications Reviewed patient Home Medication Reconciliation performed by pharmacy medication reconciliations oncology technician and/or nursing. Patients Allergies have been reviewed. Allergies Allergies Coded Allergies No Known Drug Allergies (Verified11/18/17) Past Yxuouhf-Cwkixa-Eiqsyg Hx Past Med/Social Hx: Reviewed Nursing Past Med/Soc Hx Patient Social History Alcohol Use: Past History Recreational Drug Use: No Smoking Status: Current Everyday Smoker Type Used: Cigarettes Recent Foreign Travel: No Contact w/other who traveled: No Recent Hopitalizations: Yes Recent Infectious Disease Expo: No Immunizations Up To Date Tetanus Booster (TDap): More than 5yrs Date of Pneumonia Vaccine: December 10, 2013 Date of Influenza Vaccine: Jun 18, 2018 Seasonal Allergies Seasonal Allergies: Yes Past Medical History Surgeries: Appendectomy, Cardiac, Coronary Stent, Gallbladder, Neurological, Orthopedic, Vascular Surgery Currently Using CPAP: Yes Currently Using BIPAP: No Cardiac: Coronary Artery Disease, High Cholesterol, Hypertension Neurological: Stroke, TIA, Traumatic Brain Injury Reproductive: No Sexually Transmitted Disease: No HIV/AIDS: No Genitourinary: Renal Failure Gastrointestinal: Abdominal Hernia, Gastroesophageal Reflux, Gastrointestinal Bleed, Chronic Constipation Musculoskeletal: Degenerate Disk Disease, Osteoporosis, Arthritis, Back Injury, Chronic Back Pain Endocrine: Hypothyroidsim, Diabetes, Non-Insulin dep HEENT: Tinnitis, Eye Injury, Glaucoma Loss of Vision: Right Hearing Impairment: Hard of Hearing Psychosocial: Depression History of Blood Disorders: No Adverse Reaction to Blood Gomez: No Family History Alcoholism 19 FATHER, Cancer Family history: Asthma 19 MOTHER Family history: Osteoporosis 19 MOTHER Hearing loss 19 MOTHER No Pertinent Family Hx Review of Systems Constitutional: see HPI EENTM: no symptoms reported Respiratory: cough, dyspnea on exertion, short of breath Cardiovascular: no symptoms reported, other (past history of angiography and stenting) Gastrointestinal: no symptoms reported Genitourinary: no symptoms reported Musculoskeletal: see HPI Skin: no symptoms reported Psychiatric/Neurological: No Symptoms Reported Physical Exam Physical Exam Vital Signs Vital Signs - First Documented 01/09/19 14:06 Temp 98.5 Pulse 84 Resp 16 B/P (MAP) 132/91 (105) Pulse Ox 94 O2 Delivery Room Air Capillary Refill : Less Than 3 Seconds Height, Weight, BMI Height: 5'10.00" Weight: 224lbs. 6.0oz. 101.894351df; 31.2 BMI Method:Stated General Appearance: No Apparent Distress, WD/WN HEENT: Normal ENT Inspection Neck: Normal Inspection Respiratory: Decreased Breath Sounds (distant breath sounds with scattered rhonchi) Cardiovascular: Regular Rate, Rhythm Gastrointestinal: Normal Bowel Sounds, No Organomegaly Neurologic/Psychiatric: Alert, Oriented x3, geriatrics physician II-XII Norm as Tested Skin: Normal Color, Warm/Dry Lymphatic: No Adenopathy (the patient exhibited normal social science analyst and biceps function. His attempt at alternating finger to thumb movements produced only a clenching motion) Results Results/Procedures Labs Laboratory Tests 01/09/19 14:14 Patient resulted labs reviewed. Assessment/Plan Admission Diagnosis TIA versus CVA with involvement of left upper extremity. 2.ASHD with previous stenting. 3.moderately severe to severe COPD Admission Status: Observation Clinical Quality Measures DVT/VTE Risk/Contraindication: Risk Factor Score Per Nursin RFS Level Per Nursing on Admit: 4+=Very High Stroke: Date of last known well: January 09, 2019 Time of last known well: 14:22 DAREK MARLOW MD Jan 10, 2019 13:51
[2019-01-10] MEDS ORDERED: CLOP75TA69 PO (14:29)
--- NOTE | 2019-01-10 14:31 | Progress Note-Hospitalist ---
Progress Note Progress Notes/Assess & Plan Date Seen 01/10/19 Time Seen by Provider: 14:00 Assessment & Plan Discussed the question of the addition of Plavix to the patient's daily aspirin. The [facility] stroke team responded that they currently are doing dual therapy for 21 days and then discontinuing the aspirin. CARLITOS MARLOW MD Jan 10, 2019 14:31
--- NOTE | 2019-01-10 14:34 | Discharge Inst-Stroke w/wo TPA ---
Discharge Inst-Stroke w/wo TPA Discharge Medications New, Converted or Re-Newed RX: RX Given to Pt/Family Patient Instructions Add Plavix to your aspirin. Begin the Plavix today. On January 31 you may discontinue the aspirin. Resume usual activities at home. As previously described to repeated finger exercises on the left. You will need an MRI to complete the stroke treatment process. This will need to be arranged for Saturday or Saturday as an outpatient. Resume your previous medications and activities. These are detailed on the discharge sequence. If increase in symptoms return to Hospital. Additional Follow Up: Yes Activity & Diet Discharge Diet: No Restrictions Activity as Tolerated: Yes CARLITOS MARLOW MD Jan 10, 2019 14:34
[2019-01-10 16:00] VITALS: BP 138/92
--- NOTE | 2019-01-19 09:08 | Physician Query-Final Dx ---
Clinic Account Progress/Dx Physician Query: Please give diagnosis Date of Service January 09, 2019 at 14:07 AMAN FRANKEL Jan 19, 2019 09:08
--- NOTE | 2019-02-16 14:03 | Physician Query-Final Dx ---
Final Diagnosis Give Final Diagnosis Please give Final Diagnosis AMAN FRANKEL Feb 16, 2019 14:03
== END 2019-01-10 14:29 | disposition home or self-care (01) ==
LOC: EDUNIT# 14:06 → ER 14:07 → UNDOADMOB 15:02 → ICU 15:02 → UNDODISOB 01-10 15:15
PROVIDERS: ADMIT Internal Medicine; ATTEND Internal Medicine
DX: R27.0 Ataxia, unspecified (principal); J43.9 Emphysema, unspecified; I25.10 Atherosclerotic heart disease of native coronary artery without angina pectoris; E78.00 Pure hypercholesterolemia, unspecified; I10 Essential (primary) hypertension; E11.9 Type 2 diabetes mellitus without complications; E03.9 Hypothyroidism, unspecified; K21.9 Gastro-esophageal reflux disease without esophagitis; K59.09 Other constipation; M81.0 Age-related osteoporosis without current pathological fracture; F17.210 Nicotine dependence, cigarettes, uncomplicated; Z87.820 Personal history of traumatic brain injury; Z79.82 Long term (current) use of aspirin; Z95.5 Presence of coronary angioplasty implant and graft
CPT/HCPCS: 36415; 70450; 70496; 70498; 71045; 80053; 80061; 81000; 82962; 84484; 85025; 85379; 85610; 85730; 93005; 93041; 96360

== ENCOUNTER → 2019-04-10 | Day surgery (SDC) | payer MEDICARE ==
[~2019-04-10] VITALS: Ht 177.8 cm; Wt 101.6 kg
[~2019-04-10] MED LIST changes: +LIDOCAINE 1% INJ 20 ML 20 ML VIAL INJ ONE; +LIDOCAINE 1% INJ 20 ML 20 ML VIAL ONE; +RANI-613 PO; -RANI150T46 PO
[2019-04-10 09:02] VITALS: BP 169/103
--- NOTE | 2019-04-10 10:02 | Implantation of Loop Monitor ---
Implant of Loop Monitior IMPLANTATION OF LOOP MONITOR REPORT DATE OF PROCEDURE: 04/10/19 PREOP DIAGNOSIS: cryptogenic stroke POSTOP DIAGNOSIS: cryptogenic stroke PROCEDURE DETAILS: The patient is a 73 male with history of paroxysmal atrial fibrillation requiring long-term surveillance. Therefore implantable loop recorder was discussed and agreed with the patient. Informed consent was taken. All risks and complications were discussed at length. The patient was draped and prepped in the usual sterile fashion. Local anesthesia was lidocaine, which was given in the substernal area close to the 4th intercostal space. Loop monitor [employer] with serial number [id number] was implanted according to the protocol. Steri- Strips were placed at the end of the procedure. There were no complications and the patient tolerated the procedure well. The device was interrogated with a voltage of. ANESTHESIA: Local anesthesia with lidocaine. COMPLICATIONS: None CONTRAST/FLUOROSCOPY: None CONCLUSION: successful implantation of loop recorder with no complication FINAL DIAGNOSIS: Cryptogenic stroke Hypertension Hyperlipidemia JULIANA MILLER MD Apr 10, 2019 10:02
[2019-04-10 10:10] VITALS: BP 134/99
== END ==
LOC: CATH 08:55
PROVIDERS: ATTEND Internal Medicine Cardiovascular Disease
DX: I63.9 Cerebral infarction, unspecified (principal); I48.0 Paroxysmal atrial fibrillation; E78.5 Hyperlipidemia, unspecified; I25.10 Atherosclerotic heart disease of native coronary artery without angina pectoris; I10 Essential (primary) hypertension; J43.9 Emphysema, unspecified; G47.33 Obstructive sleep apnea (adult) (pediatric); I08.1 Rheumatic disorders of both mitral and tricuspid valves; J90 Pleural effusion, not elsewhere classified; E83.42 Hypomagnesemia; Z79.02 Long term (current) use of antithrombotics/antiplatelets; Z86.010 Personal history of colon polyps; Z87.891 Personal history of nicotine dependence; Z80.9 Family history of malignant neoplasm, unspecified

== ENCOUNTER → 2019-04-14 | Outpatient (CLI) | payer MEDICARE ==
[~2019-04-14] MED LIST changes: -LIDOCAINE 1% INJ 20 ML 20 ML VIAL INJ ONE; -LIDOCAINE 1% INJ 20 ML 20 ML VIAL ONE
--- NOTE | 2019-04-14 16:16 | Diagnostic Imaging Report ---
INDICATION: Coronary artery disease, dyspnea on exertion, and transient ischemic attack. PA and lateral views of the chest are obtained with comparison made to study of 01/09/2019. FINDINGS: Overall heart size and pulmonary vascularity remain within normal limits. There are prominent perihilar interstitial markings which may reflect mild atelectasis or scarring. Monitoring device overlies the left chest. There is no pneumothorax or significant pleural fluid. IMPRESSION: Mild linear parahilar atelectasis or scarring without other evidence of acute abnormality in the thorax. Dictated by: Dictated on workstation # [id number]
== END ==
LOC: RAD 15:25
PROVIDERS: ATTEND Internal Medicine Cardiovascular Disease
DX: I25.10 Atherosclerotic heart disease of native coronary artery without angina pectoris (principal); I65.29 Occlusion and stenosis of unspecified carotid artery
CPT/HCPCS: 71046

== ENCOUNTER 2019-04-28 11:14 | Outpatient (RCR) | payer MEDICARE | END 2019-04-29 00:13 | disposition home or self-care (01) | PROVIDERS: ATTEND Internal Medicine | DX: I69.354 Hemiplegia and hemiparesis following cerebral infarction affecting left non-dominant side (principal) ==

== ENCOUNTER → 2019-05-12 | Outpatient (CLI) | payer MEDICARE ==
--- NOTE | 2019-05-12 12:49 | Diagnostic Imaging Report ---
INDICATION: Patient was diagnosed with pneumonia a week ago. COMPARISON STUDY: Chest from April 14. FINDINGS: Frontal and lateral views of the chest again demonstrates some chronic infiltrates or fibrosis in the left lung base. Heart size and vascularity are normal. There are no pleural effusions. child monitor device is in place. IMPRESSION: Stable chest. Dictated by: Dictated on workstation # [id number]
== END ==
LOC: RAD FS 12:03
PROVIDERS: ATTEND Internal Medicine
DX: J18.9 Pneumonia, unspecified organism (principal)
CPT/HCPCS: 71046

== ENCOUNTER 2019-06-17 13:41 | Outpatient (RCR) | payer MEDICARE ==
[~2019-06-17 13:41] MED LIST changes: -CATHETER FLUSH 10 ML SYR IV PRN; -HOLD METFORMIN - RECEIVED CONTRAST 20 ML VIAL IV SCH; -IOHEXOL 350 MG/ML 100 ML (OMNIPAQUE 350) VIAL IV ONE; -NS 100 ML (IVPB) BAG IV ONE; -RT-ALBUTEROL SULF 2.5 MG/3 ML PRE-MIX VIAL INH ONE
== END 2019-07-28 08:39 | disposition home or self-care (01) ==
PROVIDERS: ATTEND Internal Medicine
DX: I63.9 Cerebral infarction, unspecified (principal); I25.10 Atherosclerotic heart disease of native coronary artery without angina pectoris; Z87.828 Personal history of other (healed) physical injury and trauma

== ENCOUNTER → 2019-06-17 | Outpatient (CLI) | payer MEDICARE ==
[~2019-06-17] MED LIST changes: +CATHETER FLUSH 10 ML SYR IV PRN; +HOLD METFORMIN - RECEIVED CONTRAST 20 ML VIAL IV SCH; +IOHEXOL 350 MG/ML 100 ML (OMNIPAQUE 350) VIAL IV ONE; +NS 100 ML (IVPB) BAG IV ONE; +RT-ALBUTEROL SULF 2.5 MG/3 ML PRE-MIX VIAL INH ONE
[2019-06-17 10:35] LABS: CREATININE SERUM 1.59 MG/DL (0.60-1.30)
== END ==
LOC: RT 10:08
PROVIDERS: ATTEND Nurse Practitioner Family
DX: J44.9 Chronic obstructive pulmonary disease, unspecified (principal); J90 Pleural effusion, not elsewhere classified; G47.33 Obstructive sleep apnea (adult) (pediatric); R59.9 Enlarged lymph nodes, unspecified; F17.200 Nicotine dependence, unspecified, uncomplicated
CPT/HCPCS: 36415; 82565; 84520; 94060; 94726; 94729

== ENCOUNTER → 2019-07-06 | Outpatient (CLI) | payer MEDICARE ==
--- NOTE | 2019-07-06 10:43 | Diagnostic Imaging Report ---
PROCEDURE: US Renal Bilateral. TECHNIQUE: Multiple real-time grayscale images were obtained over the kidneys in various projections bilaterally. INDICATION: Chronic kidney disease. FINDINGS: There are no prior renal ultrasound examinations available for comparison. Both kidneys are identified. The right kidney measures 9.9 x 4.6 x 5.4 cm while the left kidney is estimated to be 10.3 x 5.2 x 6 cm. There is no evidence for a solid mass involving either kidney; however, there are multiple cysts arising from the right kidney. These measure less than 2 cm in size and have a generally benign appearance. There is no cyst formation involving the left kidney; however, does appear to be an 8 mm echogenic focus within the left kidney. This finding is suspicious for nephrolithiasis. In reviewing the CT chest exam of 06/17/2019, there also appear to be an 8 mm nonobstructive calculus within the right kidney. That finding is difficult to appreciate on this exam. The renal cortices are somewhat thin but normal in echogenicity. There is no sign of chronic medical renal disease. The bladder is only partially filled and consequently not well evaluated. There is no obvious bladder abnormality evident. The ureteral jets are not identified. IMPRESSION: 1. There is no evidence for a solid renal mass or for an acute abnormality of either kidney. 2. There are several small benign-appearing cysts associated with the right kidney. There is also a question of nephrolithiasis bilaterally. 3. The urinary bladder shows no definite abnormality. Dictated by: Dictated on workstation # [id number]
--- NOTE | 2019-07-06 11:18 | Diagnostic Imaging Report ---
EXAMINATION: Modified barium swallow. INDICATION: Dysphagia. This exam was performed in the presence of a speech pathologist, Melany. The patient was given barium in different substances to swallow. This included thin, nectar, honey, applesauce, banana, ham, and barium on cracker. The patient was able to swallow the contrast material without difficulty. There was some pooling in the valleculae, but there was no aspiration or penetration. IMPRESSION: There is no evidence for aspiration or penetration. Dictated by: Dictated on workstation # [id number]
== END ==
LOC: RAD 09:34
PROVIDERS: ATTEND Internal Medicine
DX: N18.3 Chronic kidney disease, stage 3 (moderate) (principal); N28.1 Cyst of kidney, acquired; R13.13 Dysphagia, pharyngeal phase
CPT/HCPCS: 74230; 76770

== ENCOUNTER 2019-08-07 05:37 | Outpatient (CLI) | payer MEDICARE ==
[~2019-08-07] VITALS: Ht 183 cm; Wt 90.8 kg
[2019-08-07] MEDS ORDERED: CLOP75TA69 PO (12:40)
== END 2019-08-07 12:42 | disposition home or self-care (01) ==
LOC: PREOP 05:37
PROVIDERS: ATTEND Surgery
DX: Z01.818 Encounter for other preprocedural examination (principal)

== ENCOUNTER → 2019-10-26 | Outpatient (CLI) | payer MEDICARE ==
[~2019-10-26] MED LIST changes: -LIDO15SO2 MM; +LIDO20SO23 MM
--- NOTE | 2019-10-26 14:38 | Diagnostic Imaging Report ---
INDICATION: Cough. TECHNIQUE: PA and lateral views of the chest are obtained with comparison made to study of 05/12/2019. FINDINGS: Heart size and pulmonary vascularity are within normal limits. There has been an increase in mixed interstitial and alveolar density in the right perihilar region. There is predominantly linear density in the left base which is similar to previous examination. No pneumothorax is identified. There is no significant pleural fluid. IMPRESSION: Probable background fibrotic findings with increasing right perihilar pneumonitis or possible atypical pneumonia. Dictated by: Dictated on workstation # [id number]
== END ==
LOC: RAD 14:10
PROVIDERS: ATTEND Internal Medicine
DX: J18.1 Lobar pneumonia, unspecified organism (principal); B37.0 Candidal stomatitis
CPT/HCPCS: 71046

== ENCOUNTER → 2020-02-02 | Outpatient (CLI) | payer MEDICARE ==
--- NOTE | 2020-02-02 14:33 | Diagnostic Imaging Report ---
PROCEDURE: CT chest without contrast. TECHNIQUE: Multiple contiguous axial images were obtained through the chest without the use of intravenous contrast. Auto Exposure Controls were utilized during the CT exam to meet ALARA standards for radiation dose reduction. INDICATION: Dyspnea. History of coronary artery stent. CORRELATION STUDY: 06/17/2019 FINDINGS: Loop recorder device over the superior left chest. Heart size is within normal limits. Scattered areas of coronary artery calcification and apparent stents are present. Trace pericardial effusion. Thoracic aortic contour unremarkable with scattered wall calcification. No suggestion for pathologically enlarged mediastinal lymph nodes with a few small shotty subcentimeter lymph nodes present. Small hiatal hernia is present. There is circumferential wall thickening in the low esophagus just proximal to the hernia. A small amount of fluid may be reflective of reflux. Lung maloney do demonstrate areas of advanced emphysematous changes. Disproportionately greater involving the upper lobe distribution, right greater than left. Scattered areas of likely fibrosis are noted. There has been development of slightly more prominent interstitial markings, particularly of the right lung base with slight tree-in-bud type appearance, could reflect a superimposed atypical-type pneumonia. Asymmetric mucosal thickening and irregularity of several mid to peripheral bronchi, articularly the right lung. There is a slightly more focal area of parenchymal irregularity in the central aspect of the right upper lobe (image 42/series 3). Additional one at the right lower lobe just above the diaphragm (image 108 series 3). Solid nodule posterior basilar aspect of the right upper lobe, adjacent to the fissure plane, 5 mm in size, appears slightly more prominent (image 76 series 3). Visualized portion of the upper abdomen demonstrates nonobstructing right renal stones. Small indeterminate exophytic nodule, right mid kidney. Prominent calcification of the abdominal aorta. Cholecystectomy changes. Accentuated thoracic kyphosis, mildly compressed midthoracic vertebral bodies, stable. IMPRESSION: 1. Advanced emphysematous changes about the lung parenchyma. Development of tree-in-bud type infiltrates of the right lower lobe, and to a lesser degree, the basilar aspect right middle lobe suspect for superimposed infectious/inflammatory etiology. Additional areas of scattered prominent peribronchial thickening. 2. A slightly more focal area of scarring, likely within the right upper lobe and right lung base. This does have a somewhat groundglass opacity and the possibility of early neoplasm should not be excluded at this time. Additionally, slightly more prominent small nodule basilar aspect right upper lobe. 3. Small hiatal hernia. Wall thickening of the low esophagus. Could be reflective of a component of esophagitis given suggested reflux. However, correlation for any additional symptoms to suggest the possibility of infiltrative neoplasm not excluded. 4. Follow-up CT imaging of the chest at 3-6 months would be recommended. Dictated by: Dictated on workstation # [id number]
== END ==
LOC: RAD 10:57
PROVIDERS: ATTEND Nurse Practitioner Family
DX: J43.9 Emphysema, unspecified (principal); G47.33 Obstructive sleep apnea (adult) (pediatric); R91.8 Other nonspecific abnormal finding of lung field; Z72.0 Tobacco use; J98.4 Other disorders of lung; K44.9 Diaphragmatic hernia without obstruction or gangrene; K22.8 Other specified diseases of esophagus
CPT/HCPCS: 71250

== ENCOUNTER → 2020-02-03 | Outpatient (CLI) | payer MEDICARE ==
[~2020-02-03] MED LIST changes: +HOLD METFORMIN - RECEIVED CONTRAST 20 ML VIAL IV SCH; +IOHEXOL 350 MG/ML 100 ML (OMNIPAQUE 350) VIAL IV ONE
[2020-02-03 10:37] LABS: ALBUMIN 3.8 GM/DL (3.2-4.5); BILIRUBIN,TOTAL 0.6 MG/DL (0.1-1.0); CALCIUM 9.5 MG/DL (8.5-10.1); CREATININE SERUM 1.53 MG/DL (0.60-1.30); POTASSIUM 4.2 MMOL/L (3.6-5.0)
--- NOTE | 2020-02-03 11:26 | Diagnostic Imaging Report ---
PROCEDURE: CT angiography of the chest with contrast. TECHNIQUE: Multiple contiguous axial images were obtained through the chest after uneventful bolus administration of intravenous contrast. 3D reconstructed CTA MIP acquisitions were also performed. Auto Exposure Controls were utilized during the CT exam to meet ALARA standards for radiation dose reduction. INDICATION: Cough, shortness of air, history of pneumonia. COMPARISON: Th study is compared to that from 02/02/2020 which was a nonenhanced exam. FINDINGS: There are no intraluminal pulmonary arterial filling defects. There is no pulmonary arterial embolus. The thoracic aorta is patent and nonaneurysmal. Some heterogeneous air trapping and features of centrilobular emphysema as chronic findings are noted. The somewhat tree-in-bud nodular infiltrate in the right middle lobe and right lower lobe infrahilar has resolved in the interim. No adverse interval development or acute infiltrate at followup. No pleural or pericardial effusion. There is no empyema. There are coronary arterial atherosclerotic vascular calcifications and a small chronic hiatal hernia. IMPRESSION: 1. Resolution of the right basilar tree-in-bud nodular infiltrates. Background COPD noted with nonaneurysmal atherosclerosis. 2. No PE or other acute appearing abnormalities. Dictated by: Dictated on workstation # [id number]
== END ==
LOC: RAD 09:45
PROVIDERS: ATTEND Physician Assistant
DX: I25.10 Atherosclerotic heart disease of native coronary artery without angina pectoris (principal); I63.9 Cerebral infarction, unspecified; I65.29 Occlusion and stenosis of unspecified carotid artery; R06.09 Other forms of dyspnea; G47.33 Obstructive sleep apnea (adult) (pediatric)
CPT/HCPCS: 36415; 71275; 80053; 80061

== ENCOUNTER → 2020-08-11 | Outpatient (CLI) | payer MEDICARE ==
[~2020-08-11] MED LIST changes: +AMLO-251 PO; -AMLO10TA7 PO; +ASPI-1238 PO; -ASPI-983 PO; +CATHETER FLUSH 10 ML SYR IV PRN; +NS 100 ML (IVPB) BAG IV ONE; -PANT40TA3 PO; +PANT40TA52 PO
[2020-08-11 10:36] LABS: CREATININE SERUM 1.44 MG/DL (0.60-1.30)
--- NOTE | 2020-08-11 14:31 | Diagnostic Imaging Report ---
PROCEDURE: CT chest with contrast only. TECHNIQUE: Multiple contiguous axial images were obtained through the chest after administration of intravenous contrast. Auto Exposure Controls were utilized during the CT exam to meet ALARA standards for radiation dose reduction. INDICATION: COPD. The previous CTA chest exam of 02/03/2020 noted COPD but failed to show any sign of an acute cardiopulmonary abnormality. On this exam the emphysematous changes involving both lungs are again noted and do not appear to have changed significantly. In the interval since the prior study a very small alveolar/interstitial infiltrate has developed along the medial aspect of the right upper lobe (images 50-57 of 165). This could be secondary to mild pneumonia/atelectasis. There is no other evidence for pneumonia and there is no sign of a pleural effusion. The pleural-based and parenchymal nodules seen on the prior study are again evident and no different. The heart size is within normal limits and stable when compared to the prior exam. Extensive coronary artery calcifications are again noted. The ascending aorta is aneurysmally dilated measuring 4.5 x 4.6 cm in maximum AP and transverse diameters. On the prior exam the ascending aorta measures 4.4 x 4.5 cm. There is no evidence for dissection. The pulmonary arteries were not well opacified but there is no definite defect within the pulmonary arteries to indicate a pulmonary embolus. The 1.9 x 3.2 cm soft tissue density in the right hilum noted on the prior study is again evident and no different. There is no mediastinal or hilar adenopathy identified. The thyroid gland was not well-visualized. The sections through the upper abdomen again show a small hiatal hernia. There is also a 3 mm nonobstructive calculus within the right kidney and a 5 mm calculus within the left kidney. The bone windows are unremarkable for a fracture or for a destructive lesion. The long-standing compression deformity of T8 seen on the previous study is again evident. The loop recorder device in the soft tissues of the anterior chest wall the left seen on the previous exam is again evident and appears stable in position. IMPRESSION: 1. There are emphysematous changes described involving both lungs and the pleural and parenchymal nodules seen on the prior study are again evident and no different. However in the interval since the prior exam, a very small alveolar/interstitial infiltrate has developed along the medial aspect of the right upper lung. This does raise a question of mild pneumonia/atelectasis in this area. Clinical follow-up is recommended. 2. There is no acute cardiopulmonary abnormality noted otherwise. 3. There is mild stable aneurysmal dilatation of the ascending aorta. There is no sign of a dissection. 4. There is no evidence for a pulmonary embolus either. 5. There is coronary artery disease. Dictated by: Dictated on workstation # [id number]
== END ==
LOC: RAD 11:45
PROVIDERS: ATTEND Nurse Practitioner Family
DX: J43.8 Other emphysema (principal); I25.10 Atherosclerotic heart disease of native coronary artery without angina pectoris
CPT/HCPCS: 36415; 71260; 82565; 84520

== ENCOUNTER 2020-09-14 12:16 | Emergency (ER) | payer MEDICARE ==
[~2020-09-14] VITALS: Ht 68 cm; Wt 135.0 kg
[~2020-09-14 12:16] MED LIST changes: -CATHETER FLUSH 10 ML SYR IV PRN; -HOLD METFORMIN - RECEIVED CONTRAST 20 ML VIAL IV SCH; -IOHEXOL 350 MG/ML 100 ML (OMNIPAQUE 350) VIAL IV ONE; -NS 100 ML (IVPB) BAG IV ONE
[2020-09-14] MEDS ORDERED: NS IV 1000 ML 1,000 ML IV SCH ×2 (12:45→13:45)
[2020-09-14 13:03] LABS: BASOPHILS % (AUTO) 0 % (0-10); EOSINOPHILS % (AUTO) 0 % (0-10); HEMATOCRIT 44 % (40-54); HEMOGLOBIN 14.8 g/dL (13.3-17.7); LYMPHOCYTES # (AUTO) 0.4 10^3/uL (1.0-4.0); LYMPHOCYTES % (AUTO) 4 % (12-44); MEAN CORPUSCULAR HEMOGLOBIN 34 pg (25-34); MEAN CORPUSCULAR HGB CONC 34 g/dL (32-36); MEAN CORPUSCULAR VOLUME 100 fL (80-99); MONOCYTES # (AUTO) 0.3 10^3/uL (0.0-1.0); MONOCYTES % (AUTO) 3 % (0-12); NEUTROPHILS % (AUTO) 92 % (42-75); PLATELET COUNT 210 10^3/uL (130-400); WHITE BLOOD COUNT 9.8 10^3/uL (4.3-11.0)
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
[2020-09-14 13:15] LABS: ALBUMIN 3.8 GM/DL (3.2-4.5)
[2020-09-14 13:16] LABS: CALCIUM 8.9 MG/DL (8.5-10.1)
[2020-09-14 13:17] LABS: POTASSIUM 5.4 MMOL/L (3.6-5.0)
[2020-09-14 13:18] LABS: TOTAL PROTEIN 7.6 GM/DL (6.4-8.2)
[2020-09-14 13:21] LABS: CREATININE SERUM 1.38 MG/DL (0.60-1.30)
[2020-09-14 13:28] LABS: BAND NEUTROPHILS 17 %; NEUTROPHILS % (MANUAL) 69 %
[2020-09-14 13:29] LABS: EOSINOPHILS % (MANUAL) 1 %; LYMPHOCYTES % (MANUAL) 10 %; MONOCYTES % (MANUAL) 3 %; RBC MORPH NORMAL
[2020-09-14 14:03] LABS: BILIRUBIN,URINE NEGATIVE (NEGATIVE); CLARITY,URINE CLEAR; COLOR,URINE YELLOW; GLUCOSE, URINE (UA) NEGATIVE (NEGATIVE); KETONES,URINE NEGATIVE (NEGATIVE); LEUKOCYTE ESTERASE ,URINE NEGATIVE (NEGATIVE); NITRITE,URINE NEGATIVE (NEGATIVE); PROTEIN,URINE NEGATIVE (NEGATIVE)
[2020-09-14 14:13] LABS: BACTERIA,URINE NEGATIVE /HPF; RBC,URINE >100 /HPF; SQUAMOUS EPITHELIAL CELL,UR RARE /HPF
[2020-09-14] MEDS ORDERED: HOLD METFORMIN - RECEIVED CONTRAST 20 ML VIAL IV SCH (14:15)
[2020-09-14] MEDS ORDERED: CATHETER FLUSH 10 ML SYR IV PRN (14:15)
[2020-09-14] MEDS ORDERED: IOHEXOL 350 MG/ML 100 ML (OMNIPAQUE 350) VIAL IV ONE (14:15)
[2020-09-14] MEDS ORDERED: NS 100 ML (IVPB) BAG IV ONE (14:15)
--- NOTE | 2020-09-14 14:56 | Diagnostic Imaging Report ---
PROCEDURE: CT angiography of the chest with contrast. TECHNIQUE: Multiple contiguous axial images were obtained through the chest after uneventful bolus administration of intravenous contrast. 3D reconstructed CTA MIP acquisitions were also performed. Auto Exposure Controls were utilized during the CT exam to meet ALARA standards for radiation dose reduction. INDICATION: Elevated d-dimer, shortness of breath, and cough. COMPARISON: 08/11/2020. FINDINGS: No pulmonary arterial filling defects or PE identified. The atherosclerotic aorta is patent, nonaneurysmal, and nonacute. There is no pleural or pericardial effusion. There is a chronic small hiatal hernia. There are background changes of centrilobular emphysema present. The previous mild acute infiltrate in the anteromedial left upper lobe has resolved. No adverse development. IMPRESSION: Negative for PE or other acute abnormalities. Background COPD but no pneumonia or acute pathology. Dictated by: Dictated on workstation # [id number]
[2020-09-14] MEDS ORDERED: ONDA4TAB11 PO (15:19)
[2020-09-14 15:29] VITALS: BP 136/72
[2020-09-14] MEDS ORDERED: ONDANSETRON 4 MG/2 ML (SDV) Z0FRAN IVP ONE (15:30)
== END 2020-09-14 15:47 | disposition home or self-care (01) ==
LOC: EDUNIT# 12:16 → ER 12:18
DX: K29.00 Acute gastritis without bleeding (principal); I10 Essential (primary) hypertension; I25.10 Atherosclerotic heart disease of native coronary artery without angina pectoris; E11.9 Type 2 diabetes mellitus without complications; E78.00 Pure hypercholesterolemia, unspecified; E03.9 Hypothyroidism, unspecified; E05.00 Thyrotoxicosis with diffuse goiter without thyrotoxic crisis or storm; K21.9 Gastro-esophageal reflux disease without esophagitis; K59.09 Other constipation; J43.9 Emphysema, unspecified; Z95.5 Presence of coronary angioplasty implant and graft; Z79.899 Other long term (current) drug therapy; Z86.73 Personal history of transient ischemic attack (TIA), and cerebral infarction without residual deficits; Z87.01 Personal history of pneumonia (recurrent); Z79.82 Long term (current) use of aspirin; Z79.51 Long term (current) use of inhaled steroids; Z79.02 Long term (current) use of antithrombotics/antiplatelets; Z79.890 Hormone replacement therapy
CPT/HCPCS: 71045; 71275; 80053; 81000; 83605; 84145; 85007; 85027; 85379; 86141; 87040; 87804; 99284; U0002; 36415; 87635

== ENCOUNTER → 2020-11-25 | Outpatient (CLI) | payer MEDICARE ==
[~2020-11-25] MED LIST changes: +ONDA4TAB11 PO
--- NOTE | 2020-11-25 10:38 | Diagnostic Imaging Report ---
INDICATION: COPD. TIME OF EXAM: 10:05 AM COMPARISON is made with prior chest from 09/14/2020. THe heart size is stable. Monitoring device overlies the left chest. There are mild interstitial changes, likely chronic. No parenchymal consolidation, effusion or pneumothorax is detected. IMPRESSION: No acute cardiopulmonary process is detected. Dictated by: Dictated on workstation # [id number]
--- NOTE | 2020-11-25 11:00 | Diagnostic Imaging Report ---
INDICATION: Chronic low back pain. TIME OF EXAM: 10:07 AM AP, lateral, both oblique as well as coned lumbosacral views and lumbar spine were obtained. FINDINGS: Curvature is normal. There is grade 1/2 spondylolisthesis of L4 on L5 as well as L5 on S1. Vertebral body heights are maintained. No acute compression fracture is seen. No definite pars defects are seen. Aorta is heavily calcified. There is moderate degenerative disc disease at L4-L5 and L5-S1 levels. Lower lumbar facet arthropathy is noted. IMPRESSION: Lower lumbar spondylolisthesis and spondylosis. No acute bony abnormality is detected. Dictated by: Dictated on workstation # [id number]
== END ==
LOC: RAD 09:47
PROVIDERS: ATTEND Internal Medicine
DX: M43.16 Spondylolisthesis, lumbar region (principal); J44.9 Chronic obstructive pulmonary disease, unspecified; R49.0 Dysphonia; N18.30 Chronic kidney disease, stage 3 unspecified; N52.8 Other male erectile dysfunction; Z72.0 Tobacco use
CPT/HCPCS: 71046; 72110

== ENCOUNTER → 2021-01-25 | Outpatient (CLI) | payer MEDICARE ==
[2021-01-25 10:35] LABS: CREATININE SERUM 1.36 MG/DL (0.60-1.30)
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
== END ==
LOC: RAD 09:58
PROVIDERS: ATTEND Otolaryngology Otolaryngology/Facial Plastic Surgery
DX: J38.01 Paralysis of vocal cords and larynx, unilateral (principal); F17.200 Nicotine dependence, unspecified, uncomplicated; Z86.79 Personal history of other diseases of the circulatory system; Z87.828 Personal history of other (healed) physical injury and trauma; Z98.890 Other specified postprocedural states
CPT/HCPCS: 36415; 70470; 70491; 82565; 84520

== ENCOUNTER → 2021-01-25 | Outpatient (CLI) | payer MEDICARE ==
[~2021-01-25] MED LIST changes: +CATHETER FLUSH 10 ML SYR IV PRN; +HOLD METFORMIN - RECEIVED CONTRAST 20 ML VIAL IV SCH; +IOHEXOL 350 MG/ML 100 ML (OMNIPAQUE 350) VIAL IV ONE; +NS 100 ML (IVPB) BAG IV ONE
[2021-01-25 10:39] LABS: CREATININE SERUM 1.36 MG/DL (0.60-1.30)
--- NOTE | 2021-01-25 13:12 | Diagnostic Imaging Report ---
EXAMINATION: CT chest with intravenous contrast. TECHNIQUE: Multiple contiguous axial images were obtained through the chest after the uneventful administration of intravenous contrast. All CT scans use one or more of the following dose optimizing techniques: automated exposure control, MA and/or KvP adjustment based on patient size and exam type or iterative reconstruction. HISTORY: COPD. COMPARISON: 09/14/2020 FINDINGS: There is no edema or pneumonia. No pleural effusion. No pneumothorax. No suspicious nodules. There is moderate upper lobe predominant emphysema. There is no axillary or supraclavicular lymphadenopathy. There is no mediastinal lymphadenopathy. Esophagus is dilated and fluid-filled. Heart size is normal. There are severe coronary artery calcifications. No pericardial effusion. Aorta is normal in caliber. Limited views of the upper abdomen show changes of cholecystectomy. There are no suspicious osseous lesions. IMPRESSION: 1. Moderate upper lobe predominant emphysema, similar to prior exam. Dictated by: Dictated on workstation # [id number]
== END ==
LOC: RAD 09:53
PROVIDERS: ATTEND Nurse Practitioner Family
DX: J43.9 Emphysema, unspecified (principal)
CPT/HCPCS: 36415; 71260; 82565; 84520

== ENCOUNTER 2021-04-07 10:04 | Emergency (ER) | payer MEDICARE ==
[~2021-04-07] VITALS: Ht 180.3 cm; Wt 93.4 kg
[~2021-04-07 10:04] MED LIST changes: -CATHETER FLUSH 10 ML SYR IV PRN; -HOLD METFORMIN - RECEIVED CONTRAST 20 ML VIAL IV SCH; -IOHEXOL 350 MG/ML 100 ML (OMNIPAQUE 350) VIAL IV ONE; +LANS15CA18 PO; -LANS15CA21 PO; -NS 100 ML (IVPB) BAG IV ONE
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
[2021-04-07 11:13] LABS: BILIRUBIN,URINE NEGATIVE (NEGATIVE); CLARITY,URINE CLEAR; COLOR,URINE YELLOW; GLUCOSE, URINE (UA) NEGATIVE (NEGATIVE); KETONES,URINE TRACE (NEGATIVE); LEUKOCYTE ESTERASE ,URINE NEGATIVE (NEGATIVE); NITRITE,URINE NEGATIVE (NEGATIVE); PH,URINE 5.5 (5-9); PROTEIN,URINE NEGATIVE (NEGATIVE)
[2021-04-07 11:24] LABS: BACTERIA,URINE NEGATIVE /HPF; RBC,URINE 25-50 /HPF; WBC,URINE 0-2 /HPF
[2021-04-07 11:29] LABS: BASOPHILS % (AUTO) 0 % (0-10); EOSINOPHILS # (AUTO) 0.1 10^3/uL (0.0-0.3); EOSINOPHILS % (AUTO) 1 % (0-10); HEMATOCRIT 37 % (40-54); HEMOGLOBIN 12.3 g/dL (13.3-17.7); LYMPHOCYTES # (AUTO) 0.8 10^3/uL (1.0-4.0); LYMPHOCYTES % (AUTO) 7 % (12-44); MEAN CORPUSCULAR HEMOGLOBIN 34 pg (25-34); MEAN CORPUSCULAR HGB CONC 33 g/dL (32-36); MEAN CORPUSCULAR VOLUME 104 fL (80-99); MEAN PLATELET VOLUME 9.1 fL (9.0-12.2); MONOCYTES # (AUTO) 0.9 10^3/uL (0.0-1.0); MONOCYTES % (AUTO) 8 % (0-12); NEUTROPHILS # (AUTO) 9.8 10^3/uL (1.8-7.8); NEUTROPHILS % (AUTO) 84 % (42-75); PLATELET COUNT 247 10^3/uL (130-400); WHITE BLOOD COUNT 11.7 10^3/uL (4.3-11.0)
[2021-04-07 11:42] LABS: BAND NEUTROPHILS 0 %; BASOPHILS % (MANUAL) 0 %; EOSINOPHILS % (MANUAL) 0 %; LYMPHOCYTES % (MANUAL) 10 %; MONOCYTES % (MANUAL) 7 %; NEUTROPHILS % (MANUAL) 83 %; RBC MORPH NORMAL
[2021-04-07 11:44] LABS: ALBUMIN 3.4 GM/DL (3.2-4.5)
[2021-04-07 11:45] LABS: CHLORIDE 102 MMOL/L (98-107); SODIUM 134 MMOL/L (135-145)
[2021-04-07 11:46] LABS: CALCIUM 9.4 MG/DL (8.5-10.1)
[2021-04-07 11:47] LABS: GLUCOSE 105 MG/DL (70-105); TOTAL PROTEIN 7.1 GM/DL (6.4-8.2)
[2021-04-07 11:48] LABS: CARBON DIOXIDE 23 MMOL/L (21-32)
[2021-04-07 11:49] LABS: BILIRUBIN,TOTAL 0.9 MG/DL (0.1-1.0)
[2021-04-07 11:50] LABS: ALKALINE PHOSPHATASE 84 U/L (40-136)
[2021-04-07 11:51] LABS: CREATININE SERUM 1.34 MG/DL (0.60-1.30); GFR ESTIMATED 52
[2021-04-07 11:52] LABS: BUN/CREATININE RATIO 14
[2021-04-07 11:54] LABS: ALANINE AMINOTRANSFERASE 18 U/L (0-55); MAGNESIUM 1.6 MG/DL (1.6-2.4)
[2021-04-07 12:15] LABS: FREE T4 (FREE THYROXINE) 1.21 NG/DL (0.70-1.48)
--- NOTE | 2021-04-07 12:22 | Diagnostic Imaging Report ---
EXAMINATION: Chest 2 view HISTORY: Cough, SOA COMPARISON: 11/25/2020 FINDINGS: Heart size and pulmonary vasculature are stable. There are patchy interstitial opacities within the upper lungs and lung bases. No pleural effusion or pneumothorax. Degenerative changes of the thoracic spine. Osseous structures are otherwise intact. Multilevel chronic thoracic compression deformities. IMPRESSION: 1. Patchy interstitial opacities within the upper and lower lungs which can be seen with pulmonary edema or atypical infection. Dictated by: Dictated on workstation # [id number]
[2021-04-07] MEDS ORDERED: CEFEPIME INJECTION 2,000 MG in WATER (STERILE) FOR INJECTION 20 ML IV ONE (12:45)
[2021-04-07] MEDS ORDERED: NS IV 500 ML 500 ML IV ONE (13:15)
[2021-04-07] MEDS ORDERED: LEVO750T39 PO (13:26)
[2021-04-07 14:05] VITALS: BP 109/66
== END 2021-04-07 14:05 | disposition home or self-care (01) ==
LOC: EDUNIT# 10:04 → ER 10:09
DX: J18.9 Pneumonia, unspecified organism (principal); R42 Dizziness and giddiness; I10 Essential (primary) hypertension; E11.9 Type 2 diabetes mellitus without complications; J43.9 Emphysema, unspecified; G47.30 Sleep apnea, unspecified; E78.00 Pure hypercholesterolemia, unspecified; I25.10 Atherosclerotic heart disease of native coronary artery without angina pectoris; K21.9 Gastro-esophageal reflux disease without esophagitis; K59.09 Other constipation; G89.29 Other chronic pain; M54.9 Dorsalgia, unspecified; M81.0 Age-related osteoporosis without current pathological fracture; E03.9 Hypothyroidism, unspecified; F32.9 Major depressive disorder, single episode, unspecified; Z99.89 Dependence on other enabling machines and devices; Z79.82 Long term (current) use of aspirin; Z79.51 Long term (current) use of inhaled steroids; Z79.890 Hormone replacement therapy; Z79.899 Other long term (current) drug therapy; Z20.822 Contact with and (suspected) exposure to COVID-19
CPT/HCPCS: 36415; 71046; 80053; 81000; 83605; 83735; 83880; 84145; 84439; 84443; 84484; 85007; 85027; 86141; 87040; 87636; 93005; 93041; 96374

== ENCOUNTER 2021-04-20 17:21 | Emergency (ER) | payer MEDICARE ==
[~2021-04-20] VITALS: Ht 180.3 cm; Wt 80.0 kg
[2021-04-20 17:59] LABS: BASOPHILS # (AUTO) 0.1 10^3/uL (0.0-0.1); BASOPHILS % (AUTO) 1 % (0-10); EOSINOPHILS # (AUTO) 0.2 10^3/uL (0.0-0.3); EOSINOPHILS % (AUTO) 2 % (0-10); HEMATOCRIT 38 % (40-54); HEMOGLOBIN 12.5 g/dL (13.3-17.7); LYMPHOCYTES # (AUTO) 1.2 10^3/uL (1.0-4.0); LYMPHOCYTES % (AUTO) 16 % (12-44); MEAN CORPUSCULAR HEMOGLOBIN 34 pg (25-34); MEAN CORPUSCULAR HGB CONC 33 g/dL (32-36); MEAN CORPUSCULAR VOLUME 102 fL (80-99); MEAN PLATELET VOLUME 8.9 fL (9.0-12.2); MONOCYTES # (AUTO) 0.5 10^3/uL (0.0-1.0); MONOCYTES % (AUTO) 6 % (0-12); NEUTROPHILS % (AUTO) 76 % (42-75); PLATELET COUNT 323 10^3/uL (130-400); WHITE BLOOD COUNT 7.9 10^3/uL (4.3-11.0)
[2021-04-20 18:00] LABS: BILIRUBIN,URINE NEGATIVE (NEGATIVE); CLARITY,URINE CLEAR; COLOR,URINE YELLOW; GLUCOSE, URINE (UA) NEGATIVE (NEGATIVE); KETONES,URINE NEGATIVE (NEGATIVE); LEUKOCYTE ESTERASE ,URINE NEGATIVE (NEGATIVE); NITRITE,URINE NEGATIVE (NEGATIVE); PROTEIN,URINE NEGATIVE (NEGATIVE)
[2021-04-20 18:06] LABS: BACTERIA,URINE TRACE /HPF; SQUAMOUS EPITHELIAL CELL,UR 0-2 /HPF
[2021-04-20 18:08] LABS: ALBUMIN 3.4 GM/DL (3.2-4.5)
[2021-04-20 18:09] LABS: POTASSIUM 4.1 MMOL/L (3.6-5.0)
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
[2021-04-20 18:11] LABS: TOTAL PROTEIN 7.3 GM/DL (6.4-8.2)
[2021-04-20 18:13] LABS: BILIRUBIN,TOTAL 0.4 MG/DL (0.1-1.0)
[2021-04-20 18:15] LABS: CREATININE SERUM 1.36 MG/DL (0.60-1.30)
[2021-04-20] MEDS ORDERED: NS IV 1000 ML 1,000 ML IV SCH (18:15)
[2021-04-20] MEDS ORDERED: PIPERACILLIN SODIUM/TAZOBACTAM 4.5 GM in NS (IVPB) 100 ML IV ONE (18:15)
[2021-04-20] MEDS ORDERED: cefTRIAXone 1,000 MG in WATER (STERILE) FOR INJECTION 10 ML IV ONE (18:15)
[2021-04-20] MEDS ORDERED: AZITHROMYCIN INJECTION 500 MG in NS (IVPB) 250 ML IV ONE (18:15)
--- NOTE | 2021-04-20 19:17 | Diagnostic Imaging Report ---
INDICATION: Shortness of breath and cough. EXAMINATION: Frontal chest was obtained at 7:14 p.m. COMPARISON: 04/07/2021. FINDINGS: The heart is mildly enlarged. There is mild central vascular congestion with chronic appearing increased interstitial markings. There is no new consolidation, pneumothorax or pleural fluid. IMPRESSION: Chronic changes as described above with similar appearance to 04/07/2021. There is no new abnormality. Dictated by: Dictated on workstation # [id number]
--- NOTE | 2021-04-20 19:18 | Diagnostic Imaging Report ---
PROCEDURE: CT head and CT cervical spine without contrast. TECHNIQUE: Multiple contiguous axial images were obtained through the brain and cervical spine without the use of intravenous contrast. Sagittal and coronal reformations through the cervical spine were then performed. Auto Exposure Controls were utilized during the CT exam to meet ALARA standards for radiation dose reduction. INDICATION: Trauma, fall. Altered mental status COMPARISON: 01/25/2021. FINDINGS: Head: No intracranial hyperdense hemorrhage or space-occupying mass. Stable encephalomalacia in the bilateral frontal regions, greater on the right with overlying bifrontal craniotomies. Defects within the outer table of the bilateral frontal sinuses with associated chronic opacifications are unchanged. No hydrocephalus. Basilar cisterns are widely patent. No acute abnormality is appreciated. Bilateral maxillary antrectomies. Cervical spine: No acute fracture or traumatic malalignment in the cervical spine. Degenerative straightening is present. No high-grade spinal stenosis. Degenerative disc disease causes [id number] spinal stenosis that is most advanced at C5-C6. No cervical lymphadenopathy. Lung apices are clear. IMPRESSION: 1. No acute intracranial process by CT. Stable postoperative changes in the bilateral frontal region. 2. No acute fracture or traumatic malalignment in the cervical spine. Dictated by: Dictated on workstation # [id number]
[2021-04-20 20:22] VITALS: BP 118/72
== END 2021-04-20 20:01 | disposition home or self-care (01) ==
LOC: EDUNIT# 17:21 → ER 17:25
DX: R53.81 Other malaise (principal); R29.6 Repeated falls; G47.30 Sleep apnea, unspecified; J44.9 Chronic obstructive pulmonary disease, unspecified; I10 Essential (primary) hypertension; E03.9 Hypothyroidism, unspecified; E11.9 Type 2 diabetes mellitus without complications; K21.9 Gastro-esophageal reflux disease without esophagitis; E78.00 Pure hypercholesterolemia, unspecified; I25.10 Atherosclerotic heart disease of native coronary artery without angina pectoris; H40.9 Unspecified glaucoma; F17.210 Nicotine dependence, cigarettes, uncomplicated; Z86.73 Personal history of transient ischemic attack (TIA), and cerebral infarction without residual deficits; Z79.82 Long term (current) use of aspirin; Z79.01 Long term (current) use of anticoagulants; Z79.890 Hormone replacement therapy; Z79.899 Other long term (current) drug therapy
CPT/HCPCS: 36415; 70450; 71045; 72125; 80053; 81000; 85025; 86141; 96374; 96375

== ENCOUNTER → 2021-05-08 | Outpatient (CLI) | payer OTHER, MEDICARE ==
[2021-05-08 19:58] LABS: BILIRUBIN,URINE NEGATIVE (NEGATIVE); CLARITY,URINE CLEAR; COLOR,URINE YELLOW; GLUCOSE, URINE (UA) NEGATIVE (NEGATIVE); KETONES,URINE NEGATIVE (NEGATIVE); LEUKOCYTE ESTERASE ,URINE TRACE (NEGATIVE); NITRITE,URINE NEGATIVE (NEGATIVE); PROTEIN,URINE NEGATIVE (NEGATIVE)
[2021-05-08 20:14] LABS: BACTERIA,URINE NEGATIVE /HPF
== END ==
LOC: LABNPT 19:54
PROVIDERS: ATTEND Internal Medicine
DX: N39.0 Urinary tract infection, site not specified (principal)
CPT/HCPCS: 81000